=== PATIENT | female | born 1965 | race Caucasian/White ===

== ENCOUNTER 2017-03-06 14:18 | Emergency (ER) | payer OTHER ==
[2017-03-06 14:30] VITALS: TEMP 98.1
[2017-03-06] MEDS ORDERED: HYDROmorphone 1 MG/ML 1 ML SYRINGE IVP STA (15:26)
[2017-03-06 15:36] VITALS: RESP 18
[2017-03-06 15:59] LABS: Basophils % (A) 1 %; CH 32.7; Eosinophils % (A) 2 %; HCT 38.7 % (34.0-46.0); HDW 2.59; Luc # (Auto) 0.05; Luc % (Auto) 3; Lymphocytes # (A) 1.2 k/uL (1.0-4.8); Lymphocytes % (A) 68 %; MCH 32.6 pg (25.0-35.0); MCHC 33.7 g/dL (31.0-37.0); MCV 96.8 fL (80.0-100.0); Mean Platelet Volume 6.9; Monocytes # (A) 0.1 k/uL (0-1.0); Monocytes % (A) 4 %; Neutrophils # (A) 0.4 k/uL (1.3-7.7); Neutrophils % (A) 23 %; RDW 15.8 % (11.5-15.5); WBC (Perox) 1.78
[2017-03-06 16:05] LABS: ALT 25 U/L (9-52); AST 17 U/L (14-36); Alkaline Phosphatase 43 U/L (38-126); Amylase 38 U/L (30-110); Anion Gap 6 mmol/L; Blood Urea Nitrogen 16 mg/dL (7-17); Calcium 8.9 mg/dL (8.4-10.2); Carbon Dioxide 25 mmol/L (22-30); Chloride 110 mmol/L (98-107); Glucose 89 mg/dL (74-99); Non-African American GFR(MDRD) >60 (>60 ml/min/1.73 sqM); Sodium 141 mmol/L (137-145); Total Bilirubin 0.3 mg/dL (0.2-1.3); WBC 1.7 k/uL (3.8-10.6)
--- NOTE | 2017-03-06 16:15 | ED ---
Female Urogenital HPI <Todd Coates - Last Filed: 03/06/17 17:54> - General Source: patient Mode of arrival: wheelchair Limitations: no limitations <Shaniqua Evans - Last Filed: 03/06/17 23:33> - General Chief complaint: Vaginal Bleeding Stated complaint: vaginal bleeding Time Seen by Provider: 03/06/17 15:03 - History of Present Illness Initial comments: 51-year-old female patient presents to the emergency department today for evaluation of malaise, general body aches, and vaginal bleeding. Patient states that she has a history of myelodysplasia and leukemia. She states that she generally gets Neulasta injections every 2 weeks however recently moved to the area from [facility] and has been unable to get her shot for the last 6 weeks. She states that 2 days ago she began having lower abdominal cramping and pain and developed vaginal bleeding. The patient states that the vaginal bleeding has increased and seems to be very heavy. States she is soaking a pad every couple of hours. She denies any passage of clots with this. She is also having left lower pelvic pain that radiates to her back. She states that her last period was over a year ago. She states that she has had a ultrasound within the last couple of months that was ordered by a physician at the [facility]. She states that she had not heard back regarding the results of this so she assumed everything was fine. Patient states that she is also having general body pain. She states that her skin is tender to touch. She states that she generally starts to feel like this when her "counts" get low. Patient states that she also takes [place] chronically and has been out of this for the last 3 weeks. Patient states she was also have an appointment with Dr. Katz to get her Neulasta shots resumed however she missed that appointment. Patient denies any recent fever, chills, shortness breath, chest pain, nausea, vomiting , diarrhea, constipation, numbness, tingling, headache, visual changes, hematuria, dysuria, urinary frequency, urinary urgency, or any other complaints. (Shaniqua Evans) - Related Data Home Medications Medication Instructions Recorded Confirmed Ferrous Sulfate [Feosol] 325 mg PO DAILY 03/06/17 03/06/17 Hydrocodone/Acetaminophen [[place] 1 tab PO BID 03/06/17 03/06/17 7.5-325] Levothyroxine Sodium [Synthroid] 100 mcg PO DAILY 03/06/17 03/06/17 Pegfilgrastim [Neulasta] 6 mg SQ Q14D 03/06/17 03/06/17 Previous Rx's Medication Instructions Recorded Ferrous Sulfate [Feosol] 325 mg PO DAILY #15 tab 03/06/17 Hydrocodone/Acetaminophen [[place] 1 tab PO Q6HR PRN #12 tab 03/06/17 5-325] Allergies Allergy/AdvReac Type Severity Reaction Status Date / Time Penicillins Allergy Unknown Verified 03/06/17 14:43 Review of Systems ROS Other: All systems not noted in ROS Statement are negative. <Todd Coates - Last Filed: 03/06/17 17:54> ROS Other: All systems not noted in ROS Statement are negative. <Shaniqua Evans - Last Filed: 03/06/17 23:33> ROS Statement: Those systems with pertinent positive or pertinent negative responses have been documented in the HPI. Past Medical History Past Medical History: Cancer History of Any Multi-Drug Resistant Organisms: None Reported Additional Past Surgical History / Comment(s): ectopic , neck surgery Past Psychological History: No Psychological Hx Reported Smoking Status: Current every day smoker Past Alcohol Use History: Occasional Past Drug Use History: Marijuana <Shaniqua Evans - Last Filed: 03/06/17 23:33> General Exam Limitations: no limitations General appearance: alert, in no apparent distress, other (This is a well- developed, well-nourished adult female patient no acute distress. Vital signs upon presentation her temperature 98.1F, pulse 85, respirations 20, blood pressure 127/86, pulse ox 100% on room air.) Eye exam: Present: normal appearance, PERRL, EOMI. Absent: scleral icterus, conjunctival injection, periorbital swelling Respiratory exam: Present: normal lung sounds bilaterally. Absent: respiratory distress, wheezes, rales, rhonchi, stridor Cardiovascular Exam: Present: regular rate, normal rhythm, normal heart sounds. Absent: systolic murmur, diastolic murmur, rubs, gallop, clicks GI/Abdominal exam: Present: soft, tenderness (Left lower pelvic tenderness), normal bowel sounds. Absent: distended, guarding, rebound, rigid External exam: Present: normal external exam. Absent: erythema, swelling, lacerations Speculum exam: Present: vaginal bleeding (Moderate amount of dark red vaginal bleeding). Absent: normal speculum exam, erythema, laceration By manual exam: Present: adnexal tenderness (Left adnexal tenderness), uterine enlargement. Absent: normal by manual exam, cervical motion tenderness Neurological exam: Present: alert, oriented X3, CN II-XII intact Psychiatric exam: Present: normal affect, normal mood Skin exam: Present: warm, dry, intact, normal color. Absent: rash <Shaniqua Evans - Last Filed: 03/06/17 23:33> Course <Todd Coates - Last Filed: 03/06/17 17:54> <Shaniqua Evans - Last Filed: 03/06/17 23:33> Vital Signs 03/06/17 03/06/17 03/06/17 14:26 15:30 17:00 Temperature 98.1 F Pulse Rate 85 68 63 Respiratory 20 18 18 Rate Blood Pressure 127/86 131/68 145/90 O2 Sat by Pulse 100 100 99 Oximetry - Reevaluation(s) Reevaluation #1: 03/06/17 17:54 patient reevaluated by myself, Dr. Coates. Patient is resting comfortably in bed. Abdomen is soft with minimal suprapubic tenderness. Patient states she has not had her injection for 6 weeks and would like an injection of Neupogen or Neulasta. Patient states she has been bleeding almost one pad per hour. Since last menses was approximately a year ago. Vital signs are stable. Hemoglobin is stable. Case was discussed in detail with Dr. Escobedo who does recommend 300 mg of Neupogen. He states he can follow-up with the patient and also recommends [facility] follow-up. (Todd Coates) Medical Decision Making - Lab Data Result diagrams: 03/06/17 15:30 03/06/17 15:30 <Todd Coates - Last Filed: 03/06/17 17:54> - Lab Data Result diagrams: 03/06/17 15:30 03/06/17 15:30 - Radiology Data Radiology results: report reviewed, image reviewed <Shaniqua Evans - Last Filed: 03/06/17 23:33> - Medical Decision Making 51-year-old female patient presented for evaluation today for vaginal bleeding, general malaise, general body aches. Physical exam did reveal moderate amount of dark red vaginal bleeding however was otherwise unremarkable. Vital signs were within normal limits. Labs were reviewed initially and did show a white blood cell count of 1.7. Ultrasound did show a large uterine fibroid in the fundus and a thickened endometrium. Patient has not had her Neulasta injection for the last [address] Coates did speak to who suggested ordering a an injection of Neupogen 300 g, and to have her follow-up in the office. Patient will be discharged home at this time to follow up with [facility] as soon as possible. She is instructed to return here immediately if she develops any new, worsening, or concerning symptoms. She verbalized understanding and agreed with this plan. Note: 2300 03/06/2017 just prior to discharge patient did request having her thyroid levels checked. Did add on a TSH with reflex to T4. When reviewing the chart I did find the patient had an elevated TSH at 91.300 and a decreased free T4 at 0.37. Did call patient and inform her of these results. She is instructed to call tomorrow to get an appointment with her primary care physician. If she is unable to do so she is instructed to return here. She is instructed to return here immediately for any new, worsening, or concerning symptoms. She verbalizes understanding and agrees with this plan. (Shaniqua Evans) - Lab Data Lab Results 03/06/17 03/06/17 03/06/17 Range/Units 15:30 15:30 15:30 WBC 1.7 L* (3.8-10.6) k/uL RBC 4.00 (3.80-5.40) m/uL Hgb 13.0 (11.4-16.0) gm/dL Hct 38.7 (34.0-46.0) % MCV 96.8 (80.0-100.0) fL MCH 32.6 (25.0-35.0) pg MCHC 33.7 (31.0-37.0) g/dL RDW 15.8 H (11.5-15.5) % Plt Count 217 (150-450) k/uL Neutrophils % 23 % Lymphocytes % 68 % Monocytes % 4 % Eosinophils % 2 % Basophils % 1 % Neutrophils # 0.4 L (1.3-7.7) k/uL Lymphocytes # 1.2 (1.0-4.8) k/uL Monocytes # 0.1 (0-1.0) k/uL Eosinophils # 0.0 (0-0.7) k/uL Basophils # 0.0 (0-0.2) k/uL Sodium 141 (137-145) mmol/L Potassium 4.0 (3.5-5.1) mmol/L Chloride 110 H (98-107) mmol/L Carbon Dioxide 25 (22-30) mmol/L Anion Gap 6 mmol/L BUN 16 (7-17) mg/dL Creatinine 0.89 (0.52-1.04) mg/dL Est GFR (MDRD) Af Amer >60 (>60 ml/min/1.73 sqM) Est GFR (MDRD) Non-Af >60 (>60 ml/min/1.73 sqM) Glucose 89 (74-99) mg/dL Calcium 8.9 (8.4-10.2) mg/dL Total Bilirubin 0.3 (0.2-1.3) mg/dL AST 17 (14-36) U/L ALT 25 (9-52) U/L Alkaline Phosphatase 43 (38-126) U/L Total Protein 7.0 (6.3-8.2) g/dL Albumin 3.9 (3.5-5.0) g/dL Amylase 38 (30-110) U/L Lipase 76 (23-300) U/L TSH (0.465-4.680) mIU/L Free T4 (0.78-2.19) ng/dL Blood Type A Negative Blood Type Recheck CABO Indicated Antibody Screen NEGATIVE Spec Expiration Date 03/06/2017 03/06/17 Range/Units 15:30 WBC (3.8-10.6) k/uL RBC (3.80-5.40) m/uL Hgb (11.4-16.0) gm/dL Hct (34.0-46.0) % MCV (80.0-100.0) fL MCH (25.0-35.0) pg MCHC (31.0-37.0) g/dL RDW (11.5-15.5) % Plt Count (150-450) k/uL Neutrophils % % Lymphocytes % % Monocytes % % Eosinophils % % Basophils % % Neutrophils # (1.3-7.7) k/uL Lymphocytes # (1.0-4.8) k/uL Monocytes # (0-1.0) k/uL Eosinophils # (0-0.7) k/uL Basophils # (0-0.2) k/uL Sodium (137-145) mmol/L Potassium (3.5-5.1) mmol/L Chloride (98-107) mmol/L Carbon Dioxide (22-30) mmol/L Anion Gap mmol/L BUN (7-17) mg/dL Creatinine (0.52-1.04) mg/dL Est GFR (MDRD) Af Amer (>60 ml/min/1.73 sqM) Est GFR (MDRD) Non-Af (>60 ml/min/1.73 sqM) Glucose (74-99) mg/dL Calcium (8.4-10.2) mg/dL Total Bilirubin (0.2-1.3) mg/dL AST (14-36) U/L ALT (9-52) U/L Alkaline Phosphatase (38-126) U/L Total Protein (6.3-8.2) g/dL Albumin (3.5-5.0) g/dL Amylase (30-110) U/L Lipase (23-300) U/L TSH 91.300 H (0.465-4.680) mIU/L Free T4 0.37 L (0.78-2.19) ng/dL Blood Type Blood Type Recheck Antibody Screen Spec Expiration Date - Radiology Data Transvaginal ultrasound was obtained, the report was reviewed in its entirety, impression by Dr. Amador shows large posterior uterine fundal fibroid. Prominent endometrium without evidence of endometrial mass. No free fluid. No evidence of ovarian torsion. (Shaniqua Evans) Disposition <Todd Coates - Last Filed: 03/06/17 17:54> Time of Disposition: 18:25 <Shaniqua Evans - Last Filed: 03/06/17 23:33> Clinical Impression: Dysfunctional uterine bleeding, Uterine fibroid, Leukopenia Disposition: HOME SELF-CARE Condition: Good Instructions: Dysfunctional Uterine Bleeding (ED), Uterine Fibroids (ED), Neutropenia (ED) Additional Instructions: Making appointment with Dr. Katz. Follow up with [facility] as soon as possible. Follow up with your primary care physician for any further prescription refills. Return here immediately for any new, worsening, or concerning symptoms. Prescriptions: Ferrous Sulfate [Feosol] 325 mg PO DAILY #15 tab Hydrocodone/Acetaminophen [[place] 5-325] 1 tab PO Q6HR PRN #12 tab PRN Reason: Pain Referrals: None,Stated [Primary Care Provider] - 1-2 days
--- NOTE | 2017-03-06 16:57 | US ---
EXAMINATION TYPE: US transvaginal DATE OF EXAM: 03/06/2017 COMPARISON: NONE CLINICAL HISTORY: Pain. Pt states heavy vaginal bleeding that started today/ pt states LMP: 1 year ag o TECHNIQUE: Transvaginal (TV) EXAM MEASUREMENTS: Uterus: 12.7 x 7.8 x 6.3 cm Endometrial Stripe: 1.5 cm Right Ovary: 2.1 x 2.1 x 1.7 cm Left Ovary: 4.3 x 2.4 x 2.5 cm 1. Uterus: Anteverted Nabothian cysts in cervix, Large, probable fibroid posterior uterine fundus= 5.6 x 4.7 x 5.1 cm 2. Endometrium: Thickened for pt's symptoms and history 3. Right Ovary: wnl 4. Left Ovary: Cyst= 2.4 x 2.1 x 2.1 cm Spectral, color and waveform doppler imaging shows good arterial and venous flow within the ovaries ; there is no evidence for ovarian torsion. 5. Bilateral Adnexa: wnl 6. Posterior cul-de-sac: wnl IMPRESSION: Large posterior uterine fundal fibroid. Prominent endometrium without evidence of endomet rial mass. No free fluid. No evidence of ovarian torsion.
[2017-03-06 17:44] VITALS: BP 145/90; PULSE 63
[2017-03-06] MEDS ORDERED: FILGRASTIM-SNDZ 300 MCG/0.5 ML SYRINGE SQ STA (18:02)
== END 2017-03-06 18:38 | disposition home or self-care (01) ==
LOC: EC 14:18
DX: N93.8 Other specified abnormal uterine and vaginal bleeding (principal); D25.9 Leiomyoma of uterus, unspecified; D72.819 Decreased white blood cell count, unspecified; R53.81 Other malaise; M79.1 Myalgia; F17.200 Nicotine dependence, unspecified, uncomplicated; Z85.89 Personal history of malignant neoplasm of other organs and systems; Z85.6 Personal history of leukemia; Z79.899 Other long term (current) drug therapy; Z88.0 Allergy status to penicillin
CPT/HCPCS: 36415; 86900; 86901; 84439; 80053; 84443; 82150; 83690; 85025; 86850; 93975; 76830; 99284; 96374; 96372; J1170; Q5101

== ENCOUNTER 2017-06-01 14:02 | Observation (INO) | payer OTHER ==
[2017-06-01] MEDS ORDERED: ACETAMINOPHEN TAB 500 MG TAB PO STA (14:26)
[2017-06-01] MEDS ORDERED: SODIUM CHLORIDE 0.9% 1,000 ML IV STA (14:26)
--- NOTE | 2017-06-01 14:33 | ED ---
General Adult HPI - General Chief complaint: Recheck/Abnormal Lab/Rx Stated complaint: Weakness Time Seen by Provider: 06/01/17 14:17 Source: patient, RN notes reviewed Mode of arrival: wheelchair Limitations: no limitations - History of Present Illness Initial comments: 51-year-old female presents for evaluation of chills. Patient has history of neutropenia. She is currently on the last. She is not currently on chemotherapy, she does have history of uterine mass which has not been specified at this point. She is complaining of some dark smelly urine. She also complains of some mild lower abdominal pain. No vomiting. No cough. No URI symptoms. Patient feels feverish although she has not measured temperature at home. She also complains of bilateral lower extremity soreness and fatigue. - Related Data Home Medications Medication Instructions Recorded Confirmed Ferrous Sulfate [Feosol] 325 mg PO DAILY 03/06/17 06/01/17 Levothyroxine Sodium [Synthroid] 100 mcg PO DAILY 03/06/17 06/01/17 Fluconazole [Diflucan] 100 mg PO DAILY 06/01/17 06/01/17 Hydrocodone/Acetaminophen [[place] 1 tab PO BID PRN 06/01/17 06/01/17 5-325] Levofloxacin [Levaquin] 500 mg PO DAILY 06/01/17 06/01/17 Magnesium Oxide [Mag-Ox] 400 mg PO DAILY 06/01/17 06/01/17 Multivitamins, Thera [Multivitamin 1 tab PO DAILY 06/01/17 06/01/17 (formulary)] Allergies Allergy/AdvReac Type Severity Reaction Status Date / Time Penicillins Allergy Unknown Verified 06/01/17 14:32 Review of Systems ROS Statement: Those systems with pertinent positive or pertinent negative responses have been documented in the HPI. ROS Other: All systems not noted in ROS Statement are negative. Past Medical History Past Medical History: Cancer, Thyroid Disorder Additional Past Medical History / Comment(s): neutropenia History of Any Multi-Drug Resistant Organisms: None Reported Additional Past Surgical History / Comment(s): ectopic , neck surgery Past Psychological History: No Psychological Hx Reported Smoking Status: Current every day smoker Past Alcohol Use History: Occasional Past Drug Use History: None Reported General Exam Limitations: no limitations General appearance: alert, in no apparent distress Head exam: Present: atraumatic, normocephalic Eye exam: Present: normal appearance, PERRL ENT exam: Present: mucous membranes moist Neck exam: Present: normal inspection. Absent: tenderness, meningismus Respiratory exam: Present: normal lung sounds bilaterally, respiratory distress Cardiovascular Exam: Present: regular rate, normal rhythm GI/Abdominal exam: Present: soft, tenderness (Mild lower abdominal tenderness to palpation). Absent: distended Extremities exam: Present: normal inspection, normal capillary refill. Absent: pedal edema Neurological exam: Present: alert, oriented X3, CN II-XII intact Psychiatric exam: Present: normal affect, normal mood Skin exam: Present: warm, dry, intact. Absent: cyanosis, diaphoretic Course Vital Signs 06/01/17 14:04 Temperature 97.2 F L Pulse Rate 86 Respiratory 18 Rate Blood Pressure 146/81 O2 Sat by Pulse 100 Oximetry EKG Findings - EKG Comments: EKG Findings:: EKG shows normal sinus rhythm, ventricular rate 81, NC interval 156, castration 82, QTC 460, no signs of ischemia Medical Decision Making - Medical Decision Making 51-year-old female with history of neutropenia. Patient has subjective fever and chills as well as Jeffry's. Blood pressure and heart rate are stable. She is afebrile here. Chest x-ray negative for focal pneumonia. CBC reveals profound leukopenia, no differential available to assess for neutropenia. Rectal at the normal limits. Lactic acid is normal at 1.8. Influenza negative. Urinalysis is pending. Patient states she had an episode of this in the past. She was admitted for IV antibiotics. 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 She will be admitted for IV antibiotics including Levaquin and vancomycin. Blood cultures and urine cultures are pending. - Lab Data Result diagrams: 06/01/17 14:50 06/01/17 14:50 Lab Results 06/01/17 06/01/17 06/01/17 Range/Units 14:50 14:50 14:50 WBC 0.9 L* (3.8-10.6) k/uL RBC 3.99 (3.80-5.40) m/uL Hgb 13.6 (11.4-16.0) gm/dL Hct 37.9 (34.0-46.0) % MCV 94.9 (80.0-100.0) fL MCH 34.1 (25.0-35.0) pg MCHC 35.9 (31.0-37.0) g/dL RDW 14.4 (11.5-15.5) % Plt Count 252 (150-450) k/uL Differential Comment Sodium 141 (137-145) mmol/L Potassium 4.0 (3.5-5.1) mmol/L Chloride 102 (98-107) mmol/L Carbon Dioxide 23 (22-30) mmol/L Anion Gap 16 mmol/L BUN 11 (7-17) mg/dL Creatinine 0.80 (0.52-1.04) mg/dL Est GFR (MDRD) Af Amer >60 (>60 ml/min/1.73 sqM) Est GFR (MDRD) Non-Af >60 (>60 ml/min/1.73 sqM) Glucose 68 L (74-99) mg/dL Plasma Lactic Acid Denis 1.8 (0.7-2.0) mmol/L Calcium 9.9 (8.4-10.2) mg/dL Total Bilirubin 0.6 (0.2-1.3) mg/dL AST 20 (14-36) U/L ALT 27 (9-52) U/L Alkaline Phosphatase 120 (38-126) U/L Total Protein 8.4 H (6.3-8.2) g/dL Albumin 4.9 (3.5-5.0) g/dL Influenza Type A RNA (Not Detectd) Influenza Type B (PCR) (Not Detectd) 06/01/17 Range/Units 14:58 WBC (3.8-10.6) k/uL RBC (3.80-5.40) m/uL Hgb (11.4-16.0) gm/dL Hct (34.0-46.0) % MCV (80.0-100.0) fL MCH (25.0-35.0) pg MCHC (31.0-37.0) g/dL RDW (11.5-15.5) % Plt Count (150-450) k/uL Differential Comment Sodium (137-145) mmol/L Potassium (3.5-5.1) mmol/L Chloride (98-107) mmol/L Carbon Dioxide (22-30) mmol/L Anion Gap mmol/L BUN (7-17) mg/dL Creatinine (0.52-1.04) mg/dL Est GFR (MDRD) Af Amer (>60 ml/min/1.73 sqM) Est GFR (MDRD) Non-Af (>60 ml/min/1.73 sqM) Glucose (74-99) mg/dL Plasma Lactic Acid Denis (0.7-2.0) mmol/L Calcium (8.4-10.2) mg/dL Total Bilirubin (0.2-1.3) mg/dL AST (14-36) U/L ALT (9-52) U/L Alkaline Phosphatase (38-126) U/L Total Protein (6.3-8.2) g/dL Albumin (3.5-5.0) g/dL Influenza Type A RNA Not Detected (Not Detectd) Influenza Type B (PCR) Not Detected (Not Detectd) Disposition Clinical Impression: Febrile neutropenia Disposition: ADMITTED IP TO [facility] Condition: Stable Referrals: Hayley Harden MD [Primary Care Provider] - 1-2 days Decision to Admit Reason: Admit from EC Decision Date: 06/01/17 Decision Time: 16:23
[2017-06-01 15:11] LABS: ALT 27 U/L (9-52); AST 20 U/L (14-36); Albumin 4.9 g/dL (3.5-5.0); Alkaline Phosphatase 120 U/L (38-126); Anion Gap 16 mmol/L; Blood Urea Nitrogen 11 mg/dL (7-17); Calcium 9.9 mg/dL (8.4-10.2); Carbon Dioxide 23 mmol/L (22-30); Chloride 102 mmol/L (98-107); Glucose 68 mg/dL (74-99); HCT 37.9 % (34.0-46.0); HGB 13.6 gm/dL (11.4-16.0); MCH 34.1 pg (25.0-35.0); MCHC 35.9 g/dL (31.0-37.0); MCV 94.9 fL (80.0-100.0); Mean Platelet Volume 6.8; Platelet Count 252 k/uL (150-450); RBC 3.99 m/uL (3.80-5.40); RDW 14.4 % (11.5-15.5); Sodium 141 mmol/L (137-145); Total Bilirubin 0.6 mg/dL (0.2-1.3); Total Protein 8.4 g/dL (6.3-8.2)
[2017-06-01 15:17] LABS: WBC 0.9 k/uL (3.8-10.6)
--- NOTE | 2017-06-01 15:44 | XR ---
EXAMINATION TYPE: XR chest 2V DATE OF EXAM: 06/01/2017 COMPARISON: None INDICATION: Fever weakness neutropenia smoker TECHNIQUE: Frontal and lateral views of the chest are obtained. FINDINGS: The heart size is normal. The pulmonary vasculature is normal. The lungs are clear. Nipple shadows are evident. IMPRESSION: 1. No acute pulmonary process.
[2017-06-01] MEDS ORDERED: LEVOFLOXACIN 750MG-D5W PMX 750 MG in DEXTROSE/WATER 1 150ML.BAG IVPB STA (15:49)
[2017-06-01] MEDS ORDERED: VANCOMYCIN IV PER PHARMACY 1 EACH MISC MISCELLANE PRN (15:49)
[2017-06-01] MEDS ORDERED: VANCOMYCIN 1,250 MG in SODIUM CHLORIDE 0.9% 250 ML IVPB STA (15:56)
[2017-06-01] MEDS ORDERED: ACETAMINOPHEN TAB 325 MG TAB PO PRN (16:23)
[2017-06-01] MEDS ORDERED: NALOXONE 0.4 MG/ML 1 ML VIAL IV PRN (16:23)
[2017-06-01 17:11] LABS: Glucose,Whole Blood 92 mg/dL (75-99)
[2017-06-01 17:23] VITALS: BMI 20.6
--- NOTE | 2017-06-01 18:54 | P.HPIM ---
History of Present Illness 51-year-old pleasant female with known history of neutropenia possible myelodysplastic syndrome supposed to receive Neulasta last did not receive it because of insurance issues came in with complaints of diarrhea has been going on for sometime much worse since yesterday patient took levofloxacin yesterday because of her mucositis patient was on flucanazole for some time for the mucositis. Patient does have source on the tongue. Although patient was having diarrhea. Diarrhea has gotten much worse since levofloxacin and there was change in smell and consistently and see in color of her diarrhea. Patient this is highly suspicious for C. diff because of which levofloxacin will be held patient was given levofloxacin any are as well patient denied any cough runny nose patient denied any dysuria urease essentially within normal limits chest x-ray did not show any pneumonic process patient will be medically started on oral vancomycin patient is on IV vancomycin as empiric antibiotic for possibly of sepsis secondary to that fever chills patient also complaining of abdominal pain mostly in the epigastric area right upper quadrant area there is some right upper quadrant tenderness because of which I'm obtaining an ultrasound of the abdomen patient may end up needing a CAT scan of the abdomen if ultrasound is negative and if C. diff is negative Review of Systems REVIEW OF SYSTEMS: CONSTITUTIONAL: No fever, no malaise, no fatigue. HEENT: No recent visual problems or hearing problems. Denied any sore throat. CARDIOVASCULAR: No chest pain, orthopnea, PND, no palpitations, no syncope. PULMONARY: No shortness of breath, no cough, no hemoptysis. GASTROINTESTINAL: As mentioned in HPI NEUROLOGICAL: No headaches, no weakness, no numbness. HEMATOLOGICAL: Denies any bleeding or petechiae. GENITOURINARY: Denies any burning micturition, frequency, or urgency. MUSCULOSKELETAL/RHEUMATOLOGICAL: Denies any joint pain, swelling, or any muscle pain. ENDOCRINE: Denies any polyuria or polydipsia. The rest of the 14-point review of systems is negative. Past Medical History Past Medical History: Cancer, Thyroid Disorder Additional Past Medical History / Comment(s): neutropenia, hypothyroidism, myelodisplasia, anemia History of Any Multi-Drug Resistant Organisms: None Reported Additional Past Surgical History / Comment(s): ectopic , neck surgery Past Anesthesia/Blood Transfusion Reactions: No Reported Reaction Smoking Status: Current every day smoker - Past Family History Father Family Medical History: Cancer Medications and Allergies Home Medications Medication Instructions Recorded Confirmed Type Ferrous Sulfate [Feosol] 325 mg PO DAILY 03/06/17 06/01/17 History Levothyroxine Sodium [Synthroid] 100 mcg PO DAILY 03/06/17 06/01/17 History Fluconazole [Diflucan] 100 mg PO DAILY 06/01/17 06/01/17 History Hydrocodone/Acetaminophen [[place] 1 tab PO BID PRN 06/01/17 06/01/17 History 5-325] Levofloxacin [Levaquin] 500 mg PO DAILY 06/01/17 06/01/17 History Magnesium Oxide [Mag-Ox] 400 mg PO DAILY 06/01/17 06/01/17 History Multivitamins, Thera [Multivitamin 1 tab PO DAILY 06/01/17 06/01/17 History (formulary)] Allergies Allergy/AdvReac Type Severity Reaction Status Date / Time Penicillins Allergy Unknown Verified 06/01/17 14:32 Physical Exam Vitals: Vital Signs Temp Pulse Pulse Resp BP BP Pulse Ox 06/01/17 17:51 98.7 F 84 16 132/77 98 06/01/17 16:24 98.2 F 90 16 150/84 98 06/01/17 14:04 97.2 F L 86 18 146/81 100 Intake and Output 06/01/17 06/01/17 06/01/17 06:59 14:59 22:59 Other: Voiding Method Toilet Weight 65.317 kg 65.317 kg Patient Weight 06/02/17 06:59 Weight 65.317 kg PHYSICAL EXAMINATION: GENERAL: The patient is alert and oriented x3, not in any acute distress. Well developed, well nourished. HEENT: Pupils are round and equally reacting to light. EOMI. No scleral icterus. No conjunctival pallor. Normocephalic, atraumatic. No pharyngeal erythema. No thyromegaly. CARDIOVASCULAR: S1 and S2 present. No murmurs, rubs, or gallops. PULMONARY: Chest is clear to auscultation, no wheezing or crackles. ABDOMEN: Patient does have tenderness in the right upper quadrant some diffuse abdominal tenderness, I was unable to assess Way's sign. EXTREMITIES: No cyanosis, clubbing, or pedal edema. NEUROLOGICAL: Gross neurological examination did not reveal any focal deficits. SKIN: No rashes. Results CBC & Chem 7: 06/01/17 14:50 06/01/17 14:50 Labs: Abnormal Lab Results - Last 24 Hours (Table) 06/01/17 06/01/17 Range/Units 14:50 14:50 WBC 0.9 L* (3.8-10.6) k/uL Glucose 68 L (74-99) mg/dL Total Protein 8.4 H (6.3-8.2) g/dL Assessment and Plan Plan: -Diarrhea: There is a high possibility of clostridium distal colitis because of which other antibiotics will be discontinued except for oral vancomycin C. diff testing will be obtained and patient is on IV fluids at 100 mL/h which will be continued. -Right upper quadrant abdominal pain and diffuse abdominal tenderness: Probably secondary to either cholelithiasis, cholecystitis are mostly due to C. diff colitis. If C. diff is negative and if her ultrasound of the right upper quadrant is negative we have to obtain a CAT scan of the abdomen. -Neutropenia: Chronic and patient did not receive her Neulasta as does may require Neulasta and oncology was consulted from ER. -Hypothyroidism continue with levothyroxine -Elevated MCV probably due to myelodysplastic syndrome will obtain a B12 level patient may need B vitamin supplementation for her aphthous ulcerations of the tongue she does have mucositis
[2017-06-01] MEDS: HYDROcodone/APAP 5-325MG 1 EACH TAB PO PRN (19:49)
[2017-06-01] MEDS: FAMOTIDINE 20 MG TAB PO SCH (20:52)
[2017-06-01] MEDS: VANCOMYCIN ORAL SOLUTION 250 MG/5 ML BOTTLE PO SCH (20:53)
[2017-06-01 21:36] VITALS: RESP 18
[2017-06-02] MEDS: VANCOMYCIN ORAL SOLUTION 250 MG/5 ML BOTTLE PO SCH ×3 (00:33→11:16)
[2017-06-02 05:44] VITALS: BP 114/67; PULSE 69; TEMP 97.8
[2017-06-02] MEDS ORDERED: VANCOMYCIN 1,250 MG in SODIUM CHLORIDE 0.9% 250 ML IVPB SCH (06:00)
[2017-06-02] MEDS ORDERED: LEVOTHYROXINE 100 MCG TAB PO SCH (06:30)
--- NOTE | 2017-06-02 08:34 | US ---
EXAMINATION TYPE: US gallbladder DATE OF EXAM: 06/02/2017 COMPARISON: NONE CLINICAL HISTORY: possible cholelithiasis. Abdomen pain, diarrhea EXAM MEASUREMENTS: Liver Length: 17.4 cm Gallbladder Wall: 0.2 cm CBD: 0.4 cm Right Kidney: 10.2 x 4.7 x 4.4 cm Pancreas: visualized portions wnl, tail obscured by overlying midline bowel gas Liver: measures in upper limits of normal at 17.4cm, somewhat course echogenicity Gallbladder: wnl Evidence for sonographic Way's sign: yes CBD: visualized portions wnl, limited by overlying bowel gas Right Kidney: echogenic shadowing focus superior pole = 0.6cm Limited views of the pancreas are normal. Liver size is upper limits of normal. The gallbladder is unremarkable without evidence of cholelithiasis. Gallbladder wall measures 2 mm. T his common hepatic duct measures 4 mm. There is a sonographic Way's sign. There is a 6 mm, nonobstructing calculus in the upper pole of the right kidney. IMPRESSION: NONOBSTRUCTING RIGHT-SIDED NEPHROLITHIASIS.
[2017-06-02] MEDS: HYDROcodone/APAP 5-325MG 1 EACH TAB PO PRN (08:50)
[2017-06-02] MEDS ORDERED: MAGNESIUM OXIDE 400 MG TAB PO SCH (09:00)
[2017-06-02] MEDS ORDERED: FERROUS SULFATE 325 MG TAB PO SCH (09:00)
[2017-06-02] MEDS ORDERED: FLUCONAZOLE 100 MG TAB PO SCH (09:00)
[2017-06-02 09:48] LABS: HCT 33.3 % (34.0-46.0); HGB 11.3 gm/dL (11.4-16.0); MCHC 33.9 g/dL (31.0-37.0); MCV 94.4 fL (80.0-100.0); Mean Platelet Volume 6.7; Platelet Count 217 k/uL (150-450); RBC 3.53 m/uL (3.80-5.40); RDW 14.2 % (11.5-15.5)
[2017-06-02 09:53] LABS: WBC 1.1 k/uL (3.8-10.6)
[2017-06-02 10:07] LABS: Eosinophils # (M) 0.01 k/uL (0-0.7); Lymphocytes # (M) 0.92 k/uL (1.0-4.8); Monocytes # (M) 0.06 k/uL (0-1.0); Neutrophils # (M) 0.11 k/uL (1.3-7.7); Neutrophils % (M) 10 %; Nucleated Red Blood Cells 0 /100 WBC (0-0); Polychromasia Present; Total Cells Counted 100
[2017-06-02] MEDS ORDERED: RX INFO: IV CONTRAST WAS GIVEN 1 EACH MISC MISCELLANE PRN (11:06)
[2017-06-02] MEDS ORDERED: IOHEXOL 350 MG/ML 25 ML BOTTLE (ORAL USE) PO PRN (11:06)
[2017-06-02] MEDS: FAMOTIDINE 20 MG TAB PO SCH (11:07)
[2017-06-02] MEDS ORDERED: THIAMINE 100 MG TAB PO SCH (12:00)
[2017-06-02] MEDS ORDERED: MULTIVITAMINS, THERA 1 EACH TAB PO SCH (12:00)
--- NOTE | 2017-06-02 12:41 | P.DS ---
Providers Date of admission: 06/01/17 16:24 Attending physician: Edgardo Perez Consults: 06/01/17 16:24 Consult Physician Urgent Consulting Provider: Milo Katz Consult Reason/Comments: neutropenia Do you want consulting provider notified?: Yes Primary care physician: Hayley Dereck [facility] Course: Patient with the long-term history of neutropenia was admitted for possibility of C. diff colitis. Patient's C. diff was negative patient diarrhea actually improved but still has some diarrhea because of which we'll use Questran on as- needed basis for diarrhea and patient will be discharged today if her CAT scan of the abdomen is negative. Ultrasound did show some nephrolithiasis nonobstructive. Patient the doesn't have much of abdominal pain abdomen is soft and exam. PHYSICAL EXAMINATION: GENERAL: The patient is alert and oriented x3, not in any acute distress. Well developed, well nourished. HEENT: Pupils are round and equally reacting to light. EOMI. No scleral icterus. No conjunctival pallor. Normocephalic, atraumatic. No pharyngeal erythema. No thyromegaly. CARDIOVASCULAR: S1 and S2 present. No murmurs, rubs, or gallops. PULMONARY: Chest is clear to auscultation, no wheezing or crackles. ABDOMEN: Soft, nontender, nondistended, normoactive bowel sounds. No palpable organomegaly. MUSCULOSKELETAL: No joint swelling or deformity. EXTREMITIES: No cyanosis, clubbing, or pedal edema. NEUROLOGICAL: Gross neurological examination did not reveal any focal deficits. SKIN: No rashes. Assessment and Plan Plan: -Diarrhea: C. diff was ruled out and patient was started on Questran patient may have mucositis -Right upper quadrant abdominal pain and diffuse abdominal tenderness: Rule out cholelithiasis will obtain a CAT scan of the abdomen to rule out any intra- abdominal pathology if that is negative patient will be discharged today -Neutropenia: Chronic and patient did not receive her Neulasta as does may require Neulasta and oncology evaluated the patient -Hypothyroidism continue with levothyroxine -Elevated MCV probably due to myelodysplastic syndrome , B12 levels are essentially within normal limits. diagnosis of myelodysplastic syndrome is questionable Patient Condition at Discharge: Stable Plan - Discharge Summary Discharge Rx Participant: Yes New Discharge Prescriptions: New Cholestyramine (with Sugar) [Questran] 4 gm PO TID PRN #20 packet PRN Reason: Diarrhea Discontinued Levofloxacin [Levaquin] 500 mg PO DAILY No Action Levothyroxine Sodium [Synthroid] 100 mcg PO DAILY Ferrous Sulfate [Feosol] 325 mg PO DAILY Multivitamins, Thera [Multivitamin (formulary)] 1 tab PO DAILY Magnesium Oxide [Mag-Ox] 400 mg PO DAILY Fluconazole [Diflucan] 100 mg PO DAILY Hydrocodone/Acetaminophen [[place] 5-325] 1 tab PO BID PRN PRN Reason: Pain Discharge Medication List Ferrous Sulfate [Feosol] 325 mg PO DAILY 03/06/17 [History] Levothyroxine Sodium [Synthroid] 100 mcg PO DAILY 03/06/17 [History] Fluconazole [Diflucan] 100 mg PO DAILY 06/01/17 [History] Hydrocodone/Acetaminophen [[place] 5-325] 1 tab PO BID PRN 06/01/17 [History] Magnesium Oxide [Mag-Ox] 400 mg PO DAILY 06/01/17 [History] Multivitamins, Thera [Multivitamin (formulary)] 1 tab PO DAILY 06/01/17 [History ] Cholestyramine (with Sugar) [Questran] 4 gm PO TID PRN #20 packet 06/02/17 [Rx] Follow up Appointment(s)/Referral(s): Hayley Harden MD [Primary Care Provider] - 3 Days Discharge Disposition: HOME SELF-CARE
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
[2017-06-02] MEDS ORDERED: FILGRASTIM-SNDZ 480 MCG/0.8 ML SYRINGE SQ SCH (13:00)
--- NOTE | 2017-06-02 14:43 | CT ---
EXAMINATION TYPE: CT abdomen w con DATE OF EXAM: 06/02/2017 REFERENCE: NONE HISTORY: abdominal pain HISTORY: Stomach pain, neutropenia REFERENCE: NONE CT DLP: 337.8 mGy Automated exposure control for dose reduction was used. TECHNIQUE: Helical acquisition through the abdomen and pelvis was obtained following the oral ingesti on of with Oral Contrast and following intravenous administration of 100 mL of Omnipaque 300. The alecia a was reformatted in axial, coronal and sagittal projections. FINDINGS: There is minimal dependent atelectasis in the dependent portions of both lungs. There is n o pleural or pericardial fluid. The heart is not enlarged. Within the abdomen, the liver is prominent measuring 18.3 cm. This is largely due to a Kaela's lobe. The gallbladder is unremarkable. The spleen is normal. Both adrenal glands are normal. There is a 1 cm cyst in the mid polar region of the left kidney. This appears simply cystic. The righ t kidney is normal. The pancreas is unremarkable. There is no significant retroperitoneal or iliac adenopathy. Soft tissue mass within the pelvis likely represents the top of the uterus. There is a moderate stool burden. Visualized portions of the large and small bowel are otherwise norm al. There is degenerative disc disease and hypertrophic spondylosis at L5-S1. IMPRESSION: 1. MILD PROMINENCE OF THE LIVER, LIKELY DUE TO A KAELA'S LOBE. 2 SIMPLE APPEARING CYST IN THE MID POLAR REGION OF THE LEFT KIDNEY. 3. MODERATE STOOL LOBE. 4. DEGENERATIVE CHANGES WITHIN THE SPINE.
[2017-06-03] MEDS ORDERED: VANCOMYCIN TROUGH DUE 1 EACH MISC MISCELLANE ONE (05:00)
== END 2017-06-02 15:54 | disposition home or self-care (01) ==
LOC: EC 14:02 → 5ONC 16:24 → INTOOBSV 16:24 → UNDODISIN 06-02 15:54
PROVIDERS: ADMIT Internal Medicine; ATTEND Internal Medicine
DX: R19.7 Diarrhea, unspecified (principal); D70.9 Neutropenia, unspecified; E03.9 Hypothyroidism, unspecified; K12.30 Oral mucositis (ulcerative), unspecified; K12.0 Recurrent oral aphthae; F17.200 Nicotine dependence, unspecified, uncomplicated; N20.0 Calculus of kidney; D64.9 Anemia, unspecified; R10.11 Right upper quadrant pain; Z79.899 Other long term (current) drug therapy; Z88.0 Allergy status to penicillin; Z79.890 Hormone replacement therapy; Z86.19 Personal history of other infectious and parasitic diseases; Z98.890 Other specified postprocedural states
CPT/HCPCS: 96366 ×2; 96372; 96368; 96361; 96365; 99285; 36415; 93005; 80053; 82607; 83605; 84484; 85025 ×2; 87040; 87324; 87502; 71046; 76705; 74160; G0378 ×2; J3370 ×2; J1956; Q9967; Q5101

== ENCOUNTER → 2017-08-29 | Outpatient (CLI) | payer OTHER ==
[~2017-08-29] MED LIST: ONDANSETRON 16 MG in SODIUM CHLORIDE 0.9% 50 ML IVPB ONE; SODIUM CHLORIDE 0.9% 1,000 ML IV ONE; SODIUM CHLORIDE 0.9% 500 ML in EMPTY BAG 1 BAG IV PRN
[2017-08-29 16:01] VITALS: BP 105/59; PULSE 66; RESP 16; TEMP 97.7
[2017-08-29 17:53] LABS: ALT 15 U/L (9-52); AST 12 U/L (14-36); Albumin 3.1 g/dL (3.5-5.0); Alkaline Phosphatase 82 U/L (38-126); Anion Gap 12 mmol/L; Blood Urea Nitrogen 14 mg/dL (7-17); Calcium 8.6 mg/dL (8.4-10.2); Carbon Dioxide 24 mmol/L (22-30); Chloride 107 mmol/L (98-107); Glucose 111 mg/dL (74-99); Magnesium 1.6 mg/dL (1.6-2.3); Potassium 3.4 mmol/L (3.5-5.1); Sodium 143 mmol/L (137-145); Total Bilirubin 0.3 mg/dL (0.2-1.3); Total Protein 5.7 g/dL (6.3-8.2)
[2017-08-30 02:32] LABS: Iron Saturation 26.81 (12.00-45.00)
[2017-08-30 02:41] LABS: Folate, Serum 6.8 ng/mL
[2017-08-30 11:30] LABS: Immunoglobulin M 90.5 mg/dL (40.0-280.0)
== END | disposition home or self-care (01) ==
LOC: PROCWHC3 15:43
PROVIDERS: ATTEND Internal Medicine Hematology & Oncology
DX: D46.9 Myelodysplastic syndrome, unspecified (principal)
CPT/HCPCS: 80053; 82607; 82728; 82746; 83540; 83550; 83735; 82784 ×3; 96360; 96365; 36415; J2405 ×2

== ENCOUNTER → 2017-09-02 | Outpatient (CLI) | payer OTHER ==
--- NOTE | 2017-09-02 11:14 | XR ---
EXAMINATION TYPE: XR KUB DATE OF EXAM: 09/02/2017 COMPARISON: NONE HISTORY: Pain TECHNIQUE: One view abdominal series FINDINGS: The osseous structures are intact. The bowel gas pattern is nonspecific. Lung bases are clear. Hype rtrophic change of the spine noted. IMPRESSION: 1. Nonspecific abdomen.
--- NOTE | 2017-09-02 11:15 | XR ---
EXAMINATION TYPE: XR chest 2V DATE OF EXAM: 09/02/2017 COMPARISON: 06/01/2017 TECHNIQUE: PA and lateral views submitted. HISTORY: Neutropenia FINDINGS: The lungs are clear and there is no pneumothorax, pleural effusion, or focal pneumonia. Postsurgica l change overlying the cervical spine. Hypertrophic change of the spine. Hyperinflation suggests COPD . No overt failure. Arthropathy of the shoulders. IMPRESSION: 1. No acute process.
== END | disposition home or self-care (01) ==
LOC: RADXRMAIN 10:48
PROVIDERS: ATTEND Nurse Practitioner Adult Health
DX: D70.9 Neutropenia, unspecified (principal); D46.9 Myelodysplastic syndrome, unspecified; E06.9 Thyroiditis, unspecified; D25.9 Leiomyoma of uterus, unspecified
CPT/HCPCS: 71046; 74018

== ENCOUNTER 2018-04-23 09:58 | Inpatient (IN) | payer OTHER ==
[2018-04-23] MEDS ORDERED: SODIUM CHLORIDE 0.9% 500 ML 500 ML IV STA (10:26)
[2018-04-23] MEDS ORDERED: MORPHINE SULFATE 4 MG/ML SYRINGE IV STA (10:26)
[2018-04-23] MEDS ORDERED: ONDANSETRON 4 MG/2 ML VIAL IVP PRN ×2 (10:26→13:17)
[2018-04-23] MEDS ORDERED: SODIUM CHLORIDE 0.9% 1,000 ML IV STA ×2 (10:26)
[2018-04-23] MEDS ORDERED: ONDANSETRON 4 MG/2 ML VIAL IVP STA (10:26)
[2018-04-23] MEDS ORDERED: PANTOPRAZOLE 40 MG/10 ML VIAL IVP STA (10:26)
[2018-04-23] MEDS ORDERED: FIDAXOMICIN 200 MG TABLET PO ONE (10:26)
--- NOTE | 2018-04-23 10:34 | ED ---
Nausea/Vomiting/Diarrhea HPI - General Chief complaint: Nausea/Vomiting/Diarrhea Stated complaint: CDIFF Time Seen by Provider: 04/23/18 10:25 Source: patient, RN notes reviewed, old records reviewed Mode of arrival: ambulatory Limitations: no limitations - History of Present Illness Initial comments: This is a 52-year-old female the ER for evaluation she presents today for evaluation of known C. diff, patient treatment, persistent diarrhea weakness nausea vomiting. She also suffers from myelodysplastic syndrome. No current therapy. MD complaint: nausea, vomiting, diarrhea -: week(s) Description of Diarrhea: water Associated Abdominal Pain: Yes Location: diffuse Radiation: none Severity: mild Severity scale (1-10): 3 Quality: cramping, aching Consistency: constant Improves with: none Worsens with: none Context: recent antibiotic use, other (recent history of C Diff) Associated Symptoms: denies other symptoms - Related Data Home Medications Medication Instructions Recorded Confirmed Ferrous Sulfate [Feosol] 325 mg PO DAILY 03/06/17 04/23/18 Hydrocodone/Acetaminophen [[place] 1 tab PO TID 06/01/17 04/23/18 5-325] Magnesium Oxide [Mag-Ox] 400 mg PO DAILY 06/01/17 04/23/18 Multivitamins, Thera [Multivitamin 1 tab PO DAILY 06/01/17 04/23/18 (formulary)] Cholecalciferol [Vitamin D3] 5,000 unit PO DAILY 04/23/18 04/23/18 Ibuprofen [Motrin] 600 mg PO BID 04/23/18 04/23/18 L.acidoph,Paracasei, B.lactis 1 cap PO DAILY 04/23/18 04/23/18 [Probiotic] Levothyroxine Sodium [Synthroid] 150 mcg PO DAILY 04/23/18 04/23/18 Nystatin 100,000Unit/gm Cream 1 applic TOPICAL DAILY PRN 04/23/18 04/23/18 [Mycostatin Cream] Vancomycin HCl See Taper PO DIRECTED 04/23/18 04/23/18 Allergies Allergy/AdvReac Type Severity Reaction Status Date / Time amoxicillin Allergy Unknown Verified 04/23/18 10:50 banana Allergy Rash/Hives Verified 04/23/18 10:50 bee venom protein (honey bee) Allergy Anaphylaxis Verified 04/23/18 10:50 cephalexin [From Keflex] Allergy Unknown Verified 04/23/18 10:50 Penicillins Allergy Unknown Verified 04/23/18 10:50 Tetracyclines Allergy Unknown Verified 04/23/18 10:50 Review of Systems ROS Statement: Those systems with pertinent positive or pertinent negative responses have been documented in the HPI. ROS Other: All systems not noted in ROS Statement are negative. Past Medical History Past Medical History: Cancer, Thyroid Disorder Additional Past Medical History / Comment(s): neutropenia, hypothyroidism, myelodisplasia, anemia History of Any Multi-Drug Resistant Organisms: C-DIFF Additional Past Surgical History / Comment(s): ectopic , neck surgery, bone biopsy Past Anesthesia/Blood Transfusion Reactions: No Reported Reaction Past Psychological History: Anxiety, Depression Smoking Status: Current every day smoker Past Alcohol Use History: None Reported Past Drug Use History: None Reported - Past Family History Father Family Medical History: Cancer General Exam Limitations: no limitations General appearance: alert, in no apparent distress Head exam: Present: atraumatic, normocephalic, normal inspection Eye exam: Present: normal appearance, PERRL, EOMI. Absent: scleral icterus, conjunctival injection, periorbital swelling ENT exam: Present: normal exam, mucous membranes moist Neck exam: Present: normal inspection. Absent: tenderness, meningismus, lymphadenopathy Respiratory exam: Present: normal lung sounds bilaterally. Absent: respiratory distress, wheezes, rales, rhonchi, stridor Cardiovascular Exam: Present: regular rate, normal rhythm, normal heart sounds. Absent: systolic murmur, diastolic murmur, rubs, gallop, clicks GI/Abdominal exam: Present: soft, normal bowel sounds. Absent: distended, tenderness, guarding, rebound, rigid Extremities exam: Present: normal inspection, full ROM, normal capillary refill. Absent: tenderness, pedal edema, joint swelling, calf tenderness Back exam: Present: normal inspection Neurological exam: Present: alert, oriented X3, CN II-XII intact Psychiatric exam: Present: normal affect, normal mood Skin exam: Present: warm, dry, intact, normal color. Absent: rash Course Vital Signs 04/23/18 10:00 Temperature 97.6 F Pulse Rate 90 Respiratory 16 Rate Blood Pressure 114/68 O2 Sat by Pulse 100 Oximetry - Reevaluation(s) Reevaluation #1: 04/23/18 13:23 Medical records reviewed Reevaluation #2: 12/26/18 13:23 Patient states she currently does feel improved. Pain is controlled Medical Decision Making - Medical Decision Making 52-year-old female the ER with recurrent C. difficile infection, mild dysplastic syndrome. Patient be admitted for antibiotic treatment, monitoring of hydration status. - Lab Data Result diagrams: 04/23/18 11:25 04/23/18 11:25 Lab Results 04/23/18 04/23/18 04/23/18 Range/Units 11:25 11:25 11:25 WBC 1.5 L (3.8-10.6) k/uL RBC 4.13 (3.80-5.40) m/uL Hgb 12.4 (11.4-16.0) gm/dL Hct 36.4 (34.0-46.0) % MCV 88.1 (80.0-100.0) fL MCH 30.0 (25.0-35.0) pg MCHC 34.0 (31.0-37.0) g/dL RDW 14.7 (11.5-15.5) % Plt Count 291 (150-450) k/uL Neutrophils % (Manual) 32 % Lymphocytes % (Manual) 56 % Monocytes % (Manual) 3 % Eosinophils % (Manual) 6 % Basophils % (Manual) 3 % Neutrophils # (Manual) 0.48 L* (1.3-7.7) k/uL Lymphocytes # (Manual) 0.84 L (1.0-4.8) k/uL Monocytes # (Manual) 0.05 (0-1.0) k/uL Eosinophils # (Manual) 0.09 (0-0.7) k/uL Basophils # (Manual) 0.05 (0-0.2) k/uL Nucleated RBCs 0 (0-0) /100 WBC Sodium 141 (137-145) mmol/L Potassium 4.5 (3.5-5.1) mmol/L Chloride 109 H (98-107) mmol/L Carbon Dioxide 24 (22-30) mmol/L Anion Gap 8 mmol/L BUN 21 H (7-17) mg/dL Creatinine 0.76 (0.52-1.04) mg/dL Est GFR (CKD-EPI)AfAm >90 (>60 ml/min/1.73 sqM) Est GFR (CKD-EPI)NonAf >90 (>60 ml/min/1.73 sqM) Glucose 87 (74-99) mg/dL Plasma Lactic Acid Denis 1.0 (0.7-2.0) mmol/L Calcium 9.6 (8.4-10.2) mg/dL Phosphorus 4.2 (2.5-4.5) mg/dL Magnesium 1.8 (1.6-2.3) mg/dL Total Bilirubin 0.4 (0.2-1.3) mg/dL AST 104 H (14-36) U/L ALT 83 H (9-52) U/L Alkaline Phosphatase 129 H (38-126) U/L Total Protein 7.1 (6.3-8.2) g/dL Albumin 3.9 (3.5-5.0) g/dL Disposition Clinical Impression: Dehydration, Clostridium difficile infection, Gastroenteritis Disposition: ADMITTED IP TO THIS [facility] Condition: Good Is patient prescribed a controlled substance at d/c from ED?: No Referrals: [facility] [Primary Care Provider] - 1-2 days
[2018-04-23 11:54] LABS: HCT 36.4 % (34.0-46.0); HGB 12.4 gm/dL (11.4-16.0); MCV 88.1 fL (80.0-100.0); Mean Platelet Volume 6.4; Platelet Count 291 k/uL (150-450); RBC 4.13 m/uL (3.80-5.40); RDW 14.7 % (11.5-15.5); WBC 1.5 k/uL (3.8-10.6)
[2018-04-23 11:59] LABS: ALT 83 U/L (9-52); AST 104 U/L (14-36); Albumin 3.9 g/dL (3.5-5.0); Alkaline Phosphatase 129 U/L (38-126); Anion Gap 8 mmol/L; Blood Urea Nitrogen 21 mg/dL (7-17); Calcium 9.6 mg/dL (8.4-10.2); Carbon Dioxide 24 mmol/L (22-30); Chloride 109 mmol/L (98-107); Glucose 87 mg/dL (74-99); Magnesium 1.8 mg/dL (1.6-2.3); Phosphorus 4.2 mg/dL (2.5-4.5); Potassium 4.5 mmol/L (3.5-5.1); Sodium 141 mmol/L (137-145); Total Bilirubin 0.4 mg/dL (0.2-1.3); Total Protein 7.1 g/dL (6.3-8.2)
[2018-04-23 12:47] LABS: Basophils # (M) 0.05 k/uL (0-0.2); Eosinophils # (M) 0.09 k/uL (0-0.7); Lymphocytes # (M) 0.84 k/uL (1.0-4.8); Monocytes # (M) 0.05 k/uL (0-1.0); Neutrophils # (M) 0.48 k/uL (1.3-7.7); Neutrophils % (M) 32 %; Nucleated Red Blood Cells 0 /100 WBC (0-0); Total Cells Counted 100
[2018-04-23] MEDS ORDERED: DEXTROSE 5%-0.45% NACL 1,000 ML IV ONE (13:17)
[2018-04-23] MEDS ORDERED: NYSTATIN 100,000UNIT/GM CREAM 30 GM TUBE TOPICAL PRN (14:57)
[2018-04-23] MEDS: MORPHINE SULFATE 4 MG/ML SYRINGE IVP PRN ×2 (15:23→21:13)
[2018-04-23] MEDS ORDERED: SODIUM CHLORIDE 0.9% 1,000 ML IV ONE (17:07)
[2018-04-23] MEDS: FIDAXOMICIN 200 MG TABLET PO SCH (21:13)
[2018-04-23] MEDS: HYDROcodone/APAP 5-325MG 1 EACH TAB PO PRN (21:32)
--- NOTE | 2018-04-23 23:55 | P.HPIM ---
History of Present Illness H&P Date: 04/23/18 Chief Complaint: Chronic diarrhea and C. diff infection Patient is a 52-year-old female with a known history of hypothyroidism and myelodysplastic syndrome with history of bone marrow biopsy and C. diff infection since December 2017 came to ER with a diarrhea weakness and nausea vomiting. Patient was being treated with tapering dose of vancomycin by her primary care physician but patient is still having frequent diarrhea. Patient is also complaining of abdominal pain mainly in the upper abdomen. Associated is with nausea and vomiting. Patient is being treated with Neulasta and methotrexate. Currently oncologist is planning for chemotherapy as per patient. Patient also having history of anxiety and depression and also currently everyday smoker. Review of Systems Constitutional: Patient denies any fever or chills . No generalized weakness or weight loss. Abdomen: Patient does have nausea vomiting diarrhea and abdominal pain. Cardiovascular: Patient denies any chest pain or short of breath no palpitations. Respiratory: patient denied any cough is from production. No shortness of breath Neurologic: Patient denied any numbness or tingling headache. Musculoskeletal: Patient denies any complaints of joint swelling or deformity. Skin: Negative Psychiatric: Negative Endocrine: No heat or cold intolerance. No recent weight gain. Genitourinary: No dysuria or hematuria. All other 14 point ROS negative except the above Past Medical History Past Medical History: Cancer, Thyroid Disorder Additional Past Medical History / Comment(s): neutropenia, hypothyroidism, myelodisplasia, anemia History of Any Multi-Drug Resistant Organisms: C-DIFF Additional Past Surgical History / Comment(s): ectopic , neck surgery, bone biopsy Past Anesthesia/Blood Transfusion Reactions: No Reported Reaction Past Psychological History: Anxiety, Depression Smoking Status: Current every day smoker Past Alcohol Use History: None Reported Past Drug Use History: None Reported - Past Family History Father Family Medical History: Cancer Mother History Unknown: Yes Medications and Allergies Home Medications Medication Instructions Recorded Confirmed Type Ferrous Sulfate [Feosol] 325 mg PO DAILY 03/06/17 04/23/18 History Hydrocodone/Acetaminophen [[place] 1 tab PO TID 06/01/17 04/23/18 History 5-325] Magnesium Oxide [Mag-Ox] 400 mg PO DAILY 06/01/17 04/23/18 History Multivitamins, Thera [Multivitamin 1 tab PO DAILY 06/01/17 04/23/18 History (formulary)] Cholecalciferol [Vitamin D3] 5,000 unit PO DAILY 04/23/18 04/23/18 History Ibuprofen [Motrin] 600 mg PO BID 04/23/18 04/23/18 History L.acidoph,Paracasei, B.lactis 1 cap PO DAILY 04/23/18 04/23/18 History [Probiotic] Levothyroxine Sodium [Synthroid] 150 mcg PO DAILY 04/23/18 04/23/18 History Nystatin 100,000Unit/gm Cream 1 applic TOPICAL DAILY PRN 04/23/18 04/23/18 History [Mycostatin Cream] Vancomycin HCl See Taper PO DIRECTED 04/23/18 04/23/18 History Allergies Allergy/AdvReac Type Severity Reaction Status Date / Time amoxicillin Allergy Unknown Verified 04/23/18 10:50 banana Allergy Rash/Hives Verified 04/23/18 10:50 bee venom protein (honey bee) Allergy Anaphylaxis Verified 04/23/18 10:50 cephalexin [From Keflex] Allergy Unknown Verified 04/23/18 10:50 Penicillins Allergy Unknown Verified 04/23/18 10:50 Tetracyclines Allergy Unknown Verified 04/23/18 10:50 Physical Exam Vitals: Vital Signs Temp Pulse Resp BP Pulse Ox 04/23/18 13:30 98.0 F 77 18 92/58 100 04/23/18 10:00 97.6 F 90 16 114/68 100 Intake and Output 04/22/18 04/23/18 04/23/18 22:59 06:59 14:59 Other: Weight 61.235 kg PHYSICAL EXAMINATION: Patient is lying in the bed comfortably, no acute distress, awake alert and oriented.. HEENT: Normocephalic. Neck is supple. Pupils reactive. Nostrils clear. Oral cavity is moist. Ears reveal no drainage. Neck reveals no JVD, carotid bruits, or thyromegaly. CHEST EXAMINATION: Trachea is central. Symmetrical expansion. Lung conti clear to auscultation and percussion. CARDIAC: Normal S1, S2 with no gallops. No murmurs ABDOMEN: Soft. Mild to moderate abdominal tenderness. No guarding no rigidity. Bowel sounds normal. No organomegaly. No abdominal bruits. Extremities: reveal no edema. No clubbing or cyanosis Neurologically awake, alert, oriented x3 with well-coordinated movements. No focal deficits noted Skin: No rash or skin lesions. Psychiatric: Coperative. Nonsuicidal, anxious and emotional. Musculoskeletal: No joint swelling or deformity. Normal range of motion. Results CBC & Chem 7: 04/23/18 11:25 04/23/18 11:25 Labs: Abnormal Lab Results - Last 24 Hours (Table) 04/23/18 04/23/18 Range/Units 11:25 11:25 WBC 1.5 L (3.8-10.6) k/uL Neutrophils # (Manual) 0.48 L* (1.3-7.7) k/uL Lymphocytes # (Manual) 0.84 L (1.0-4.8) k/uL Chloride 109 H (98-107) mmol/L BUN 21 H (7-17) mg/dL AST 104 H (14-36) U/L ALT 83 H (9-52) U/L Alkaline Phosphatase 129 H (38-126) U/L Thrombosis Risk Factor Assmnt - DVT/VTE Prophylaxis DVT/VTE Prophylaxis: Pharmacologic Prophylaxis ordered Assessment and Plan Assessment: Recurrent C. diff infection and chronic diarrhea Myelodysplastic syndrome Neutropenia DVT prophylaxis Anxiety/depression Current every day smoker Plan: Patient will be continued on IV hydration and was started on deficit. Oncology and ID will be consulted. Symptomatic management for nausea and vomiting. Continue the pain management with IV Dilaudid. Will follow closely and further recommendations based on the clinical course. Prognosis is guarded. Time with Patient: Greater than 30
[2018-04-24] MEDS: LEVOTHYROXINE 75 MCG TAB PO SCH (05:50)
[2018-04-24] MEDS: HYDROcodone/APAP 5-325MG 1 EACH TAB PO PRN ×3 (05:51→22:37)
[2018-04-24] MEDS ORDERED: SODIUM CHLORIDE 0.9% 500 ML 500 ML IV ONE (06:46)
[2018-04-24 07:14] LABS: Basophils % (A) 1 %; Eosinophils # (A) 0.1 k/uL (0-0.7); Eosinophils % (A) 6 %; HCT 32.8 % (34.0-46.0); HGB 10.9 gm/dL (11.4-16.0); Lymphocytes # (A) 0.9 k/uL (1.0-4.8); Lymphocytes % (A) 59 %; MCH 30.1 pg (25.0-35.0); MCHC 33.3 g/dL (31.0-37.0); MCV 90.3 fL (80.0-100.0); Mean Platelet Volume 6.8; Monocytes % (A) 3 %; Neutrophils % (A) 27 %; Platelet Count 287 k/uL (150-450); RBC 3.63 m/uL (3.80-5.40); RDW 14.6 % (11.5-15.5)
[2018-04-24 07:16] LABS: Anion Gap 5 mmol/L; Blood Urea Nitrogen 11 mg/dL (7-17); Calcium 9.1 mg/dL (8.4-10.2); Carbon Dioxide 26 mmol/L (22-30); Chloride 108 mmol/L (98-107); Glucose 90 mg/dL (74-99); Potassium 4.4 mmol/L (3.5-5.1); Sodium 139 mmol/L (137-145)
[2018-04-24 07:24] LABS: WBC 1.4 k/uL (3.8-10.6)
[2018-04-24 07:25] LABS: Neutrophils # (A) 0.4 k/uL (1.3-7.7)
[2018-04-24] MEDS: MAGNESIUM OXIDE 400 MG TAB PO SCH (08:15)
[2018-04-24] MEDS: traMADol 50 MG TAB PO STA ×2 (08:15→08:19)
[2018-04-24] MEDS: CHOLECALCIFEROL 1,000 UNIT TAB PO SCH (08:15)
[2018-04-24] MEDS: FIDAXOMICIN 200 MG TABLET PO SCH ×2 (08:16→22:34)
[2018-04-24] MEDS: MORPHINE SULFATE 4 MG/ML SYRINGE IVP PRN ×3 (08:29→12:09)
[2018-04-24] MEDS ORDERED: PANTOPRAZOLE 40 MG/10 ML VIAL IVP SCH (09:00)
[2018-04-24] MEDS ORDERED: ENOXAPARIN 40 MG/0.4 ML SYRINGE SQ SCH (09:00)
[2018-04-24] MEDS: CHLORHEXIDINE GLUCONATE 15 ML CUP MUCOUS MEM SCH ×2 (12:04→22:35)
[2018-04-24] MEDS: MULTIVITAMINS, THERA 1 EACH TAB PO SCH (12:04)
[2018-04-24] MEDS: FILGRASTIM-SNDZ 480 MCG/0.8 ML SYRINGE SQ SCH (14:57)
--- NOTE | 2018-04-24 17:02 | XR ---
EXAMINATION TYPE: XR mandible complete DATE OF EXAM: 04/24/2018 COMPARISON: NONE HISTORY: Tooth pain TECHNIQUE: 5 views FINDINGS: Mandibular ring is intact. I see no fracture. Temporomandibular joints are intact. There is lucency around the lower molar on the right side consistent with significant periodontal disease. IMPRESSION: Significant periodontal disease on the right side no fracture.
[2018-04-24] MEDS: KETOROLAC 30 MG/ML 1 ML VIAL IVP PRN (20:29)
--- NOTE | 2018-04-24 23:20 | CONS ---
CONSULTATION DATE OF SERVICE: 04/24/2018. REASON FOR CONSULT: Recurrent C difficile colitis. HISTORY OF PRESENT ILLNESS: The patient is a 52-year-old female presenting to the ER with chief complaints of nausea, vomiting and diarrhea. The patient has a history of recurrent C difficile colitis and she has been suffering since December of 2017. She said she has been on multiple courses of vancomycin and other antibiotics to treat her diarrhea, however, she was not very clear about what the antibiotics were. The patient recently finished her last course of oral vancomycin about 6 days ago with recurrence of diarrhea over the last day or 2. The patient did have multiple loose stools. No blood or mucus in it. The patient states it stinks significantly. She has felt nauseated and vomiting. She is also complaining of crampy lower abdominal pain, mostly on the left side. The intensity is about 6 to 7 out of 10. No radiation. With these symptoms, the patient has been evaluated by the ER physician. On arrival to the ER the patient has been afebrile. She was noticed to have leukopenia with a white count of 1.5. Liver enzymes were mildly elevated. Stool for C diff colitis, the patient did not have any bowel movement since she presented to hospital. The patient has been admitted. Infectious Disease was consulted for further recommendations regarding antibiotic therapy. REVIEW OF SYSTEMS: Positive points have been mentioned in HPI. The rest of the systems have been negative. PAST MEDICAL HISTORY: Myelodysplasia, neutropenia, hypothyroidism, anemia, and had recurrent C difficile colitis, hypothyroidism, anxiety, depression. PAST SURGICAL HISTORY: Back surgery, bone biopsy, surgery for ectopic . SOCIAL HISTORY: Patient is a current everyday smoker. Denies any drinking or drug use. FAMILY HISTORY: Father history of cancer. ALLERGIES: AMOXICILLIN, CEPHALEXIN, TETRACYCLINE. MEDICATIONS: The patient is currently on: 1. [place]. 2. Peridex. 3. Vitamin D3. 4. Lovenox. 5. . 6. Synthroid. 7. Mag oxide. 8. Mycostatin cream. 9. Zofran. 10.Protonix. EXAMINATION: Blood pressure is 93/66, pulse 81, temperature 98.2, he is 97% on room air. GENERAL DESCRIPTION: A middle-aged female lying in bed in no distress. No tachypnea or accessory muscle of respiration use. HEENT: Pallor. No scleral icterus. Oral mucosa is moist with poor dentition. NECK: Trachea central. No thyromegaly. LUNGS: Unlabored breathing. Clear to auscultation anteriorly with crackles. HEART: S1, S2. Regular rate and rhythm. ABDOMEN: Soft, no tenderness. No guarding. No rigidity. No organomegaly. EXTREMITIES: No edema of the feet. SKIN: No rashes, no masses palpable. NEUROLOGIC: The patient is awake, alert, oriented x3. Mood and affect normal. LABS: Hemoglobin is 10.9, white count 1.4, BUN of 11, creatinine 0.71. Liver enzymes mildly elevated. DIAGNOSTIC IMPRESSION AND PLAN: 1. Patient admitted to the hospital with acute nausea, vomiting, diarrhea and abdominal pain. This patient did have a history of recurrent Clostridium difficile colitis. He just finished last course of oral vancomycin about 5 days ago for the recurrence of the C diff. More likely related to origination of . The patient has no antibiotic exposures in the recent past. 2. The patient with elevated liver enzymes. Will need to rule out chronic hepatitis C. PLAN: 1. We will obtain stool for Clostridium difficile to confirm the diagnosis. 2. Dificid 12 mg p.o. twice a day. 3. We will obtain hepatitis A, B and C serologies on the blood that has already been collected. 4. In view of the patient's recurrent C difficile colitis, she may be a candidate for a stool transplant, to which the patient would on discharge. Thank you for this consultation. Will follow this patient along with you. MMODL / IJN: [id number] /
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
--- NOTE | 2018-04-25 00:12 | P.PN ---
Subjective Progress Note Date: 04/24/18 Principal diagnosis: Diarrhea and C. diff infection Molar tooth pain Chronic neutropenia/myelodysplastic syndrome Patient is a 52-year-old female with a known history of hypothyroidism and myelodysplastic syndrome with history of bone marrow biopsy and C. diff infection since December 2017 came to ER with a diarrhea weakness and nausea vomiting. Patient was being treated with tapering dose of vancomycin by her primary care physician but patient is still having frequent diarrhea. Patient is also complaining of abdominal pain mainly in the upper abdomen. Associated is with nausea and vomiting. Patient is being treated with Neulasta and methotrexate. Currently oncologist is planning for chemotherapy as per patient. Patient also having history of anxiety and depression and also currently everyday smoker. 04/24/2018 Patient denied any diarrhea today. No bowel movement today. Otherwise patient is still complaining of right lower molar tooth pain and is requesting IV pain medications. No fever no chills. Oncology is following. WBC count is 1.3 today. No nausea vomiting. No headache or dizziness or lightheadedness. Current medications reviewed Objective - Vital Signs Vital signs: Vital Signs Temp 98.3 F 04/24/18 15:43 Pulse 83 04/24/18 15:43 Resp 20 04/24/18 15:43 BP 90/49 04/24/18 15:43 Pulse Ox 97 04/24/18 15:43 Intake & Output 04/24/18 04/24/18 04/25/18 06:59 18:59 06:59 Intake Total 462 Output Total 400 Balance 62 Weight 62.3 kg Intake: Oral 462 Output: Urine 400 Other: Voiding Method Toilet # Voids 4 1 - Exam PHYSICAL EXAMINATION: Patient is lying in the bed comfortably, no acute distress, awake alert and oriented.. HEENT: Normocephalic. Neck is supple. Pupils reactive. Nostrils clear. Oral cavity is moist. Right lower molar tooth this wiggling with minimal gum swelling. Ears reveal no drainage. Neck reveals no JVD, carotid bruits, or thyromegaly. CHEST EXAMINATION: Trachea is central. Symmetrical expansion. Lung conti clear to auscultation and percussion. CARDIAC: Normal S1, S2 with no gallops. No murmurs ABDOMEN: Soft. Epigastric tenderness. Bowel sounds normal. No organomegaly. No abdominal bruits. Extremities: reveal no edema. No clubbing or cyanosis Neurologically awake, alert, oriented x3 with well-coordinated movements. No focal deficits noted Skin: No rash or skin lesions. Psychiatric: Coperative. Anxious. Musculoskeletal: No joint swelling or deformity. Normal range of motion. - Labs CBC & Chem 7: 04/24/18 06:00 04/24/18 06:00 Labs: Abnormal Lab Results - Last 24 Hours (Table) 04/24/18 04/24/18 Range/Units 06:00 06:00 WBC 1.4 L* (3.8-10.6) k/uL RBC 3.63 L (3.80-5.40) m/uL Hgb 10.9 L (11.4-16.0) gm/dL Hct 32.8 L (34.0-46.0) % Neutrophils # 0.4 L* (1.3-7.7) k/uL Lymphocytes # 0.9 L (1.0-4.8) k/uL Chloride 108 H (98-107) mmol/L Assessment and Plan Assessment: Recurrent C. diff infection and chronic diarrhea Right lower molar tooth pain Myelodysplastic syndrome Chronic Neutropenia DVT prophylaxis Anxiety/depression Current every day smoker Plan: Patient will be continued on IV hydration and was started on deficit. Oncology and ID will be consulted. Symptomatic management for nausea and vomiting. Continue the pain management with IV Dilaudid. Will follow closely and further recommendations based on the clinical course. Prognosis is guarded. Time with Patient: Greater than 30
[2018-04-25 04:09] LABS: Hepatitis A Ab, Total Non-Reactive (Non-Reactive); Hepatitis C IgG Antibody Non-Reactive (Non-Reactive)
[2018-04-25] MEDS: LEVOTHYROXINE 75 MCG TAB PO SCH (06:13)
[2018-04-25] MEDS: PANTOPRAZOLE 40 MG TABLET PO SCH (06:13)
[2018-04-25] MEDS: KETOROLAC 30 MG/ML 1 ML VIAL IVP PRN ×3 (06:14→23:14)
[2018-04-25] MEDS: FIDAXOMICIN 200 MG TABLET PO SCH ×2 (08:19→20:15)
[2018-04-25] MEDS: FILGRASTIM-SNDZ 480 MCG/0.8 ML SYRINGE SQ SCH (08:19)
[2018-04-25] MEDS: CHLORHEXIDINE GLUCONATE 15 ML CUP MUCOUS MEM SCH ×2 (08:19→20:15)
[2018-04-25] MEDS: MAGNESIUM OXIDE 400 MG TAB PO SCH (08:20)
[2018-04-25] MEDS: CHOLECALCIFEROL 1,000 UNIT TAB PO SCH (08:20)
[2018-04-25] MEDS: MULTIVITAMINS, THERA 1 EACH TAB PO SCH (08:20)
--- NOTE | 2018-04-25 08:21 | CONS ---
CONSULTATION DATE OF CONSULTATION: 04/24/2018 CHIEF COMPLAINT: My tooth hurts. HISTORY OF PRESENT ILLNESS: The patient is a 52-year-old who is admitted for chronic diarrhea and C difficile infection. She states that the tooth has been loose and has become extremely tender. The patient has been admitted for treatment of her chronic diarrhea and C difficile infection. PAST MEDICAL HISTORY: Her past medical history is significant for hypothyroidism and myelodysplasia. She is currently undergoing treatment for C difficile which has been resistant to multiple drugs. PAST SURGICAL HISTORY: Her past surgical history is significant for a bone biopsy, ectopic , and neck surgery. SOCIAL HISTORY: Significant for smoking. She denies any alcohol use or drug abuse. FAMILY HISTORY: Significant for the father having cancer and unknown for the mom. MEDICATIONS: Her medications include [place] p.r.n., iron, magnesium oxide, vitamin D, Motrin, probiotics, levothyroxine, nystatin, and vancomycin. ALLERGIES: Her allergies include AMOXICILLIN. PHYSICAL EXAMINATION: The physical history exhibits the patient to be alert and oriented x3. Her vitals are stable. She is complaining of pain to the lower right jaw secondary to the loose tooth. Head and neck examination reveals no soft tissue swelling. No trauma. There is no swelling of the neck. There is no thyromegaly. Intraoral examination reveals tooth #32 to be very loose with associated erythema with minimal swelling. Her labs exhibit platelets to be within 291 and her white count to be 1.5. ASSESSMENT: 1. Severe periodontitis of tooth #32 with associated chronic infection. 2. Clostridium difficile infection with chronic diarrhea. 3. Myelodysplastic syndrome. PLAN: The patient will have tooth #32 extracted in the OR setting with local and IV sedation. MMODL / IJN: [id number] /
[2018-04-25 11:09] LABS: Basophils % (A) 1 %; Eosinophils # (A) 0.1 k/uL (0-0.7); Eosinophils % (A) 4 %; HCT 34.1 % (34.0-46.0); HGB 11.4 gm/dL (11.4-16.0); Lymphocytes # (A) 0.6 k/uL (1.0-4.8); Lymphocytes % (A) 29 %; MCH 29.6 pg (25.0-35.0); MCHC 33.4 g/dL (31.0-37.0); MCV 88.8 fL (80.0-100.0); Mean Platelet Volume 6.3; Monocytes % (A) 2 %; Neutrophils # (A) 1.4 k/uL (1.3-7.7); Neutrophils % (A) 63 %; Platelet Count 259 k/uL (150-450); RBC 3.84 m/uL (3.80-5.40); RDW 14.4 % (11.5-15.5); WBC 2.2 k/uL (3.8-10.6)
--- NOTE | 2018-04-25 13:46 | P.PN ---
Subjective Progress Note Date: 04/25/18 Principal diagnosis: T-cell lymphoma, chronic neutropenia Pt seen in f/u. She is happy to ba having her tooth pulled. She passed gas. Denies fever or pain. Objective - Vital Signs Vital signs: Vital Signs Temp 98.1 F 04/25/18 11:18 Pulse 83 04/25/18 11:18 Resp 18 04/25/18 11:18 BP 105/69 04/25/18 11:18 Pulse Ox 98 04/25/18 11:18 Intake & Output 04/24/18 04/25/18 04/25/18 18:59 06:59 18:59 Intake Total 462 800 Output Total 400 Balance 62 800 Weight 63 kg Intake: Oral 462 800 Output: Urine 400 Other: Voiding Method Toilet Toilet # Voids 1 3 1 - Constitutional General appearance: Present: cooperative, no acute distress, thin - EENT Eyes: Present: anicteric sclerae, EOMI, poor dentition ENT: Present: hearing grossly normal - Respiratory Respiratory: bilateral: CTA - Cardiovascular Rhythm: regular Heart sounds: normal: S1, S2 Abnormal Heart Sounds: Absent: systolic murmur, diastolic murmur, rub, S3 Gallop , S4 Gallop, click, other - Peripheral edema leg Peripheral Edema: bilateral: None - Gastrointestinal General gastrointestinal: Present: normal bowel sounds, soft. Absent: absent bowel sounds, decreased bowel sounds, distended, hepatomegaly, hyperactive bowel sounds, organomegaly, rigid, scaphoid, splenomegaly, tenderness, umbilical hernia, ventral hernia - Integumentary Integumentary: Present: normal - Neurologic Neurologic: Present: CNII-XII intact - Musculoskeletal Musculoskeletal: Present: strength equal bilaterally - Psychiatric Psychiatric: Present: A&O x's 3, appropriate affect, intact judgment & insight - Labs CBC & Chem 7: 04/25/18 10:39 04/24/18 06:00 Labs: Abnormal Lab Results - Last 24 Hours (Table) 04/25/18 Range/Units 10:39 WBC 2.2 L (3.8-10.6) k/uL Lymphocytes # 0.6 L (1.0-4.8) k/uL Assessment and Plan (1) Neutropenia Narrative/Plan: Pt is on scheduled GCSF injections in the office. She was due so, she is being supplemented while inpatient. WBC/ANC reviewed today. Cont GCSF daily while inpatient. CBC with diff daily Current Visit: Yes Status: Chronic Priority: Medium Code(s): D70.9 - NEUTROPENIA, UNSPECIFIED SNOMED Code(s): 148868050 (2) T-cell lymphoma Narrative/Plan: Pt is due to start an oral cytoxan regimen. She will follow up on this in the outpatient setting. Current Visit: Yes Status: Chronic Priority: Medium Code(s): C85.90 - NON- HODGKIN LYMPHOMA, UNSPECIFIED, UNSPECIFIED SITE SNOMED Code(s): 323228278
[2018-04-25] MEDS ORDERED: IV FLUID CONTINUATION 1,000 ML IV ONE ×2 (14:40→15:46)
[2018-04-25] MEDS ORDERED: PROPOFOL 10 MG/ML 20 ML VIAL IV ONE (15:30)
[2018-04-25] MEDS ORDERED: HYDROmorphone 1 MG/ML 1 ML SYRINGE IVP ONE (15:52)
[2018-04-25] MEDS: HYDROcodone/APAP 5-325MG 1 EACH TAB PO PRN (16:28)
--- NOTE | 2018-04-25 22:48 | PN ---
PROGRESS NOTE DATE OF SERVICE: 04/25/2018. REASON FOR FOLLOWUP: Recurrent C difficile colitis. INTERVAL HISTORY: The patient is currently afebrile. She is feeling better. Breathing comfortably. No further nausea or vomiting. Abdominal pain has improved. Did not have any bowel movement. PHYSICAL EXAMINATION: Blood pressure 131/85 with a pulse of 63, temperature 97.3, 100% on room air. GENERAL DESCRIPTION: A middle-aged female lying in bed in no distress. RESPIRATORY SYSTEM: Unlabored breathing. Clear to auscultation anteriorly. HEART: S1, S2. Regular rate and rhythm. ABDOMEN: Soft, no tenderness. LABS: Hemoglobin 11.4, white count 2.2. DIAGNOSTIC IMPRESSION AND PLAN: Patient with a history of recurrent C difficile colitis, recently finished course of oral vanco. The patient seemed to be doing well on oral. Finish 10-day course of therapy. Continue supportive care. MMODL / IJN: [id number] /
[2018-04-26] MEDS: HYDROcodone/APAP 5-325MG 1 EACH TAB PO PRN ×3 (02:10→23:08)
[2018-04-26] MEDS: PANTOPRAZOLE 40 MG TABLET PO SCH (05:55)
[2018-04-26] MEDS: LEVOTHYROXINE 75 MCG TAB PO SCH (05:56)
[2018-04-26 06:50] LABS: Basophils % (A) 1 %; Eosinophils # (A) 0.1 k/uL (0-0.7); Eosinophils % (A) 4 %; HCT 34.5 % (34.0-46.0); HGB 11.9 gm/dL (11.4-16.0); Lymphocytes # (A) 0.7 k/uL (1.0-4.8); Lymphocytes % (A) 28 %; MCH 30.2 pg (25.0-35.0); MCHC 34.4 g/dL (31.0-37.0); Mean Platelet Volume 6.6; Monocytes # (A) 0.1 k/uL (0-1.0); Monocytes % (A) 2 %; Neutrophils # (A) 1.6 k/uL (1.3-7.7); Neutrophils % (A) 63 %; Platelet Count 244 k/uL (150-450); RBC 3.92 m/uL (3.80-5.40); RDW 14.3 % (11.5-15.5); WBC 2.5 k/uL (3.8-10.6)
[2018-04-26] MEDS: CHLORHEXIDINE GLUCONATE 15 ML CUP MUCOUS MEM SCH ×2 (08:43→20:25)
[2018-04-26] MEDS: CHOLECALCIFEROL 1,000 UNIT TAB PO SCH (08:44)
[2018-04-26] MEDS: MULTIVITAMINS, THERA 1 EACH TAB PO SCH (08:45)
[2018-04-26] MEDS: ENOXAPARIN 40 MG/0.4 ML SYRINGE SQ SCH (08:45)
[2018-04-26] MEDS: MAGNESIUM OXIDE 400 MG TAB PO SCH (08:46)
[2018-04-26] MEDS: FIDAXOMICIN 200 MG TABLET PO SCH ×2 (08:46→20:25)
[2018-04-26] MEDS: FILGRASTIM-SNDZ 480 MCG/0.8 ML SYRINGE SQ SCH (09:01)
[2018-04-26 16:35] LABS: ALT 97 U/L (9-52); AST 95 U/L (14-36); Albumin 3.4 g/dL (3.5-5.0); Alkaline Phosphatase 209 U/L (38-126); Anion Gap 7 mmol/L; Blood Urea Nitrogen 19 mg/dL (7-17); Calcium 9.1 mg/dL (8.4-10.2); Carbon Dioxide 24 mmol/L (22-30); Chloride 109 mmol/L (98-107); Glucose 120 mg/dL (74-99); Potassium 3.9 mmol/L (3.5-5.1); Sodium 140 mmol/L (137-145); Total Bilirubin 0.4 mg/dL (0.2-1.3); Total Protein 6.2 g/dL (6.3-8.2)
[2018-04-27] MEDS: LEVOTHYROXINE 75 MCG TAB PO SCH (06:01)
[2018-04-27] MEDS: PANTOPRAZOLE 40 MG TABLET PO SCH (06:01)
[2018-04-27 06:39] LABS: Basophils % (A) 1 %; Eosinophils # (A) 0.1 k/uL (0-0.7); Eosinophils % (A) 2 %; HCT 34.5 % (34.0-46.0); HGB 11.6 gm/dL (11.4-16.0); Lymphocytes # (A) 0.7 k/uL (1.0-4.8); Lymphocytes % (A) 25 %; MCHC 33.7 g/dL (31.0-37.0); MCV 88.8 fL (80.0-100.0); Mean Platelet Volume 6.6; Monocytes # (A) 0.1 k/uL (0-1.0); Monocytes % (A) 3 %; Neutrophils # (A) 1.8 k/uL (1.3-7.7); Neutrophils % (A) 68 %; Platelet Count 251 k/uL (150-450); RBC 3.88 m/uL (3.80-5.40); RDW 14.6 % (11.5-15.5); WBC 2.6 k/uL (3.8-10.6)
[2018-04-27] MEDS: HYDROcodone/APAP 5-325MG 1 EACH TAB PO PRN ×3 (08:55→23:25)
[2018-04-27] MEDS: MULTIVITAMINS, THERA 1 EACH TAB PO SCH (08:55)
[2018-04-27] MEDS: MAGNESIUM OXIDE 400 MG TAB PO SCH (08:55)
[2018-04-27] MEDS: ENOXAPARIN 40 MG/0.4 ML SYRINGE SQ SCH (08:56)
[2018-04-27] MEDS: FILGRASTIM-SNDZ 480 MCG/0.8 ML SYRINGE SQ SCH (08:56)
[2018-04-27] MEDS: CHOLECALCIFEROL 1,000 UNIT TAB PO SCH (08:56)
[2018-04-27] MEDS: FIDAXOMICIN 200 MG TABLET PO SCH ×2 (09:50→20:59)
[2018-04-27] MEDS: CHLORHEXIDINE GLUCONATE 15 ML CUP MUCOUS MEM SCH ×2 (09:50→20:59)
--- NOTE | 2018-04-27 13:55 | P.PN ---
Subjective Progress Note Date: 04/25/18 Principal diagnosis: Diarrhea and C. diff infection Molar tooth pain Chronic neutropenia/myelodysplastic syndrome Patient is a 52-year-old female with a known history of hypothyroidism and myelodysplastic syndrome with history of bone marrow biopsy and C. diff infection since December 2017 came to ER with a diarrhea weakness and nausea vomiting. Patient was being treated with tapering dose of vancomycin by her primary care physician but patient is still having frequent diarrhea. Patient is also complaining of abdominal pain mainly in the upper abdomen. Associated is with nausea and vomiting. Patient is being treated with Neulasta and methotrexate. Currently oncologist is planning for chemotherapy as per patient. Patient also having history of anxiety and depression and also currently everyday smoker. 04/24/2018 Patient denied any diarrhea today. No bowel movement today. Otherwise patient is still complaining of right lower molar tooth pain and is requesting IV pain medications. No fever no chills. Oncology is following. WBC count is 1.3 today. No nausea vomiting. No headache or dizziness or lightheadedness. 04/25/2018 Patient denied any diarrhea. Patient went for tooth extraction after which patient states that she feels much better. No chest pain or shortness of breath. WBC count is improving. Patient is being continued on deficit for recurrent C. diff infection. ID and oncology is following. Current medications reviewed Objective - Vital Signs Vital signs: Vital Signs Temp 97.3 F L 04/25/18 16:00 Pulse 71 04/25/18 16:05 Resp 16 04/25/18 16:05 BP 127/69 04/25/18 16:05 Pulse Ox 100 04/25/18 16:05 Intake & Output 04/25/18 04/25/18 04/26/18 06:59 18:59 06:59 Intake Total 800 50 Output Total 375 Balance 800 -325 Weight 63 kg Intake: IV 50 Oral 800 Output: Urine 375 Other: Voiding Method Toilet Toilet # Voids 3 1 - Exam PHYSICAL EXAMINATION: Patient is lying in the bed comfortably, no acute distress, awake alert and oriented.. HEENT: Normocephalic. Neck is supple. Pupils reactive. Nostrils clear. Oral cavity is moist. Ears reveal no drainage. Neck reveals no JVD, carotid bruits, or thyromegaly. CHEST EXAMINATION: Trachea is central. Symmetrical expansion. Lung conti clear to auscultation and percussion. CARDIAC: Normal S1, S2 with no gallops. No murmurs ABDOMEN: Soft. Epigastric tenderness. Bowel sounds normal. No organomegaly. No abdominal bruits. Extremities: reveal no edema. No clubbing or cyanosis Neurologically awake, alert, oriented x3 with well-coordinated movements. No focal deficits noted Skin: No rash or skin lesions. Psychiatric: Coperative. Anxious. Musculoskeletal: No joint swelling or deformity. Normal range of motion. - Labs CBC & Chem 7: 04/27/18 05:53 04/26/18 15:43 Labs: Abnormal Lab Results - Last 24 Hours (Table) 04/25/18 Range/Units 10:39 WBC 2.2 L (3.8-10.6) k/uL Lymphocytes # 0.6 L (1.0-4.8) k/uL Assessment and Plan Assessment: Recurrent C. diff infection and chronic diarrhea Right lower molar tooth pain. Status post extraction. Myelodysplastic syndrome Chronic Neutropenia DVT prophylaxis Anxiety/depression Current every day smoker Plan: Patient will be continued on IV hydration and was started on deficit. Oncology and ID will be consulted. Symptomatic management for nausea and vomiting. Continue the pain management with IV Dilaudid. Will follow closely and further recommendations based on the clinical course. Prognosis is guarded. Time with Patient: Greater than 30
--- NOTE | 2018-04-27 13:57 | P.PN ---
Subjective Progress Note Date: 04/26/18 Principal diagnosis: Diarrhea and C. diff infection Molar tooth pain Chronic neutropenia/myelodysplastic syndrome Patient is a 52-year-old female with a known history of hypothyroidism and myelodysplastic syndrome with history of bone marrow biopsy and C. diff infection since December 2017 came to ER with a diarrhea weakness and nausea vomiting. Patient was being treated with tapering dose of vancomycin by her primary care physician but patient is still having frequent diarrhea. Patient is also complaining of abdominal pain mainly in the upper abdomen. Associated is with nausea and vomiting. Patient is being treated with Neulasta and methotrexate. Currently oncologist is planning for chemotherapy as per patient. Patient also having history of anxiety and depression and also currently everyday smoker. 04/24/2018 Patient denied any diarrhea today. No bowel movement today. Otherwise patient is still complaining of right lower molar tooth pain and is requesting IV pain medications. No fever no chills. Oncology is following. WBC count is 1.3 today. No nausea vomiting. No headache or dizziness or lightheadedness. 04/25/2018 Patient denied any diarrhea. Patient went for tooth extraction after which patient states that she feels much better. No chest pain or shortness of breath. WBC count is improving. Patient is being continued on deficit for recurrent C. diff infection. ID and oncology is following. 04/26/2018 No diarrhea today. No fever no chills. No chest pain or shortness of breath. Neutropenia is much improved with WBC count 2.5 today. Awaiting deficit to be approved by insurance company. Otherwise and anticipate discharge in next 24- 48 hours. Current medications reviewed Objective - Vital Signs Vital signs: Vital Signs Temp 97.9 F 04/26/18 20:00 Pulse 71 04/26/18 20:00 Resp 18 04/26/18 20:00 BP 101/68 04/26/18 20:00 Pulse Ox 99 04/26/18 20:00 Intake & Output 04/26/18 04/26/18 04/27/18 06:59 18:59 06:59 Intake Total 480 920 Output Total 400 Balance 480 520 Weight 63 kg Intake: Oral 480 920 Output: Urine 400 Other: Voiding Method Toilet Toilet Toilet # Voids 1 1 - Exam PHYSICAL EXAMINATION: Patient is lying in the bed comfortably, no acute distress, awake alert and oriented.. HEENT: Normocephalic. Neck is supple. Pupils reactive. Nostrils clear. Oral cavity is moist. Ears reveal no drainage. Neck reveals no JVD, carotid bruits, or thyromegaly. CHEST EXAMINATION: Trachea is central. Symmetrical expansion. Lung conti clear to auscultation and percussion. CARDIAC: Normal S1, S2 with no gallops. No murmurs ABDOMEN: Soft. Epigastric tenderness. Bowel sounds normal. No organomegaly. No abdominal bruits. Extremities: reveal no edema. No clubbing or cyanosis Neurologically awake, alert, oriented x3 with well-coordinated movements. No focal deficits noted Skin: No rash or skin lesions. Psychiatric: Coperative. Anxious. Musculoskeletal: No joint swelling or deformity. Normal range of motion. - Labs CBC & Chem 7: 04/27/18 05:53 04/26/18 15:43 Labs: Abnormal Lab Results - Last 24 Hours (Table) 04/26/18 04/26/18 Range/Units 05:55 15:43 WBC 2.5 L (3.8-10.6) k/uL Lymphocytes # 0.7 L (1.0-4.8) k/uL Chloride 109 H (98-107) mmol/L BUN 19 H (7-17) mg/dL Glucose 120 H (74-99) mg/dL AST 95 H (14-36) U/L ALT 97 H (9-52) U/L Alkaline Phosphatase 209 H (38-126) U/L Total Protein 6.2 L (6.3-8.2) g/dL Albumin 3.4 L (3.5-5.0) g/dL Assessment and Plan Assessment: Recurrent C. diff infection and chronic diarrhea. No diarrhea today. Right lower molar tooth pain. Status post extraction. Resolving now. Myelodysplastic syndrome on oncology follow-up. Chronic Neutropenia DVT prophylaxis Anxiety/depression Current every day smoker Plan: Patient will be continued on deficit. diarrhea has resolved. Oncology a is following. d. Symptomatic management for nausea and vomiting. Continue the pain management with oral [place].. Will follow closely and further recommendations based on the clinical course. Prognosis is guarded.
--- NOTE | 2018-04-27 14:43 | P.PN ---
Subjective Progress Note Date: 04/27/18 Principal diagnosis: C-Diff, Neutropenia Neutrophils and CBC is stable, afebrile, no diarrhea and tooth feels better She is feeling great. Objective - Vital Signs Vital signs: Vital Signs Temp 98.0 F 04/27/18 09:29 Pulse 90 04/27/18 12:00 Resp 16 04/27/18 12:00 BP 96/71 04/27/18 12:00 Pulse Ox 98 04/27/18 12:00 Intake & Output 04/26/18 04/27/18 04/27/18 18:59 06:59 18:59 Intake Total 920 960 Output Total 400 300 Balance 520 660 Weight 62.2 kg Intake: Oral 920 960 Output: Urine 400 300 Other: Voiding Method Toilet Toilet Toilet # Voids 1 2 1 # Bowel Movements 1 - Exam Constitutional General appearance: cooperative, no acute distress - EENT Eyes: EOMI, poor dentition ENT: NA/AT, pharyngeal erythema, thrush - Neck Neck: normal ROM - Respiratory Respiratory: bilateral: CTA (no increased effort) - Cardiovascular Rhythm: regular Heart sounds: normal: S1, S2 - Gastrointestinal General gastrointestinal: normal bowel sounds, soft, tenderness - Integumentary Integumentary: pale - Neurologic Neurologic: CNII-XII intact - Musculoskeletal Musculoskeletal: gait normal, strength equal bilaterally - Psychiatric Psychiatric: A&O x's 3, appropriate affect, intact judgment & insight - Labs CBC & Chem 7: 04/27/18 05:53 04/26/18 15:43 Labs: Abnormal Lab Results - Last 24 Hours (Table) 04/26/18 04/27/18 Range/Units 15:43 05:53 WBC 2.6 L (3.8-10.6) k/uL Lymphocytes # 0.7 L (1.0-4.8) k/uL Chloride 109 H (98-107) mmol/L BUN 19 H (7-17) mg/dL Glucose 120 H (74-99) mg/dL AST 95 H (14-36) U/L ALT 97 H (9-52) U/L Alkaline Phosphatase 209 H (38-126) U/L Total Protein 6.2 L (6.3-8.2) g/dL Albumin 3.4 L (3.5-5.0) g/dL Assessment and Plan Plan: Assessment and Recommendations: 1. Chronic Neutropenia - - Multiple Bone Marrow biopsies with review at 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 Recent C-DIff infection - Treated outpatient with PO Vanco - Infectious disease following - Appears to have resolved 3. Right lower Back Molar Loose and pain: - Oral Surgery following, patient aware of risks of intervention, will likely require additional prophylaxic antibiotics, advised to discuss with ID prior - [place] count stable - Ok for intervention with prophylaxitic antibiotics 4. Chronic Pain with known narcotic use - Pain in bones per patient, likely from overstimulated bone marrow with GCSF - Monitor pain medication closely - Advised to follow with pain service for outpatient management All acute issues per medicine, as far as hematology she is ok for discharge from our standpoint. Would recommend Antibiotic coverage at discharge (defer to ID) with recent tooth extraction. She will need follow-up as she did not show for last to begin oral cancer therapy regimen with cytoxan Will follow with you
--- NOTE | 2018-04-27 23:58 | P.PN ---
Subjective Progress Note Date: 04/27/18 Principal diagnosis: Diarrhea and C. diff infection Molar tooth pain Chronic neutropenia/myelodysplastic syndrome Patient is a 52-year-old female with a known history of hypothyroidism and myelodysplastic syndrome with history of bone marrow biopsy and C. diff infection since December 2017 came to ER with a diarrhea weakness and nausea vomiting. Patient was being treated with tapering dose of vancomycin by her primary care physician but patient is still having frequent diarrhea. Patient is also complaining of abdominal pain mainly in the upper abdomen. Associated is with nausea and vomiting. Patient is being treated with Neulasta and methotrexate. Currently oncologist is planning for chemotherapy as per patient. Patient also having history of anxiety and depression and also currently everyday smoker. 04/24/2018 Patient denied any diarrhea today. No bowel movement today. Otherwise patient is still complaining of right lower molar tooth pain and is requesting IV pain medications. No fever no chills. Oncology is following. WBC count is 1.3 today. No nausea vomiting. No headache or dizziness or lightheadedness. 04/25/2018 Patient denied any diarrhea. Patient went for tooth extraction after which patient states that she feels much better. No chest pain or shortness of breath. WBC count is improving. Patient is being continued on deficit for recurrent C. diff infection. ID and oncology is following. 04/26/2018 No diarrhea today. No fever no chills. No chest pain or shortness of breath. Neutropenia is much improved with WBC count 2.5 today. Awaiting deficit to be approved by insurance company. Otherwise and anticipate discharge in next 24- 48 hours. 04/27/2018 Patient is currently symptomatic. Awaiting antibiotics approval. Case management is following. Current medications reviewed Objective - Vital Signs Vital signs: Vital Signs Temp 98.1 F 04/27/18 20:00 Pulse 64 04/27/18 20:00 Resp 20 04/27/18 20:00 BP 104/51 04/27/18 20:00 Pulse Ox 96 04/27/18 20:00 Intake & Output 04/27/18 04/27/18 04/28/18 06:59 18:59 06:59 Intake Total 1440 Output Total 550 250 Balance 890 -250 Weight 62.2 kg 62.2 kg Intake: Oral 1440 Output: Urine 550 250 Other: Voiding Method Toilet Toilet Toilet # Voids 2 1 1 # Bowel Movements 1 - Exam PHYSICAL EXAMINATION: Patient is lying in the bed comfortably, no acute distress, awake alert and oriented.. HEENT: Normocephalic. Neck is supple. Pupils reactive. Nostrils clear. Oral cavity is moist. Ears reveal no drainage. Neck reveals no JVD, carotid bruits, or thyromegaly. CHEST EXAMINATION: Trachea is central. Symmetrical expansion. Lung conti clear to auscultation and percussion. CARDIAC: Normal S1, S2 with no gallops. No murmurs ABDOMEN: Soft. Epigastric tenderness. Bowel sounds normal. No organomegaly. No abdominal bruits. Extremities: reveal no edema. No clubbing or cyanosis Neurologically awake, alert, oriented x3 with well-coordinated movements. No focal deficits noted Skin: No rash or skin lesions. Psychiatric: Coperative. Anxious. Musculoskeletal: No joint swelling or deformity. Normal range of motion. - Labs CBC & Chem 7: 04/27/18 05:53 04/26/18 15:43 Labs: Abnormal Lab Results - Last 24 Hours (Table) 04/27/18 Range/Units 05:53 WBC 2.6 L (3.8-10.6) k/uL Lymphocytes # 0.7 L (1.0-4.8) k/uL Assessment and Plan Assessment: Recurrent C. diff infection and chronic diarrhea. Failed outpatient vancomycin therapy. Started on deficit. No diarrhea today. Right lower molar tooth pain. Status post extraction. Resolving now. Myelodysplastic syndrome on oncology follow-up. Chronic Neutropenia DVT prophylaxis Anxiety/depression Current every day smoker Plan: Patient will be continued on deficit. diarrhea has resolved. Oncology a is following. d. Symptomatic management for nausea and vomiting. Continue the pain management with oral [place].. Will follow closely and further recommendations based on the clinical course. Prognosis is guarded.
[2018-04-28 06:24] LABS: Basophils % (A) 1 %; Eosinophils # (A) 0.1 k/uL (0-0.7); Eosinophils % (A) 4 %; HCT 36.3 % (34.0-46.0); Lymphocytes # (A) 0.9 k/uL (1.0-4.8); Lymphocytes % (A) 32 %; MCH 29.6 pg (25.0-35.0); MCHC 33.2 g/dL (31.0-37.0); MCV 89.3 fL (80.0-100.0); Mean Platelet Volume 6.7; Monocytes # (A) 0.1 k/uL (0-1.0); Monocytes % (A) 4 %; Neutrophils # (A) 1.6 k/uL (1.3-7.7); Neutrophils % (A) 57 %; Platelet Count 253 k/uL (150-450); RBC 4.07 m/uL (3.80-5.40); RDW 14.5 % (11.5-15.5); WBC 2.8 k/uL (3.8-10.6)
[2018-04-28] MEDS: PANTOPRAZOLE 40 MG TABLET PO SCH (06:50)
[2018-04-28] MEDS: LEVOTHYROXINE 75 MCG TAB PO SCH (06:50)
[2018-04-28] MEDS: ENOXAPARIN 40 MG/0.4 ML SYRINGE SQ SCH (09:39)
[2018-04-28] MEDS: CHOLECALCIFEROL 1,000 UNIT TAB PO SCH (09:40)
[2018-04-28] MEDS: FIDAXOMICIN 200 MG TABLET PO SCH (09:40)
[2018-04-28] MEDS: MULTIVITAMINS, THERA 1 EACH TAB PO SCH (09:41)
[2018-04-28] MEDS: CHLORHEXIDINE GLUCONATE 15 ML CUP MUCOUS MEM SCH (09:41)
[2018-04-28] MEDS: MAGNESIUM OXIDE 400 MG TAB PO SCH (09:42)
[2018-04-28] MEDS: HYDROcodone/APAP 5-325MG 1 EACH TAB PO PRN (09:46)
[2018-04-28 10:12] VITALS: BP 110/77; PULSE 81; RESP 18; TEMP 98.6
[2018-04-28] MEDS: FILGRASTIM-SNDZ 480 MCG/0.8 ML SYRINGE SQ SCH (10:44)
== END 2018-04-28 11:17 | disposition home or self-care (01) | DRG 373 ==
LOC: EC 09:58 → 4MS4W 13:19 → 3SCARD 17:03
PROVIDERS: ADMIT Internal Medicine; ATTEND Internal Medicine
PROC: 0CDXXZ0 Extraction of Lower Tooth, Single, External Approach (ICD-10-PCS; principal; 2018-04-25 09:25)
DX: A04.71 Enterocolitis due to Clostridium difficile, recurrent (principal); D46.9 Myelodysplastic syndrome, unspecified; D70.9 Neutropenia, unspecified; E03.9 Hypothyroidism, unspecified; E86.0 Dehydration; F17.210 Nicotine dependence, cigarettes, uncomplicated; F32.9 Major depressive disorder, single episode, unspecified; F41.9 Anxiety disorder, unspecified; K05.30 Chronic periodontitis, unspecified; R74.8 Abnormal levels of other serum enzymes; B37.9 Candidiasis, unspecified; G89.29 Other chronic pain; K04.7 Periapical abscess without sinus; Z79.890 Hormone replacement therapy; Z79.891 Long term (current) use of opiate analgesic; Z79.899 Other long term (current) drug therapy; Z88.0 Allergy status to penicillin; Z88.8 Allergy status to other drugs, medicaments and biological substances; Z88.1 Allergy status to other antibiotic agents; Z91.030 Bee allergy status; Z80.9 Family history of malignant neoplasm, unspecified
CPT/HCPCS: 36415; 70110; 80048; 80053; 83605; 83735; 84100; 85025; 86708; 86803; 87340; 96361; 96374; 96375; 96376; 99285

== ENCOUNTER → 2018-05-29 | Outpatient (CLI) | payer OTHER ==
--- NOTE | 2018-05-29 13:59 | XR ---
EXAMINATION TYPE: XR chest 2V DATE OF EXAM: 05/29/2018 COMPARISON: NONE TECHNIQUE: PA and lateral views submitted. HISTORY: Weakness and congestion FINDINGS: The lungs are clear and there is no pneumothorax, pleural effusion, or focal pneumonia. Chronic rib deformity on the left noted. Hyperinflation suggests COPD. Hypertrophic change of the spine. IMPRESSION: 1. No acute process.
== END ==
LOC: RADXRMAIN 13:43
PROVIDERS: ATTEND Nurse Practitioner Adult Health
DX: D70.9 Neutropenia, unspecified (principal); D46.9 Myelodysplastic syndrome, unspecified; D25.9 Leiomyoma of uterus, unspecified; E06.9 Thyroiditis, unspecified
CPT/HCPCS: 71046

== ENCOUNTER 2018-06-23 15:59 | Inpatient (IN) | payer OTHER ==
[2018-06-23] MEDS ORDERED: SODIUM CHLORIDE 0.9% 1,000 ML IV STA ×3 (17:29→19:59)
[2018-06-23] MEDS ORDERED: ONDANSETRON 4 MG/2 ML VIAL IVP STA ×2 (17:29→19:59)
[2018-06-23] MEDS ORDERED: SODIUM CHLORIDE 0.9% 500 ML 500 ML IV STA (17:29)
--- NOTE | 2018-06-23 17:29 | ED ---
Nausea/Vomiting/Diarrhea HPI - General Chief complaint: Nausea/Vomiting/Diarrhea Stated complaint: possible Cdiff Time Seen by Provider: 06/23/18 17:27 Source: patient, RN notes reviewed, old records reviewed Mode of arrival: ambulatory Limitations: no limitations - History of Present Illness Initial comments: This is a 52-year-old female the ER for evaluation patient resents today for evaluation persistent nausea vomiting. Nausea vomiting and diarrhea. Significant diarrhea. Patient was on recent antibiotics concern for C. diff. Has multiple underlying CVA. Hospital admission about 2 months ago for similar episode. Patient unable to tolerate oral intake. Significant weak and denies fevers no travel history. No recent change in medications denies drugs or alcohol. MD complaint: nausea, vomiting, diarrhea, abdominal pain -: days(s) Description of Vomiting: food contents, watery, bilious Description of Diarrhea: water, mucous Associated Abdominal Pain: Yes Location: diffuse Severity: moderate Severity scale (1-10): 7 Consistency: constant Improves with: none Worsens with: eating, bowel movement, vomiting Context: recent antibiotic use Associated Symptoms: denies other symptoms - Related Data Home Medications Medication Instructions Recorded Confirmed Ferrous Sulfate [Iron (65 MG 325 mg PO DAILY 03/06/17 06/23/18 Elemental)] Hydrocodone/Acetaminophen [[place] 1 tab PO TID 06/01/17 06/23/18 5-325] Magnesium Oxide [Mag-Ox] 400 mg PO DAILY 06/01/17 06/23/18 Multivitamins, Thera [Multivitamin 1 tab PO DAILY 06/01/17 06/23/18 (formulary)] Cholecalciferol [Vitamin D3] 5,000 unit PO DAILY 04/23/18 06/23/18 Levothyroxine Sodium [Synthroid] 150 mcg PO DAILY 04/23/18 06/23/18 Cyclophosphamide 100 mg PO DAILY 06/23/18 06/23/18 Pegfilgrastim [Neulasta] 6 mg IV DIRECTED 06/23/18 06/23/18 Allergies Allergy/AdvReac Type Severity Reaction Status Date / Time amoxicillin Allergy Unknown Verified 06/23/18 16:19 banana Allergy Rash/Hives Verified 06/23/18 16:19 bee venom protein (honey bee) Allergy Anaphylaxis Verified 06/23/18 16:19 cephalexin [From Keflex] Allergy Unknown Verified 06/23/18 16:19 Penicillins Allergy Unknown Verified 06/23/18 16:19 Tetracyclines Allergy Unknown Verified 06/23/18 16:19 Review of Systems ROS Statement: Those systems with pertinent positive or pertinent negative responses have been documented in the HPI. ROS Other: All systems not noted in ROS Statement are negative. Past Medical History Past Medical History: Cancer, Thyroid Disorder Additional Past Medical History / Comment(s): neutropenia, hypothyroidism, myelodisplasia, anemia History of Any Multi-Drug Resistant Organisms: C-DIFF Date of last positivie culture/infection: / [facility] this has been ongoing since dec MDRO Source:: wound rt hip / stool Additional Past Surgical History / Comment(s): ectopic , neck surgery, bone biopsy Past Anesthesia/Blood Transfusion Reactions: No Reported Reaction Additional Past Anesthesia/Blood Transfusion Reaction / Comment(s): pt stated has received blood in past no known reaction Past Psychological History: Anxiety, Depression Smoking Status: Current every day smoker Past Alcohol Use History: None Reported Past Drug Use History: None Reported - Past Family History Father Family Medical History: Cancer Additional Family Medical History / Comment(s): mesothelioma Mother History Unknown: Yes General Exam Limitations: no limitations General appearance: alert, in no apparent distress Head exam: Present: atraumatic, normocephalic, normal inspection Eye exam: Present: normal appearance, PERRL, EOMI. Absent: scleral icterus, conjunctival injection, periorbital swelling ENT exam: Present: mucous membranes dry Neck exam: Present: normal inspection. Absent: tenderness, meningismus, lymphadenopathy Respiratory exam: Present: normal lung sounds bilaterally. Absent: respiratory distress, wheezes, rales, rhonchi, stridor Cardiovascular Exam: Present: normal rhythm, tachycardia, normal heart sounds. Absent: systolic murmur, diastolic murmur, rubs, gallop, clicks GI/Abdominal exam: Present: soft, normal bowel sounds. Absent: distended, tenderness, guarding, rebound, rigid Extremities exam: Present: normal inspection, full ROM, normal capillary refill. Absent: tenderness, pedal edema, joint swelling, calf tenderness Back exam: Present: normal inspection Neurological exam: Present: alert, oriented X3, CN II-XII intact Psychiatric exam: Present: normal affect, normal mood Skin exam: Present: warm, dry, intact, normal color. Absent: rash Course Vital Signs 06/23/18 16:16 Temperature 97.6 F Pulse Rate 105 H Respiratory 18 Rate Blood Pressure 100/70 O2 Sat by Pulse 100 Oximetry - Reevaluation(s) Reevaluation #1: 06/23/18 20:01 Medical record and prior hospitalization or reviewed Reevaluation #2: 06/23/18 20:01 Patient not feeling any better and able to tolerate oral intake Medical Decision Making - Medical Decision Making 52 female the ER with persistent nausea vomiting diarrhea will be admitted for IV resuscitation and symptom management - Lab Data Result diagrams: 06/23/18 17:47 06/23/18 17:47 Lab Results 06/23/18 06/23/18 06/23/18 Range/Units 17:47 17:47 17:47 WBC 3.7 L (3.8-10.6) k/uL RBC 4.82 (3.80-5.40) m/uL Hgb 14.4 (11.4-16.0) gm/dL Hct 42.9 (34.0-46.0) % MCV 89.1 (80.0-100.0) fL MCH 29.9 (25.0-35.0) pg MCHC 33.5 (31.0-37.0) g/dL RDW 17.1 H (11.5-15.5) % Plt Count 209 (150-450) k/uL Neutrophils % 75 % Lymphocytes % 19 % Monocytes % 2 % Eosinophils % 1 % Basophils % 1 % Neutrophils # 2.8 (1.3-7.7) k/uL Lymphocytes # 0.7 L (1.0-4.8) k/uL Monocytes # 0.1 (0-1.0) k/uL Eosinophils # 0.0 (0-0.7) k/uL Basophils # 0.0 (0-0.2) k/uL Anisocytosis Slight Sodium 137 (137-145) mmol/L Potassium 3.7 (3.5-5.1) mmol/L Chloride 103 (98-107) mmol/L Carbon Dioxide 24 (22-30) mmol/L Anion Gap 10 mmol/L BUN 18 H (7-17) mg/dL Creatinine 0.82 (0.52-1.04) mg/dL Est GFR (CKD-EPI)AfAm >90 (>60 ml/min/1.73 sqM) Est GFR (CKD-EPI)NonAf 84 (>60 ml/min/1.73 sqM) Glucose 88 (74-99) mg/dL Plasma Lactic Acid [place] 1.6 (0.7-2.0) mmol/L Calcium 9.2 (8.4-10.2) mg/dL Phosphorus 3.5 (2.5-4.5) mg/dL Magnesium 1.8 (1.6-2.3) mg/dL Total Bilirubin 0.7 (0.2-1.3) mg/dL AST 25 (14-36) U/L ALT 32 (9-52) U/L Alkaline Phosphatase 90 (38-126) U/L Troponin I (0.000-0.034) ng/mL Total Protein 7.2 (6.3-8.2) g/dL Albumin 4.2 (3.5-5.0) g/dL C. difficile (EIA) Intrp (Negative) 06/23/18 06/23/18 Range/Units 17:47 18:32 WBC (3.8-10.6) k/uL RBC (3.80-5.40) m/uL Hgb (11.4-16.0) gm/dL Hct (34.0-46.0) % MCV (80.0-100.0) fL MCH (25.0-35.0) pg MCHC (31.0-37.0) g/dL RDW (11.5-15.5) % Plt Count (150-450) k/uL Neutrophils % % Lymphocytes % % Monocytes % % Eosinophils % % Basophils % % Neutrophils # (1.3-7.7) k/uL Lymphocytes # (1.0-4.8) k/uL Monocytes # (0-1.0) k/uL Eosinophils # (0-0.7) k/uL Basophils # (0-0.2) k/uL Anisocytosis Sodium (137-145) mmol/L Potassium (3.5-5.1) mmol/L Chloride (98-107) mmol/L Carbon Dioxide (22-30) mmol/L Anion Gap mmol/L BUN (7-17) mg/dL Creatinine (0.52-1.04) mg/dL Est GFR (CKD-EPI)AfAm (>60 ml/min/1.73 sqM) Est GFR (CKD-EPI)NonAf (>60 ml/min/1.73 sqM) Glucose (74-99) mg/dL Plasma Lactic Acid Denis (0.7-2.0) mmol/L Calcium (8.4-10.2) mg/dL Phosphorus (2.5-4.5) mg/dL Magnesium (1.6-2.3) mg/dL Total Bilirubin (0.2-1.3) mg/dL AST (14-36) U/L ALT (9-52) U/L Alkaline Phosphatase (38-126) U/L Troponin I <0.012 (0.000-0.034) ng/mL Total Protein (6.3-8.2) g/dL Albumin (3.5-5.0) g/dL C. difficile (EIA) Intrp Negative (Negative) - EKG Data -: EKG Interpreted by Me (EKG shows sinus rhythm rate of 90, ER 156, QRS 84, QTC 447 ) Interpretation: other (Patient does have ST depression inferolaterally C3 through V6 as well as 2 through aVF) Disposition Clinical Impression: Dehydration, Gastroenteritis Disposition: ADMITTED IP TO THIS HOSP Condition: Fair Is patient prescribed a controlled substance at d/c from ED?: No Referrals: [facility] [Primary Care Provider] - 1-2 days
[2018-06-23 18:08] LABS: Anisocytosis Slight; Basophils % (A) 1 %; Eosinophils % (A) 1 %; HCT 42.9 % (34.0-46.0); HGB 14.4 gm/dL (11.4-16.0); Lymphocytes # (A) 0.7 k/uL (1.0-4.8); Lymphocytes % (A) 19 %; MCH 29.9 pg (25.0-35.0); MCHC 33.5 g/dL (31.0-37.0); MCV 89.1 fL (80.0-100.0); Mean Platelet Volume 6.6; Monocytes # (A) 0.1 k/uL (0-1.0); Monocytes % (A) 2 %; Neutrophils # (A) 2.8 k/uL (1.3-7.7); Neutrophils % (A) 75 %; Platelet Count 209 k/uL (150-450); RBC 4.82 m/uL (3.80-5.40); RDW 17.1 % (11.5-15.5); WBC 3.7 k/uL (3.8-10.6)
[2018-06-23 18:24] LABS: ALT 32 U/L (9-52); AST 25 U/L (14-36); Albumin 4.2 g/dL (3.5-5.0); Alkaline Phosphatase 90 U/L (38-126); Anion Gap 10 mmol/L; Blood Urea Nitrogen 18 mg/dL (7-17); Calcium 9.2 mg/dL (8.4-10.2); Carbon Dioxide 24 mmol/L (22-30); Chloride 103 mmol/L (98-107); Glucose 88 mg/dL (74-99); Magnesium 1.8 mg/dL (1.6-2.3); Phosphorus 3.5 mg/dL (2.5-4.5); Potassium 3.7 mmol/L (3.5-5.1); Sodium 137 mmol/L (137-145); Total Bilirubin 0.7 mg/dL (0.2-1.3); Total Protein 7.2 g/dL (6.3-8.2)
[2018-06-23] MEDS ORDERED: DEXTROSE 5%-0.45% NACL 1,000 ML IV ONE (19:59)
[2018-06-23] MEDS ORDERED: PANTOPRAZOLE 40 MG/10 ML VIAL IVP STA (19:59)
[2018-06-23 21:17] VITALS: BMI 18.6
[2018-06-23] MEDS: HYDROmorphone 0.5 MG/0.5 ML SYRINGE IVP PRN (21:33)
[2018-06-23] MEDS: HYDROcodone/APAP 5-325MG 1 EACH TAB PO SCH (22:38)
[2018-06-24] MEDS: ONDANSETRON 4 MG/2 ML VIAL IVP PRN ×2 (00:44→09:12)
[2018-06-24] MEDS: HYDROmorphone 0.5 MG/0.5 ML SYRINGE IVP PRN ×4 (00:44→18:54)
[2018-06-24] MEDS: VANCOMYCIN ORAL SOLUTION 250 MG/5 ML BOTTLE PO SCH ×3 (00:45→11:51)
--- NOTE | 2018-06-24 05:31 | HP ---
HISTORY AND PHYSICAL DATE OF SERVICE: 06/23/2018 CHIEF COMPLAINTS: Nausea and diarrhea. HISTORY OF PRESENT ILLNESS: This 52-year-old woman with a past medical history of DVT, history of hypothyroidism, neutropenia, history of myelodysplasia, history of anemia, anxiety, depression, being followed by [facility] in the outpatient setting had also features of myelodysplastic syndrome with possible leukemia, possible potential T-cell lymphoma. The patient had episodes of C difficile colitis, recurrent in March and currently the patient is complaining of nausea and vomiting. The patient has gassy diarrhea and the patient came to [facility] and was admitted for further evaluation and treatment. There is no history of fever, rigors or chills. No history of headache, loss of consciousness, seizures. PAST MEDICAL HISTORY: History of DVT, history of hypothyroidism, history of neutropenia, history of myelodysplasia, history of C difficile colitis, anxiety, depression. MEDICATIONS: Prior to admission include: 1. Neulasta 6 mg p.r.n. 2. Multivitamins 1 p.o. daily. 3. Magnesium oxide 400 mg daily. 4. Synthroid 150 mcg. 5. [place] 5 mg t.i.d. 6. Iron sulfate 320 mg p.o. daily. 8. Vitamin D3 5000 daily. ALLERGIES: AMOXICILLIN, BANANA, PENICILLIN, TETRACYCLINE. FAMILY HISTORY: History of cancer, mesothelioma. SOCIAL HISTORY: History of alcohol, history of smoking. REVIEW OF SYSTEMS: ENT: No diminished hearing or vision. CARDIOVASCULAR: No angina. RESPIRATORY: As mentioned earlier. GI no nausea or vomiting. : No dysuria. NERVOUS SYSTEM: No numbness or weakness. ALLERGY/IMMUNOLOGY: No asthma or hayfever. MUSCULOSKELETAL: As mentioned earlier. HEMATOLOGY/ONCOLOGY: No history of anemia. ENDOCRINE: No history of diabetes. Hypothyroidism present. CONSTITUTIONAL: As mentioned earlier. Dermatology: Negative. Rheumatology: Negative. Psychiatry: As mentioned earlier. PHYSICAL EXAMINATION: Alert and oriented x3. Pulse 86, blood pressure 107/54, respiration 16, temperature 97.6, pulse ox 98% on room air. HEENT: Conjunctivae normal. Oral mucosa moist. NECK: Neck is no jugular venous distention. No carotid bruit. No lymph node enlargement. CARDIOVASCULAR SYSTEM: Breath sounds diminished in the bases. No rhonchi. No crackles. ABDOMEN: Soft. Mild diffuse discomfort. No guarding, rigidity, no mass palpable. No distention. No ascites. LEGS: No edema. No swelling. NERVOUS SYSTEM: Higher functions as mentioned earlier. Moves all four extremities. No focal motor or sensory deficits. LYMPHATICS: No lymph nodes palpable in the neck, axillae or groin. SKIN: No ulcer, no rash. No bleeding. JOINTS: No active deforming arthropathy. LABS: WBC 3.7, hemoglobin 14.4. Sodium 139, potassium 3.7. ASSESSMENT: 1. Nausea, vomiting, diarrhea, possibly C difficile colitis recurrence, history of previous recurrent C difficile colitis. 2. History of myelodysplastic syndrome with mixed leukemia or potential T-cell lymphoma. 3. Chronic neutropenia. 4. Anxiety, depression. 5. Hypothyroidism. 6. History of ectopic . 7. Anxiety, depression. 8. History of continued ongoing nicotine dependence. 9. Moderate to severe protein calorie malnutrition with BMI 18.6. RECOMMENDATIONS AND DISCUSSION: This 52-year-old woman who presented with multiple complex medical issues, we will monitor the patient closely. Continue the current medications, management and symptomatic treatment. Otherwise at this time, I recommend repeat C difficile testing. I would also recommend treating the patient empirically with vancomycin. Infectious disease evaluation. Otherwise, hematology/oncology evaluation. Resume the home medications. Guarded prognosis because of multiple complex medical issues. See orders for details. DVT prophylaxis. Clear liquids, advance as tolerated if tolerated. Prognosis guarded because of multiple complex medical issues. Further recommendations to follow. I would also recommend stool culture also. MMODL / IJN: [id number] / YADIRA
[2018-06-24] MEDS: LEVOTHYROXINE 75 MCG TAB PO SCH (06:07)
[2018-06-24] MEDS: IOPAMIDOL-300 CONTRAST 30 ML VIAL (ORAL USE) PO PRN ×2 (06:12→06:55)
[2018-06-24] MEDS: MULTIVITAMINS, THERA 1 EACH TAB PO SCH (08:02)
[2018-06-24] MEDS: HYDROcodone/APAP 5-325MG 1 EACH TAB PO SCH ×3 (08:03→21:56)
--- NOTE | 2018-06-24 08:43 | CT ---
EXAMINATION TYPE: CT abdomen pelvis wo con DATE OF EXAM: 06/24/2018 COMPARISON: 06/02/2017 HISTORY: 52-year-old female C. Difficile colitis, Diarrhea and stomach issues CT DLP: 357.5 mGycm. Automated exposure control for dose reduction was used. TECHNIQUE: Contiguous axial scanning of the abdomen and pelvis without IV contrast. Coronal and sagit robbin reconstructions performed. FINDINGS: Heart normal size without pericardial effusion. Lung bases clear without pleural effusion. 5 mm perip heral left basilar pulmonary nodule is unchanged. The liver is mildly enlarged 18.9 cm. Otherwise, noncontrast appearance of the liver, gallbladder, ad renal glands, spleen, and pancreas shows no gross abnormality. Punctate 2 mm nonobstructive right upper pole renal calculus and punctate 2 mm left lower pole renal calculus. There is a faint hyperdense blush measuring less than 1 cm in the right upper pole which se ems to have been present on the patient's prior exam. Possible tiny debris filled cyst. No dilated small bowel, free fluid, or free air. Numerous nonenlarged and enlarged mesenteric lymph nodes are present throughout measuring up to 7 mm. Normal appendix. Some liquid stool seen within the cecum. Segmental areas of wall thickening of the c olon suggests the sigmoid colon and distal half of the transverse colon, example, or overt coronal im age 21. Jejunal loops in the left side of the abdomen demonstrate some fold thickening as well. Oral contrast has reached the mid small bowel level. Bladder incompletely distended. Uterus and both ovaries are visualized. Trace cul-de-sac free fluid p robably physiologic. No pelvic lymphadenopathy seen. Bones: Moderate degenerative changes at the hips. Degenerative disc disease and facet arthropathy low er lumbar spine. IMPRESSION: 1. Jejunal fold thickening in the left side of the abdomen, segmental wall thickening of the colon, p articularly the distal half of the transverse colon, and liquid stool in the cecum. Correlate for ent erocolitis. 2. Numerous borderline and nonenlarged mesenteric lymph nodes throughout the abdomen. Nonspecific and likely reactive.
[2018-06-24 08:54] LABS: Anion Gap 6 mmol/L; Blood Urea Nitrogen 12 mg/dL (7-17); Calcium 8.2 mg/dL (8.4-10.2); Carbon Dioxide 21 mmol/L (22-30); Chloride 108 mmol/L (98-107); Glucose 77 mg/dL (74-99); Potassium 3.2 mmol/L (3.5-5.1); Sodium 135 mmol/L (137-145)
[2018-06-24] MEDS ORDERED: PANTOPRAZOLE 40 MG/10 ML VIAL IVP SCH (09:00)
[2018-06-24] MEDS ORDERED: CYCLOPHOSPHAMIDE 50MG PO SCH (09:00)
[2018-06-24 09:13] LABS: Anisocytosis Slight; Basophils % (A) 1 %; Eosinophils % (A) 1 %; HCT 34.1 % (34.0-46.0); HGB 11.8 gm/dL (11.4-16.0); Lymphocytes # (A) 0.6 k/uL (1.0-4.8); Lymphocytes % (A) 21 %; MCH 30.9 pg (25.0-35.0); MCHC 34.6 g/dL (31.0-37.0); MCV 89.2 fL (80.0-100.0); Mean Platelet Volume 7.9; Monocytes # (A) 0.1 k/uL (0-1.0); Monocytes % (A) 4 %; Neutrophils % (A) 71 %; Platelet Count 140 k/uL (150-450); RBC 3.82 m/uL (3.80-5.40); WBC 2.9 k/uL (3.8-10.6)
--- NOTE | 2018-06-24 10:10 | P.CONS ---
History of Present Illness - Reason for Consult Consult date: 06/24/18 hematological disorder, on treatment Requesting physician: Phillip Delcid - Chief Complaint N, V, D - History of Present Illness Ms. Chand is a pleasant female patient of Dr. Katz with a complicated medical history. Per pt she was diagnosed in 2010 with low WBC, especially decreased neutrophils. She followed with Dr. Ledbetter and Dr. De Paz ( now Angelo) at [facility]. Bone marrow in 2010 and 2014, states she was given a diagnosis of myelodysplasia, treated with Neupogen but did not respond so, she has been receiving Neulasta every 2 weeks. She moved to [place] and established care at the [facility] on 12/19/16, WBC 1.5 ANC 300, other labs were WNL. She was referred to Dr. Katz, and after prolonged wait for medical records, she was seen for her initial consult on 05/10/17. Her past medical Hx was reviewed. The bone marrow in 2014 showed no definite MDS, but a small B and T cell clonal population, which was apparently felt to be of questionable significance, as no specific recommendations were made. She was continued on neulasta. Bone marrow on 06/20/17, confirmed a clonal T cell population of about 15%. No B cell clone or evidence of MDS was found. She was referred back to the [facility], the T cell clone was not c/w LGL. The case was d/w Dr. Rosario at the [facility] and it was decided to treat the T cell clone. She was started on methotrexate 08/19/17. She had to hold due to side effects, she was supplemented on folic acid. The treatment did not manifest a response, with ANC remaining low and total WBC actually decreasing. [facility] stopped methotrexate. She had a bone marrow in 02/13, was sent to the [place]. She was confirmed to have a T cell lymphoproliferative disorder. Dr. Rosario recommended cytoxan 100 mg daily and continued Neulasta. She has done well on this regimen actually with a near normal absolute neutrophil count without significant changes to her other lab values. Starting Saturday patient lost her appetite, this was followed by nausea and vomiting and diarrhea. Patient's symptoms did not improve. She came to the hospital for evaluation. C. difficile is negative, influenza is negative, antidiarrheals have been initiated. Patient has had no fevers, her nausea is improved and she is stating she has an appetite, no shortness of breath or cough , she has loud bowel sounds but denies cramping or rectal pain, no mucus or bloody stool, dysuria, hematuria, bleeding or swelling. 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 she is to follow up with him for oral chemo History of Any Multi-Drug Resistant Organisms: C-DIFF Year Discovered:: 2015- / [facility] states this has been ongoing since dec MDRO Source:: wound rt hip / stool Additional Past Surgical History / Comment(s): ectopic , neck surgery, bone marrow biopsy x 4 Past Anesthesia/Blood Transfusion Reactions: No Reported Reaction Additional Past Anesthesia/Blood Transfusion Reaction / Comm: pt stated has received blood in past no known reaction Past Psychological History: Anxiety, Depression Additional Psychological History / Comment(s): pt moved here from [place] 1.5 years ago had own apt but after getting sick has been staying a friend Smoking Status: Current every day smoker Past Alcohol Use History: None Reported Additional Past Alcohol Use History / Comment(s): started smoking at age 23, smokes 3-5 cig per day Past Drug Use History: None Reported - Past Family History Father Family Medical History: Cancer Additional Family Medical History / Comment(s): mesothelioma Mother History Unknown: Yes Medications and Allergies Home Medications Medication Instructions Recorded Confirmed Type Ferrous Sulfate [Iron (65 MG 325 mg PO DAILY 03/06/17 06/23/18 History Elemental)] Hydrocodone/Acetaminophen [[place] 1 tab PO TID 06/01/17 06/23/18 History 5-325] Magnesium Oxide [Mag-Ox] 400 mg PO DAILY 06/01/17 06/23/18 History Multivitamins, Thera [Multivitamin 1 tab PO DAILY 06/01/17 06/23/18 History (formulary)] Cholecalciferol [Vitamin D3] 5,000 unit PO DAILY 04/23/18 06/23/18 History Levothyroxine Sodium [Synthroid] 150 mcg PO DAILY 04/23/18 06/23/18 History Cyclophosphamide 100 mg PO DAILY 06/23/18 06/23/18 History Pegfilgrastim [Neulasta] 6 mg IV DIRECTED 06/23/18 06/23/18 History Allergies Allergy/AdvReac Type Severity Reaction Status Date / Time amoxicillin Allergy Unknown Verified 06/23/18 16:19 banana Allergy Rash/Hives Verified 06/23/18 16:19 bee venom protein (honey bee) Allergy Anaphylaxis Verified 06/23/18 16:19 cephalexin [From Keflex] Allergy Unknown Verified 06/23/18 16:19 Penicillins Allergy Unknown Verified 06/23/18 16:19 Tetracyclines Allergy Unknown Verified 06/23/18 16:19 Physical Exam Vitals: Vital Signs Temp Pulse Pulse Resp BP BP Pulse Ox 06/24/18 08:00 68 16 06/24/18 07:10 97.6 F 68 16 78/50 100 06/24/18 03:52 98.3 F 86 16 84/47 98 06/24/18 03:41 16 06/23/18 23:53 16 06/23/18 21:40 16 06/23/18 21:02 97.6 F 86 16 107/54 98 06/23/18 20:38 84 16 95/63 98 06/23/18 16:16 97.6 F 105 H 18 100/70 100 Intake and Output 06/23/18 06/24/18 06/24/18 22:59 06:59 14:59 Intake Total 240 Balance 240 Intake: Oral 240 Other: Voiding Method Toilet Toilet Toilet # Voids 1 2 # Bowel Movements 1 2 Weight 58.786 kg - Constitutional General appearance: cooperative, no acute distress, thin - EENT Eyes: anicteric sclerae, EOMI ENT: hearing grossly normal, normal oropharynx - Neck Neck: no lymphadenopathy - Respiratory Respiratory: bilateral: CTA - Cardiovascular Rhythm: regular Heart sounds: normal: S1, S2 Abnormal Heart Sounds: no systolic murmur, no diastolic murmur, no rub, no S3 Gallop, no S4 Gallop, no click, no other leg Peripheral Edema: bilateral: None - Gastrointestinal General gastrointestinal: no absent bowel sounds, no decreased bowel sounds, no distended, no hepatomegaly, no hyperactive bowel sounds, normal bowel sounds, no organomegaly, no rigid, no scaphoid, soft, no splenomegaly, no tenderness, no umbilical hernia, no ventral hernia - Integumentary Integumentary: normal - Neurologic Neurologic: CNII-XII intact - Musculoskeletal Musculoskeletal: strength equal bilaterally - Psychiatric Psychiatric: A&O x's 3, appropriate affect, intact judgment & insight Results CBC & Chem 7: 06/24/18 07:48 06/24/18 07:48 Labs: Abnormal Lab Results - Last 24 Hours (Table) 06/23/18 06/23/18 06/24/18 Range/Units 17:47 17:47 07:48 WBC 3.7 L 2.9 L (3.8-10.6) k/uL RDW 17.1 H 17.0 H (11.5-15.5) % Plt Count 140 L (150-450) k/uL Lymphocytes # 0.7 L 0.6 L (1.0-4.8) k/uL Sodium (137-145) mmol/L Potassium (3.5-5.1) mmol/L Chloride (98-107) mmol/L Carbon Dioxide (22-30) mmol/L BUN 18 H (7-17) mg/dL Calcium (8.4-10.2) mg/dL 06/24/18 Range/Units 07:48 WBC (3.8-10.6) k/uL RDW (11.5-15.5) % Plt Count (150-450) k/uL Lymphocytes # (1.0-4.8) k/uL Sodium 135 L (137-145) mmol/L Potassium 3.2 L (3.5-5.1) mmol/L Chloride 108 H (98-107) mmol/L Carbon Dioxide 21 L (22-30) mmol/L BUN (7-17) mg/dL Calcium 8.2 L (8.4-10.2) mg/dL CT scan - abdomen: report reviewed CT scan - pelvis: report reviewed Assessment and Plan (1) T-cell lymphoma Narrative/Plan: Patient has been doing rather well on the combination of Cytoxan as well as Neulasta. Cytoxan will be held until patient's current condition is resolved adequately. Patient was due for Neulasta in the office today, we will reschedule this for later this week. Patient does not respond to the rapid acting granulocyte colony stimulating factors, do not administer zarxio. Current Visit: No Status: Chronic Priority: Medium Code(s): C85.90 - NON- HODGKIN LYMPHOMA, UNSPECIFIED, UNSPECIFIED SITE SNOMED Code(s): 336930563 (2) Dehydration Narrative/Plan: Secondary to nausea, vomiting, diarrhea. Patient receiving IV fluids, on a clear liquid diet. Current Visit: Yes Status: Acute Priority: High Code(s): E86.0 - DEHYDRATION SNOMED Code(s): 19398656 (3) Diarrhea Narrative/Plan: C. difficile was negative, infectious disease consulted. Imodium is ordered. Patient is denying any abdominal pain or cramping. She did state that she was "starting" did offer her ROXANN diet (rice, applesauce and toast are all she tolerates). She will try some applesauce and a piece of toast. Current Visit: Yes Status: Acute Priority: High Code(s): R19.7 - DIARRHEA , UNSPECIFIED SNOMED Code(s): 95266365 (4) Nausea and vomiting Narrative/Plan: Patient is denying any further nausea at this time, no vomiting since admit. Continue anti-emetics when necessary Current Visit: Yes Status: Acute Priority: High Code(s): R11.2 - NAUSEA WITH VOMITING, UNSPECIFIED SNOMED Code(s): 39245009
[2018-06-24] MEDS ORDERED: POTASSIUM CHLORIDE ER 20 MEQ TAB.ER PO STA (11:16)
[2018-06-24] MEDS ORDERED: LOPERAMIDE 2 MG CAP PO STA (14:03)
[2018-06-24] MEDS ORDERED: TRIMETHOBENZAMIDE 300 MG CAP PO PRN (15:52)
[2018-06-24] MEDS ORDERED: LEVOFLOXACIN 500MG-D5W PMX 500 MG in DEXTROSE/WATER 1 100ML.BAG IVPB SCH (16:00)
--- NOTE | 2018-06-24 16:04 | P.PN ---
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 diff. she's follow up with the [facility]'s clinic as an outpatient setting area. She admits is with nausea vomiting and diarrhea. Actually patient vomited only once and her main problem is the diarrhea which has about go she watery diarrhea about 10 times per day with no blood or the last 4-5 days. Associated with no abdominal pain but she has mild generalized abdominal tenderness. Patient she had abdominal CT: Jejunitis and colitis, with multiple reactive lymphadenopathy. pt has been treated with iv fluids, zofran , protonix and pain medicine, with imodium . We will stop the by mouth vancomycin and started the patient on Flagyl and Levaquin. Objective - Vital Signs Vital signs: Vital Signs Temp 97.6 F 06/24/18 07:10 Pulse 68 06/24/18 08:00 Resp 16 06/24/18 08:00 BP 78/50 06/24/18 07:10 Pulse Ox 100 06/24/18 07:10 Intake & Output 06/23/18 06/24/18 06/24/18 18:59 06:59 18:59 Intake Total 240 Balance 240 Weight 58.786 kg 58.786 kg Intake: Oral 240 Other: Voiding Method Toilet Toilet # Voids 2 # Bowel Movements 2 - Exam GENERAL: The patient is alert and oriented x3, not in any acute distress. Well developed, well nourished. HEENT: Pupils are round and equally reacting to light. EOMI. No scleral icterus. No conjunctival pallor. Normocephalic, atraumatic. No pharyngeal erythema. No thyromegaly. CARDIOVASCULAR: S1 and S2 present. No murmurs, rubs, or gallops. PULMONARY: Chest is clear to auscultation, no wheezing or crackles. -ABDOMEN: Soft, mild generalized abdominal tenderness with no rebound tenderness , more to the left of the umbilicus, nondistended, normoactive bowel sounds. No palpable organomegaly. MUSCULOSKELETAL: No joint swelling or deformity. EXTREMITIES: No cyanosis, clubbing, or pedal edema. NEUROLOGICAL: Gross neurological examination did not reveal any focal deficits. SKIN: No rashes. - Labs CBC & Chem 7: 06/24/18 07:48 06/24/18 07:48 Labs: Abnormal Lab Results - Last 24 Hours (Table) 06/23/18 06/23/18 06/24/18 Range/Units 17:47 17:47 07:48 WBC 3.7 L 2.9 L (3.8-10.6) k/uL RDW 17.1 H 17.0 H (11.5-15.5) % Plt Count 140 L (150-450) k/uL Lymphocytes # 0.7 L 0.6 L (1.0-4.8) k/uL Sodium (137-145) mmol/L Potassium (3.5-5.1) mmol/L Chloride (98-107) mmol/L Carbon Dioxide (22-30) mmol/L BUN 18 H (7-17) mg/dL Calcium (8.4-10.2) mg/dL 06/24/18 Range/Units 07:48 WBC (3.8-10.6) k/uL RDW (11.5-15.5) % Plt Count (150-450) k/uL Lymphocytes # (1.0-4.8) k/uL Sodium 135 L (137-145) mmol/L Potassium 3.2 L (3.5-5.1) mmol/L Chloride 108 H (98-107) mmol/L Carbon Dioxide 21 L (22-30) mmol/L BUN (7-17) mg/dL Calcium 8.2 L (8.4-10.2) mg/dL Assessment and Plan Assessment: diarrhea, possibly gastroenteritis. C. diff is negative T-cell lymphoproliferation disorder Chronic neutropenia Anxiety/depression History of hypothyroidism History of chronic ectopic Nicotine dependence Moderate to severe coronary protein malnutrition Plan: This is a pleasant 52 years old female who presents with gastroenteritis-like picture of the top of her chronic neutropenia, patient is been treated with IV fluid. Change antibiotics from by mouth vancomycin to Flagyl and Levaquin. Check stool studies for culture, ova and parasite and leukocytes. Keep monitor the patient's including vitals and lites. Resume home medication. Pain management.
[2018-06-24] MEDS: DEXTROSE 5%-0.9% NACL 1,000 ML IV SCH (16:21)
[2018-06-24] MEDS: metroNIDAZOLE-NS PMX 500 MG in SALINE 1 100ML.BAG IVPB SCH ×2 (17:38→22:15)
[2018-06-24] MEDS: LOPERAMIDE 2 MG CAP PO SCH ×2 (17:43→21:58)
[2018-06-25] MEDS: HYDROmorphone 0.5 MG/0.5 ML SYRINGE IVP PRN ×4 (01:51→20:24)
[2018-06-25] MEDS: DEXTROSE 5%-0.9% NACL 1,000 ML IV SCH ×3 (03:27→20:22)
[2018-06-25] MEDS: LEVOTHYROXINE 75 MCG TAB PO SCH (05:46)
--- NOTE | 2018-06-25 07:45 | CONS ---
CONSULTATION DATE OF SERVICE: 06/24/2018 REASON FOR CONSULTATION: Diarrhea - Enterocolitis. HISTORY OF PRESENT ILLNESS: The patient is a 52-year-old female with a past medical history significant for recurrent C. diff colitis, last appearance was treated back in April 24 or 2017 where the patient was treated with a planned course of oral Dificid. Patient did have overall improvement and subsequent resolution of her symptoms. The patient said she was doing well. Maybe about 2 weeks ago, the patient did have some respiratory symptoms and the patient said she has received some decongestant and antibiotics from her oncologist for presumed pneumonia, which was worse pneumonia per patient and she did okay until Saturday when she started having explosive nausea, vomiting and diarrhea with multiple loose stools. Patient said the loose stool did with associated nausea, vomiting, diarrhea, frequency was early on and off with no blood or mucus in the stool and currently with abdominal pain 4-5/10 and no radiation. With these symptoms, the patient presented back to the [facility] ER last night where the patient has been examined by the ER physician on arrival to the ER. Patient has been afebrile. Patient slightly leukopenic and she did have a stool for C diff and both the and PCR were negative. Stool cultures ordered which is currently pending. The patient also had a CT of abdomen and pelvis that showed evidence of enterocolitis mostly involving the jejunum and transverse colon. Infectious Disease consulted for further recommendation regarding antibiotic therapy. REVIEW OF SYSTEMS: Positive points have been mentioned in HPI. Rest of the 14 systems has been negative. PAST MEDICAL HISTORY: Recurrent C. diff colitis, myelodysplasia, neutropenia, hypothyroidism, anxiety, depression. PAST SURGICAL HISTORY: Surgery for ectopic , bone marrow biopsy and back surgery. SOCIAL HISTORY: Patient current everyday smoker. Denies drug use. FAMILY HISTORY: Father history of cancer. ALLERGIES: Allergies to AMOXICILLIN, PENICILLIN, TETRACYCLINE. Medications include the patient is currently on Levaquin - the patient is on Flagyl 500 every 8 hours, Imodium, Synthroid, Dilaudid, Dextrose, Protonix, Tygon. PHYSICAL EXAMINATION: Her blood pressure is 88/50 with a pulse of 57, temperature 98, she is 98% on room air. General description is a middle-aged female, lying in bed, in no distress, no tachypnea or accessory for respiration use. HEENT: Shows slight pallor. No scleral icterus. Oral mucosa is dry. No further edema or thrush. NECK: Trachea central, no thyromegaly. LUNGS: Unlabored breathing, clear to auscultation anteriorly. No wheeze or crackle. HEART: S1, S2. Regular rate and rhythm. ABDOMEN: Soft, no tenderness, no guarding or rigidity. No organomegaly. EXTREMITIES: No edema of the feet. SKIN EXAMINATION: No rash or mass palpable. NEUROLOGICAL: Patient is awake, alert, oriented x3. Mood and affect normal. LABS: Hemoglobin is 11.1, white count of 4.9, electrolyte has been normal. BUN of 12, creatinine 0.76. Stool for C. diff both the [QAMARKER] and PCR are negative. The serology was negative. The stool cultures are currently pending. CT report as mentioned above. DIAGNOSTIC IMPRESSION AND PLAN: Patient admitted to the hospital with intractable nausea, vomiting and diarrhea and this patient did have a history of Clostridium difficile colitis with recent exposure to antibiotic considering high for Clostridium difficile colitis. However, both the and PCR negative making it appear less likely Clostridium difficile colitis. The patient did have his evidence of enterocolitis on the pelvic CT with question of possible viral or bacterial etiology other than Clostridium difficile. PLAN: 1. Await stool culture to be finalized. 2. Discontinue Imodium as infectious etiology has not been completely ruled out. 3. Will add Questran for symptomatic relief and toxin binding. 4. Continue the patient on Levaquin and Flagyl at this point. 5. Will follow up on clinical condition and culture to further adjust medication if needed. Thank you for this consultation. Will follow this patient along with you. MMODL / IJN: [id number] /
[2018-06-25 07:46] LABS: Anisocytosis Slight; Basophils % (A) 0 %; Eosinophils % (A) 2 %; HCT 30.5 % (34.0-46.0); HGB 10.2 gm/dL (11.4-16.0); Lymphocytes # (A) 0.7 k/uL (1.0-4.8); Lymphocytes % (A) 36 %; MCH 30.2 pg (25.0-35.0); MCHC 33.4 g/dL (31.0-37.0); MCV 90.5 fL (80.0-100.0); Mean Platelet Volume 6.6; Monocytes % (A) 2 %; Neutrophils # (A) 1.2 k/uL (1.3-7.7); Neutrophils % (A) 56 %; Platelet Count 153 k/uL (150-450); RBC 3.37 m/uL (3.80-5.40); RDW 17.3 % (11.5-15.5)
[2018-06-25 08:07] LABS: Anion Gap 2 mmol/L; Blood Urea Nitrogen 5 mg/dL (7-17); Calcium 8.3 mg/dL (8.4-10.2); Carbon Dioxide 26 mmol/L (22-30); Chloride 112 mmol/L (98-107); Glucose 88 mg/dL (74-99); Magnesium 1.7 mg/dL (1.6-2.3); Sodium 140 mmol/L (137-145)
[2018-06-25] MEDS: PANTOPRAZOLE 40 MG TABLET PO SCH (09:06)
[2018-06-25] MEDS: ENOXAPARIN 40 MG/0.4 ML SYRINGE SQ SCH (09:06)
[2018-06-25] MEDS: HYDROcodone/APAP 5-325MG 1 EACH TAB PO SCH ×3 (09:11→22:44)
[2018-06-25] MEDS: CHOLESTYRAMINE (WITH SUGAR) 4 GM PACKET PO SCH ×2 (09:12→17:15)
[2018-06-25] MEDS: metroNIDAZOLE-NS PMX 500 MG in SALINE 1 100ML.BAG IVPB SCH ×3 (09:44→23:46)
--- NOTE | 2018-06-25 11:57 | P.PN ---
Subjective Progress Note Date: 06/25/18 Principal diagnosis: N,V,D In f/u pt denies any N or V, she is hungry and wanting more food, she had 1 episode of diarrhea with solid "sediment" in it, no blood, mucus or cramping, BS are very loud. Objective - Vital Signs Vital signs: Vital Signs Temp 97.9 F 06/25/18 07:10 Pulse 63 06/25/18 07:10 Resp 18 06/25/18 07:10 BP 86/50 06/25/18 07:10 Pulse Ox 99 06/25/18 07:10 Intake & Output 06/24/18 06/25/18 06/25/18 18:59 06:59 18:59 Intake Total 780 300 Output Total 5 Balance 780 -5 300 Weight 58.786 kg Intake: Oral 680 200 Other 100 100 Output: Stool 5 Other: Voiding Method Toilet Toilet # Voids 1 - Constitutional General appearance: Present: cooperative, no acute distress, thin - EENT Eyes: Present: anicteric sclerae, EOMI ENT: Present: hearing grossly normal - Respiratory Details: respirations are even and unlabored - Peripheral edema leg Peripheral Edema: bilateral: None - Gastrointestinal Gastrointestinal Comment(s): no tenderness, rebound, audible BS General gastrointestinal: Present: soft - Neurologic Neurologic: Present: CNII-XII intact - Musculoskeletal Musculoskeletal: Present: strength equal bilaterally - Psychiatric Psychiatric: Present: A&O x's 3, appropriate affect, intact judgment & insight - Labs CBC & Chem 7: 06/25/18 07:27 06/25/18 07:27 Labs: Abnormal Lab Results - Last 24 Hours (Table) 06/25/18 06/25/18 Range/Units 07:27 07:27 WBC 2.0 L (3.8-10.6) k/uL RBC 3.37 L (3.80-5.40) m/uL Hgb 10.2 L (11.4-16.0) gm/dL Hct 30.5 L (34.0-46.0) % RDW 17.3 H (11.5-15.5) % Neutrophils # 1.2 L (1.3-7.7) k/uL Lymphocytes # 0.7 L (1.0-4.8) k/uL Chloride 112 H (98-107) mmol/L BUN 5 L (7-17) mg/dL Calcium 8.3 L (8.4-10.2) mg/dL Microbiology - Last 24 Hours (Table) 06/24/18 17:32 Stool Culture - Preliminary Stool 06/23/18 17:47 Blood Culture - Preliminary Blood No Growth after 24 hours Assessment and Plan (1) T-cell lymphoma Narrative/Plan: Patient has on the combination of Cytoxan and Neulasta. She has intermittently held her Cytoxan due to a variety of complaints over the last 2 months, including, fatigue, lack of appetite, intermittent diarrhea. She does not follow a regimen to try and control symptoms, which is difficult. She will cont to hold cytoxan until she follows up next week. She needs to understand that she can treat some side effects. Neulasta injection has been rescheduled for tomorrow, appt time is in DC summary. Pt is aware Current Visit: No Status: Chronic Priority: Medium Code(s): C85.90 - NON- HODGKIN LYMPHOMA, UNSPECIFIED, UNSPECIFIED SITE SNOMED Code(s): 871973743 (2) Dehydration Current Visit: Yes Status: Resolved Priority: High Code(s): E86.0 - DEHYDRATION SNOMED Code(s): 68119886 (3) Diarrhea Narrative/Plan: Improved, she is on questran twice a day. Unclear exact cause of diarrhea. Pt wondered if r/t cytoxan but, she has been on it without diarrhea as well. She will hold cytoxan and cont treatments for diarrhea, plan to be decided in outpatient setting. As of note, pt has not had colonoscopy, she is 52 years old. This is an age related cancer screen and was mentioned to her. She can be set up for that outpatient. She is asking for more food today. Have asked nursing to contact Attending for diet change. Did order anusol for perirectal discomfort from diarrhea Current Visit: Yes Status: Acute Priority: High Code(s): R19.7 - DIARRHEA , UNSPECIFIED SNOMED Code(s): 27661881 (4) Nausea and vomiting Current Visit: Yes Status: Resolved Priority: High Code(s): R11.2 - NAUSEA WITH VOMITING, UNSPECIFIED SNOMED Code(s): 77621464 Plan: Pt is ok from Hem/Onc standpoint or discharge once cleared by Attending and Consulting Physicians
[2018-06-25] MEDS: MULTIVITAMINS, THERA 1 EACH TAB PO SCH (13:01)
[2018-06-25] MEDS: HYDROCORTISONE 2.5% RECTAL CREAM 30 GM TUBE RECTAL SCH ×2 (14:22→22:43)
[2018-06-25] MEDS ORDERED: ALPRAZolam 0.5 MG TAB PO PRN (15:26)
--- NOTE | 2018-06-25 15:39 | P.PN ---
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 diff. she's follow up with the [facility]'s clinic as an outpatient setting area. She admits is with nausea vomiting and diarrhea. Actually patient vomited only once and her main problem is the diarrhea which has about go she watery diarrhea about 10 times per day with no blood or the last 4-5 days. Associated with no abdominal pain but she has mild generalized abdominal tenderness. Patient she had abdominal CT: Jejunitis and colitis, with multiple reactive lymphadenopathy. pt has been treated with iv fluids, zofran , protonix and pain medicine, with imodium . We will stop the by mouth vancomycin and started the patient on Flagyl and Levaquin. 06/25/2018 Patient today feels better with less diarrhea Vitas looks stable. Her leukocyte went down to 2.0, however as per patient does her baseline. Patient is been evaluated by oncology hematology team and they cleared her for discharge and appointment with her oncologist Dr. Katz was been made for her tomorrow at 1:00 PM. Patient felt a little bit upset by the family as she was telling me, Xanax was added for relaxation. Patient agrees to stay in the hospital for now Discharge planning in 24-48 hours Objective - Vital Signs Vital signs: Vital Signs Temp 98.1 F 06/25/18 15:17 Pulse 66 06/25/18 15:17 Resp 18 06/25/18 15:17 BP 107/63 06/25/18 15:17 Pulse Ox 100 06/25/18 15:17 Intake & Output 06/24/18 06/25/18 06/25/18 18:59 06:59 18:59 Intake Total 780 522 Output Total 5 Balance 780 -5 522 Weight 58.786 kg Intake: Oral 680 422 Other 100 100 Output: Stool 5 Other: Voiding Method Toilet Toilet # Voids 1 - Exam GENERAL: The patient is alert and oriented x3, not in any acute distress. Well developed, well nourished. HEENT: Pupils are round and equally reacting to light. EOMI. No scleral icterus. No conjunctival pallor. Normocephalic, atraumatic. No pharyngeal erythema. No thyromegaly. CARDIOVASCULAR: S1 and S2 present. No murmurs, rubs, or gallops. PULMONARY: Chest is clear to auscultation, no wheezing or crackles. -ABDOMEN: Soft, mild generalized abdominal tenderness with no rebound tenderness , more to the left of the umbilicus, nondistended, normoactive bowel sounds. No palpable organomegaly. MUSCULOSKELETAL: No joint swelling or deformity. EXTREMITIES: No cyanosis, clubbing, or pedal edema. NEUROLOGICAL: Gross neurological examination did not reveal any focal deficits. SKIN: No rashes. - Labs CBC & Chem 7: 06/25/18 07:27 06/25/18 07:27 Labs: Abnormal Lab Results - Last 24 Hours (Table) 06/24/18 06/25/18 06/25/18 Range/Units 17:32 07: 07:27 WBC 2.0 L (3.8-10.6) k/uL RBC 3.37 L (3.80-5.40) m/uL Hgb 10.2 L (11.4-16.0) gm/dL Hct 30.5 L (34.0-46.0) % RDW 17.3 H (11.5-15.5) % Neutrophils # 1.2 L (1.3-7.7) k/uL Lymphocytes # 0.7 L (1.0-4.8) k/uL Chloride 112 H (98-107) mmol/L BUN 5 L (7-17) mg/dL Calcium 8.3 L (8.4-10.2) mg/dL Stool Lactoferrin POSITIVE H (NEGATIVE) Microbiology - Last 24 Hours (Table) 06/24/18 17:32 Stool Culture - Preliminary Stool 06/23/18 17:47 Blood Culture - Preliminary Blood No Growth after 24 hours Assessment and Plan Assessment: diarrhea, possibly gastroenteritis. C. diff is negative T-cell lymphoproliferation disorder Chronic neutropenia Anxiety/depression History of hypothyroidism History of chronic ectopic Nicotine dependence Moderate to severe coronary protein malnutrition Plan: This is a pleasant 52 years old female who presents with gastroenteritis-like picture of the top of her chronic neutropenia, patient is been treated with IV fluid. Change antibiotics from by mouth vancomycin to Flagyl and Levaquin. Check stool studies for culture, ova and parasite and leukocytes. Keep monitor the patient's including vitals and lites. Resume home medication. Pain management.
[2018-06-25] MEDS ORDERED: LEVOFLOXACIN 500 MG TAB PO SCH (16:00)
--- NOTE | 2018-06-25 22:51 | PN ---
PROGRESS NOTE DATE OF SERVICE: 06/25/2018 REASON FOR FOLLOWUP: Colitis. HISTORY OF PRESENTING ILLNESS: The patient is a 52-year-old female admitted to hospital with intractable nausea, vomiting, diarrhea with evidence of colitis on recent CT. The patient is currently afebrile. Patient's diarrhea has resolved. She has been tolerating regular food with no nausea, no vomiting and no loose stools. PHYSICAL EXAMINATION: Blood pressure 95/53 with a pulse of 72, temperature 98.1. She is 98% on room air. General description is a middle-aged female lying in bed in no distress. RESPIRATORY SYSTEM: Unlabored breathing. Clear to auscultation anteriorly. HEART: S1, S2. Regular rate and rhythm. ABDOMEN: Soft. No tenderness. LABS: Hemoglobin 10.2, white count 2.0, BUN of 6, creatinine 0.65. Stool cultures are pending. Stool for C difficile was negative. DIAGNOSTIC IMPRESSION AND PLAN: Patient admitted to hospital, did have component of colitis. There is concern about possible infectious or ischemic in this patient who has responded to Levaquin and Flagyl; to continue for about a week with close outpatient followup. Plan of care was discussed with the admitting physician. MMODL / IJN: [id number] /
[2018-06-26] MEDS: HYDROmorphone 0.5 MG/0.5 ML SYRINGE IVP PRN ×3 (00:29→10:26)
[2018-06-26 04:40] VITALS: BP 97/63; PULSE 69; TEMP 97.6
[2018-06-26] MEDS: LEVOTHYROXINE 75 MCG TAB PO SCH (06:07)
--- NOTE | 2018-06-26 08:55 | PN ---
PROGRESS NOTE DATE OF SERVICE: 06/25/2018 REASON FOR FOLLOWUP: Colitis, possible bacterial versus viral. INTERVAL HISTORY: The patient is currently afebrile. The patient is breathing comfortably. The patient denies having any chest pain or shortness of breath or cough. The patient's diarrhea has resolved. She did not have any bowel movement; however, she has been passing gas. No nausea or vomiting. She tolerated a regular diet. PHYSICAL EXAMINATION: Blood pressure 92/51 with a pulse of 63, temperature 97.89. She is 99% on room air. General description is a middle-aged female lying in bed in no distress. RESPIRATORY SYSTEM: Unlabored breathing. Clear to auscultation anteriorly. HEART: S1, S2. Regular rate and rhythm. ABDOMEN: Soft. No tenderness. LABS: Hemoglobin 10.8, white count 2.0, BUN of 5, creatinine 0.65. Stool for C difficile has been negative. Stool culture currently pending. DIAGNOSTIC IMPRESSION AND PLAN: Patient admitted to hospital with acute nausea, vomiting, diarrhea in this patient with evidence of bacterial colitis on the CT. Stool for C difficile, both DINORA and PCR, has been negative. The patient has overall improvement on Flagyl and Levaquin, pointing toward possible bacterial etiology. She will continue with these 2 antibiotics for a week to finish her course of therapy with close outpatient followup. Questions and concerns were answered. MMODL / IJN: [id number] /
[2018-06-26] MEDS: DEXTROSE 5%-0.9% NACL 1,000 ML IV SCH (09:04)
[2018-06-26] MEDS: HYDROcodone/APAP 5-325MG 1 EACH TAB PO SCH (09:05)
[2018-06-26] MEDS: ENOXAPARIN 40 MG/0.4 ML SYRINGE SQ SCH (09:05)
[2018-06-26] MEDS: PANTOPRAZOLE 40 MG TABLET PO SCH (09:06)
[2018-06-26] MEDS: HYDROCORTISONE 2.5% RECTAL CREAM 30 GM TUBE RECTAL SCH (09:06)
[2018-06-26] MEDS: MULTIVITAMINS, THERA 1 EACH TAB PO SCH (09:07)
[2018-06-26] MEDS: CHOLESTYRAMINE (WITH SUGAR) 4 GM PACKET PO SCH (09:11)
[2018-06-26] MEDS: metroNIDAZOLE-NS PMX 500 MG in SALINE 1 100ML.BAG IVPB SCH (10:18)
[2018-06-26 13:14] VITALS: RESP 16
--- NOTE | 2018-06-26 20:14 | P.PN ---
Subjective Progress Note Date: 06/26/18 Principal diagnosis: N,V,D Patient presenting symptoms of nausea vomiting and diarrhea have resolved, no fevers, no sequela from hospitalization. Patient is tolerating oral intake, no pain, she is ready for discharge. Objective - Vital Signs Vital signs: Vital Signs Temp 97.6 F 06/26/18 04:40 Pulse 69 06/26/18 08:00 Resp 16 06/26/18 08:00 BP 97/63 06/26/18 04:40 Pulse Ox 99 06/26/18 04:40 Intake & Output 06/26/18 06/26/18 06/27/18 06:59 18:59 06:59 Intake Total 1022 1540 Output Total 2 Balance 1022 1538 Weight 58.786 kg Intake: Intake, IV Titration 800 100 Amount Dextrose 5%-0.9% NaCl 1, 700 000 ml @ 100 mls/hr IV . Q10H OSMANI Rx#:[id number] metroNIDAZOLE-NS PMX 500 100 100 mg In Saline 1 100ml.bag @ 100 mls/hr IVPB Q8HR OSMANI Rx#:[id number] Oral 222 1440 Output: Stool 2 Other: Voiding Method Toilet Toilet # Voids 1 3 - Exam Well-developed, thin built, no acute distress, normocephalic, atraumatic, anicteric sclera, respirations even and unlabored, no abdominal distention, lower extremity swelling, patient is independently ambulatory - Labs CBC & Chem 7: 06/25/18 07:27 06/25/18 07:27 Labs: Microbiology - Last 24 Hours (Table) 06/23/18 17:47 Blood Culture - Preliminary Blood No Growth after 72 hours Assessment and Plan (1) T-cell lymphoma Narrative/Plan: Plan is for patient to hold oral Cytoxan until she sees Dr. Katz next week. Patient has appointment for her Neulasta injection in the office today after discharge, patient is aware of appointment. Status: Chronic Priority: Medium Code(s): C85.90 - NON-HODGKIN LYMPHOMA, UNSPECIFIED, UNSPECIFIED SITE SNOMED Code(s): 090375386 (2) Diarrhea Status: Resolved Priority: High Code(s): R19.7 - DIARRHEA, UNSPECIFIED SNOMED Code(s): 30104605
== END 2018-06-26 13:05 | disposition home or self-care (01) | DRG 840 ==
LOC: EC 15:59 → 1SOBS 20:02 → OBSVTOIN 06-25 13:07 → 3NMEDONC 06-25 23:09
PROVIDERS: ADMIT Hospitalist; ATTEND Hospitalist
DX: C91.50 Adult T-cell lymphoma/leukemia (HTLV-1-associated) not having achieved remission (principal); E43 Unspecified severe protein-calorie malnutrition; Z68.1 Body mass index [BMI] 19.9 or less, adult; D70.9 Neutropenia, unspecified; E03.9 Hypothyroidism, unspecified; E86.0 Dehydration; F17.210 Nicotine dependence, cigarettes, uncomplicated; F32.9 Major depressive disorder, single episode, unspecified; F41.9 Anxiety disorder, unspecified; Z79.890 Hormone replacement therapy; Z86.19 Personal history of other infectious and parasitic diseases; Z86.718 Personal history of other venous thrombosis and embolism; Z86.14 Personal history of Methicillin resistant Staphylococcus aureus infection; Z80.8 Family history of malignant neoplasm of other organs or systems; K52.9 Noninfective gastroenteritis and colitis, unspecified; Z88.0 Allergy status to penicillin; Z88.1 Allergy status to other antibiotic agents; Z91.030 Bee allergy status; Z79.899 Other long term (current) drug therapy
CPT/HCPCS: 36415; 74176; 80048; 80053; 83605; 83630; 83735; 84100; 84484; 85025; 87040; 87045; 87046; 87324; 87328; 87329; 87493; 87502; 93005; 96361; 96374; 96375; 96376; 99285

== ENCOUNTER → 2018-08-01 | Outpatient (CLI) | payer OTHER ==
[2018-08-04 08:51] VITALS: BMI 18.5
== END ==
LOC: LABWHC1 09:14
PROVIDERS: ATTEND Internal Medicine
DX: C94.80 Other specified leukemias not having achieved remission (principal)
CPT/HCPCS: 97802

== ENCOUNTER → 2018-10-14 | Outpatient (CLI) | payer OTHER ==
--- NOTE | 2018-10-14 14:08 | US ---
EXAMINATION TYPE: US transvaginal DATE OF EXAM: 10/14/2018 COMPARISON: CT 2018, US 2017 CLINICAL HISTORY: D25.9 UTERINE LEIOMYOMA. Intermittent pelvic pain, history of uterine fibroid, pain during intercourse, 7, para 3: set of twins, miscarriage 1, 1, ectopic 1, left fall opian tube removed. TECHNIQUE: Transvaginal exam only per ordering physician. Date of LMP: 1 1/2 years ago EXAM MEASUREMENTS: Uterus: 7.5 x 4.8 x 5.1 cm Endometrial Stripe: 0.2 cm Right Ovary: not seen Left Ovary: not seen 1. Uterus: anteverted, multiple nabothian cysts, 3.9 x 2.9 x 3.6cm hypoechoic area posterior fundus, probable fibroid 2. Endometrium: wnl 3. Right Ovary: not seen 4. Left Ovary: not seen 5. Bilateral Adnexa: wnl 6. Posterior cul-de-sac: wnl Some nabothian cysts are seen in the cervix on initial images. Heterogeneous uterus is present. There is a 3.9 cm posterior intramural fibroid causing slight bulging in the fundus image 18. No free flui d in pelvic cul-de-sac. IMPRESSION: A 3.9 cm posterior fundal fibroid.
== END | disposition home or self-care (01) ==
LOC: RADUSWWP 12:56
PROVIDERS: ATTEND Obstetrics & Gynecology
DX: D25.9 Leiomyoma of uterus, unspecified (principal)
CPT/HCPCS: 76830

== ENCOUNTER 2019-01-22 14:45 | Emergency (ER) | payer OTHER ==
[2019-01-22 14:49] VITALS: BP 105/68; PULSE 93; RESP 20; TEMP 98
[2019-01-22] MEDS ORDERED: ONDANSETRON 4 MG/2 ML VIAL IVP STA (15:00)
[2019-01-22] MEDS ORDERED: SODIUM CHLORIDE 0.9% 1,000 ML IV STA (15:00)
--- NOTE | 2019-01-22 15:32 | ED ---
Nausea/Vomiting/Diarrhea HPI - General Source: patient Mode of arrival: ambulatory Limitations: no limitations <Laurie Young - Last Filed: 01/22/19 19:04> <Christie Chris - Last Filed: 01/24/19 14:51> - General Chief complaint: Nausea/Vomiting/Diarrhea Stated complaint: thrush, poss C-diff Time Seen by Provider: 01/22/19 15:00 - History of Present Illness Initial comments: 53-year-old female presenting for all over body pain-including headache, soft stools, possible dehydration. Patient states that she has history of MDS and leukemia presents emergency department for evaluation of possible dehydration. Patient states she has had a slight headache, vomiting she states this is chronic however with the chemotherapy medications as well as softer than normal stools. Patient denies any water stools she states that the stools at times are foul smelling. Patient denies chest pain, shortness of breath, states she has had congetsion and a slight cough. Denies sputum production or fevers. Patient denies neck stiffness, photophobia, sudden on set of headache, or this being the wort headache of her life. Patient was sent in for dehydration by her PCP. Remaining ROS (-). Patient is currently being treated for thrush. (Laurie Young) - Related Data Home Medications Medication Instructions Recorded Confirmed Ferrous Sulfate [Iron (65 MG 325 mg PO DAILY 03/06/17 01/22/19 Elemental)] Multivitamins, Thera [Multivitamin 1 tab PO DAILY 06/01/17 01/22/19 (formulary)] Cholecalciferol [Vitamin D3 (25 5,000 unit PO DAILY 04/23/18 01/22/19 Mcg = 1000 Iu)] Cyclophosphamide 100 mg PO HS 06/23/18 01/22/19 Pegfilgrastim [Neulasta] 6 mg IV Q14D 06/23/18 01/22/19 Docusate [Colace] 100 mg PO DAILY 01/22/19 01/22/19 Ensure 1 can PO DAILY 01/22/19 01/22/19 Fluconazole [Diflucan] 100 mg PO DAILY 01/22/19 01/22/19 Folic Acid 1 mg PO DAILY 01/22/19 01/22/19 Hydrocodone/Acetaminophen [[place] 1 tab PO TID PRN 01/22/19 01/22/19 7.5-325] L.acidoph,Paracasei, B.lactis 1 cap PO DAILY 01/22/19 01/22/19 [Probiotic] Levothyroxine Sodium [Synthroid] 300 mcg PO DAILY 01/22/19 01/22/19 Methotrexate Sodium [Methotrexate] 15 mg PO Q7D 01/22/19 01/22/19 Nystatin 100,000 Unit/ml Susp 5 ml PO QID 01/22/19 01/22/19 [Mycostatin Oral Susp] Ondansetron [Zofran] 4 mg PO Q6HR PRN 01/22/19 01/22/19 Previous Rx's Medication Instructions Recorded Pantoprazole [Protonix] 40 mg PO DAILY #15 tablet. 06/26/18 Ondansetron Odt [Zofran Odt] 4 mg PO Q12HR PRN 5 Days #10 tab 01/22/19 Allergies Allergy/AdvReac Type Severity Reaction Status Date / Time amoxicillin Allergy Unknown Verified 01/22/19 14:49 banana Allergy Rash/Hives Verified 01/22/19 14:49 bee venom protein (honey bee) Allergy Anaphylaxis Verified 01/22/19 14:49 cephalexin [From Keflex] Allergy Unknown Verified 01/22/19 14:49 Penicillins Allergy Unknown Verified 01/22/19 14:49 Tetracyclines Allergy Unknown Verified 01/22/19 14:49 Review of Systems ROS Other: All systems not noted in ROS Statement are negative. <Laurie Young - Last Filed: 01/22/19 19:04> ROS Other: All systems not noted in ROS Statement are negative. <Christie Chris - Last Filed: 01/24/19 14:51> ROS Statement: Those systems with pertinent positive or pertinent negative responses have been documented in the HPI. 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 she is to follow up with him for oral chemo History of Any Multi-Drug Resistant Organisms: C-DIFF Date of last positivie culture/infection: 2016-m[facility]a [facility] states this has been ongoing since dec MDRO Source:: wound rt hip / stool Additional Past Surgical History / Comment(s): ectopic , neck surgery, bone marrow biopsy x 4 Past Anesthesia/Blood Transfusion Reactions: No Reported Reaction Additional Past Anesthesia/Blood Transfusion Reaction / Comment(s): pt stated has received blood in past no known reaction Past Psychological History: Anxiety, Depression Smoking Status: Current every day smoker Past Alcohol Use History: None Reported Past Drug Use History: None Reported - Past Family History Father Family Medical History: Cancer Additional Family Medical History / Comment(s): mesothelioma Mother History Unknown: Yes <Laurie Young - Last Filed: 01/22/19 19:04> General Exam Limitations: no limitations <Laurie Young - Last Filed: 01/22/19 19:04> - General Exam Comments Initial Comments: General: The patient is awake and alert, in no distress, and does not appear acutely ill. Eye: +3 mm pupils are equal, round and reactive to light, extra-ocular movements are intact. No nystagmus. There is normal conjunctiva bilaterally. No signs of icterus. Ears, nose, mouth and throat: There are moist mucous membranes and no oral lesions. Neck: The neck is supple, there is no tenderness or JVD. No nuchal rigidity noted. Cardiovascular: There is a regular rate and rhythm. No murmur, rub or gallop is appreciated. Respiratory: Lungs are clear to auscultation, respirations are non-labored, breath sounds are equal. No wheezes, stridor, rales, or rhonchi. Gastrointestinal: Soft, non-distended, non-tender abdomen without masses or organomegaly noted. There is no rebound or guarding present. Musculoskeletal: Normal ROM, no tenderness. Strength 5/5. Sensation intact. Radial pulses equal bilaterally 2+. Neurological: A&O x 3. CN II-XII intact grossly, There are no obvious motor or sensory deficits. Coordination appears grossly intact. Speech is normal. Nose within coordinated. Gait without ataxia. No pronator drift. Skin: Skin is warm and dry and no rashes or lesions are noted. White/yellow discoloration of tongue. Psychiatric: Cooperative, appropriate mood & affect, normal judgment. (Laurie Young) Course Vital Signs 01/22/19 14:47 Temperature 98.0 F Pulse Rate 93 Respiratory 20 Rate Blood Pressure 105/68 O2 Sat by Pulse 99 Oximetry Medical Decision Making - Lab Data Result diagrams: 01/22/19 16:00 01/22/19 16:00 <Laurie Young - Last Filed: 01/22/19 19:04> - Lab Data Result diagrams: 01/22/19 16:00 01/22/19 16:00 <Christie Chris - Last Filed: 01/24/19 14:51> - Medical Decision Making 53-year-old female presents emergency department for pain all over, headache possible dehydration. Patient was given Toradol after neurological examination patient denies sudden onset headache or denies this being the worst headache of her life. Patient laboratory studies are unremarkable. Chest x-ray clear of acute processes. Patient is afebrile. Patient does not appear toxic. Patient states medication she feels 100% better. She begins to get dressed and she wants to go home. Patient was given IV hydration the emergency department urinalysis unremarkable. No ketones. I discussed the case by attending from Dr. Chris and at this time she is agreeable care plan discharge. Return parameters were discussed the patient was discharged appearing well. (Laurie Young) I was available for consultation in the emergency department. The history and physical exam were done by the midlevel provider. I was consulted for this patients care. I reviewed the case with the midlevel provider and based on their presentation of the patient, I agree with the assessment, medical decision making and plan of care as documented. After treatment, patient felt markedly better and wanted to go home. (Christie Chris) - Lab Data Lab Results 01/22/19 01/22/19 01/22/19 Range/Units 16:00 16:00 16:00 WBC 4.1 (3.8-10.6) k/uL RBC 3.52 L (3.80-5.40) m/uL Hgb 12.1 (11.4-16.0) gm/dL Hct 34.3 (34.0-46.0) % MCV 97.4 (80.0-100.0) fL MCH 34.4 (25.0-35.0) pg MCHC 35.3 (31.0-37.0) g/dL RDW 13.5 (11.5-15.5) % Plt Count 255 (150-450) k/uL Neutrophils % 72 % Lymphocytes % 18 % Monocytes % 6 % Eosinophils % 2 % Basophils % 1 % Neutrophils # 3.0 (1.3-7.7) k/uL Lymphocytes # 0.7 L (1.0-4.8) k/uL Monocytes # 0.2 (0-1.0) k/uL Eosinophils # 0.1 (0-0.7) k/uL Basophils # 0.0 (0-0.2) k/uL Sodium 140 (137-145) mmol/L Potassium 3.6 (3.5-5.1) mmol/L Chloride 107 (98-107) mmol/L Carbon Dioxide 25 (22-30) mmol/L Anion Gap 8 mmol/L BUN 17 (7-17) mg/dL Creatinine 0.70 (0.52-1.04) mg/dL Est GFR (CKD-EPI)AfAm >90 (>60 ml/min/1.73 sqM) Est GFR (CKD-EPI)NonAf >90 (>60 ml/min/1.73 sqM) Glucose 100 H (74-99) mg/dL Plasma Lactic Acid Denis 0.8 (0.7-2.0) mmol/L Calcium 9.4 (8.4-10.2) mg/dL Total Bilirubin 0.2 (0.2-1.3) mg/dL AST 21 (14-36) U/L ALT 25 (9-52) U/L Alkaline Phosphatase 99 (38-126) U/L Total Protein 6.6 (6.3-8.2) g/dL Albumin 3.9 (3.5-5.0) g/dL Lipase 86 (23-300) U/L Urine Color Urine Appearance (Clear) Urine pH (5.0-8.0) Ur Specific [place] (1.001-1.035) Urine Protein (Negative) Urine Glucose (UA) (Negative) Urine Ketones (Negative) Urine Blood (Negative) Urine Nitrite (Negative) Urine Bilirubin (Negative) Urine Urobilinogen (<2.0) mg/dL Ur Leukocyte Esterase (Negative) Influenza Type A RNA (Not Detectd) Influenza Type B (PCR) (Not Detectd) 01/22/19 01/22/19 Range/Units 16:05 18:20 WBC (3.8-10.6) k/uL RBC (3.80-5.40) m/uL Hgb (11.4-16.0) gm/dL Hct (34.0-46.0) % MCV (80.0-100.0) fL MCH (25.0-35.0) pg MCHC (31.0-37.0) g/dL RDW (11.5-15.5) % Plt Count (150-450) k/uL Neutrophils % % Lymphocytes % % Monocytes % % Eosinophils % % Basophils % % Neutrophils # (1.3-7.7) k/uL Lymphocytes # (1.0-4.8) k/uL Monocytes # (0-1.0) k/uL Eosinophils # (0-0.7) k/uL Basophils # (0-0.2) k/uL Sodium (137-145) mmol/L Potassium (3.5-5.1) mmol/L Chloride (98-107) mmol/L Carbon Dioxide (22-30) mmol/L Anion Gap mmol/L BUN (7-17) mg/dL Creatinine (0.52-1.04) mg/dL Est GFR (CKD-EPI)AfAm (>60 ml/min/1.73 sqM) Est GFR (CKD-EPI)NonAf (>60 ml/min/1.73 sqM) Glucose (74-99) mg/dL Plasma Lactic Acid Denis (0.7-2.0) mmol/L Calcium (8.4-10.2) mg/dL Total Bilirubin (0.2-1.3) mg/dL AST (14-36) U/L ALT (9-52) U/L Alkaline Phosphatase (38-126) U/L Total Protein (6.3-8.2) g/dL Albumin (3.5-5.0) g/dL Lipase (23-300) U/L Urine Color Yellow Urine Appearance Clear (Clear) Urine pH 6.0 (5.0-8.0) Ur Specific [place] 1.020 (1.001-1.035) Urine Protein Negative (Negative) Urine Glucose (UA) Negative (Negative) Urine Ketones Negative (Negative) Urine Blood Negative (Negative) Urine Nitrite Negative (Negative) Urine Bilirubin Negative (Negative) Urine Urobilinogen <2.0 (<2.0) mg/dL Ur Leukocyte Esterase Negative (Negative) Influenza Type A RNA Not Detected (Not Detectd) Influenza Type B (PCR) Not Detected (Not Detectd) Disposition Is patient prescribed a controlled substance at d/c from ED?: No Time of Disposition: 18:20 <Laurie Young - Last Filed: 01/22/19 19:04> <Christie Chris - Last Filed: 01/24/19 14:51> Clinical Impression: Headache, Dehydration, Chronic vomiting, Diarrhea, History of thrush Disposition: HOME SELF-CARE Condition: Good Instructions (If sedation given, give patient instructions): Acute Diarrhea (ED) Additional Instructions: Please use medication as discussed. Please follow-up with family doctor in the next 2 days. Please return to emergency room if the symptoms increase or worsen or for any other concerns. Prescriptions: Ondansetron Odt [Zofran Odt] 4 mg PO Q12HR PRN 5 Days #10 tab PRN Reason: Nausea Referrals: [facility] [Primary Care Provider] - 1-2 days
[2019-01-22] MEDS ORDERED: KETOROLAC 30 MG/ML 1 ML VIAL IVP STA (15:40)
[2019-01-22 16:22] LABS: Basophils % (A) 1 %; Eosinophils # (A) 0.1 k/uL (0-0.7); Eosinophils % (A) 2 %; HCT 34.3 % (34.0-46.0); HGB 12.1 gm/dL (11.4-16.0); Lymphocytes # (A) 0.7 k/uL (1.0-4.8); Lymphocytes % (A) 18 %; MCH 34.4 pg (25.0-35.0); MCHC 35.3 g/dL (31.0-37.0); MCV 97.4 fL (80.0-100.0); Mean Platelet Volume 5.5; Monocytes # (A) 0.2 k/uL (0-1.0); Monocytes % (A) 6 %; Neutrophils % (A) 72 %; Platelet Count 255 k/uL (150-450); RBC 3.52 m/uL (3.80-5.40); RDW 13.5 % (11.5-15.5); WBC 4.1 k/uL (3.8-10.6)
[2019-01-22] MEDS ORDERED: SODIUM CHLORIDE 0.9% 1,000 ML IV SCH (16:30)
[2019-01-22 16:31] LABS: ALT 25 U/L (9-52); AST 21 U/L (14-36); African American GFR (CKD) >90 (>60 ml/min/1.73 sqM); Albumin 3.9 g/dL (3.5-5.0); Alkaline Phosphatase 99 U/L (38-126); Anion Gap 8 mmol/L; Blood Urea Nitrogen 17 mg/dL (7-17); Calcium 9.4 mg/dL (8.4-10.2); Carbon Dioxide 25 mmol/L (22-30); Chloride 107 mmol/L (98-107); Glucose 100 mg/dL (74-99); Potassium 3.6 mmol/L (3.5-5.1); Sodium 140 mmol/L (137-145); Total Bilirubin 0.2 mg/dL (0.2-1.3); Total Protein 6.6 g/dL (6.3-8.2)
--- NOTE | 2019-01-22 16:40 | XR ---
EXAMINATION TYPE: XR chest 2V DATE OF EXAM: 01/22/2019 COMPARISON: 05/29/2018 HISTORY: Cough TECHNIQUE: Frontal and lateral views of the chest are obtained. FINDINGS: Heart and mediastinum are normal. Lungs are clear. Diaphragm is normal. Bony thorax appear s normal. IMPRESSION: Normal chest. No change.
[2019-01-22 18:24] LABS: Appearance,Urine Clear (Clear); Bilirubin,Urine Negative (Negative); Blood,Urine Negative (Negative); Color,Urine Yellow; Glucose,Urine (UA) Negative (Negative); Ketones,Urine Negative (Negative); Leukocyte Esterase,Urine Negative (Negative); Nitrite,Urine Negative (Negative); Protein,Urine Negative (Negative); Urobilinogen,Urine <2.0 mg/dL (<2.0)
== END 2019-01-22 18:47 | disposition home or self-care (01) ==
LOC: EC 14:45
DX: E86.0 Dehydration (principal); B37.0 Candidal stomatitis; R11.10 Vomiting, unspecified; R19.7 Diarrhea, unspecified; F41.9 Anxiety disorder, unspecified; F32.9 Major depressive disorder, single episode, unspecified; E03.9 Hypothyroidism, unspecified; D46.9 Myelodysplastic syndrome, unspecified; F17.200 Nicotine dependence, unspecified, uncomplicated; Z79.890 Hormone replacement therapy; Z79.899 Other long term (current) drug therapy; Z88.0 Allergy status to penicillin; Z88.1 Allergy status to other antibiotic agents; Z91.030 Bee allergy status; Z91.018 Allergy to other foods; Z86.718 Personal history of other venous thrombosis and embolism; Z85.6 Personal history of leukemia; Z92.21 Personal history of antineoplastic chemotherapy
CPT/HCPCS: 36415; 80053; 83605; 83690; 85025; 81003; 87040; 87502; 71046; 99284; 96374; 96375; 96361 ×2; J2405; J1885

== ENCOUNTER 2019-02-11 15:12 | Emergency (ER) | payer OTHER ==
[2019-02-11 15:35] VITALS: RESP 18; TEMP 98
--- NOTE | 2019-02-11 15:43 | ED ---
Headache HPI - General Chief Complaint: Headache Stated Complaint: Head Pain, Cough-ca pt Time Seen by Provider: 02/11/19 15:40 Mode of arrival: ambulatory Limitations: no limitations - History of Present Illness Initial Comments: There are 53-year-old female with history of myelodysplasia, leukemia currently taking neuplastin last injeciton 2 days ago for leukopenia presenting for pain from head to toe bone pain. Patient states that she's had pain in her head all the way to her toes for the past month. She states that she feels like soreness breaking her bones. Patient states she can no longer take the pain. She states her milk was not helping. Patient denies a chest pain or shortness of breath she does a leg or calf swelling. Patient is a nausea vomiting fever or neck stiffness. Patient states the headache has been persistent she stated that was alleviated during her previous visit. She states it seems to come and go. Patient that she does have a headache today. Patient states she has had on-and-off cough denies hemoptysis or shortness of breath. Patient states she called the brake assembler at Dr. Harris office who recommend the patient come to emergency department if she felt it was necessary today. Patient is no other complaints denies any weakness of unilateral upper extremities or lower extremities denies speech changes visual changes gait changes difficulty or taking speech. - Related Data Home Medications Medication Instructions Recorded Confirmed Ferrous Sulfate [Iron (65 MG 325 mg PO DAILY 03/06/17 02/11/19 Elemental)] Multivitamins, Thera [Multivitamin 1 tab PO DAILY 06/01/17 02/11/19 (formulary)] Cholecalciferol [Vitamin D3 (25 5,000 unit PO DAILY 04/23/18 02/11/19 Mcg = 1000 Iu)] Cyclophosphamide 100 mg PO HS 06/23/18 02/11/19 Pegfilgrastim [Neulasta] 6 mg IV Q14D 06/23/18 02/11/19 Docusate [Colace] 100 mg PO DAILY 01/22/19 02/11/19 Ensure 1 can PO DAILY 01/22/19 02/11/19 Folic Acid 1 mg PO DAILY 01/22/19 02/11/19 Hydrocodone/Acetaminophen [[place] 1 tab PO TID PRN 01/22/19 02/11/19 7.5-325] L.acidoph,Paracasei, B.lactis 1 cap PO DAILY 01/22/19 02/11/19 [Probiotic] Levothyroxine Sodium [Synthroid] 300 mcg PO DAILY 01/22/19 02/11/19 Methotrexate Sodium [Methotrexate] 15 mg PO Q7D 01/22/19 02/11/19 Ondansetron [Zofran] 4 mg PO Q6HR PRN 01/22/19 02/11/19 Previous Rx's Medication Instructions Recorded Pantoprazole [Protonix] 40 mg PO DAILY #15 tablet. 06/26/18 Allergies Allergy/AdvReac Type Severity Reaction Status Date / Time amoxicillin Allergy Unknown Verified 02/11/19 16:19 banana Allergy Rash/Hives Verified 02/11/19 16:19 bee venom protein (honey bee) Allergy Anaphylaxis Verified 02/11/19 16:19 cephalexin [From Keflex] Allergy Unknown Verified 02/11/19 16:19 Penicillins Allergy Unknown Verified 02/11/19 16:19 Tetracyclines Allergy Unknown Verified 02/11/19 16:19 Review of Systems ROS Statement: Those systems with pertinent positive or pertinent negative responses have been documented in the HPI. ROS Other: All systems not noted in ROS Statement are negative. 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 she is to follow up with him for oral chemo History of Any Multi-Drug Resistant Organisms: C-DIFF Date of last positivie culture/infection: 2015-[facility] this has been ongoing since dec MDRO Source:: wound rt hip / stool Additional Past Surgical History / Comment(s): ectopic , neck surgery, bone marrow biopsy x 4 Past Anesthesia/Blood Transfusion Reactions: No Reported Reaction Additional Past Anesthesia/Blood Transfusion Reaction / Comment(s): pt stated has received blood in past no known reaction Past Psychological History: Anxiety, Depression Smoking Status: Current every day smoker Past Alcohol Use History: None Reported Past Drug Use History: None Reported - Past Family History Father Family Medical History: Cancer Additional Family Medical History / Comment(s): mesothelioma Mother History Unknown: Yes General Exam - General Exam Comments Initial Comments: General: The patient is awake and alert, is nontoxic Eye: +3mm pupils are equal, round and reactive to light, extra-ocular movements are intact. No nystagmus. There is normal conjunctiva bilaterally. No signs of icterus. Ears, nose, mouth and throat: There are moist mucous membranes and no oral lesions. Neck: The neck is supple, there is no tenderness or JVD. No nuchal rigidity. Moves cervical spine freely without difficulty. Cardiovascular: There is a regular rate and rhythm. No murmur, rub or gallop is appreciated. Respiratory: Lungs are clear to auscultation, respirations are non-labored, breath sounds are equal. No wheezes, stridor, rales, or rhonchi. Gastrointestinal: Soft, non-distended, non-tender abdomen without masses or organomegaly noted. There is no rebound or guarding present. Musculoskeletal: Normal ROM, no tenderness. Strength 5/5 of the upper and lower extremities equal and comparison bilaterally. Sensation intact. Radial pulses equal bilaterally 2+. Neurological: A&O x 3. CN II-XII intact, There are no obvious motor or sensory deficits. Coordination appears grossly intact. Speech is normal. No drift of the upper or lower extremities. No gait ataxia. Skin: Skin is warm and dry and no rashes or lesions are noted. No lower extremity edema and negative Homans bilaterally. No calf swelling appreciated. Psychiatric: Cooperative Limitations: no limitations Course Vital Signs 02/11/19 02/11/19 15:33 17:17 Temperature 98 F Pulse Rate 98 87 Respiratory 18 18 Rate Blood Pressure 112/65 101/71 O2 Sat by Pulse 97 96 Oximetry Medical Decision Making - Medical Decision Making 53-year-old feel presenting for evaluation of pain all over. History of cancer. Patient on ejection for leukopenia. Patient is elevated white blood cell this is consistent with recent injection. Patient is afebrile nontoxic appearing no nuchal irritation signs. No focal neurological deficits. Patient has pain all over. Patient states this has been ongoing for the past 4 weeks. Including head pain. CT of the brain was obtained due to persistence of headache. No acute intracranial process. Chest x-ray negative as patient states she has had a cough. No acute process. Patient does not have out of proportion tachycardia. No swelling of the legs or lower extremities. Denies chest pain. Patient is given Dilaudid and Ativan. Resting comfortably. I discussed the case with the tape provider including admission for pain control. He spoke with patient's oncologist who recommended discharge of patient. Given both attending inpatient oncology recommendations patient was discharged home. Return parameters were discussed. Patient was requesting Dilaudid to be sent home with her. I discussed she needs to receive pain management from her primary opioid provider. Patient was discharged in nontoxic appearance with vital signs sta ble. - Lab Data Result diagrams: 02/11/19 16:24 02/11/19 16:24 Lab Results 02/11/19 02/11/19 02/11/19 Range/Units 16:24 16:24 16:24 WBC 31.7 H (3.8-10.6) k/uL RBC 3.55 L (3.80-5.40) m/uL Hgb 12.2 (11.4-16.0) gm/dL Hct 36.4 (34.0-46.0) % MCV 102.5 H D (80.0-100.0) fL MCH 34.5 (25.0-35.0) pg MCHC 33.6 (31.0-37.0) g/dL RDW 12.8 (11.5-15.5) % Plt Count 269 (150-450) k/uL Neutrophils % 88 % Lymphocytes % 6 % Monocytes % 4 % Eosinophils % 1 % Basophils % 1 % Neutrophils # 27.8 H (1.3-7.7) k/uL Lymphocytes # 1.8 (1.0-4.8) k/uL Monocytes # 1.1 H (0-1.0) k/uL Eosinophils # 0.3 (0-0.7) k/uL Basophils # 0.2 (0-0.2) k/uL Macrocytosis Slight PT (9.0-12.0) sec INR (<1.2) APTT (22.0-30.0) sec Sodium 141 (137-145) mmol/L Potassium 4.1 (3.5-5.1) mmol/L Chloride 105 (98-107) mmol/L Carbon Dioxide 28 (22-30) mmol/L Anion Gap 8 mmol/L BUN 16 (7-17) mg/dL Creatinine 0.94 (0.52-1.04) mg/dL Est GFR (CKD-EPI)AfAm 81 (>60 ml/min/1.73 sqM) Est GFR (CKD-EPI)NonAf 71 (>60 ml/min/1.73 sqM) Glucose 81 (74-99) mg/dL Plasma Lactic Acid Denis 1.1 (0.7-2.0) mmol/L Calcium 9.7 (8.4-10.2) mg/dL Magnesium 1.7 (1.6-2.3) mg/dL Total Bilirubin 0.4 (0.2-1.3) mg/dL AST 80 H (14-36) U/L ALT 91 H (9-52) U/L Alkaline Phosphatase 181 H (38-126) U/L Troponin I (0.000-0.034) ng/mL Total Protein 7.3 (6.3-8.2) g/dL Albumin 4.2 (3.5-5.0) g/dL 02/11/19 02/11/19 Range/Units 16:24 16:24 WBC (3.8-10.6) k/uL RBC (3.80-5.40) m/uL Hgb (11.4-16.0) gm/dL Hct (34.0-46.0) % MCV (80.0-100.0) fL MCH (25.0-35.0) pg MCHC (31.0-37.0) g/dL RDW (11.5-15.5) % Plt Count (150-450) k/uL Neutrophils % % Lymphocytes % % Monocytes % % Eosinophils % % Basophils % % Neutrophils # (1.3-7.7) k/uL Lymphocytes # (1.0-4.8) k/uL Monocytes # (0-1.0) k/uL Eosinophils # (0-0.7) k/uL Basophils # (0-0.2) k/uL Macrocytosis PT 10.1 (9.0-12.0) sec INR 0.9 (<1.2) APTT 22.0 (22.0-30.0) sec Sodium (137-145) mmol/L Potassium (3.5-5.1) mmol/L Chloride (98-107) mmol/L Carbon Dioxide (22-30) mmol/L Anion Gap mmol/L BUN (7-17) mg/dL Creatinine (0.52-1.04) mg/dL Est GFR (CKD-EPI)AfAm (>60 ml/min/1.73 sqM) Est GFR (CKD-EPI)NonAf (>60 ml/min/1.73 sqM) Glucose (74-99) mg/dL Plasma Lactic Acid Denis (0.7-2.0) mmol/L Calcium (8.4-10.2) mg/dL Magnesium (1.6-2.3) mg/dL Total Bilirubin (0.2-1.3) mg/dL AST (14-36) U/L ALT (9-52) U/L Alkaline Phosphatase (38-126) U/L Troponin I <0.012 (0.000-0.034) ng/mL Total Protein (6.3-8.2) g/dL Albumin (3.5-5.0) g/dL - EKG Data EKG Comments: Ventricular rate 81 bpm, NM interval 164 ms, QRS ration 88 ms, QT/QTC 388/450 ms. This is normal sinus rhythm. No ST elevation or depression noted. EKG personally interpreted. Disposition Clinical Impression: Pain, Bone pain, Head pain Disposition: HOME SELF-CARE Condition: Good Instructions (If sedation given, give patient instructions): Chronic Pain (ED) Additional Instructions: Please use medication as discussed. Please follow-up with family doctor in the next 2 days, and Dr. Katz in office. Please return to emergency room if the symptoms increase or worsen or for any other concerns. Is patient prescribed a controlled substance at d/c from ED?: No Referrals: [facility] [Primary Care Provider] - 1-2 days Time of Disposition: 18:51
[2019-02-11] MEDS ORDERED: SODIUM CHLORIDE 0.9% 1,000 ML IV STA (15:51)
[2019-02-11] MEDS ORDERED: MORPHINE SULFATE 4 MG/ML SYRINGE IV STA (15:51)
--- NOTE | 2019-02-11 16:39 | CT ---
EXAMINATION TYPE: CT brain wo con DATE OF EXAM: 02/11/2019 COMPARISON: None HISTORY: Headache CT DLP: 1041.4 mGycm Automated exposure control for dose reduction was used. FINDINGS: Ventricles have normal size. There is no mass effect nor midline shift. There is no sign of intracran ial hemorrhage. Calvarium is intact. IMPRESSION: NORMAL HEAD CT SCAN.
--- NOTE | 2019-02-11 16:41 | XR ---
EXAMINATION TYPE: XR chest 2V DATE OF EXAM: 02/11/2019 COMPARISON: 01/22/2019 HISTORY: Weakness TECHNIQUE: Frontal and lateral views of the chest are obtained. FINDINGS: Heart and mediastinum are normal. Lungs are clear. Diaphragm is normal. Bony thorax appear s intact. There is slight anterior wedging of several mid thoracic vertebra consistent with osteoporo sis. Unchanged. There is cervical spine surgery noted. IMPRESSION: No cardiopulmonary disease. No change.
[2019-02-11] MEDS ORDERED: KETOROLAC 30 MG/ML 1 ML VIAL IVP STA (16:43)
[2019-02-11 16:48] LABS: Basophils # (A) 0.2 k/uL (0-0.2); Basophils % (A) 1 %; Eosinophils # (A) 0.3 k/uL (0-0.7); Eosinophils % (A) 1 %; HCT 36.4 % (34.0-46.0); HGB 12.2 gm/dL (11.4-16.0); Lymphocytes # (A) 1.8 k/uL (1.0-4.8); Lymphocytes % (A) 6 %; MCH 34.5 pg (25.0-35.0); MCHC 33.6 g/dL (31.0-37.0); Macrocytosis Slight; Mean Platelet Volume 5.6; Monocytes # (A) 1.1 k/uL (0-1.0); Monocytes % (A) 4 %; Neutrophils # (A) 27.8 k/uL (1.3-7.7); Neutrophils % (A) 88 %; Platelet Count 269 k/uL (150-450); RBC 3.55 m/uL (3.80-5.40); RDW 12.8 % (11.5-15.5); WBC 31.7 k/uL (3.8-10.6)
[2019-02-11 16:54] LABS: Albumin 4.2 g/dL (3.5-5.0); Calcium 9.7 mg/dL (8.4-10.2); Magnesium 1.7 mg/dL (1.6-2.3); Total Bilirubin 0.4 mg/dL (0.2-1.3); Total Protein 7.3 g/dL (6.3-8.2)
[2019-02-11 16:55] LABS: Potassium 4.1 mmol/L (3.5-5.1)
[2019-02-11 17:01] LABS: INR 0.9 (<1.2); Prothrombin Time 10.1 sec (9.0-12.0)
[2019-02-11 17:14] LABS: MCV 102.5 fL (80.0-100.0)
[2019-02-11 17:17] VITALS: BP 101/71; PULSE 87
[2019-02-11] MEDS ORDERED: HYDROmorphone 0.5 MG/0.5 ML SYRINGE IVP STA (18:14)
[2019-02-11] MEDS ORDERED: LORazepam 2 MG/ML INJ IV STA (18:15)
== END 2019-02-11 19:10 | disposition home or self-care (01) ==
LOC: EC 15:12
DX: M89.8X0 Other specified disorders of bone, multiple sites (principal); R51 Headache; R05 Cough; D46.9 Myelodysplastic syndrome, unspecified; E03.9 Hypothyroidism, unspecified; F17.200 Nicotine dependence, unspecified, uncomplicated; Z88.0 Allergy status to penicillin; Z88.1 Allergy status to other antibiotic agents; Z91.018 Allergy to other foods; Z91.030 Bee allergy status; Z79.890 Hormone replacement therapy; Z92.21 Personal history of antineoplastic chemotherapy; Z79.899 Other long term (current) drug therapy
CPT/HCPCS: 36415; 93005; 80053; 83605; 83735; 84484; 85025; 85610; 85730; 71046; 70450; 99285; 96374; 96375 ×3; 96361 ×2; J2060; J2270; J1885; J1170

== ENCOUNTER 2019-05-18 15:34 | Inpatient (IN) | payer OTHER ==
[2019-05-18] MEDS ORDERED: KETOROLAC 30 MG/ML 1 ML VIAL IVP STA (17:11)
[2019-05-18] MEDS ORDERED: METOCLOPRAMIDE 5 MG/ML 2 ML VIAL IVP STA (17:11)
[2019-05-18] MEDS ORDERED: SODIUM CHLORIDE 0.9% 1,000 ML IV STA ×2 (17:11)
[2019-05-18] MEDS ORDERED: diphenhydrAMINE 50 MG/ML 1 ML VIAL IVP STA (17:11)
[2019-05-18] MEDS ORDERED: ORPHENADRINE 30 MG/ML 2 ML VIAL IVP STA (17:12)
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
[2019-05-18 17:41] LABS: Partial Thromboplastin Time 24.2 sec (22.0-30.0); Prothrombin Time 10.6 sec (9.0-12.0)
[2019-05-18 17:44] LABS: ALT 32 U/L (4-34); AST 40 U/L (14-36); African American GFR (CKD) 58 (>60 ml/min/1.73 sqM); Albumin 3.9 g/dL (3.5-5.0); Alkaline Phosphatase 188 U/L (38-126); Anion Gap 6 mmol/L; Blood Urea Nitrogen 14 mg/dL (7-17); Carbon Dioxide 27 mmol/L (22-30); Chloride 107 mmol/L (98-107); Glucose 92 mg/dL (74-99); Non-African American GFR(CKD) 50 (>60 ml/min/1.73 sqM); Potassium 3.6 mmol/L (3.5-5.1); Sodium 140 mmol/L (137-145); Total Bilirubin 0.3 mg/dL (0.2-1.3); Total Protein 6.5 g/dL (6.3-8.2)
[2019-05-18 17:47] LABS: HCT 38.4 % (34.0-46.0); HGB 13.2 gm/dL (11.4-16.0); MCH 35.2 pg (25.0-35.0); MCHC 34.4 g/dL (31.0-37.0); MCV 102.5 fL (80.0-100.0); Macrocytosis Slight; Mean Platelet Volume 6.9; Platelet Count 230 k/uL (150-450); RBC 3.75 m/uL (3.80-5.40); RDW 15.2 % (11.5-15.5); WBC 34.2 k/uL (3.8-10.6)
[2019-05-18 18:11] LABS: Band Neutrophils % 5 %; Lymphocytes # (M) 2.74 k/uL (1.0-4.8); Monocytes # (M) 1.37 k/uL (0-1.0); Neutrophils % (M) 83 %; Nucleated Red Blood Cells 0 /100 WBC (0-0); Total Cells Counted 100
[2019-05-18 18:40] LABS: T4, Free (Free Thyroxine) 0.53 ng/dL (0.78-2.19)
--- NOTE | 2019-05-18 19:03 | CT ---
EXAMINATION TYPE: CT brain wo con DATE OF EXAM: 05/18/2019 COMPARISON: 02/11/2019 HISTORY: headache CT DLP: 1099.4 mGycm Automated exposure control for dose reduction was used. Ventricles and sulci appear normal. There is no mass effect nor midline shift. There is no sign of in tracranial hemorrhage. Skull base appears normal. Calvarium is intact. There is no evidence of cerebr al edema. IMPRESSION: Normal head CT scan. No change.
--- NOTE | 2019-05-18 19:13 | XR ---
EXAMINATION TYPE: XR chest 2V DATE OF EXAM: 05/18/2019 COMPARISON: 02/11/2019 HISTORY: Weakness TECHNIQUE: 2 views FINDINGS: Heart and mediastinum are normal. Lungs are clear. Diaphragm is normal. Bony thorax is inta ct. IMPRESSION: Normal chest. No change.
--- NOTE | 2019-05-18 19:15 | XR ---
EXAMINATION TYPE: XR lumbar spine 2 or 3V DATE OF EXAM: 05/18/2019 COMPARISON: NONE HISTORY: Back spasm TECHNIQUE: 3 views FINDINGS: Lumbar vertebra have normal alignment. There is narrowing of L5-S1 disc space. Posterior el ements are intact. There is no compression fracture. Sacroiliac joints are intact. IMPRESSION: Mild spondylosis at L5-S1. No fracture seen.
--- NOTE | 2019-05-18 19:17 | XR ---
EXAMINATION TYPE: XR thoracic spine 2V DATE OF EXAM: 05/18/2019 COMPARISON: This x-ray is 02/11/2019 HISTORY: Dizziness back pain TECHNIQUE: 2 views FINDINGS: Thoracic vertebra have fairly normal alignment. There is slight anterior wedging of T8 and T6 and T5 vertebra. There is osteopenia. There is no evidence of thoracic paraspinal mass. IMPRESSION: Multiple mild osteoporotic type compression fractures unchanged compared to old exam.
[2019-05-18] MEDS ORDERED: ACETAMINOPHEN TAB 325 MG TAB PO PRN (20:07)
[2019-05-18] MEDS ORDERED: NALOXONE 0.4 MG/ML 1 ML VIAL IV PRN (20:07)
[2019-05-18] MEDS ORDERED: MORPHINE SULFATE 4 MG/ML SYRINGE IV PRN (20:07)
--- NOTE | 2019-05-18 21:31 | P.HPIM ---
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 Today in particular the patient compared of severe left frontal temporal headache with some associated blurry vision and paresthesias in her face progressing to a bandlike distribution around her head, the patient reports sensitivity to sound and light and denies any specific triggers, she denied any subjective fevers chills or night sweats, denied nausea or vomiting, does complain of lower back and thoracic spasms. She reports to be on chronic opiate therapy secondary to bone pain. The patient reported taking her last Neulasta dose a few days ago and reports taking them twice monthly, she is scheduled to have an appointment with Dr. Katz tomorrow. In the ER the patient had a comprehensive workup white count was 34.2 hemoglobin 13.2 platelets 2:30 MCV 102.5. Sodium 140 potassium 3.6 bicarb 27 BUN 14 creatinine 1.24 lactic acid 1.6, AST ALT 40/32, alkaline phosphatase 188, TSH > [address] of the head showing no acute intracranial pathology, chest x-ray showing a normal chest, x-rays of the thoracic and lumbar spine showing multiple mild osteoporotic type compression fractures unchanged from prior. The patient was given Norflex Reglan and Toradol and a liter of IV fluids and recommended for admission. 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 she is to follow up with him for oral chemo History of Any Multi-Drug Resistant Organisms: C-DIFF Date of last positivie culture/infection: 2015-[facility] this has been ongoing since dec MDRO Source:: wound rt hip / stool Additional Past Surgical History / Comment(s): ectopic , neck surgery, bone marrow biopsy x 4 Past Anesthesia/Blood Transfusion Reactions: No Reported Reaction Additional Past Anesthesia/Blood Transfusion Reaction / Comment(s): pt stated has received blood in past no known reaction Past Psychological History: Anxiety, Depression Smoking Status: Current every day smoker Past Alcohol Use History: None Reported Past Drug Use History: None Reported - Past Family History Father Family Medical History: Cancer Additional Family Medical History / Comment(s): mesothelioma Mother History Unknown: Yes Medications and Allergies Home Medications Medication Instructions Recorded Confirmed Type Ferrous Sulfate [Iron (65 MG 325 mg PO DAILY 03/06/17 05/18/19 History Elemental)] Multivitamins, Thera [Multivitamin 1 tab PO DAILY 06/01/17 05/18/19 History (formulary)] Cholecalciferol [Vitamin D3 (25 5,000 unit PO DAILY 04/23/18 05/18/19 History Mcg = 1000 Iu)] Cyclophosphamide 100 mg PO HS 06/23/18 05/18/19 History Pegfilgrastim [Neulasta] 6 mg IV Q14D 06/23/18 05/18/19 History Pantoprazole [Protonix] 40 mg PO DAILY #15 tablet. 06/26/18 05/18/19 Rx Docusate [Colace] 100 mg PO DAILY PRN 01/22/19 05/18/19 History Folic Acid 1 mg PO DAILY 01/22/19 05/18/19 History Hydrocodone/Acetaminophen [[place] 1 tab PO TID PRN 01/22/19 05/18/19 History 7.5-325] L.acidoph,Paracasei, B.lactis 1 cap PO DAILY 01/22/19 05/18/19 History [Probiotic] Levothyroxine Sodium [Synthroid] 300 mcg PO DAILY 01/22/19 05/18/19 History Ondansetron [Zofran] 4 mg PO Q6HR PRN 01/22/19 05/18/19 History Lactose-Reduced Food [Boost] 237 ml PO DAILY 05/18/19 05/18/19 History Loperamide HCl [Imodium A-D] 2 - 4 mg PO QID PRN 05/18/19 05/18/19 History Mag-Ox(Unknown Dose) 1 tab PO DAILY 05/18/19 05/18/19 History Allergies Allergy/AdvReac Type Severity Reaction Status Date / Time amoxicillin Allergy Unknown Verified 05/18/19 19:12 banana Allergy Rash/Hives Verified 05/18/19 19:12 bee venom protein (honey bee) Allergy Anaphylaxis Verified 05/18/19 19:12 cephalexin [From Keflex] Allergy Unknown Verified 05/18/19 19:12 Penicillins Allergy Unknown Verified 05/18/19 19:12 Tetracyclines Allergy Unknown Verified 05/18/19 19:12 Physical Exam Vitals: Vital Signs Temp Pulse Resp BP Pulse Ox 05/18/19 16:14 98.3 F 92 20 119/77 99 Intake and Output 05/18/19 05/18/19 05/18/19 06:59 14:59 22:59 Other: Weight 65.771 kg Constitutional: No acute distress, conversant, pleasant Eyes: Anicteric sclerae, moist conjunctiva, no lid-lag, PERRLA ENMT: NC/AT,Oropharynx clear, no erythema, exudates Neck:Supple, FROM, no masses, or JVD, No carotid bruits; No thyromegaly Lungs: Clear to auscultation, Clear to percussion, Normal respiratory effort, no accessory muscle use Cardiovascular: Heart regular in rate and rhythm, No murmurs, gallops, or rubs no peripheral edema Abdominal: Soft Nontender, nom distended, no guarding, no rebound or rigidity, Normoactive bowel sounds No hepatomegaly, No splenomegaly, No palpable mass No abdominal wall hernia noted Skin: Normal temperature, tone, texture, turgor, No induration No subcutaneous nodules, No rash, lesions, No ulcers Extremities:No digital cyanosis No clubbing, Pedal pulses intact and symmetrical Radial pulses intact and symmetrical Normal gait and station, No calf tenderness Psychiatric: Alert and oriented to person, place and time, Appropriate affect Intact judgement Neuro: Muscles Strength 5/5 in all 4 extremities, Sensation to light touch grossly present throughout, Cranial nerves II-XII grossly intact. No focal sensory deficits Results CBC & Chem 7: 05/18/19 17:18 05/18/19 17:18 Labs: Abnormal Lab Results - Last 24 Hours (Table) 05/18/19 05/18/19 Range/Units 17:18 17:18 WBC 34.2 H (3.8-10.6) k/uL RBC 3.75 L (3.80-5.40) m/uL MCV 102.5 H (80.0-100.0) fL MCH 35.2 H (25.0-35.0) pg Neutrophils # (Manual) 30.00 H (1.3-7.7) k/uL Monocytes # (Manual) 1.37 H (0-1.0) k/uL Creatinine 1.24 H (0.52-1.04) mg/dL AST 40 H (14-36) U/L Alkaline Phosphatase 188 H (38-126) U/L TSH >100.000 H (0.465-4.680) mIU/L Free T4 0.53 L (0.78-2.19) ng/dL Assessment and Plan Assessment: Atypical migraine Severe headache Leukocytosis hypothyroidism History of T-cell lymphoma currently on cytotoxin History of neutropenia on Neulasta Chronic bone pain Plan: The patient is placed in observation the medical floor anticipated less than 2 midnight stay with atypical migraine after presenting with severe headache and vision changes in a patient with T-cell lymphoma on Cytoxan and Neulasta and noted leukocytosis on CBC. Low suspicion for hyperviscosity syndrome at this time as a patient denies any complaints of bleeding at this time. I will plan to consult neurology and in the meantime treat her headaches with Elavil Fioricet and ibuprofen while resuming her chronic opioid therapy with [place]. We'll also plan to consult hematology oncology for further recommendations. The patient's TSH is elevated at greater than 100 but free T4 was marginally low at 0.53, I will continue IV fluids to treat her mild acute kidney injury recheck her labs in the morning. I will continue to follow the patient's clinical course. The patient is placed on heparin and SCDs for DVT prophylaxis CODE STATUS: Full code Anticipated discharge: 1-2 days Anticipated discharge plans: Home Discussed plan of care with: Patient
[2019-05-18] MEDS ORDERED: ONDANSETRON 4 MG TAB PO PRN (21:36)
[2019-05-18] MEDS: AMITRIPTYLINE HCL 25 MG TAB PO SCH (22:52)
[2019-05-18] MEDS: CYCLOPHOSPHAMIDE 50 MG PO SCH (23:22)
[2019-05-19 04:59] LABS: Appearance,Urine Clear (Clear); Bilirubin,Urine Negative (Negative); Blood,Urine Negative (Negative); Color,Urine Yellow; Glucose,Urine (UA) Negative (Negative); Ketones,Urine Negative (Negative); Leukocyte Esterase,Urine Negative (Negative); Nitrite,Urine Negative (Negative); PH, Urine 5.5 (5.0-8.0); Protein,Urine Negative (Negative); Specific Gravity,Urine 1.018 (1.001-1.035); Urobilinogen,Urine <2.0 mg/dL (<2.0)
[2019-05-19] MEDS: LEVOTHYROXINE 100 MCG TAB PO SCH (06:10)
[2019-05-19] MEDS: MULTIVITAMINS, THERA 1 EACH TAB PO SCH (08:21)
[2019-05-19] MEDS: HEPARIN SODIUM,PORCINE 5,000 UNIT/ML 1 ML VIAL SQ SCH ×2 (08:21→21:37)
[2019-05-19] MEDS: PANTOPRAZOLE 40 MG TABLET PO SCH (08:21)
[2019-05-19] MEDS: CHOLECALCIFEROL 1,000 UNIT TAB PO SCH (08:21)
[2019-05-19] MEDS: FERROUS SULFATE 325 MG TAB PO SCH (08:21)
[2019-05-19] MEDS: FOLIC ACID 1 MG TAB PO SCH (08:21)
[2019-05-19] MEDS: LACTOBACILLUS ACIDOPH & BULGAR 1 EACH PACKET PO SCH (08:22)
[2019-05-19 09:18] LABS: Basophils # (A) 0.4 k/uL (0-0.2); Basophils % (A) 2 %; Eosinophils # (A) 0.2 k/uL (0-0.7); Eosinophils % (A) 1 %; HCT 37.2 % (34.0-46.0); HGB 11.7 gm/dL (11.4-16.0); Lymphocytes # (A) 1.3 k/uL (1.0-4.8); Lymphocytes % (A) 5 %; MCH 33.6 pg (25.0-35.0); MCHC 31.3 g/dL (31.0-37.0); MCV 107.4 fL (80.0-100.0); Macrocytosis Marked; Mean Platelet Volume 7.2; Monocytes # (A) 1.3 k/uL (0-1.0); Monocytes % (A) 5 %; Neutrophils % (A) 86 %; Platelet Count 182 k/uL (150-450); RBC 3.47 m/uL (3.80-5.40); RDW 15.3 % (11.5-15.5); WBC 24.5 k/uL (3.8-10.6)
[2019-05-19 09:19] LABS: Calcium 7.9 mg/dL (8.4-10.2); Potassium 3.2 mmol/L (3.5-5.1)
[2019-05-19] MEDS: POTASSIUM CHLORIDE ER 20 MEQ TAB.ER PO SCH ×2 (13:51→15:50)
--- NOTE | 2019-05-19 14:30 | P.PN ---
Subjective Progress Note Date: 05/19/19 the patient is a 52-year-old female with a PMH of T-cell lymphoproliferative disease (currently on Neulesta and Cytoxan), hx of DVT, and hypothyroidism who presented to the ED with complaints of headaches. The patient had reported frontal and temporal throbbing-like headaches, severe nature with associated visual disturbances, photophobia, and phonophobia. The patient had undergone an extensive evaluation in the emergency room with a WBC count of 34.2, hemoglobin of 13.2, sodium of 142, potassium 3.2, BUN of 12, creatinine 1.03, TSH > 100, Free T4 0.53, brain CT unremarkable, and CXR also unremarkable. The patient was admitted for further [place]man of intractable headache along with leukocytosis. The patient was seen and evaluated at the bedside on 05/19. She reported that her headache had improved significantly since admission though she continues to still have photophobia and phonophobia. She denied fever, chills, chest pain, shortness of breath, nausea, or vomiting. Objective - Vital Signs Vital signs: Vital Signs Temp 98 F 05/19/19 11:44 Pulse 67 05/19/19 11:44 Resp 16 05/19/19 11:44 BP 116/70 05/19/19 11:44 Pulse Ox 96 05/19/19 11:44 Intake & Output 05/18/19 05/19/19 05/19/19 18:59 06:59 18:59 Weight 65.771 kg 65.771 kg Other: Voiding Method Toilet Toilet # Voids 1,200 - Exam General: Non-toxic, in no acute distress, appears older than stated age, normal weight HEENT: NC/AT, anicteric sclerae, moist conjunctiva, no lid-lag, PERRLA Cardiovascular: S1/S2 wnl, no murmurs, rubs, or gallops Lungs: Clear to auscultation, normal respiratory effort, no accessory muscle use Abdominal: Soft, non-tender, non-distended, no guarding, rebound, or rigidity Skin: Warm, dry Extremities: No edema or contractures Psychiatric: Alert and oriented to person, place and time, appropriate affect Neuro: CN II-XII grossly intact, Strength 5/5 in all 4 extremities, Speech intact, Sensation to light touch grossly intact throughout - Labs CBC & Chem 7: 05/19/19 07:42 05/19/19 07:42 Labs: Abnormal Lab Results - Last 24 Hours (Table) 05/18/19 05/18/19 05/19/19 Range/Units 17:18 17:18 07:42 WBC 34.2 H 24.5 H (3.8-10.6) k/uL RBC 3.75 L 3.47 L (3.80-5.40) m/uL MCV 102.5 H 107.4 H (80.0-100.0) fL MCH 35.2 H (25.0-35.0) pg Neutrophils # 21.0 H (1.3-7.7) k/uL Neutrophils # (Manual) 30.00 H (1.3-7.7) k/uL Monocytes # 1.3 H (0-1.0) k/uL Monocytes # (Manual) 1.37 H (0-1.0) k/uL Basophils # 0.4 H (0-0.2) k/uL Macrocytosis Marked A Potassium (3.5-5.1) mmol/L Chloride (98-107) mmol/L Carbon Dioxide (22-30) mmol/L Creatinine 1.24 H (0.52-1.04) mg/dL Glucose (74-99) mg/dL Calcium (8.4-10.2) mg/dL AST 40 H (14-36) U/L Alkaline Phosphatase 188 H (38-126) U/L TSH >100.000 H (0.465-4.680) mIU/L Free T4 0.53 L (0.78-2.19) ng/dL 05/19/19 Range/Units 07:42 WBC (3.8-10.6) k/uL RBC (3.80-5.40) m/uL MCV (80.0-100.0) fL MCH (25.0-35.0) pg Neutrophils # (1.3-7.7) k/uL Neutrophils # (Manual) (1.3-7.7) k/uL Monocytes # (0-1.0) k/uL Monocytes # (Manual) (0-1.0) k/uL Basophils # (0-0.2) k/uL Macrocytosis Potassium 3.2 L (3.5-5.1) mmol/L Chloride 113 H (98-107) mmol/L Carbon Dioxide 21 L (22-30) mmol/L Creatinine (0.52-1.04) mg/dL Glucose 53 L (74-99) mg/dL Calcium 7.9 L (8.4-10.2) mg/dL AST (14-36) U/L Alkaline Phosphatase (38-126) U/L TSH (0.465-4.680) mIU/L Free T4 (0.78-2.19) ng/dL Assessment and Plan Plan: Intractable headache, improved -Neurology consulted, recs pending -C/w Elavil, Fioricet and Motrin -C/w home meds: [place] Leukocytosis in setting of T-cell lymphoproliferative disease -Hematology/oncology consulted, recommendations pending -Continue to monitor CBC Hypothyroidism -Continue with home dose of levothyroxine 300 mg daily for now Hypokalemia -Replace and monitor
[2019-05-19] MEDS: HYDROcodone/APAP 7.5-325MG 1 EACH TAB PO PRN (15:50)
--- NOTE | 2019-05-19 16:13 | P.CNNES ---
History of Present Illness Consult date: 05/19/19 Requesting physician: Uche Villavicencio Reason for Consult: Migraines History of Present Illness: Patient is a 53-year-old female who has no history of migraines or regular headaches, states "hardly ever get headache" started having headache about a week ago on 05/12/2019. She does not remember how it started and when it started but it was there. As the headache persisted, she saw her primary physician on , 05/14/2019, who gave her Toradol, which in fact made her headache worse. Subsequently she started having muscle spasms in her back, cramping in the legs and felt her face was swollen, with intense pressure in her head. It started affecting her vision, couldn't focus with blurred vision. The headaches involve the frontal and left temporal region. Just today she has been feeling congested. Prior to arrival, she did blue up thick mucus couple times but not consistently. Denies any feeling of cold or fever or chills. As the headache persisted, therefore she decided to come to the ER, and arrived here yesterday at 3:30 PM. Due to headache, she has been feeling very irritable, angry, couldn't sleep. When she is up and moves around, gets worse, but it does not go away when she lays down in the bed. Patient underwent computed tomography scan of the head which was normal. Visualized paranasal sinuses appears clear. Chest x-ray is normal. Patient's blood test shows WBC 34.2, hemoglobin 13.2 and platelets are 230. MCV elevated 102.5. Neutrophils 30%, lymphocytes 2.74 and monocytes 1.37. Chem-7 is normal. Patient's TSH is very highly elevated > 100, with low free T4 of 0.53. UA negative, influenza screen negative. AST is mildly elevated 40, ALT 32. Patient has history of T cell lymphoproliferative disease currently on Neulasta and Cytoxan. She also has history of DVT and hypothyroidism. Patient denies any family history of aneurysms. Patient has smoked 1 pack per day for 10-15 years, cutback to half pack per day 2 years ago, and then a quarter pack per day for the last 1 year. Denies any regular alcohol. Patient has been started on Elavil, Fioricet and Motrin. She feels her headaches have much improved, and today rates 3/10. Review of Systems Denies any diplopia, loss of vision, focal numbness tingling or weakness. Denies any fever or chills. Denies mental confusion. No seizures. Denies chest pain shortness of breath wheezing or cough. She does feel congested nasally. 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 she is to follow up with him for oral chemo History of Any Multi-Drug Resistant Organisms: C-DIFF Date of last positivie culture[facility]: [facility] this has been ongoing since dec MDRO Source:: wound rt hip / stool Past Surgical History: Hysterectomy Additional Past Surgical History / Comment(s): ectopic , neck surgery, bone marrow biopsy x 4 Past Anesthesia/Blood Transfusion Reactions: No Reported Reaction Additional Past Anesthesia/Blood Transfusion Reaction / Comment(s): pt stated has received blood in past no known reaction Past Psychological History: Anxiety, Depression Additional Psychological History / Comment(s): pt moved here from [place] 1.5 years ago had own apt but after getting sick has been staying a friend Smoking Status: Current every day smoker Past Alcohol Use History: None Reported Additional Past Alcohol Use History / Comment(s): started smoking at age 23, smokes 3-5 cig per day Past Drug Use History: None Reported - Past Family History Father Family Medical History: Cancer Additional Family Medical History / Comment(s): mesothelioma Mother History Unknown: Yes Medications and Allergies Home Medications Medication Instructions Recorded Confirmed Type Ferrous Sulfate [Iron (65 MG 325 mg PO DAILY 03/06/17 05/18/19 History Elemental)] Multivitamins, Thera [Multivitamin 1 tab PO DAILY 06/01/17 05/18/19 History (formulary)] Cholecalciferol [Vitamin D3 (25 5,000 unit PO DAILY 04/23/18 05/18/19 History Mcg = 1000 Iu)] Cyclophosphamide 100 mg PO HS 06/23/18 05/18/19 History Pegfilgrastim [Neulasta] 6 mg IV Q14D 06/23/18 05/18/19 History Pantoprazole [Protonix] 40 mg PO DAILY #15 tablet. 06/26/18 05/18/19 Rx Docusate [Colace] 100 mg PO DAILY PRN 01/22/19 05/18/19 History Folic Acid 1 mg PO DAILY 01/22/19 05/18/19 History Hydrocodone/Acetaminophen [[place] 1 tab PO TID PRN 01/22/19 05/18/19 History 7.5-325] L.acidoph,Paracasei, B.lactis 1 cap PO DAILY 01/22/19 05/18/19 History [Probiotic] Levothyroxine Sodium [Synthroid] 300 mcg PO DAILY 01/22/19 05/18/19 History Ondansetron [Zofran] 4 mg PO Q6HR PRN 01/22/19 05/18/19 History Lactose-Reduced Food [Boost] 237 ml PO DAILY 05/18/19 05/18/19 History Loperamide HCl [Imodium A-D] 2 - 4 mg PO QID PRN 05/18/19 05/18/19 History Loratadine [Claritin] 10 mg PO DAILY 05/19/19 05/19/19 History Magnesium Oxide [Mag-Ox] 400 mg PO DAILY 05/19/19 05/19/19 History Montelukast Sodium [Singulair] 10 mg PO HS 05/19/19 05/19/19 History methylPREDNISolone [Medrol Dose See Taper PO DIRECTED 05/19/19 05/19/19 History Pack] Allergies Allergy/AdvReac Type Severity Reaction Status Date / Time amoxicillin Allergy Unknown Verified 05/18/19 19:12 banana Allergy Rash/Hives Verified 05/18/19 19:12 bee venom protein (honey bee) Allergy Anaphylaxis Verified 05/18/19 19:12 cephalexin [From Keflex] Allergy Unknown Verified 05/18/19 19:12 Penicillins Allergy Unknown Verified 05/18/19 19:12 Tetracyclines Allergy Unknown Verified 05/18/19 19:12 Physical Examination - Vital Signs Vital Signs: Vital Signs Temp Pulse Pulse Resp BP BP Pulse Ox 05/19/19 11:44 98 F 67 16 116/70 96 05/19/19 05:10 97.8 F 68 16 103/60 96 05/18/19 21:06 98.1 F 79 18 115/68 99 05/18/19 16:14 98.3 F 92 20 119/77 99 Intake and Output 05/19/19 05/19/19 05/19/19 06:59 14:59 22:59 Intake Total 800 Balance 800 Intake: Intake, IV Titration 800 Amount Sodium Chloride 0.9% 1, 800 000 ml @ 100 mls/hr IV . Q10H STA Rx#:[id number] Other: Voiding Method Toilet Toilet # Voids 1,200 On examination patient is a middle aged female, in no obvious distress. She is alert and awake fully oriented. She does appear to have nasal voice, slightly congested, however computed tomography scan of the head was clear with no signs of sinus disease. On cranial examination pupils are round and reactive to light, visual conti are full on confrontation, extra muscles are intact with no nystagmus. Face is symmetric and tongue protrudes to the midline. Palatal elevation sensation normal. On muscle strength testing there is no pronator drift and the strength is normal in arms and legs. Reflexes are 1+ and plantars downgoing. Sensory touch is equal. No ataxia for [id number] testing. Tone and bulk of muscles normal. No carotid bruit or m urmur. Peripheral pulses present. Results - Laboratory Findings CBC and BMP: 05/19/19 07:42 05/19/19 07:42 Abnormal Lab Findings: Abnormal Labs 05/18/19 05/18/19 05/19/19 17:18 17:18 07:42 WBC 34.2 H 24.5 H RBC 3.75 L 3.47 L MCV 102.5 H 107.4 H MCH 35.2 H Neutrophils # 21.0 H Neutrophils # (Manual) 30.00 H Monocytes # 1.3 H Monocytes # (Manual) 1.37 H Basophils # 0.4 H Macrocytosis Marked A Potassium Chloride Carbon Dioxide Creatinine 1.24 H Glucose Calcium AST 40 H Alkaline Phosphatase 188 H TSH >100.000 H Free T4 0.53 L 05/19/19 07:42 WBC RBC MCV MCH Neutrophils # Neutrophils # (Manual) Monocytes # Monocytes # (Manual) Basophils # Macrocytosis Potassium 3.2 L Chloride 113 H Carbon Dioxide 21 L Creatinine Glucose 53 L Calcium 7.9 L AST Alkaline Phosphatase TSH Free T4 Assessment and Plan Assessment: * 53-year-old female with history of lymphoproliferative disorder, came with 1 week history of cephalgia of unclear etiology. No previous history of migraines or headaches. She does not overdo caffeine intake. Exact cause of cephalgia uncertain. Patient's uncontrolled hypothyroidism, with TSH of > 100 may be contributing. Patient is also immunosuppressed, therefore at risk for meningitic infection. * Leukocytosis, probably related to use of Neulasta. * Tobacco user Plan: * Patient's headaches have much improved. She states that her headaches were "50" on a scale of 1-10 on arrival, but now is down to 3/10. * We discussed about lumbar puncture, but patient wants to hold off on lumbar puncture for one day and observe for now. We will reassess patient in the morning. In the meantime, patient will be continued on Elavil and Fioricet as needed. * Patient states she has been compliant with her levothyroxine and her TSH is very highly elevated > 100, which could be contributing to the headache. Suggest adjusting dose of levothyroxine or endocrinology consultation. * Await hematology consultation.
--- NOTE | 2019-05-19 17:13 | P.CONS ---
History of Present Illness - Reason for Consult Consult date: 05/19/19 leukocytosis, bone pain Requesting physician: Juliana Isaac - Chief Complaint facial swelling, MS aches - History of Present Illness Ms Chand is a very pleasant caucsian female pt of Dr. Katz diagnosed with low WBC/myelodysplasia in [place] in 2010. She was also seen at the [facility]. Had bone marrow biopsies in 2010 as well as 2014. She moved to a [facility] in [place] and established care at the [facility] on 12/19/16. Labs from that date showed a hemoglobin of 13.1, white count 1.5, platelets 209 with normal RBC indices, ANC 300, Chem panel WNL. She was seen for initial consult on 05/10/17. Prior records were obtained, bone marrow in 2014 showing no definite MDS, but a small B and T cell clonal population, which was apparently felt to be of questionable significance, no specific recommendations were made. 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 She was referred back to the [facility]. The T cell clone was not c/w LGL. The case was d/w Dr. Rosario at the [facility], and it was decided to treat the T cell clone. She was thus started on methotrexate 15 mg q wk on 08/19/17. She did not respond. [facility] saw her and her MTX was stopped. She had a bone marrow in 02/13. This was sent to the [facility]. She was confirmed to have a T cell lymphoproliferative disorder, CD profile was not characteristic of a LGL, or for a specific type. She was started on Cytoxan 100 mg PO/d on 05/11/18. She has continued Neulasta with recent frequency adjustment as she was not needing it so frequently. 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 she is to follow up with him for oral chemo History of Any Multi-Drug Resistant Organisms: C-DIFF Year Discovered:: 2015- [facility] states this has been ongoing since dec MDRO Source:: wound rt hip / stool Past Surgical History: Hysterectomy Additional Past Surgical History / Comment(s): ectopic , neck surgery, bone marrow biopsy x 4 Past Anesthesia/Blood Transfusion Reactions: No Reported Reaction Additional Past Anesthesia/Blood Transfusion Reaction / Comm: pt stated has received blood in past no known reaction Past Psychological History: Anxiety, Depression Additional Psychological History / Comment(s): [place] moved here [place] 1[place]5 years ago had own apt but after getting sick has been staying a friend Smoking Status: Current every day smoker Past Alcohol Use History: None Reported Additional Past Alcohol Use History / Comment(s): started smoking at age 23, smokes 3-5 cig per day Past Drug Use History: None Reported - Past Family History Father Family Medical History: Cancer Additional Family Medical History / Comment(s): mesothelioma Mother History Unknown: Yes Medications and Allergies Home Medications Medication Instructions Recorded Confirmed Type Ferrous Sulfate [Iron (65 MG 325 mg PO DAILY 03/06/17 05/18/19 History Elemental)] Multivitamins, Thera [Multivitamin 1 tab PO DAILY 06/01/17 05/18/19 History (formulary)] Cholecalciferol [Vitamin D3 (25 5,000 unit PO DAILY 04/23/18 05/18/19 History Mcg = 1000 Iu)] Cyclophosphamide 100 mg PO HS 06/23/18 05/18/19 History Pegfilgrastim [Neulasta] 6 mg IV Q14D 06/23/18 05/18/19 History Pantoprazole [Protonix] 40 mg PO DAILY #15 tablet. 06/26/18 05/18/19 Rx Docusate [Colace] 100 mg PO DAILY PRN 01/22/19 05/18/19 History Folic Acid 1 mg PO DAILY 01/22/19 05/18/19 History Hydrocodone/Acetaminophen [[place] 1 tab PO TID PRN 01/22/19 05/18/19 History 7.5-325] L.acidoph,Paracasei, B.lactis 1 cap PO DAILY 01/22/19 05/18/19 History [Probiotic] Levothyroxine Sodium [Synthroid] 300 mcg PO DAILY 01/22/19 05/18/19 History Ondansetron [Zofran] 4 mg PO Q6HR PRN 01/22/19 05/18/19 History Lactose-Reduced Food [Boost] 237 ml PO DAILY 05/18/19 05/18/19 History Loperamide HCl [Imodium A-D] 2 - 4 mg PO QID PRN 05/18/19 05/18/19 History Loratadine [Claritin] 10 mg PO DAILY 05/19/19 05/19/19 History Magnesium Oxide [Mag-Ox] 400 mg PO DAILY 05/19/19 05/19/19 History Montelukast Sodium [Singulair] 10 mg PO HS 05/19/19 05/19/19 History methylPREDNISolone [Medrol Dose See Taper PO DIRECTED 05/19/19 05/19/19 History Pack] Allergies Allergy/AdvReac Type Severity Reaction Status Date / Time amoxicillin Allergy Unknown Verified 05/18/19 19:12 banana Allergy Rash/Hives Verified 05/18/19 19:12 bee venom protein (honey bee) Allergy Anaphylaxis Verified 05/18/19 19:12 cephalexin [From Keflex] Allergy Unknown Verified 05/18/19 19:12 Penicillins Allergy Unknown Verified 05/18/19 19:12 Tetracyclines Allergy Unknown Verified 05/18/19 19:12 Physical Exam Vitals: Vital Signs Temp Pulse Pulse Resp BP BP Pulse Ox 05/19/19 11:44 98 F 67 16 116/70 96 05/19/19 05:10 97.8 F 68 16 103/60 96 05/18/19 21:06 98.1 F 79 18 115/68 99 05/18/19 16:14 98.3 F 92 20 119/77 99 Intake and Output 05/19/19 05/19/19 05/19/19 06:59 14:59 22:59 Intake Total 800 Balance 800 Intake: Intake, IV Titration 800 Amount Sodium Chloride 0.9% 1, 800 000 ml @ 100 mls/hr IV . Q10H STA Rx#:[id number] Other: Voiding Method Toilet Toilet # Voids 1,200 - Constitutional General appearance: cooperative, no acute distress, thin - EENT Eyes: anicteric sclerae, EOMI ENT: hearing grossly normal, normal oropharynx - Neck Neck: no lymphadenopathy - Respiratory Respiratory: bilateral: CTA - Cardiovascular Rhythm: regular Heart sounds: normal: S1, S2 Abnormal Heart Sounds: no systolic murmur, no diastolic murmur, no rub, no S3 Gallop, no S4 Gallop, no click, no other - Gastrointestinal General gastrointestinal: no absent bowel sounds, no decreased bowel sounds, no distended, no hepatomegaly, no hyperactive bowel sounds, normal bowel sounds, no organomegaly, no rigid, no scaphoid, soft, no splenomegaly, no tenderness, no umbilical hernia, no ventral hernia - Integumentary Integumentary: normal - Neurologic Neurologic: CNII-XII intact - Musculoskeletal Musculoskeletal: strength equal bilaterally - Psychiatric Psychiatric: A&O x's 3, appropriate affect, intact judgment & insight Results CBC & Chem 7: 05/19/19 07:42 05/19/19 07:42 Labs: Abnormal Lab Results - Last 24 Hours (Table) 05/18/19 05/18/19 05/19/19 Range/Units 17:18 17:18 07:42 WBC 34.2 H 24.5 H (3.8-10.6) k/uL RBC 3.75 L 3.47 L (3.80-5.40) m/uL MCV 102.5 H 107.4 H (80.0-100.0) fL MCH 35.2 H (25.0-35.0) pg Neutrophils # 21.0 H (1.3-7.7) k/uL Neutrophils # (Manual) 30.00 H (1.3-7.7) k/uL Monocytes # 1.3 H (0-1.0) k/uL Monocytes # (Manual) 1.37 H (0-1.0) k/uL Basophils # 0.4 H (0-0.2) k/uL Macrocytosis Marked A Potassium (3.5-5.1) mmol/L Chloride (98-107) mmol/L Carbon Dioxide (22-30) mmol/L Creatinine 1.24 H (0.52-1.04) mg/dL Glucose (74-99) mg/dL Calcium (8.4-10.2) mg/dL AST 40 H (14-36) U/L Alkaline Phosphatase 188 H (38-126) U/L TSH >100.000 H (0.465-4.680) mIU/L Free T4 0.53 L (0.78-2.19) ng/dL 05/19/19 Range/Units 07:42 WBC (3.8-10.6) k/uL RBC (3.80-5.40) m/uL MCV (80.0-100.0) fL MCH (25.0-35.0) pg Neutrophils # (1.3-7.7) k/uL Neutrophils # (Manual) (1.3-7.7) k/uL Monocytes # (0-1.0) k/uL Monocytes # (Manual) (0-1.0) k/uL Basophils # (0-0.2) k/uL Macrocytosis Potassium 3.2 L (3.5-5.1) mmol/L Chloride 113 H (98-107) mmol/L Carbon Dioxide 21 L (22-30) mmol/L Creatinine (0.52-1.04) mg/dL Glucose 53 L (74-99) mg/dL Calcium 7.9 L (8.4-10.2) mg/dL AST (14-36) U/L Alkaline Phosphatase (38-126) U/L TSH (0.465-4.680) mIU/L Free T4 (0.78-2.19) ng/dL Comments: Lumbar spine xray-report reviewed thoracic spine xray-report reviewed Chest x-ray: report reviewed CT Scan - head: report reviewed Assessment and Plan (1) Headache Current Visit: Yes Status: Acute Code(s): R51 - HEADACHE SNOMED Code(s): 71259355 (2) Muscle ache Current Visit: Yes Status: Acute Code(s): M79.10 - MYALGIA, UNSPECIFIED SITE SNOMED Code(s): 86307356 (3) T-cell lymphoma Current Visit: No Status: Chronic Priority: Medium Code(s): C85.90 - NON- HODGKIN LYMPHOMA, UNSPECIFIED, UNSPECIFIED SITE SNOMED Code(s): 258703811 Plan: Leukocytosis, neutrophils-due to recent administration of GCSF, WBC decreasing as anticipated. GCSF frequency was recently increased due to increased WBC response. Will make further frequency adjustment. No acute intervention MS pain-could be r/t GCSF, typically that type of pain is relieved with claritin, orders for the same. Should be short lived, usually lasting 3-4 days T cell lymphoma: Well controlled on oral cytoxan and GCSF. Cont oral cytoxan as prescribed. Doctor attests: I performed a history and physical examination of this patient, developed impression and plan of care, discussed with dictator. I agree with dictators note, documented as a scribe.
[2019-05-19 17:45] LABS: Glucose,Whole Blood 117 mg/dL (75-99)
[2019-05-19] MEDS: LORATADINE 10 MG TAB PO SCH (18:00)
[2019-05-19 19:55] LABS: Glucose,Whole Blood 102 mg/dL (75-99)
[2019-05-19] MEDS: CYCLOPHOSPHAMIDE 50 MG PO SCH (21:37)
[2019-05-19] MEDS: AMITRIPTYLINE HCL 25 MG TAB PO SCH (21:37)
[2019-05-20 03:41] LABS: Glucose,Whole Blood 90 mg/dL (75-99)
[2019-05-20] MEDS: LEVOTHYROXINE 100 MCG TAB PO SCH (05:49)
[2019-05-20] MEDS: BUTALB/APAP/CAFF 50-325-40MG TAB PO PRN ×3 (05:52→19:32)
[2019-05-20 06:55] LABS: Glucose,Whole Blood 85 mg/dL (75-99)
[2019-05-20] MEDS: HEPARIN SODIUM,PORCINE 5,000 UNIT/ML 1 ML VIAL SQ SCH ×2 (09:27→20:40)
[2019-05-20] MEDS: CHOLECALCIFEROL 1,000 UNIT TAB PO SCH (09:27)
[2019-05-20] MEDS: FOLIC ACID 1 MG TAB PO SCH (09:28)
[2019-05-20] MEDS: LORATADINE 10 MG TAB PO SCH (09:28)
[2019-05-20] MEDS: MULTIVITAMINS, THERA 1 EACH TAB PO SCH (09:28)
[2019-05-20] MEDS: LACTOBACILLUS ACIDOPH & BULGAR 1 EACH PACKET PO SCH (09:28)
[2019-05-20] MEDS: PANTOPRAZOLE 40 MG TABLET PO SCH (09:28)
[2019-05-20] MEDS: FERROUS SULFATE 325 MG TAB PO SCH (09:28)
[2019-05-20] MEDS: HYDROcodone/APAP 7.5-325MG 1 EACH TAB PO PRN ×2 (09:32→20:43)
[2019-05-20] MEDS: KETOROLAC 30 MG/ML 1 ML VIAL IVP PRN (09:33)
[2019-05-20] MEDS ORDERED: DRY MOUTH SPRAY 44.3 SPRAY/44.3 ML SPRAY MUCOUS MEM PRN (10:17)
[2019-05-20] MEDS ORDERED: SALINE NASAL GEL 14.1 GM TUBE TOPICAL PRN (10:17)
--- NOTE | 2019-05-20 10:25 | P.PN ---
Subjective Progress Note Date: 05/20/19 Principal diagnosis: MS aches, intractable PRITCHETT In f/u today pt sttill c/o PRITCHETT, one sided, fullness to the head, sore/dry throat, no ear pain, nausea, diarrhea, MS aches stable. Objective - Vital Signs Vital signs: Vital Signs Temp 97.8 F 05/20/19 04:51 Pulse 92 05/20/19 04:51 Resp 16 05/20/19 04:51 BP 112/75 05/20/19 04:51 Pulse Ox 98 05/20/19 04:51 Intake & Output 05/19/19 05/20/19 05/20/19 18:59 06:59 18:59 Intake Total 800 590 Balance 800 590 Intake: Intake, IV Titration 800 Amount Sodium Chloride 0.9% 1, 800 000 ml @ 100 mls/hr IV . Q10H STA Rx#:[id number] Oral 590 Other: Voiding Method Toilet Toilet # Voids 2 - Constitutional General appearance: Present: cooperative, no acute distress, thin - EENT Eyes: Present: anicteric sclerae, EOMI, PERRLA ENT: Present: hearing grossly normal, normal oropharynx - Neck Neck: Absent: lymphadenopathy, other, rigidity, stridor - Respiratory Respiratory: bilateral: CTA - Cardiovascular Rhythm: regular Heart sounds: normal: S1, S2 Abnormal Heart Sounds: Absent: systolic murmur, diastolic murmur, rub, S3 Gallop, S4 Gallop, click, other - Peripheral edema leg Peripheral Edema: bilateral: None - Gastrointestinal General gastrointestinal: Present: normal bowel sounds, soft - Neurologic Neurologic: Present: CNII-XII intact - Psychiatric Psychiatric: Present: A&O x's 3, appropriate affect, intact judgment & insight - Labs CBC & Chem 7: 05/19/19 07:42 05/19/19 07:42 Labs: Abnormal Lab Results - Last 24 Hours (Table) 05/19/19 05/19/19 Range/Units 17:44 19:54 POC Glucose (mg/dL) 117 H 102 H (75-99) mg/dL Microbiology - Last 24 Hours (Table) 05/18/19 17:18 Blood Culture - Preliminary Blood No Growth after 24 hours Assessment and Plan (1) Headache Narrative/Plan: Pt states Neurology has suggested a LP with CSF evaluation. Told pt to consider their recommendations considering the PRITCHETT is not improving. Current Visit: Yes Status: Acute Priority: High Code(s): R51 - HEADACHE SNOMED Code(s): 72294692 (2) Muscle ache Narrative/Plan: Stable, little better controlled today. Could be r/t the GCSF, claritin was stared as case studies and patients report some relief of MS c/o with claritin. Cont for now Claritin is likely contributing to her dry mucus membranes, NS nasal spray and dry mouth gel ordered Current Visit: Yes Status: Acute Priority: Medium Code(s): M79.10 - MYALGIA, UNSPECIFIED SITE SNOMED Code(s): 05617847 (3) T-cell lymphoma Narrative/Plan: Cont cytoxan as prescribed. Current Visit: No Status: Chronic Priority: Medium Code(s): C85.90 - NON-HODGKIN LYMPHOMA, UNSPECIFIED, UNSPECIFIED SITE SNOMED Code(s): 243643977
[2019-05-20 11:18] LABS: Glucose,Whole Blood 77 mg/dL (75-99)
--- NOTE | 2019-05-20 13:10 | P.PN ---
Subjective Progress Note Date: 05/20/19 the patient is a 52-year-old female with a PMH of T-cell lymphoproliferative disease (currently on Neulesta and Cytoxan), hx of DVT, and hypothyroidism who presented to the ED with complaints of headaches. The patient had reported frontal and temporal throbbing-like headaches, severe in nature with associated visual disturbances, photophobia, and phonophobia. The patient had reported that the headaches were so severe that she had been unable to perform her daily tasks. The patient had undergone an extensive evaluation in the emergency room with a WBC count of 34.2, hemoglobin of 13.2, sodium of 142, potassium 3.2, BUN of 12, creatinine 1.03, TSH > 100, Free T4 0.53, brain CT unremarkable, and CXR also unremarkable. The patient was admitted for further management of intractable headache along with leukocytosis. Oncology was consulted and noted that the patient's leukocytosis was likely due to recent administration of GCSF, with white count decreasing as anticipated. Neurology evaluated the patient and recommended an LP to further evaluate the headache. The patient however refused the LP noted that since her headache is improving significantly, she would like to continue to wait and watch. Discussed the case with Dr Ron Sutton (Sign Language Instructor) who noted that in light of the patient's significantly elevated TSH, the patient should receive IV levothyroxine. She further recommended Gel-form quick absorbing Tirosint on discharge. The patient was seen and evaluated at the bedside on 05/20. She reported that her headache continues to improve and has almost resolved. She denied fever, chills, nausea, vomiting, chest pain, or shortness of breath. Objective - Vital Signs Vital signs: Vital Signs Temp 98.1 F 05/20/19 11:39 Pulse 67 05/20/19 11:39 Resp 17 05/20/19 11:39 BP 103/55 05/20/19 11:39 Pulse Ox 97 05/20/19 11:39 Intake & Output 05/19/19 05/20/19 05/20/19 18:59 06:59 18:59 Intake Total 800 590 Balance 800 590 Intake: Intake, IV Titration 800 Amount Sodium Chloride 0.9% 1, 800 000 ml @ 100 mls/hr IV . Q10H STA Rx#:[id number] Oral 590 Other: Voiding Method Toilet Toilet Toilet # Voids 2 - Exam General: Non-toxic, in no acute distress, appears older than stated age, normal weight HEENT: NC/AT, anicteric sclerae, moist conjunctiva, no lid-lag, PERRLA, no facial tenderness Cardiovascular: S1/S2 wnl, no murmurs, rubs, or gallops Lungs: Clear to auscultation, normal respiratory effort, no accessory muscle use Abdominal: Soft, non-tender, non-distended, no guarding, rebound, or rigidity Skin: Warm, dry Extremities: No edema or contractures Psychiatric: Alert and oriented to person, place and time, appropriate affect Neuro: CN II-XII grossly intact, Strength 5/5 in all 4 extremities, Speech intact, Sensation to light touch grossly intact throughout - Labs CBC & Chem 7: 05/19/19 07:42 05/19/19 07:42 Labs: Abnormal Lab Results - Last 24 Hours (Table) 05/19/19 05/19/19 Range/Units 17:44 19:54 POC Glucose (mg/dL) 117 H 102 H (75-99) mg/dL Microbiology - Last 24 Hours (Table) 05/18/19 17:18 Blood Culture - Preliminary Blood No Growth after 24 hours Assessment and Plan Plan: Intractable headache, improved -Neurology recs appreciated -C/w Elavil, Fioricet and Motrin -C/w home meds: [place] -Possible LP Leukocytosis in setting of T-cell lymphoproliferative disease -Hematology/oncology recs appreciated -Continue to monitor CBC Hypothyroidism -Discussed case with Endocrine -Start patient on Levothyroxine IV for now -Will discharge her on Tirosint -Continue with home dose of levothyroxine 300 mg daily for now Hypokalemia -Replace and monitor
[2019-05-20 13:34] LABS: HCT 37.5 % (34.0-46.0); HGB 12.7 gm/dL (11.4-16.0); MCH 35.7 pg (25.0-35.0); MCV 105.1 fL (80.0-100.0); Macrocytosis Moderate; Mean Platelet Volume 6.9; Platelet Count 196 k/uL (150-450); RBC 3.57 m/uL (3.80-5.40); RDW 15.5 % (11.5-15.5); WBC 23.3 k/uL (3.8-10.6)
[2019-05-20 13:41] LABS: Calcium 8.9 mg/dL (8.4-10.2)
[2019-05-20] MEDS: DOCUSATE 100 MG CAP PO PRN (14:27)
--- NOTE | 2019-05-20 15:27 | P.PN ---
Subjective Progress Note Date: 05/20/19 Patient states she continues to have headache which she rates 4/10. Patient feels very photophobic, phonophobic. Denies vomiting. Patient states when she talks to someone, or walks around, gets more intense headache pointing to the bilateral frontal and the left temporal region. Patient's thyroid functions are severely deranged, with TSH > 100. I had spoken to patient yesterday, and she was stating that she is taking levothyroxine 300 g daily. Today I spoke to her, she states she is taking levothyroxine 150 g daily. Her significant hypothyroidism may be contributing. Patient's free T3 and free T4 both are low. Objective - Vital Signs Vital signs: Vital Signs Temp 98.1 F 05/20/19 11:39 Pulse 67 05/20/19 11:39 Resp 17 05/20/19 11:39 BP 103/55 05/20/19 11:39 Pulse Ox 97 05/20/19 11:39 Intake & Output 05/19/19 05/20/19 05/20/19 18:59 06:59 18:59 Intake Total 800 590 Balance 800 590 Intake: Intake, IV Titration 800 Amount Sodium Chloride 0.9% 1, 800 000 ml @ 100 mls/hr IV . Q10H STA Rx#:[id number] Oral 590 Other: Voiding Method Toilet Toilet Toilet # Voids 2 4 - Exam Patient's mental status, speech and language functions are normal. Patient has no meningeal signs. Neck is supple. Kernig sign negative. Pupils are round and reacting to light. Visual conti are full face is symmetric in strength is normal. - Labs CBC & Chem 7: 05/20/19 13:10 05/20/19 13:10 Labs: Abnormal Lab Results - Last 24 Hours (Table) 05/19/19 05/19/19 05/20/19 Range/Units 17:44 19:54 13:10 WBC 23.3 H (3.8-10.6) k/uL RBC 3.57 L (3.80-5.40) m/uL MCV 105.1 H (80.0-100.0) fL MCH 35.7 H (25.0-35.0) pg Glucose (74-99) mg/dL POC Glucose (mg/dL) 117 H 102 H (75-99) mg/dL 05/20/19 Range/Units 13:10 WBC (3.8-10.6) k/uL RBC (3.80-5.40) m/uL MCV (80.0-100.0) fL MCH (25.0-35.0) pg Glucose 121 H (74-99) mg/dL POC Glucose (mg/dL) (75-99) mg/dL Microbiology - Last 24 Hours (Table) 05/18/19 17:18 Blood Culture - Preliminary Blood No Growth after 24 hours Assessment and Plan Assessment: * 53-year-old female with history of lymphoproliferative disorder, came with 1 week history of cephalgia of unclear etiology. No previous history of migraines or headaches. She does not overdo caffeine intake. Exact cause of cephalgia uncertain. Patient's uncontrolled hypothyroidism, with TSH of > 100 may be contributing. Patient is also immunosuppressed, therefore at risk for meningitic infection. * Leukocytosis, probably related to use of Neulasta. * Tobacco user Plan: * Patient's headaches have not resolved yet. She still has headache 5/10, that gets worse with talking, walking or any activity. * Patient states that she has been on Neulasta 2011, use to take it every 2 weeks, but now she is taking Neulasta every 3 weeks. She never got a headache after the injection. Therefore I would doubt headache resulting from Neulasta. * We will check MRI of the brain with and without contrast and MRV of the head. If negative, then we will consider lumbar puncture in the morning. In the meantime, patient will be continued on Elavil and Fioricet as needed. * Patient has significant hypothyroidism. Need to adjust dose of levothyroxine. Patient states that she was taking levothyroxine 150 g, but now the dose has been increased to 300 g..
[2019-05-20 16:54] LABS: Glucose,Whole Blood 96 mg/dL (75-99)
[2019-05-20 20:03] LABS: Glucose,Whole Blood 125 mg/dL (75-99)
[2019-05-20] MEDS: CYCLOPHOSPHAMIDE 50 MG PO SCH (20:40)
[2019-05-20] MEDS: AMITRIPTYLINE HCL 25 MG TAB PO SCH (20:40)
[2019-05-21 04:09] LABS: Glucose,Whole Blood 78 mg/dL (75-99)
[2019-05-21] MEDS: HYDROcodone/APAP 7.5-325MG 1 EACH TAB PO PRN ×2 (05:09→13:11)
[2019-05-21 07:24] LABS: Glucose,Whole Blood 74 mg/dL (75-99)
[2019-05-21] MEDS: MULTIVITAMINS, THERA 1 EACH TAB PO SCH (08:18)
[2019-05-21] MEDS: LACTOBACILLUS ACIDOPH & BULGAR 1 EACH PACKET PO SCH (08:18)
[2019-05-21] MEDS: HEPARIN SODIUM,PORCINE 5,000 UNIT/ML 1 ML VIAL SQ SCH ×2 (08:18→20:20)
[2019-05-21] MEDS: BUTALB/APAP/CAFF 50-325-40MG TAB PO PRN (08:18)
[2019-05-21] MEDS: FOLIC ACID 1 MG TAB PO SCH (08:18)
[2019-05-21] MEDS: CHOLECALCIFEROL 1,000 UNIT TAB PO SCH (08:18)
[2019-05-21] MEDS: LORATADINE 10 MG TAB PO SCH (08:19)
[2019-05-21] MEDS: PANTOPRAZOLE 40 MG TABLET PO SCH (08:19)
[2019-05-21] MEDS: FERROUS SULFATE 325 MG TAB PO SCH (08:19)
[2019-05-21] MEDS: LEVOTHYROXINE IVP 100 MCG/5 ML VIAL IV SCH (08:20)
[2019-05-21] MEDS: DOCUSATE 100 MG CAP PO PRN (08:34)
[2019-05-21] MEDS: KETOROLAC 30 MG/ML 1 ML VIAL IVP PRN (10:56)
[2019-05-21 11:01] LABS: Glucose,Whole Blood 83 mg/dL (75-99)
--- NOTE | 2019-05-21 12:11 | P.PN ---
Subjective Progress Note Date: 05/21/19 Principal diagnosis: Headache Patient was seen and examined. No acute events overnight. Patient reports severe headache that is not improved since admission. Headache is described as left sided, stabbing in nature. Patient states that she feels as if something is stabbing her from behind her left eye. Pain is 10 out of 10 in severity. Patient also reports blurred vision but states that her vision is poor at baseline. She denies any nausea or vomiting, fever or stiff neck. No chest pain, shortness of breath or palpitations. No numbness/weakness/tingling of the extremities. Objective - Vital Signs Vital signs: Vital Signs Temp 98.0 F 05/21/19 11:26 Pulse 73 05/21/19 11:26 Resp 18 05/21/19 11:26 BP 119/77 05/21/19 11:26 Pulse Ox 97 05/21/19 11:26 Intake & Output 05/20/19 05/21/19 05/21/19 18:59 06:59 18:59 Intake Total 840 Balance 840 Intake: Oral 840 Other: Voiding Method Toilet Toilet Toilet # Voids 4 2 2 - Exam General: [non toxic], [no distress], [appears at stated age] Derm: [warm], [dry] Head: [atraumatic], [normocephalic], [symmetric], [maxillary and frontal sinuses nontender to palpation] Eyes: [EOMI], [no lid lag], [anicteric sclera] Mouth: [no lip lesion], [mucus membranes moist] Cardiovascular: [S1S2 reg], [no murmur], [positive DP pulse bilateral], Lungs: [CTA bilateral], [no rhonchi, no rales] , [no accessory muscle use] Abdominal: [soft], [ nontender to palpation], [no guarding], [no appreciable organomegaly] Ext: [no gross muscle atrophy], [no edema], [no contractures] Neuro: [ CN II-XI grossly intact], [no focal neuro deficits] Psych: [Alert], [oriented], [appropriate affect] - Labs CBC & Chem 7: 05/20/19 13:10 05/20/19 13:10 Labs: Abnormal Lab Results - Last 24 Hours (Table) 05/20/19 05/20/19 05/20/19 Range/Units 13:10 13:10 20:02 WBC 23.3 H (3.8-10.6) k/uL RBC 3.57 L (3.80-5.40) m/uL MCV 105.1 H (80.0-100.0) fL MCH 35.7 H (25.0-35.0) pg Glucose 121 H (74-99) mg/dL POC Glucose (mg/dL) 125 H (75-99) mg/dL 05/21/19 Range/Units 06:58 WBC (3.8-10.6) k/uL RBC (3.80-5.40) m/uL MCV (80.0-100.0) fL MCH (25.0-35.0) pg Glucose (74-99) mg/dL POC Glucose (mg/dL) 74 L (75-99) mg/dL Microbiology - Last 24 Hours (Table) 05/18/19 17:18 Blood Culture - Preliminary Blood No Growth after 48 hours Assessment and Plan Assessment: Intractable headache Leukocytosis and macrocytosis with diagnosis of T-cell lymphoproliferative disease Uncontrolled hypothyroidism CT brain negative. Headache unrelieved with Tylenol, Fioricet, Toradol and morphine. Plans: Follow neurology consultation. Follow MRI brain with and without contrast. Following MRV head and neck. Plans for possible LP if MRI/MR V unrevealing given immunocompromised state. Leukocytosis of 23.3. Patient afebrile. No signs of infection. Plans: Continue to monitor. Follow hematology consultation. TSH greater than 100, free T4 0.53. Plans: Continue Synthroid 100 g IV daily. Currently on Synthroid 300 g daily. [Headache not improving. Plans for MRI brain and MRV to rule out CVA, intracranial mass and also given prothrombotic state. Consider LP given immunocompromised state if MRI/MRV unrevealing. She is pending clinical improvement. Likely DC in 1-2 days.]
[2019-05-21] MEDS ORDERED: MINERAL OIL-WHITE PETROLATUM 120 GM JAR TOPICAL PRN (12:14)
--- NOTE | 2019-05-21 13:08 | P.PN ---
Subjective Progress Note Date: 05/21/19 Patient states she continues to have headache which she rates 6/10. Patient feels very photophobic, phonophobic. Denies vomiting. Patient states when she talks to someone, or walks around, gets more intense headache pointing to the left frontal temporal region, but some degree of headache is global. The worst part is around the left orbital region. Patient's blood test from yesterday showed WBC count 23.3, hemoglobin 12.7 and platelets 196. Chem-7 is normal. Blood pressure is 106/66 and she is afebrile. Patient's thyroid functions are severely deranged, with TSH > 100. I had spoken to patient yesterday, and she was stating that she is taking levothyroxine 300 g daily. Today I spoke to her, she states she is taking levothyroxine 150 g daily. Her significant hypothyroidism may be contributing. Patient's free T3 and free T4 both are low. Objective - Vital Signs Vital signs: Vital Signs Temp 98.0 F 05/21/19 11:26 Pulse 73 05/21/19 11:26 Resp 18 05/21/19 11:26 BP 119/77 05/21/19 11:26 Pulse Ox 97 05/21/19 11:26 Intake & Output 05/20/19 05/21/19 05/21/19 18:59 06:59 18:59 Intake Total 840 Balance 840 Intake: Oral 840 Other: Voiding Method Toilet Toilet Toilet # Voids 4 2 2 - Exam Patient's mental status, speech and language functions are normal. Patient has no meningeal signs. Neck is supple. Kernig sign negative. Pupils are round and reacting to light. Visual conti are full face is symmetric in strength is normal. - Labs CBC & Chem 7: 05/20/19 13:10 05/20/19 13:10 Labs: Abnormal Lab Results - Last 24 Hours (Table) 05/20/19 05/20/19 05/20/19 Range/Units 13:10 13:10 20:02 WBC 23.3 H (3.8-10.6) k/uL RBC 3.57 L (3.80-5.40) m/uL MCV 105.1 H (80.0-100.0) fL MCH 35.7 H (25.0-35.0) pg Glucose 121 H (74-99) mg/dL POC Glucose (mg/dL) 125 H (75-99) mg/dL 05/21/19 Range/Units 06:58 WBC (3.8-10.6) k/uL RBC (3.80-5.40) m/uL MCV (80.0-100.0) fL MCH (25.0-35.0) pg Glucose (74-99) mg/dL POC Glucose (mg/dL) 74 L (75-99) mg/dL Microbiology - Last 24 Hours (Table) 05/18/19 17:18 Blood Culture - Preliminary Blood No Growth after 48 hours Assessment and Plan Assessment: * 53-year-old female with history of lymphoproliferative disorder, came with 1 week history of cephalgia of unclear etiology. No previous history of migraines or headaches. She does not overdo caffeine intake. Exact cause of cephalgia uncertain. Patient's uncontrolled hypothyroidism, with TSH of > 100 may be contributing. Patient is also immunosuppressed, therefore at risk for meningitic infection. * Leukocytosis, probably related to use of Neulasta. * Tobacco user Plan: * Patient's headaches have not resolved yet. She still has headache 6/10, that gets worse with talking, walking or any activity. The headache probably not related to Neulasta. * Await MRI of the brain with and without contrast and MRV of the head. If no obvious answers for the headache identified with MRI, MRV, then we will proceed with bedside lumbar puncture. * Patient has significant hypothyroidism. Need to adjust dose of levothyroxine. Patient states that she was taking levothyroxine 150 g, but now the dose has been increased to 300 g..
[2019-05-21] MEDS ORDERED: LORazepam 2 MG/ML INJ ONE (13:09)
[2019-05-21] MEDS ORDERED: LORazepam 2 MG/ML INJ IV STA (13:10)
--- NOTE | 2019-05-21 14:42 | MR ---
PRE AND POSTCONTRAST ENHANCED MRI OF THE BRAIN: CLINICAL HISTORY: new-onset cephalalgia,rule out mass, meningitis CONTRAST: 7 ML Multihance Multiplanar and multispin-echo imaging of the brain was performed both before and after the administr ation of contrast. The ventricles, basal cisterns and sulci overlying the cerebral convexities are within normal limits. There is no evidence for midline shift or mass effect. Acute intracranial hemorrhage or extra-axial collection is not evident. There are no abnormal areas of increased or decreased signal intensity within the brain parenchyma. Following contrast administration, there is no evidence for pathologic enhancement or enhancing mass. The mastoid air cells are well-aerated. There is chronic paranasal sinusitis. IMPRESSION: Unremarkable pre and postcontrast enhanced MRI of the brain.
--- NOTE | 2019-05-21 14:54 | MR ---
EXAMINATION TYPE: MR venography head wo con DATE OF EXAM: 05/21/2019 2:48 PM COMPARISON: NONE HISTORY: new-onset cephalalgia,rule out mass, meningitis Three-dimensional [id number] intracranial MRV was performed with multiple intensity projection im ages submitted and source data reviewed at the workstation. Visualized dural venous sinuses are patent throughout without evidence of filling defect to suggest v enous sinus thrombosis. Arachnoid granulation noted within the right transverse sinus. IMPRESSION: No evidence of filling defect to suggest venous sinus thrombosis.
[2019-05-21] MEDS ORDERED: LIDOCAINE 1% INJ 10MG/ML (20 ML MDV) SQ ONE (15:44)
[2019-05-21 17:17] LABS: Glucose,Whole Blood 139 mg/dL (75-99)
[2019-05-21] MEDS ORDERED: AZITHROMYCIN 500 MG TAB PO SCH (19:00)
[2019-05-21] MEDS: guaiFENesin 600 MG TABLET.ER PO SCH (20:19)
[2019-05-21] MEDS: AMITRIPTYLINE HCL 25 MG TAB PO SCH (20:19)
[2019-05-21] MEDS: CYCLOPHOSPHAMIDE 50 MG PO SCH (20:20)
[2019-05-21 21:23] LABS: Glucose,Whole Blood 102 mg/dL (75-99)
[2019-05-22] MEDS: HYDROcodone/APAP 7.5-325MG 1 EACH TAB PO PRN ×2 (04:03→15:35)
[2019-05-22] MEDS: BUTALB/APAP/CAFF 50-325-40MG TAB PO PRN (04:55)
[2019-05-22 07:05] LABS: Glucose,Whole Blood 77 mg/dL (75-99)
[2019-05-22] MEDS: guaiFENesin 600 MG TABLET.ER PO SCH (09:42)
[2019-05-22] MEDS: CHOLECALCIFEROL 1,000 UNIT TAB PO SCH (09:42)
[2019-05-22] MEDS: FOLIC ACID 1 MG TAB PO SCH (09:43)
[2019-05-22] MEDS: MULTIVITAMINS, THERA 1 EACH TAB PO SCH (09:43)
[2019-05-22] MEDS: LACTOBACILLUS ACIDOPH & BULGAR 1 EACH PACKET PO SCH (09:43)
[2019-05-22] MEDS: PANTOPRAZOLE 40 MG TABLET PO SCH (09:43)
[2019-05-22] MEDS: LEVOTHYROXINE IVP 100 MCG/5 ML VIAL IV SCH (09:43)
[2019-05-22] MEDS: LORATADINE 10 MG TAB PO SCH (09:43)
[2019-05-22] MEDS: FERROUS SULFATE 325 MG TAB PO SCH (09:43)
[2019-05-22] MEDS: HEPARIN SODIUM,PORCINE 5,000 UNIT/ML 1 ML VIAL SQ SCH (09:44)
--- NOTE | 2019-05-22 11:07 | P.DS ---
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 The patient had reported frontal and temporal thr obbing-like headaches, severe nature with associated visual disturbances, photophobia, and phonophobia. The patient had undergone an extensive evaluation in the emergency room with a WBC count of 34.2, hemoglobin of 13.2, sodium of 142, potassium 3.2, BUN of 12, creatinine 1.03, TSH > 100, Free T4 0.53, brain CT unremarkable, and CXR also unremarkable. The patient was admitted for further workup of intractable headache along with leukocytosis. Neurology was consulted for her headache and her etiology was uncertain. There was some concerns for meningitis given her immunocompromise state. Initially, she was tried on a trial of Elavil and Fioricet as needed. She was also given Toradol for pain control. Her symptoms did not improve with the above treatment. Neurology recommended MRI with and without contrast along with MRV of the brain. MRI along with MRV was unremarkable. There is significant sinusitis that was noted on imaging. Decision was made to give the patient a trial of Mucinex along with 3 days of azithromycin. Patient refused lumbar puncture during her hospitalization. Patient was noted to have a leukocytosis of 23.3 during her hospitalization. She was afebrile. She showed no signs of meningitis on physical exam. Her leukocytosis was thought to be secondary to Neulasta injection that she received prior to admission. Patient was noted to have uncontrolled hypothyroidism. Her TSH was noted to be greater than 100 with free T4 decreased at 0.53. The case was discussed with endocrinology who recommended IV Synthroid during her hospitalization. She was transitioned to Synthroid 300 g home dose at the time of discharge and advised to follow-up with endocrinology. Patient was seen and examined. No acute events overnight. Patient reports continued headache in the left orbital region. She denies any chest pain, shortness of breath or palpitations. She denies any fever or chills. She denies any stiff neck. No numbness/weakness/tingling of the extremities. General: [non toxic], [no distress], [appears at stated age] Derm: [warm], [dry] Head: [atraumatic], [normocephalic], [symmetric], [maxillary and frontal sinuses nontender to palpation] Eyes: [EOMI], [no lid lag], [anicteric sclera] Mouth: [no lip lesion], [mucus membranes moist] Cardiovascular: [S1S2 reg], [no murmur], [positive DP pulse bilateral], Lungs: [CTA bilateral], [no rhonchi, no rales] , [no accessory muscle use] Abdominal: [soft], [ nontender to palpation], [no guarding], [no appreciable organomegaly] Ext: [no gross muscle atrophy], [no edema], [no contractures] Neuro: [no focal neuro deficits] Psych: [Alert], [oriented], [appropriate affect] Intractable headache Leukocytosis and macrocytosis with diagnosis of T-cell lymphoproliferative disease Uncontrolled hypothyroidism CT brain negative. Headache unrelieved with Tylenol, Fioricet, Toradol and morphine. MRI with and without contrast of the brain along with MRV was unremarkable. Plans: Follow neurology consultation. Treatment for sinusitis with azithromycin and Mucinex. Patient now agreeable for lumbar puncture. Check ESR and CRP. Leukocytosis of 23.3. Patient afebrile. No signs of infection. Likely Neulasta injection. Plans: Continue to monitor. Follow hematology consultation. TSH greater than 100, free T4 0.53. Plans: Continue Synthroid 100 g IV daily. Plans to DC on Synthroid 300 g daily. [Headache sustained. Undergoing treatment for sinusitis. Discussed with social work and case management, possible secondary gain given her recent eviction. Will discuss with neurology for lumbar puncture today. Patient is pending clinical improvement.] Pertinent Studies: CT brain, chest x-ray, lumbar spine x-ray, thoracic spine x-ray, MRI brain, MRV brain Procedures: Possible lumbar puncture Patient Condition at Discharge: Good Plan - Discharge Summary Discharge Rx Participant: No New Discharge Prescriptions: No Action Ferrous Sulfate [Iron (65 MG Elemental)] 325 mg PO DAILY Multivitamins, Thera [Multivitamin (formulary)] 1 tab PO DAILY Cholecalciferol [Vitamin D3 (25 Mcg = 1000 Iu)] 5,000 unit PO DAILY Cyclophosphamide 100 mg PO HS Pegfilgrastim [Neulasta] 6 mg IV Q14D Pantoprazole [Protonix] 40 mg PO DAILY #15 tablet. Ondansetron [Zofran] 4 mg PO Q6HR PRN PRN Reason: Nausea Folic Acid 1 mg PO DAILY Docusate [Colace] 100 mg PO DAILY PRN PRN Reason: Constipation L.acidoph,Paracasei, B.lactis [Probiotic] 1 cap PO DAILY Levothyroxine Sodium [Synthroid] 300 mcg PO DAILY Hydrocodone/Acetaminophen [Kenefic 7.5-325] 1 tab PO TID PRN PRN Reason: Pain Lactose-Reduced Food [Boost] 237 ml PO DAILY Loperamide HCl [Imodium A-D] 2 - 4 mg PO QID PRN PRN Reason: Diarrhea Magnesium Oxide [Mag-Ox] 400 mg PO DAILY methylPREDNISolone [Medrol Dose Pack] See Taper PO DIRECTED Montelukast Sodium [Singulair] 10 mg PO HS Loratadine [Claritin] 10 mg PO DAILY Discharge Medication List Ferrous Sulfate [Iron (65 MG Elemental)] 325 mg PO DAILY 03/06/17 [History] Multivitamins, Thera [Multivitamin (formulary)] 1 tab PO DAILY 06/01/17 [History] Cholecalciferol [Vitamin D3 (25 Mcg = 1000 Iu)] 5,000 unit PO DAILY 04/23/18 [History] Cyclophosphamide 100 mg PO HS 06/23/18 [History] Pegfilgrastim [Neulasta] 6 mg IV Q14D 06/23/18 [History] Pantoprazole [Protonix] 40 mg PO DAILY #15 tablet. 06/26/18 [Rx] Docusate [Colace] 100 mg PO DAILY PRN 01/22/19 [History] Folic Acid 1 mg PO DAILY 01/22/19 [History] Hydrocodone/Acetaminophen [Kenefic 7.5-325] 1 tab PO TID PRN 01/22/19 [History] L.acidoph,Paracasei, B.lactis [Probiotic] 1 cap PO DAILY 01/22/19 [History] Levothyroxine Sodium [Synthroid] 300 mcg PO DAILY 01/22/19 [History] Ondansetron [Zofran] 4 mg PO Q6HR PRN 01/22/19 [History] Lactose-Reduced Food [Boost] 237 ml PO DAILY 05/18/19 [History] Loperamide HCl [Imodium A-D] 2 - 4 mg PO QID PRN 05/18/19 [History] Loratadine [Claritin] 10 mg PO DAILY 05/19/19 [History] Magnesium Oxide [Mag-Ox] 400 mg PO DAILY 05/19/19 [History] Montelukast Sodium [Singulair] 10 mg PO HS 05/19/19 [History] methylPREDNISolone [Medrol Dose Pack] See Taper PO DIRECTED 05/19/19 [History] Follow up Appointment(s)/Referral(s): [facility] Dariel parrish [Primary Care Provider] - 1-2 days
[2019-05-22] MEDS: KETOROLAC 30 MG/ML 1 ML VIAL IVP PRN (11:08)
[2019-05-22 11:09] LABS: Glucose,Whole Blood 94 mg/dL (75-99)
[2019-05-22 11:51] VITALS: BP 113/74; PULSE 79; RESP 18; TEMP 98
[2019-05-22 12:22] LABS: Basophils # (A) 0.1 k/uL (0-0.2); Basophils % (A) 1 %; Eosinophils # (A) 0.2 k/uL (0-0.7); Eosinophils % (A) 1 %; HCT 39.7 % (34.0-46.0); HGB 12.7 gm/dL (11.4-16.0); Lymphocytes # (A) 1.2 k/uL (1.0-4.8); Lymphocytes % (A) 8 %; MCV 106.2 fL (80.0-100.0); Macrocytosis Moderate; Mean Platelet Volume 6.8; Monocytes # (A) 0.6 k/uL (0-1.0); Monocytes % (A) 4 %; Neutrophils # (A) 13.4 k/uL (1.3-7.7); Neutrophils % (A) 86 %; Platelet Count 184 k/uL (150-450); RBC 3.74 m/uL (3.80-5.40); RDW 15.5 % (11.5-15.5); WBC 15.6 k/uL (3.8-10.6)
[2019-05-22 13:29] LABS: Erythrocyte Sedimentation Rate 8 mm/hr (0-20)
--- NOTE | 2019-05-22 15:52 | P.PN ---
Subjective Progress Note Date: 05/22/19 Patient apparently underwent MRI of the brain with and without contrast and MRV of the head yesterday. MRI of the brain reported as normal with chronic sinusitis. On my review, there is evidence of significant left frontal, right maxillary and ethmoid sinus disease with mucosal thickening. Her headache is also on the left frontal region and the left frontal sinus appears to be the worse. I suspect patient has acute sinusitis. Patient was started on Zithromax 500 mg daily (as she is ALLERGIC to penicillin), and patient feels her headaches have remarkably improved. She rates it 4/10 at this time. She is no more photophobic, phonophobic, nausea vomiting. She wants to go home. Patient states her nasal passage is much more clear and she is draining a lot of yellow phlegm. Patient's blood test from yesterday showed WBC count 23.3, hemoglobin 12.7 and platelets 196. Chem-7 is normal. Blood pressure is 106/66 and she is afebrile. Patient's thyroid functions are severely deranged, with TSH > 100. I had spoken to patient yesterday, and she was stating that she is taking levothyroxine 300 g daily. Today I spoke to her, she states she is taking levothyroxine 150 g daily. Her significant hypothyroidism may be contributing. Patient's free T3 and free T4 both are low. Objective - Vital Signs Vital signs: Vital Signs Temp 98.0 F 05/22/19 11:36 Pulse 79 05/22/19 11:36 Resp 18 05/22/19 11:36 BP 113/74 05/22/19 11:36 Pulse Ox 97 05/22/19 11:36 Intake & Output 05/21/19 05/22/19 05/22/19 18:59 06:59 18:59 Intake Total 950 950 Balance 950 950 Intake: Oral 950 950 Other: Voiding Method Toilet Toilet Toilet # Voids 2 1 3 - Exam Patient's mental status, speech and language functions are normal. Pupils are round and reacting to light. Visual conti are full face is symmetric in strength is normal. - Labs CBC & Chem 7: 05/22/19 11:46 05/20/19 13:10 Labs: Abnormal Lab Results - Last 24 Hours (Table) 05/21/19 05/21/19 05/22/19 Range/Units 16:56 21:21 11:46 WBC 15.6 H (3.8-10.6) k/uL RBC 3.74 L (3.80-5.40) m/uL MCV 106.2 H (80.0-100.0) fL Neutrophils # 13.4 H (1.3-7.7) k/uL POC Glucose (mg/dL) 139 H 102 H (75-99) mg/dL Microbiology - Last 24 Hours (Table) 05/18/19 17:18 Blood Culture - Preliminary Blood No Growth after 72 hours Assessment and Plan Assessment: * Acute frontal, maxillary and ethmoid sinusitis with severe sinus headaches, with secondary migraine. * Leukocytosis, probably related to use of Neulasta. * Hypothyroidism * Tobacco user Plan: * Patient's headaches have significantly improved. She is no more photophobic, phonophobic. Lumbar puncture was canceled. Patient is cleared to be discharged with recommendation to complete the course of antibiotics for chronic sinusitis. * Patient has significant hypothyroidism. Need to adjust dose of levothyroxine. Patient states that she was taking levothyroxine 150 g, but now the dose has been increased to 300 g. * Tobacco cessation.
--- NOTE | 2019-05-22 16:08 | P.PN ---
Subjective Progress Note Date: 05/22/19 Principal diagnosis: MS aches, intractable PRITCHETT In follow-up today patient states improvement in the swelling of her face, she still has a slight headache above her left eye, she feels that her sinus passages are significantly clearer, she denies sore throat, ear pain, fevers, or musculoskeletal aches are improved, she is tolerating oral intake, no diarrhea or constipation, abdominal pain or swelling. Objective - Vital Signs Vital signs: Vital Signs Temp 98.0 F 05/22/19 11:36 Pulse 79 05/22/19 11:36 Resp 18 05/22/19 11:36 BP 113/74 05/22/19 11:36 Pulse Ox 97 05/22/19 11:36 Intake & Output 05/21/19 05/22/19 05/22/19 18:59 06:59 18:59 Intake Total 950 950 Balance 950 950 Intake: Oral 950 950 Other: Voiding Method Toilet Toilet Toilet # Voids 2 1 3 - Constitutional General appearance: Present: cooperative, no acute distress, thin - EENT Eyes: Present: anicteric sclerae, EOMI ENT: Present: hearing grossly normal, normal oropharynx - Neck Neck: Present: normal ROM. Absent: lymphadenopathy, other, rigidity, stridor - Respiratory Respiratory: bilateral: CTA - Cardiovascular Heart sounds: normal: S1, S2 Abnormal Heart Sounds: Absent: systolic murmur, diastolic murmur, rub, S3 Gallop, S4 Gallop, click, other - Peripheral edema leg Peripheral Edema: bilateral: None - Gastrointestinal General gastrointestinal: Present: normal bowel sounds, soft - Neurologic Neurologic: Present: CNII-XII intact - Musculoskeletal Musculoskeletal: Present: strength equal bilaterally - Psychiatric Psychiatric: Absent: A&O x's 3, appropriate affect, intact judgment & insight - Labs CBC & Chem 7: 05/22/19 11:46 05/20/19 13:10 Labs: Abnormal Lab Results - Last 24 Hours (Table) 05/21/19 05/21/19 05/22/19 Range/Units 16:56 21:21 11:46 WBC 15.6 H (3.8-10.6) k/uL RBC 3.74 L (3.80-5.40) m/uL MCV 106.2 H (80.0-100.0) fL Neutrophils # 13.4 H (1.3-7.7) k/uL POC Glucose (mg/dL) 139 H 102 H (75-99) mg/dL Microbiology - Last 24 Hours (Table) 05/18/19 17:18 Blood Culture - Preliminary Blood No Growth after 72 hours - Imaging and Cardiology MRI - head: report reviewed Assessment and Plan (1) Headache Current Visit: Yes Status: Resolved Priority: High Code(s): R51 - HEADACHE SNOMED Code(s): 47838670 (2) Muscle ache Current Visit: Yes Status: Resolved Priority: Medium Code(s): M79.10 - MYALGIA, UNSPECIFIED SITE SNOMED Code(s): 96220331 (3) T-cell lymphoma Narrative/Plan: Cont cytoxan as prescribed. GCSF schedule changed, pt aware, new appt mad Current Visit: No Status: Chronic Priority: Medium Code(s): C85.90 - NON- HODGKIN LYMPHOMA, UNSPECIFIED, UNSPECIFIED SITE SNOMED Code(s): 703616788 Plan: Leukocytosis, neutrophils-due to recent administration of GCSF, WBC decreasing as anticipated. GCSF frequency was recently increased due to increased WBC response. Will make further frequency adjustment. No acute intervention MS pain-could be r/t GCSF, typically that type of pain is relieved with claritin, orders for the same. Should be short lived, usually lasting 3-4 days T cell lymphoma: Well controlled on oral cytoxan and GCSF. Cont oral cytoxan as prescribed.
[2019-05-23] MEDS ORDERED: LEVOTHYROXINE 100 MCG TAB PO SCH (06:30)
== END 2019-05-22 16:36 | disposition home or self-care (01) | DRG 103 ==
LOC: EC 15:34 → 5NMEDONC 20:01 → OBSVTOIN 05-21 07:48
PROVIDERS: ADMIT Family Medicine; ATTEND Family Medicine
DX: G43.009 Migraine without aura, not intractable, without status migrainosus (principal); N17.9 Acute kidney failure, unspecified; C81.90 Hodgkin lymphoma, unspecified, unspecified site; F41.9 Anxiety disorder, unspecified; F32.9 Major depressive disorder, single episode, unspecified; F17.200 Nicotine dependence, unspecified, uncomplicated; E03.9 Hypothyroidism, unspecified; D75.89 Other specified diseases of blood and blood-forming organs; J01.90 Acute sinusitis, unspecified; Z79.890 Hormone replacement therapy; Z79.891 Long term (current) use of opiate analgesic; Z79.899 Other long term (current) drug therapy; Z85.6 Personal history of leukemia; Z86.718 Personal history of other venous thrombosis and embolism; Z88.0 Allergy status to penicillin; Z90.710 Acquired absence of both cervix and uterus
CPT/HCPCS: 36415; 70450; 70544; 70553; 71046; 72070; 72100; 80048; 80053; 81003; 83605; 84439; 84443; 85025; 85027; 85610; 85652; 85730; 86140; 87040; 87502; 96361; 96374; 96375; 99285

== ENCOUNTER → 2019-06-11 | Outpatient (CLI) | payer OTHER ==
[2019-06-11 17:31] LABS: HCT 39.9 % (34.0-46.0); HGB 13.7 gm/dL (11.4-16.0); MCH 35.9 pg (25.0-35.0); MCHC 34.3 g/dL (31.0-37.0); MCV 104.7 fL (80.0-100.0); Macrocytosis Slight; Mean Platelet Volume 7.2; Platelet Count 216 k/uL (150-450); RBC 3.81 m/uL (3.80-5.40); RDW 13.3 % (11.5-15.5); WBC 5.5 k/uL (3.8-10.6)
[2019-06-11 20:18] LABS: Eosinophils # (M) 0.11 k/uL (0-0.7); Lymphocytes # (M) 1.82 k/uL (1.0-4.8); Monocytes # (M) 0.39 k/uL (0-1.0); Neutrophils # (M) 3.19 k/uL (1.3-7.7); Neutrophils % (M) 58 %; Nucleated Red Blood Cells 0 /100 WBC (0-0); Total Cells Counted 100
[2019-06-12 02:20] LABS: African American GFR (CKD) 98.9 (60.0-200.0); Albumin 4.5 g/dL (3.80-4.90); Albumin/Globulin Ratio 2.25 (1.60-3.17); Anion Gap 10.8 mmol/L (4.00-12.00); BUN/Creat Ratio 23.75 Ratio (12.00-20.00); Calcium 9.3 mg/dL (8.7-10.3); Carbon Dioxide 24.2 mmol/L (21.6-31.8); Non-African American GFR(CKD) 85.4 (60.0-200.0); Potassium 3.6 mmol/L (3.5-5.5); Total Bilirubin 0.5 mg/dL (0.3-1.2); Total Protein 6.5 g/dL (6.2-8.2)
== END | disposition home or self-care (01) ==
LOC: LABWHC1 15:02
PROVIDERS: ATTEND Nurse Practitioner
DX: R19.7 Diarrhea, unspecified (principal); D70.9 Neutropenia, unspecified
CPT/HCPCS: 36415; 80053; 85025

== ENCOUNTER 2019-06-19 10:18 | Inpatient (IN) | payer OTHER ==
[2019-06-19] MEDS ORDERED: MORPHINE SULFATE 4 MG/ML SYRINGE IVP STA (10:38)
[2019-06-19] MEDS ORDERED: METOCLOPRAMIDE 5 MG/ML 2 ML VIAL IVP STA (10:38)
[2019-06-19] MEDS ORDERED: SODIUM CHLORIDE 0.9% 1,000 ML IV ONE (10:38)
[2019-06-19] MEDS ORDERED: diphenhydrAMINE 50 MG/ML 1 ML VIAL IVP STA (10:38)
[2019-06-19 11:11] LABS: HCT 35.4 % (34.0-46.0); HGB 12.2 gm/dL (11.4-16.0); MCH 35.4 pg (25.0-35.0); MCHC 34.5 g/dL (31.0-37.0); MCV 102.6 fL (80.0-100.0); Macrocytosis Slight; Mean Platelet Volume 6.9; Platelet Count 205 k/uL (150-450); RBC 3.45 m/uL (3.80-5.40); RDW 12.8 % (11.5-15.5); WBC 34.1 k/uL (3.8-10.6)
--- NOTE | 2019-06-19 11:15 | ED ---
General Adult HPI - General Chief complaint: Headache Stated complaint: recheck - muscle aches, headache Time Seen by Provider: 06/19/19 10:24 Source: patient, RN notes reviewed Mode of arrival: ambulatory Limitations: no limitations - History of Present Illness Initial comments: This is a 53-year-old female presents emergency Department chief complaint of severe headache, muscle, joint pain. Patient states that she had similar symptoms in April of this year. Patient that she has hospitalized for this and states that symptoms did improve after given some medications. Patient states that the headache started 3 days ago when she saw her oncologist Dr. Katz. Patient states that she did not think much of it but states his symptoms have greatly worse. Patient sent in for probable admission by PCP. Patient states that the pain of her joints is unbearable and states that this is a severe headache but does not feel different than her last headache. Patient had negative MRI and CT of her brain at that time of hospitalization. Patient state s that she has underlying T-cell lymphoma, myoplastic disease. Patient denies any known fever, chills, URI symptoms. Patient states that it's all of her joints that hurt she states that she's been taken fierce that as she was prescribed last time when she was hospitalized states it's not helping a neighbor symptoms. She denies any medication changes. - Related Data Home Medications Medication Instructions Recorded Confirmed Ferrous Sulfate [Iron (65 MG 325 mg PO DAILY 03/06/17 05/18/19 Elemental)] Multivitamins, Thera [Multivitamin 1 tab PO DAILY 06/01/17 05/18/19 (formulary)] Cholecalciferol [Vitamin D3 (25 5,000 unit PO DAILY 04/23/18 05/18/19 Mcg = 1000 Iu)] Cyclophosphamide 100 mg PO HS 06/23/18 05/18/19 Pegfilgrastim [Neulasta] 6 mg IV Q14D 06/23/18 05/18/19 Docusate [Colace] 100 mg PO DAILY PRN 01/22/19 05/18/19 Folic Acid 1 mg PO DAILY 01/22/19 05/18/19 Hydrocodone/Acetaminophen [Kirwin 1 tab PO TID PRN 01/22/19 05/18/19 7.5-325] L.acidoph,Paracasei, B.lactis 1 cap PO DAILY 01/22/19 05/18/19 [Probiotic] Levothyroxine Sodium [Synthroid] 300 mcg PO DAILY 01/22/19 05/18/19 Ondansetron [Zofran] 4 mg PO Q6HR PRN 01/22/19 05/18/19 Lactose-Reduced Food [Boost] 237 ml PO DAILY 05/18/19 05/18/19 Loperamide HCl [Imodium A-D] 2 - 4 mg PO QID PRN 05/18/19 05/18/19 Loratadine [Claritin] 10 mg PO DAILY 05/19/19 05/19/19 Magnesium Oxide [Mag-Ox] 400 mg PO DAILY 05/19/19 05/19/19 Montelukast Sodium [Singulair] 10 mg PO HS 05/19/19 05/19/19 methylPREDNISolone [Medrol Dose See Taper PO DIRECTED 05/19/19 05/19/19 Pack] Previous Rx's Medication Instructions Recorded Pantoprazole [Protonix] 40 mg PO DAILY #15 tablet. 06/26/18 Azithromycin [Zithromax] 500 mg PO Q24H #2 tab 05/22/19 Butalb/APAP/Caff 50-325-40Mg 2 each PO Q4HR PRN #30 tab 05/22/19 [Fioricet 50-325-40] guaiFENesin [Mucinex] 1,200 mg PO Q12HR #14 tablet.er 05/22/19 Allergies Allergy/AdvReac Type Severity Reaction Status Date / Time amoxicillin Allergy Unknown Verified 06/19/19 10:21 banana Allergy Rash/Hives Verified 06/19/19 10:21 bee venom protein (honey bee) Allergy Anaphylaxis Verified 06/19/19 10:21 cephalexin [From Keflex] Allergy Unknown Verified 06/19/19 10:21 Penicillins Allergy Unknown Verified 06/19/19 10:21 Tetracyclines Allergy Unknown Verified 06/19/19 10:21 Review of Systems ROS Statement: Those systems with pertinent positive or pertinent negative responses have been documented in the HPI. ROS Other: All systems not noted in ROS Statement are negative. 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 she is to follow up with him for oral chemo History of Any Multi-Drug Resistant Organisms: C-DIFF Date of last positivie culture/infection: 2015- [facility] this has been ongoing since dec MDRO Source:: wound rt hip / stool Past Surgical History: Hysterectomy Additional Past Surgical History / Comment(s): ectopic , neck surgery, bone marrow biopsy x 4 Past Anesthesia/Blood Transfusion Reactions: No Reported Reaction Additional Past Anesthesia/Blood Transfusion Reaction / Comment(s): pt stated has received blood in past no known reaction Past Psychological History: Anxiety, Depression Smoking Status: Current every day smoker Past Alcohol Use History: None Reported Past Drug Use History: None Reported - Past Family History Father Family Medical History: Cancer Additional Family Medical History / Comment(s): mesothelioma Mother History Unknown: Yes General Exam Limitations: no limitations General appearance: alert, in no apparent distress Head exam: Present: atraumatic, normocephalic, normal inspection Eye exam: Present: normal appearance, PERRL, EOMI. Absent: scleral icterus, conjunctival injection, periorbital swelling ENT exam: Present: normal exam, normal oropharynx, mucous membranes moist Neck exam: Present: normal inspection, full ROM. Absent: tenderness, meningismus, lymphadenopathy Respiratory exam: Present: normal lung sounds bilaterally. Absent: respiratory distress, wheezes, rales, rhonchi, stridor Cardiovascular Exam: Present: regular rate, normal rhythm, normal heart sounds. Absent: systolic murmur, diastolic murmur, rubs, gallop, clicks GI/Abdominal exam: Present: soft, normal bowel sounds. Absent: distended, tenderness, guarding, rebound, rigid Extremities exam: Present: other (Pain with palpation to extremities, pain with range of motion neurovascular intact) Neurological exam: Present: alert, oriented X3, CN II-XII intact, reflexes normal. Absent: motor sensory deficit Skin exam: Present: warm, dry, intact, normal color. Absent: rash Course Vital Signs 06/19/19 06/19/19 10:22 13:47 Temperature 97.9 F Pulse Rate 89 93 Respiratory 18 18 Rate Blood Pressure 110/70 109/61 O2 Sat by Pulse 98 99 Oximetry Medical Decision Making - Medical Decision Making Patient had persistent headache on alleviated with medications. Patient has diffuse body aches, leukocytosis related to her leukemia. Patient will be admitted for further evaluation. - Lab Data Result diagrams: 06/19/19 10:55 06/19/19 10:55 Lab Results 06/19/19 06/19/19 06/19/19 Range/Units 10:55 10:55 10:55 WBC 34.1 H (3.8-10.6) k/uL RBC 3.45 L (3.80-5.40) m/uL Hgb 12.2 (11.4-16.0) gm/dL Hct 35.4 (34.0-46.0) % MCV 102.6 H (80.0-100.0) fL MCH 35.4 H (25.0-35.0) pg MCHC 34.5 (31.0-37.0) g/dL RDW 12.8 (11.5-15.5) % Plt Count 205 (150-450) k/uL Neutrophils % (Manual) 85 % Band Neutrophils % 5 % Lymphocytes % (Manual) 8 % Monocytes % (Manual) 3 % Neutrophils # (Manual) 30.60 H (1.3-7.7) k/uL Lymphocytes # (Manual) 2.73 (1.0-4.8) k/uL Monocytes # (Manual) 1.02 H (0-1.0) k/uL Nucleated RBCs 0 (0-0) /100 WBC Manual Slide Review Performed Macrocytosis Slight Sodium 139 (137-145) mmol/L Potassium 4.2 (3.5-5.1) mmol/L Chloride 105 (98-107) mmol/L Carbon Dioxide 26 (22-30) mmol/L Anion Gap 8 mmol/L BUN 16 (7-17) mg/dL Creatinine 0.90 (0.52-1.04) mg/dL Est GFR (CKD-EPI)AfAm 86 (>60 ml/min/1.73 sqM) Est GFR (CKD-EPI)NonAf 75 (>60 ml/min/1.73 sqM) Glucose 88 (74-99) mg/dL Plasma Lactic Acid Denis 1.3 (0.7-2.0) mmol/L Calcium 9.7 (8.4-10.2) mg/dL Magnesium 1.8 (1.6-2.3) mg/dL Total Bilirubin 0.4 (0.2-1.3) mg/dL AST 59 H (14-36) U/L ALT 88 H (4-34) U/L Alkaline Phosphatase 171 H (38-126) U/L Creatine Kinase <20 L (30-135) U/L C-Reactive Protein <5.0 (<10.0) mg/L Total Protein 7.1 (6.3-8.2) g/dL Albumin 4.2 (3.5-5.0) g/dL TSH 0.326 L (0.465-4.680) mIU/L Free T4 1.96 (0.78-2.19) ng/dL Disposition Clinical Impression: Leukocytosis, T-cell lymphoma, Intractable headache, Arthralgia Disposition: ADMITTED IP TO THIS [facility] Condition: Fair Referrals: [facility] [Primary Care Provider] - 1-2 days
[2019-06-19 11:22] LABS: ALT 88 U/L (4-34); AST 59 U/L (14-36); African American GFR (CKD) 86 (>60 ml/min/1.73 sqM); Albumin 4.2 g/dL (3.5-5.0); Alkaline Phosphatase 171 U/L (38-126); Anion Gap 8 mmol/L; Blood Urea Nitrogen 16 mg/dL (7-17); Calcium 9.7 mg/dL (8.4-10.2); Carbon Dioxide 26 mmol/L (22-30); Chloride 105 mmol/L (98-107); Creatine Kinase <20 U/L (30-135); Glucose 88 mg/dL (74-99); Magnesium 1.8 mg/dL (1.6-2.3); Non-African American GFR(CKD) 75 (>60 ml/min/1.73 sqM); Potassium 4.2 mmol/L (3.5-5.1); Sodium 139 mmol/L (137-145); Total Bilirubin 0.4 mg/dL (0.2-1.3); Total Protein 7.1 g/dL (6.3-8.2)
[2019-06-19 11:33] LABS: Band Neutrophils % 5 %; Lymphocytes # (M) 2.73 k/uL (1.0-4.8); Monocytes # (M) 1.02 k/uL (0-1.0); Neutrophils % (M) 85 %; Nucleated Red Blood Cells 0 /100 WBC (0-0); Total Cells Counted 200
[2019-06-19 12:04] LABS: C Reactive Protein <5.0 mg/L (<10.0)
[2019-06-19 12:18] LABS: T4, Free (Free Thyroxine) 1.96 ng/dL (0.78-2.19)
[2019-06-19] MEDS ORDERED: ONDANSETRON 4 MG/2 ML VIAL IVP STA (13:13)
[2019-06-19] MEDS ORDERED: MORPHINE SULFATE 2 MG/ML SYRINGE IVP ONE (13:13)
[2019-06-19] MEDS ORDERED: NALOXONE 0.4 MG/ML 1 ML VIAL IV PRN (14:42)
--- NOTE | 2019-06-19 16:56 | P.HPIM ---
History of Present Illness H&P Date: 06/19/19 Chief Complaint: Headache 53-year-old female with PMH of T-cell lymphoproliferative disease (currently on Neulasta and Cytoxan) history DVT, hypothyroidism who presented to the ED complaining of headaches. Patient reports her headaches to be frontal and bilateral temporal, pressure-like, described as " fullness "and states that her head "wants to burst ". Patient associates her headaches with recent Neulasta injections. Patient is unable to remember when her last no last injection was. She denies any lower extremity edema, fever, cough, chest pain, shortness of marti ath, palpitations, changes in urination or bowel habits. No changes in appetite or weight. She denies any dizziness, numbness/weakness/tingling of the extremities. She does report some nausea but denies any vomiting. She attempted to take Fioricet without any relief. When symptoms did not improved, this prompted patient to come to the ED. In the ED, she was hemodynamically stable. CBC showed a leukocytosis of 34.1. MCV was 102.6. CMP showed AST 59, ALT 88, alkaline phosphatase 171. CPK was negative. CRP was negative. TSH was 0.306 with free T4 within normal limits. Patient is admitted for intractable headache with neurology and oncology consulted. Review of Systems Pertinent positives and negatives as discussed in HPI, a complete review of systems was performed and all other systems are negative. 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 she is to follow up with him for oral chemo History of Any Multi-Drug Resistant Organisms: C-DIFF Date of last positivie culture/infection: 2015-[facility] states this has been ongoing since dec MDRO Source:: wound rt hip / stool Past Surgical History: Hysterectomy Additional Past Surgical History / Comment(s): ectopic , neck surgery, bone marrow biopsy x 4 Past Anesthesia/Blood Transfusion Reactions: No Reported Reaction Additional Past Anesthesia/Blood Transfusion Reaction / Comment(s): pt stated has received blood in past no known reaction Past Psychological History: Anxiety, Depression Smoking Status: Current every day smoker Past Alcohol Use History: None Reported Past Drug Use History: None Reported - Past Family History Father Family Medical History: Cancer Additional Family Medical History / Comment(s): mesothelioma Mother History Unknown: Yes Medications and Allergies Home Medications Medication Instructions Recorded Confirmed Type Ferrous Sulfate [Iron (65 MG 325 mg PO DAILY 03/06/17 05/18/19 History Elemental)] Multivitamins, Thera [Multivitamin 1 tab PO DAILY 06/01/17 05/18/19 History (formulary)] Cholecalciferol [Vitamin D3 (25 5,000 unit PO DAILY 04/23/18 05/18/19 History Mcg = 1000 Iu)] Cyclophosphamide 100 mg PO HS 06/23/18 05/18/19 History Pegfilgrastim [Neulasta] 6 mg IV Q14D 06/23/18 05/18/19 History Pantoprazole [Protonix] 40 mg PO DAILY #15 tablet. 06/26/18 05/18/19 Rx Docusate [Colace] 100 mg PO DAILY PRN 01/22/19 05/18/19 History Folic Acid 1 mg PO DAILY 01/22/19 05/18/19 History Hydrocodone/Acetaminophen [Rumely 1 tab PO TID PRN 01/22/19 05/18/19 History 7.5-325] L.acidoph,Paracasei, B.lactis 1 cap PO DAILY 01/22/19 05/18/19 History [Probiotic] Levothyroxine Sodium [Synthroid] 300 mcg PO DAILY 01/22/19 05/18/19 History Ondansetron [Zofran] 4 mg PO Q6HR PRN 01/22/19 05/18/19 History Lactose-Reduced Food [Boost] 237 ml PO DAILY 05/18/19 05/18/19 History Loperamide HCl [Imodium A-D] 2 - 4 mg PO QID PRN 05/18/19 05/18/19 History Loratadine [Claritin] 10 mg PO DAILY 05/19/19 05/19/19 History Magnesium Oxide [Mag-Ox] 400 mg PO DAILY 05/19/19 05/19/19 History Montelukast Sodium [Singulair] 10 mg PO HS 05/19/19 05/19/19 History methylPREDNISolone [Medrol Dose See Taper PO DIRECTED 05/19/19 05/19/19 History Pack] Azithromycin [Zithromax] 500 mg PO Q24H #2 tab 05/22/19 Rx Butalb/APAP/Caff 50-325-40Mg 2 each PO Q4HR PRN #30 tab 05/22/19 Rx [Fioricet 50-325-40] guaiFENesin [Mucinex] 1,200 mg PO Q12HR #14 tablet.er 05/22/19 Rx Allergies Allergy/AdvReac Type Severity Reaction Status Date / Time amoxicillin Allergy Unknown Verified 06/19/19 10:21 banana Allergy Rash/Hives Verified 06/19/19 10:21 bee venom protein (honey bee) Allergy Anaphylaxis Verified 06/19/19 10:21 cephalexin [From Keflex] Allergy Unknown Verified 06/19/19 10:21 Penicillins Allergy Unknown Verified 06/19/19 10:21 Tetracyclines Allergy Unknown Verified 06/19/19 10:21 Physical Exam Vitals: Vital Signs Temp Pulse Pulse Resp BP BP Pulse Ox 06/19/19 15:52 98.3 F 96 16 106/57 98 06/19/19 15:44 98.3 F 90 16 95/56 98 06/19/19 15:11 90 18 95/56 95 06/19/19 14:01 92 20 100/57 94 L 06/19/19 13:47 93 18 109/61 99 06/19/19 10:22 97.9 F 89 18 110/70 98 Intake and Output 06/19/19 06/19/19 06/19/19 06:59 14:59 22:59 Other: Weight 63.503 kg General: [non toxic], [no distress], [appears at stated age] Derm: [warm], [dry] Head: [atraumatic], [normocephalic], [symmetric], [maxillary and frontal sinuses nontender to palpation] Eyes: [EOMI], [no lid lag], [anicteric sclera] Mouth: [no lip lesion], [mucus membranes moist] Cardiovascular: [S1S2 reg], [no murmur], [positive DP pulse bilateral], Lungs: [CTA bilateral], [no rhonchi, no rales] , [no accessory muscle use] Abdominal: [soft], [ nontender to palpation], [no guarding], [no appreciable organomegaly] Ext: [no gross muscle atrophy], [no edema], [no contractures] Neuro: [no focal neuro deficits] Psych: [Alert], [oriented], [appropriate affect] Results CBC & Chem 7: 06/19/19 10:55 06/19/19 10:55 Labs: Abnormal Lab Results - Last 24 Hours (Table) 06/19/19 06/19/19 Range/Units 10:55 10:55 WBC 34.1 H (3.8-10.6) k/uL RBC 3.45 L (3.80-5.40) m/uL MCV 102.6 H (80.0-100.0) fL MCH 35.4 H (25.0-35.0) pg Neutrophils # (Manual) 30.60 H (1.3-7.7) k/uL Monocytes # (Manual) 1.02 H (0-1.0) k/uL AST 59 H (14-36) U/L ALT 88 H (4-34) U/L Alkaline Phosphatase 171 H (38-126) U/L Creatine Kinase <20 L (30-135) U/L TSH 0.326 L (0.465-4.680) mIU/L Assessment and Plan Assessment: Intractable headache Leukocytosis and macrocytosis with diagnosis of T-cell lymphoproliferative disease Subclinical hyperthyroidism Macrocytosis Transaminitis CT brain, MRI brain, MRV head and neck negative during previous admission. CRP is within normal limits. We will start the patient on Tylenol, Fioricet, Toradol and morphine as needed. Neurology has been consulted. Plans for lumbar puncture if not improved by Saturday. Leukocytosis of 34.1. Patient afebrile. No signs of infection. Likely Neulasta injection. Will continue to monitor with daily CBCs. Follow hematology consultation. TSH greater than 100, free T4 0.53 on previous admission. TSH 0.326, free T4 within normal limits. Plans: Continue home dose of Synthroid. Her macrocytosis is likely related to her chemotherapy. Her hemoglobin is stable and there is nothing further to do. We will repeat CBC tomorrow morning. Patient has elevated liver enzymes with AST 59, ALT 88, alkaline phosphatase 171. The etiology is unknown. We will repeat CMP tomorrow morning. DVT prophylaxis: [Heparin] Discussed with: [Patient] Anticipated discharge: [1-2 days] Anticipated discharge place: [Home] A total of [45] minutes was spent on the care of this complex patient more than 50% of the time was spent in counseling and care coordination. Patient names [facility] decision maker if she can't make decisions for herself. She would like to be full code.
--- NOTE | 2019-06-19 17:12 | P.CNNES ---
History of Present Illness Consult date: 06/19/19 Requesting physician: Ankur Waite Reason for Consult: Intractable headache History of Present Illness: Patient is a 53-year-old female, with previous history of lymphoproliferative disorder, known to me from previous admission to the hospital from 05/18/2019, when she had presented with 3 week history of headaches, mainly left frontal region. Patient underwent MRI of the brain with and without contrast and was diagnosed with acute maxillary frontal and ethmoid sinusitis. Patient's MRV of the head was also normal with no evidence of dural venous sinus thrombosis. Patient was placed on course of antibiotics, sent home and the headache resolved. Patient's headache was in remission. On 06/16/2019, patient received Neulasta. On Saturday, she started having a left frontal headache, that was very mild in degree. Yesterday, on it went up to 8-9/10 with photophobia. This morning, on Saturday, the headache was so bad, that she was in tears, rating 15 on a scale of 1-10. Her whole head was hurting, with a lot of pressure, as it had is filling up, like it will explode. She has been feeling nauseous, photophobic phonophobic. Patient's blood test shows C-reactive protein is <5.0, TSH is decreased 0.3-6 but normal free T4 1 0.96. Liver panel with AST 59, ALT 88. Her WBC count is 34.1, hemoglobin 12.2 and platelets 205. Her last B12 level is 3096 on 08/29/2017. Patient states that prior to giving Neulasta, her white cells was 3000. Now it's up to 34,000. Patient has history of T cell lymphoproliferative disease, currently on Neulasta and Cytoxan. She also has history of DVT and hypothyroidism. Patient denies any family history of aneurysms. Patient has smoked 1 pack per day for 10-15 years, cutback to half pack per day for 2 years, and a quarter pack per day for the last 1 year. Denies any regular alcohol. Review of Systems Complains of fatigue, tiredness, headaches, visual disturbance because of headache. Photophobia or phonophobia. Nausea. Denies any abdominal pain area. Denies diplopia. Denies any focal numbness tingling or weakness. Denies chest pain shortness of breath wheezing or cough. Denies sinus congestion. 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 she is to follow up with him for oral chemo History of Any Multi-Drug Resistant Organisms: C-DIFF Date [facility] this has been ongoing since dec MDRO Source:: wound rt hip / stool Past Surgical History: Hysterectomy Additional Past Surgical History / Comment(s): ectopic , neck surgery, bone marrow biopsy x 4 Past Anesthesia/Blood Transfusion Reactions: No Reported Reaction Additional Past Anesthesia/Blood Transfusion Reaction / Comment(s): pt stated has received blood in past no known reaction Past Psychological History: Anxiety, Depression Smoking Status: Current every day smoker Past Alcohol Use History: None Reported Past Drug Use History: None Reported - Past Family History Father Family Medical History: Cancer Additional Family Medical History / Comment(s): mesothelioma Mother History Unknown: Yes Medications and Allergies Home Medications Medication Instructions Recorded Confirmed Type Ferrous Sulfate [Iron (65 MG 325 mg PO DAILY 03/06/17 05/18/19 History Elemental)] Multivitamins, Thera [Multivitamin 1 tab PO DAILY 06/01/17 05/18/19 History (formulary)] Cholecalciferol [Vitamin D3 (25 5,000 unit PO DAILY 04/23/18 05/18/19 History Mcg = 1000 Iu)] Cyclophosphamide 100 mg PO HS 06/23/18 05/18/19 History Pegfilgrastim [Neulasta] 6 mg IV Q14D 06/23/18 05/18/19 History Pantoprazole [Protonix] 40 mg PO DAILY #15 tablet. 06/26/18 05/18/19 Rx Docusate [Colace] 100 mg PO DAILY PRN 01/22/19 05/18/19 History Folic Acid 1 mg PO DAILY 01/22/19 05/18/19 History Hydrocodone/Acetaminophen [[place] 1 tab PO TID PRN 01/22/19 05/18/19 History 7.5-325] L.acidoph,Paracasei, B.lactis 1 cap PO DAILY 01/22/19 05/18/19 History [Probiotic] Levothyroxine Sodium [Synthroid] 300 mcg PO DAILY 01/22/19 05/18/19 History Ondansetron [Zofran] 4 mg PO Q6HR PRN 01/22/19 05/18/19 History Lactose-Reduced Food [Boost] 237 ml PO DAILY 05/18/19 05/18/19 History Loperamide HCl [Imodium A-D] 2 - 4 mg PO QID PRN 05/18/19 05/18/19 History Loratadine [Claritin] 10 mg PO DAILY 05/19/19 05/19/19 History Magnesium Oxide [Mag-Ox] 400 mg PO DAILY 05/19/19 05/19/19 History Montelukast Sodium [Singulair] 10 mg PO HS 05/19/19 05/19/19 History methylPREDNISolone [Medrol Dose See Taper PO DIRECTED 05/19/19 05/19/19 History Pack] Azithromycin [Zithromax] 500 mg PO Q24H #2 tab 05/22/19 Rx Butalb/APAP/Caff 50-325-40Mg 2 each PO Q4HR PRN #30 tab 05/22/19 Rx [Fioricet 50-325-40] guaiFENesin [Mucinex] 1,200 mg PO Q12HR #14 tablet.er 05/22/19 Rx Allergies Allergy/AdvReac Type Severity Reaction Status Date / Time amoxicillin Allergy Unknown Verified 06/19/19 10:21 banana Allergy Rash/Hives Verified 06/19/19 10:21 bee venom protein (honey bee) Allergy Anaphylaxis Verified 06/19/19 10:21 cephalexin [From Keflex] Allergy Unknown Verified 06/19/19 10:21 Penicillins Allergy Unknown Verified 06/19/19 10:21 Tetracyclines Allergy Unknown Verified 06/19/19 10:21 Physical Examination - Vital Signs Vital Signs: Vital Signs Temp Pulse Pulse Resp BP BP Pulse Ox 06/19/19 15:52 98.3 F 96 16 106/57 98 06/19/19 15:11 90 18 95/56 95 06/19/19 14:01 92 20 100/57 94 L 06/19/19 13:47 93 18 109/61 99 06/19/19 10:22 97.9 F 89 18 110/70 98 Intake and Output 06/19/19 06/19/19 06/19/19 06:59 14:59 22:59 Other: Weight 63.503 kg On examination patient is a middle aged female, who appears in [id number] distress because of the headache. She is keeping ambient light low because of the headache. Her mental status is completely normal. Speech and language functions are normal. On cranial nerve examination, pupils are round and reacting to light, visual conti are full on confrontation, extraocular muscles intact with no nystagmus. Face is symmetric, tongue protrudes the midline. Palatal elevation and sensation normal. Muscle strength is no drift and the strength is normal in arms and legs are flexor 1+ to 2+ and plantars downgoing. Sensory touch is equal. No ataxia for [id number] testing. Tone and bulk of muscles normal. No carotid bruit or murmur, peripheral pulses present. Results - Laboratory Findings CBC and BMP: 06/19/19 10:55 06/19/19 10:55 Abnormal Lab Findings: Abnormal Labs 06/19/19 06/19/19 10:55 10:55 WBC 34.1 H RBC 3.45 L MCV 102.6 H MCH 35.4 H Neutrophils # (Manual) 30.60 H Monocytes # (Manual) 1.02 H AST 59 H ALT 88 H Alkaline Phosphatase 171 H Creatine Kinase <20 L TSH 0.326 L Assessment and Plan Assessment: * Recurrent periodic headaches. The headache seems to have relation to Neulasta, as the headache started the day after she received Neulasta, and has been progressively getting worse. The same cycle occurred in April as well, with headache occurring shortly after injection of Neulasta. Patient has been receiving Neulasta for the last 7 years, uncertain why she is developing headaches after Neulasta at this point in time. Uncertain if there is change in the brand of the medication, to which she may be somewhat ALLERGIC to. I suspect significant leukocytosis related to the use of Neulasta perhaps triggers a migraine type headache, or related to acute leukocytotic reaction. Plan: * Treatment of headache with Toradol, tramadol, [place], Fioricet as needed. She may need opiates to control the headache. * If the headache persists by morning, would suggest lumbar puncture to check for opening pressure. Also to send CSF for glucose, proteins, cell count with differential and also meningitis-encephalitis panel. * Dr. Whitman will be covering neurology service over the weekend.
[2019-06-19] MEDS: KETOROLAC 30 MG/ML 1 ML VIAL IVP PRN (18:02)
[2019-06-19] MEDS: HYDROcodone/APAP 7.5-325MG 1 EACH TAB PO PRN (20:19)
[2019-06-19] MEDS: MONTELUKAST 10 MG TAB PO SCH (21:41)
[2019-06-19] MEDS: HEPARIN SODIUM,PORCINE 5,000 UNIT/ML 1 ML VIAL SQ SCH ×2 (21:41→21:44)
[2019-06-19] MEDS: BUTALB/APAP/CAFF 50-325-40MG TAB PO PRN (23:02)
--- NOTE | 2019-06-20 00:48 | P.CONS ---
History of Present Illness - Reason for Consult Consult date: 06/19/19 intractable PRITCHETT, myalgias, Leukocytosis - History of Present Illness Ms Chand is a 53 yr old WF pt well known to myself. She was diagnosed with low WBC/myelodysplasia in [place] in 2010. She was also seen at the [facility]. Had bone marrow biopsies in 2010 as well as 2014. She moved to a snf in [place] and established care at the [facility] on 12/19/16. Labs from that date showed a hemoglobin of 13.1, white count 1.5, platelets 209 with normal RBC indices, ANC 300, Chem panel WNL. She was seen for initial consult on 05/10/17. Prior records were obtained, bone marrow in 2014 showing no definite MDS, but a small B and T cell clonal population, which was apparently felt to be of questionable significance, no specific recommendations were made. 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 She was referred back to the [facility]. The T cell clone was not c/w LGL. The case was d/w Dr. Rosario at the [facility], and it was decided to treat the T cell clone. She was thus started on methotrexate 15 mg q wk on 08/19/17. She did not respond. [facility] saw her and her MTX was stopped. She had a bone marrow in 02/13. This was sent to the [facility] ER. She was confirmed to have a T cell lymphoproliferative disorder, CD profile was not characteristic of a LGL, or for a specific type. She was started on Cytoxan 100 mg PO/d on 05/11/18. She has continued Neulasta with recent frequency adjustment as she was not needing it so frequently. Pt admitted in late 05/18, with c/o facial swelling and progressive PRITCHETT and MS aches x 2 days, so severe that was not able to perform ADLs, denied fever, oral irritation, N,V, chest pain, SOB, abd pain or distension, acute change in bowel or bladder habits. She improved gradually with conservative management. It was felt that she may have had side effects to her Neulasta injection. She was recommended to have an LP to rule out viral meningitis but refused the same. The patient was then discharged and seen in the office earlier this week. She was doing quite well at the time and reported complete resolution of her symptoms. Her WBC had declined into the 3000 range. She therefore had her scheduled Neulasta dose on 06/17/19. She states that she then developed similar symptoms of throbbing headache, as well as generalize muscle and joint pains as well as weakness. She denied any obvious fevers though she states that she felt "hot and cold". She therefore came into the emergency room. Labs revealed high-grade WBC in the 30,000 range. She was therefore admitted for further management. CBC is normal other than the high WBC, which is predominantly neutrophils. She denies any localizing signs/symptoms suggestive of infection. Review of Systems Constitutional: Reports weakness Eyes: denies blurred vision, denies pain Ears: deny: decreased hearing, ear discharge, earache, tinnitus Ears, nose, mouth and throat: Denies headache, Denies sore throat Cardiovascular: Denies chest pain, Denies shortness of breath Respiratory: Denies cough Gastrointestinal: Denies abdominal pain, Denies diarrhea, Denies nausea, Denies vomiting Genitourinary: Denies dysuria, Denies hematuria Musculoskeletal: Reports as per HPI Integumentary: Denies pruritus, Denies rash Neurological: Reports headaches Psychiatric: Reports anxiety, Reports depression, Reports mood swings Hematologic/Lymphatic: Reports as per HPI Allergic/Immunologic: Reports as per HPI, Reports seasonal allergies Past Medical History Past Medical History: Cancer, Deep Vein Thrombosis (DVT), Thyroid Disorder Additional Past Medical History / Comment(s): neutropenia, hypothyroidism, myelodisplasia, anemia - per 's note from 03/2018 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 / [facility] states this has been ongoing since dec MDRO Source:: wound rt hip / stool Past Surgical History: Hysterectomy Additional Past Surgical History / Comment(s): ectopic , neck surgery, bone marrow biopsy x 4 Past Anesthesia/Blood Transfusion Reactions: No Reported Reaction Additional Past Anesthesia/Blood Transfusion Reaction / Comm: pt stated has received blood in past no known reaction Past Psychological History: Anxiety, Depression Smoking Status: Current every day smoker Past Alcohol Use History: None Reported Past Drug Use History: None Reported - Past Family History Father Family Medical History: Cancer Additional Family Medical History / Comment(s): mesothelioma Mother History Unknown: Yes Medications and Allergies Home Medications Medication Instructions Recorded Confirmed Type Ferrous Sulfate [Iron (65 MG 325 mg PO DAILY 03/06/17 06/19/19 History Elemental)] Multivitamins, Thera [Multivitamin 1 tab PO DAILY 06/01/17 06/19/19 History (formulary)] Cholecalciferol [Vitamin D3 (25 5,000 unit PO DAILY 04/23/18 06/19/19 History Mcg = 1000 Iu)] Cyclophosphamide 100 mg PO HS 06/23/18 06/19/19 History Pegfilgrastim [Neulasta] 6 mg IV Q14D 06/23/18 06/19/19 History Pantoprazole [Protonix] 40 mg PO DAILY #15 tablet. 06/26/18 06/19/19 Rx Folic Acid 1 mg PO DAILY 01/22/19 06/19/19 History Hydrocodone/Acetaminophen [[place] 1 tab PO TID PRN 01/22/19 06/19/19 History 7.5-325] L.acidoph,Paracasei, B.lactis 1 cap PO DAILY 01/22/19 06/19/19 History [Probiotic] Levothyroxine Sodium [Synthroid] 300 mcg PO DAILY 01/22/19 06/19/19 History Ondansetron [Zofran] 4 mg PO Q6HR PRN 01/22/19 06/19/19 History Loratadine [Claritin] 10 mg PO DAILY 05/19/19 06/19/19 History Magnesium Oxide [Mag-Ox] 400 mg PO DAILY 05/19/19 06/19/19 History Montelukast Sodium [Singulair] 10 mg PO HS 05/19/19 06/19/19 History Butalb/Acetaminophen/Caffeine 1 tab PO TID PRN 06/19/19 06/19/19 History [Fioricet 50-325-40] Allergies Allergy/AdvReac Type Severity Reaction Status Date / Time amoxicillin Allergy Unknown Verified 06/19/19 18:14 banana Allergy Rash/Hives Verified 06/19/19 18:14 bee venom protein (honey bee) Allergy Anaphylaxis Verified 06/19/19 18:14 cephalexin [From Keflex] Allergy Unknown Verified 06/19/19 18:14 Penicillins Allergy Unknown Verified 06/19/19 18:14 Tetracyclines Allergy Unknown Verified 06/19/19 18:14 Physical Exam Vitals: Vital Signs Temp Pulse Pulse Resp BP BP Pulse Ox 06/19/19 15:52 98.3 F 96 16 106/57 98 06/19/19 15:11 90 18 95/56 95 06/19/19 14:01 92 20 100/57 94 L 06/19/19 13:47 93 18 109/61 99 06/19/19 10:22 97.9 F 89 18 110/70 98 Intake and Output 06/19/19 06/19/19 06/19/19 06:59 14:59 22:59 Other: Weight 63.503 kg - Constitutional General appearance: mild distress - EENT Eyes: EOMI, PERRLA, photophobia - Neck Neck: no lymphadenopathy Thyroid: bilateral: normal size - Respiratory Respiratory: bilateral: CTA - Cardiovascular Rhythm: regular Heart sounds: normal: S1, S2 - Gastrointestinal General gastrointestinal: normal bowel sounds, soft - Integumentary Integumentary: normal - Neurologic Neurologic: CNII-XII intact - Musculoskeletal Musculoskeletal: strength equal bilaterally - Psychiatric Psychiatric: A&O x's 3 Results CBC & Chem 7: 06/19/19 10:55 06/19/19 10:55 Labs: Abnormal Lab Results - Last 24 Hours (Table) 06/19/19 06/19/19 Range/Units 10:55 10:55 WBC 34.1 H (3.8-10.6) k/uL RBC 3.45 L (3.80-5.40) m/uL MCV 102.6 H (80.0-100.0) fL MCH 35.4 H (25.0-35.0) pg Neutrophils # (Manual) 30.60 H (1.3-7.7) k/uL Monocytes # (Manual) 1.02 H (0-1.0) k/uL AST 59 H (14-36) U/L ALT 88 H (4-34) U/L Alkaline Phosphatase 171 H (38-126) U/L Creatine Kinase <20 L (30-135) U/L TSH 0.326 L (0.465-4.680) mIU/L Assessment and Plan (1) Intractable headache Narrative/Plan: The patient had similar complain leading to her previous admission last month. Her symptoms occurred after receiving Neulasta, which is the same as what happened this time. Imaging at that time was negative and the patient refused LP. Symptoms improved with conservative management. Case discussed with the admitting service. The patient has no suspicious findings on physical exam. It was therefore recommended that management should be mostly symptomatic. If symptoms persist over the next couple days, then LP can be considered. Current Visit: Yes Status: Acute Code(s): R51 - HEADACHE SNOMED Code(s): 50708260 (2) Leukocytosis Narrative/Plan: due to recent Neulasta injection. Current Visit: Yes Status: Acute Code(s): D72.829 - ELEVATED WHITE BLOOD CELL COUNT, UNSPECIFIED SNOMED Code(s): 617969957 (3) Arthralgia Narrative/Plan: These are again similar symptoms toward the patient experienced during her last admission, occurring after Neulasta injection. These resolved spontaneously with symptomatic treatment. As noted, physical exam was unrevealing. A similar management was recommended. As a precaution influenza testing will be ordered. This was previously recommended but the patient had refused. She was urged to have that done, and was currently agreeable. The patient will also be started on Claritin which can reduce the cytokine effects of Neulasta and help with her symptoms Current Visit: Yes Status: Acute Code(s): M25.50 - PAIN IN UNSPECIFIED JOINT SNOMED Code(s): 84876488 (4) T-cell leukemia Narrative/Plan: The patient has a very low-grade T-cell leukemia, which has responded very well to low-dose oral Cytoxan. No evidence of any recurrence. Continue oral Cytoxan Current Visit: Yes Status: Acute Code(s): C91.Z0 - OTHER LYMPHOID LEUKEMIA NOT HAVING ACHIEVED REMISSION SNOMED Code(s): 690355557
[2019-06-20] MEDS: KETOROLAC 30 MG/ML 1 ML VIAL IVP PRN ×4 (02:51→21:27)
[2019-06-20] MEDS: BUTALB/APAP/CAFF 50-325-40MG TAB PO PRN ×5 (03:55→22:25)
[2019-06-20] MEDS: LEVOTHYROXINE 100 MCG TAB PO SCH (05:40)
[2019-06-20] MEDS: HYDROcodone/APAP 7.5-325MG 1 EACH TAB PO PRN ×2 (05:40→15:28)
[2019-06-20 07:47] LABS: WBC 27.1 k/uL (3.8-10.6)
[2019-06-20 07:48] LABS: Basophils # (A) 0.1 k/uL (0-0.2); Basophils % (A) 0 %; Eosinophils # (A) 0.4 k/uL (0-0.7); Eosinophils % (A) 1 %; HCT 33.4 % (34.0-46.0); HGB 11.3 gm/dL (11.4-16.0); Lymphocytes # (A) 1.5 k/uL (1.0-4.8); Lymphocytes % (A) 6 %; MCH 35.2 pg (25.0-35.0); MCHC 33.7 g/dL (31.0-37.0); MCV 104.3 fL (80.0-100.0); Macrocytosis Slight; Mean Platelet Volume 7.2; Monocytes # (A) 1.3 k/uL (0-1.0); Monocytes % (A) 5 %; Neutrophils # (A) 23.4 k/uL (1.3-7.7); Neutrophils % (A) 86 %; Platelet Count 175 k/uL (150-450)
[2019-06-20 07:53] LABS: ALT 66 U/L (4-34); AST 44 U/L (14-36); African American GFR (CKD) >90 (>60 ml/min/1.73 sqM); Albumin 3.6 g/dL (3.5-5.0); Alkaline Phosphatase 186 U/L (38-126); Anion Gap 8 mmol/L; Blood Urea Nitrogen 16 mg/dL (7-17); Calcium 9.3 mg/dL (8.4-10.2); Carbon Dioxide 25 mmol/L (22-30); Chloride 106 mmol/L (98-107); Glucose 78 mg/dL (74-99); Non-African American GFR(CKD) 90 (>60 ml/min/1.73 sqM); Sodium 139 mmol/L (137-145); Total Bilirubin 0.2 mg/dL (0.2-1.3); Total Protein 6.3 g/dL (6.3-8.2)
[2019-06-20] MEDS: PANTOPRAZOLE 40 MG TABLET PO SCH (08:26)
[2019-06-20] MEDS: LORATADINE 10 MG TAB PO SCH (08:26)
[2019-06-20] MEDS: HEPARIN SODIUM,PORCINE 5,000 UNIT/ML 1 ML VIAL SQ SCH ×2 (08:29→20:11)
[2019-06-20] MEDS ORDERED: HYDROmorphone 1 MG/ML 1 ML SYRINGE IVP STA (12:45)
--- NOTE | 2019-06-20 12:53 | P.PN ---
Subjective Progress Note Date: 06/20/19 Principal diagnosis: Headache Patient was seen and examined. No acute events overnight. Patient reports excruciating 10 out of 10 frontal headache that is not getting better with current medications. He denies any chest pain, shortness of breath or palpitations. No nausea or vomiting. No fever or chills. Objective - Vital Signs Vital signs: Vital Signs Temp 98.4 F 06/20/19 11:37 Pulse 80 06/20/19 11:37 Resp 18 06/20/19 11:37 BP 99/51 06/20/19 11:37 Pulse Ox 98 06/20/19 11:37 Intake & Output 06/19/19 06/20/19 06/20/19 18:59 06:59 18:59 Intake Total 110 Balance 110 Weight 63.503 kg Intake: Intake, IV Titration 10 Amount Sodium Chloride 0.9% 1, 10 000 ml @ 999 mls/hr IV . Q1H1M ONE Rx#:[id number] Oral 100 - Exam General: [non toxic], [no distress], [appears at stated age] Derm: [warm], [dry] Head: [atraumatic], [normocephalic], [symmetric], [maxillary and frontal sinuses nontender to palpation] Eyes: [EOMI], [no lid lag], [anicteric sclera] Mouth: [no lip lesion], [mucus membranes moist] Cardiovascular: [S1S2 reg], [no murmur], [positive DP pulse bilateral], Lungs: [CTA bilateral], [no rhonchi, no rales] , [no accessory muscle use] Abdominal: [soft], [ nontender to palpation], [no guarding], [no appreciable organomegaly] Ext: [no gross muscle atrophy], [no edema], [no contractures] Neuro: [no focal neuro deficits] Psych: [Alert], [oriented], [appropriate affect] - Labs CBC & Chem 7: 06/20/19 06:54 06/20/19 06:54 Labs: Abnormal Lab Results - Last 24 Hours (Table) 06/20/19 06/20/19 Range/Units 06:54 06:54 WBC 27.1 H (3.8-10.6) k/uL RBC 3.20 L (3.80-5.40) m/uL Hgb 11.3 L (11.4-16.0) gm/dL Hct 33.4 L (34.0-46.0) % MCV 104.3 H (80.0-100.0) fL MCH 35.2 H (25.0-35.0) pg Neutrophils # 23.4 H (1.3-7.7) k/uL Monocytes # 1.3 H (0-1.0) k/uL AST 44 H (14-36) U/L ALT 66 H (4-34) U/L Alkaline Phosphatase 186 H (38-126) U/L Assessment and Plan Assessment: Intractable headache Leukocytosis and macrocytosis with diagnosis of T-cell lymphoproliferative disease Subclinical hyperthyroidism Macrocytosis Transaminitis CT brain, MRI brain, MRV head and neck negative during previous admission. CRP is within normal limits. Apparently patient received Neulasta injection on . We will continue Tylenol, Fioricet, Toradol and morphine as needed. One dose of Dilaudid ordered today. Neurology has been consulted. Plans for lumbar puncture if not improved by Saturday. Leukocytosis of 34.1-27.1. Patient afebrile. No signs of infection. Likely Neulasta injection. Will continue to monitor with daily CBCs. Follow hematology consultation. TSH greater than 100, free T4 0.53 on previous admission. TSH 0.326, free T4 within normal limits. We will continue home dose of Synthroid. Her macrocytosis is likely related to her chemotherapy. Her hemoglobin is stable and there is nothing further to do. We will repeat CBC tomorrow morning. Patient has elevated liver enzymes with AST 59-44, ALT 88 66-, alkaline phosphatase 171-186. The etiology is unknown. We will repeat CMP tomorrow morning. [Patient continues to have excruciating headaches that are not improved with current medication. She is pending clinical improvement. Lumbar puncture on Saturday if headache not improved. Neurology is following.]
[2019-06-20] MEDS: MORPHINE SULFATE 2 MG/ML SYRINGE IV PRN (20:10)
[2019-06-20] MEDS: MONTELUKAST 10 MG TAB PO SCH (20:13)
[2019-06-21] MEDS: HYDROcodone/APAP 7.5-325MG 1 EACH TAB PO PRN ×3 (00:03→17:51)
[2019-06-21] MEDS: MORPHINE SULFATE 2 MG/ML SYRINGE IV PRN ×3 (01:56→10:00)
[2019-06-21] MEDS: BUTALB/APAP/CAFF 50-325-40MG TAB PO PRN ×3 (03:19→22:32)
[2019-06-21] MEDS: KETOROLAC 30 MG/ML 1 ML VIAL IVP PRN ×3 (04:23→17:50)
[2019-06-21] MEDS: LEVOTHYROXINE 100 MCG TAB PO SCH (05:48)
[2019-06-21] MEDS: HEPARIN SODIUM,PORCINE 5,000 UNIT/ML 1 ML VIAL SQ SCH ×2 (08:04→20:01)
[2019-06-21] MEDS: PANTOPRAZOLE 40 MG TABLET PO SCH (08:07)
[2019-06-21] MEDS: LORATADINE 10 MG TAB PO SCH (08:07)
[2019-06-21] MEDS: LORazepam 2 MG/ML INJ IV PRN ×2 (12:44→22:32)
--- NOTE | 2019-06-21 13:28 | P.PN ---
Subjective Progress Note Date: 06/21/19 Principal diagnosis: Headache Patient was seen and examined. No acute events overnight. Patient reports excruciating 10 out of 10 frontal headache that is not getting better with current medications. She also complains of photophobia. He denies any chest pain, shortness of breath or palpitations. Episode of vomiting with food. No fever or chills. Objective - Vital Signs Vital signs: Vital Signs Temp 98.3 F 06/21/19 11:25 Pulse 83 06/21/19 11:25 Resp 16 06/21/19 11:25 BP 111/62 06/21/19 11:25 Pulse Ox 98 06/21/19 11:25 Intake & Output 06/20/19 06/21/19 06/21/19 18:59 06:59 18:59 Other: # Voids 3 2 - Exam General: [non toxic], [no distress], [appears at stated age] Derm: [warm], [dry] Head: [atraumatic], [normocephalic], [symmetric], [maxillary and frontal sinuses nontender to palpation] Eyes: [EOMI], [no lid lag], [anicteric sclera] Mouth: [no lip lesion], [mucus membranes moist] Cardiovascular: [S1S2 reg], [no murmur], [positive DP pulse bilateral], Lungs: [CTA bilateral], [no rhonchi, no rales] , [no accessory muscle use] Abdominal: [soft], [ nontender to palpation], [no guarding], [no appreciable organomegaly] Ext: [no gross muscle atrophy], [no edema], [no contractures] Neuro: [no focal neuro deficits], [cranial nerves II-12 grossly intact] Psych: [Alert], [oriented], [appropriate affect] - Labs CBC & Chem 7: 06/20/19 06:54 06/20/19 06:54 Assessment and Plan Assessment: Intractable headache Leukocytosis and macrocytosis with diagnosis of T-cell lymphoproliferative disease Subclinical hyperthyroidism Macrocytosis Transaminitis CT brain, MRI brain, MRV head and neck negative during previous admission. CRP is within normal limits. Apparently patient received Neulasta injection on Saturday. We will continue Tylenol, Fioricet, Toradol and morphine as needed. Start Dilaudid 1 mg IV every 4 hours along with Ativan 1 mg IV every 4 hours. Neurology has been consulted. Plans for lumbar puncture if not improved by Saturday. Leukocytosis of 34.1-27.1. Patient afebrile. No signs of infection. Likely Neulasta injection. Will continue to monitor with daily CBCs. Follow hematology consultation. TSH greater than 100, free T4 0.53 on previous admission. TSH 0.326, free T4 within normal limits. We will continue home dose of Synthroid. Her macrocytosis is likely related to her chemotherapy. Her hemoglobin is stable and there is nothing further to do. Patient has elevated liver enzymes with AST 59-44, ALT 88-66, alkaline phosphatase 171-186. The etiology is unknown. We will repeat CMP tomorrow morning. [Patient continues to have excruciating headaches that are not improved with current medication. She is pending clinical improvement. Lumbar puncture on Saturday if headache not improved. Neurology is following.]
[2019-06-21] MEDS: MONTELUKAST 10 MG TAB PO SCH (20:00)
[2019-06-21] MEDS: HYDROmorphone 1 MG/ML 1 ML SYRINGE IVP PRN (20:06)
[2019-06-22] MEDS: KETOROLAC 30 MG/ML 1 ML VIAL IVP PRN (00:29)
[2019-06-22] MEDS: HYDROmorphone 1 MG/ML 1 ML SYRINGE IVP PRN ×6 (02:19→23:29)
[2019-06-22] MEDS: BUTALB/APAP/CAFF 50-325-40MG TAB PO PRN (04:56)
[2019-06-22] MEDS: LEVOTHYROXINE 100 MCG TAB PO SCH (06:03)
[2019-06-22] MEDS: PANTOPRAZOLE 40 MG TABLET PO SCH (07:51)
[2019-06-22] MEDS: LORATADINE 10 MG TAB PO SCH (07:52)
[2019-06-22] MEDS: ONDANSETRON 4 MG/2 ML VIAL IVP PRN ×2 (07:52→19:35)
[2019-06-22] MEDS: HEPARIN SODIUM,PORCINE 5,000 UNIT/ML 1 ML VIAL SQ SCH (07:52)
--- NOTE | 2019-06-22 10:00 | P.PN ---
Subjective Chart was reviewed patient was seen and examined. Patient continues with the same type and intensity of headache. No significant nausea. No photophobia or halos around objects. She reports long-standing vision problems for which she is to follow with music librarian notice follow-ups. She denies any history of glaucoma. Denies any history of aneurysms in her family or migraines. Objective - Vital Signs Vital signs: Vital Signs Temp 98.1 F 06/22/19 05:00 Pulse 64 06/22/19 05:00 Resp 19 06/21/19 21:00 BP 112/63 06/22/19 05:00 Pulse Ox 99 06/22/19 05:00 Intake & Output 06/21/19 06/22/19 06/22/19 18:59 06:59 18:59 Intake Total 240 Balance 240 Intake: Oral 240 Other: # Voids 3 1 - Exam Vital Signs: I have reviewed the vital signs. GENERAL: Well-nourished, Well-developed , no apparent distress, cooperative Eyes: PERRL, extraoculry movements intact, clear conjunctiva Head: : Atraumatic external nose and ears, oropharyngeal mucosa is moist without lesions or exudates Neck: Symmetric, trachea midline, No thyromegaly, no masses or neck vain pulsation, no neck rigidity CVS: +S1/S2, No murmurs or gallops. Peripheral pulses 2+ and equal in all extr emities. RESP: Unlabored respiratory effort. Clear to auscultation bilaterally. Abdomen: Bowel sounds present in all 4 quadrants, Soft to palpation, Nontender/Nondistended, No hepatosplenomegaly, no hernias or masses, no CVA tnderness Musculoskeletal: Extremities w/o deformity, No cyanosis or clubbing, no joint swelling Skin: Warm, Dry. No rashes or lesions Neuro: engine lathe set up operator II-XII grossly intact, motor strenght 5/5 i upper and lower extremities, no clonus, patellar DTRs 2+ and sympetrical Psych: Awake, Alert, & Oriented (AAO) x3 Appropriate mood and affect - Labs CBC & Chem 7: 06/20/19 06:54 06/20/19 06:54 Assessment and Plan Assessment: Intractable headache Patient does respond to pain control medications prescribed by neurology but it's short-lived. Respiratory conditions from neurology we will proceed with lumbar puncture with opening pressure measurements. At cytology and flow cytometry in view of history of lymphoproliferative disease and rising lymphocyte count. Also added xanthochromia and CT angiogram of head and neck. Given the limited neurology support this week patient might need to be transferred to a facility with neurologist based on the results of above-mentioned tests and his pulse of her pain to the treatment above.
--- NOTE | 2019-06-22 11:00 | P.PN ---
Subjective Progress Note Date: 06/22/19 Principal diagnosis: intractable PRITCHETT/MS/joint aches In f/u today pt is tearful, anxious, she is tired of feeling terrible all the time, no fevers, nausea, vomiting, JIGNA, acute changes in bowel or bladder Objective - Vital Signs Vital signs: Vital Signs Temp 98.1 F 06/22/19 05:00 Pulse 64 06/22/19 05:00 Resp 19 06/21/19 21:00 BP 112/63 06/22/19 05:00 Pulse Ox 99 06/22/19 05:00 Intake & Output 06/21/19 06/22/19 06/22/19 18:59 06:59 18:59 Intake Total 240 Balance 240 Intake: Oral 240 Other: # Voids 3 1 - Constitutional General appearance: Present: disheveled, mild distress, thin - EENT Eyes: Present: anicteric sclerae, EOMI ENT: Present: hearing grossly normal, normal oropharynx - Respiratory Details: resp even and unlabored - Cardiovascular Details: skin warm and dry - Neurologic Neurologic: Present: CNII-XII intact - Musculoskeletal Musculoskeletal: Present: strength equal bilaterally - Psychiatric Psychiatric Comment(s): tearful Psychiatric: Present: A&O x's 3 - Labs CBC & Chem 7: 06/20/19 06:54 06/20/19 06:54 Assessment and Plan (1) Arthralgia Current Visit: Yes Status: Acute Priority: High Code(s): M25.50 - PAIN IN UNSPECIFIED JOINT SNOMED Code(s): 81896970 (2) Intractable headache Current Visit: Yes Status: Acute Priority: High Code(s): R51 - HEADACHE SNOMED Code(s): 59102132 (3) Leukocytosis Current Visit: Yes Status: Acute Priority: High Code(s): D72.829 - ELEVATED WHITE BLOOD CELL COUNT, UNSPECIFIED SNOMED Code(s): 148581781 (4) T-cell leukemia Current Visit: Yes Status: Acute Priority: High Code(s): C91.Z0 - OTHER LYMPHOID LEUKEMIA NOT HAVING ACHIEVED REMISSION SNOMED Code(s): 327288360 (5) Muscle ache Current Visit: Yes Status: Acute Priority: High Code(s): M79.10 - MYALGIA, UNSPECIFIED SITE SNOMED Code(s): 06152894 Plan: Pt is having Neurological work up for intractable PRITCHETT MS/joint aches-suspicious r/t neulasta injections. Considering holding neulasta until neutrophiles fall below 1000. Analgesics as prescribed for MS aches arthralgias Leukocytosis secondary to GCSF-no acute intervention Cont cytoxan for leukemia
[2019-06-22] MEDS: LORazepam 2 MG/ML INJ IV PRN (12:38)
--- NOTE | 2019-06-22 14:19 | CT ---
EXAMINATION TYPE: CT angio head neck DATE OF EXAM: 06/22/2019 COMPARISON: None HISTORY: Headache, evaluate for aneurysm CT DLP: 287 mGycm CONTRAST: Performed with IV Contrast, patient injected with 65 mL of Isovue 370. Combination Contrast CTA cervical carotids and [place] CTA cervical carotids with 3-D recons truction Contrast CTA of the cervical carotids was performed 3-D reconstruction imaging obtained at a separate workstation. Right carotid system: Mild plaque is seen of the right common carotid artery. There is mild plaque a lso noted at the carotid bulb and proximal ICA. No significant diameter reduction. ECA is patent. Right vertebral artery appears unremarkable. Left carotid system: Mild plaque is seen of the left common carotid artery. There is mild plaque als o noted at the carotid bulb and proximal ICA. No significant diameter reduction. ECA is patent. Lef t vertebral artery appears unremarkable. IMPRESSION: 1. No significant diameter reduction to account for the patient's symptoms. CTA [place] with 3-D reconstruction Contrast CTA of the [place] was performed 3-D reconstruction imaging obtained at a separate workstation. Vertebrobasilar system as well as intracranial portions of the internal carotid arteries and their ma jenn tributaries are patent. I do not see evidence for sizable aneurysm or vascular malformation. Pl ease note MRI provides greater sensitivity and specificity. Visualized brain appears grossly unremar kable. IMPRESSION: 1. No significant abnormality.
--- NOTE | 2019-06-22 15:02 | FL ---
EXAMINATION TYPE: FL guided lumbar puncture LP DATE OF EXAM: 06/22/2019 COMPARISON: NONE HISTORY: Headache TECHNIQUE: Fluoroscopy. FINDINGS: Fluoroscopic guidance was provided during procedure performed by Dr. Dueñas. A total of 63 seconds of fluoroscopic time was utilized during the procedure and spot images was acquired. Informed consent was obtained and all the patient's questions were answered. The L2-3 level was local ized fluoroscopically. Local anesthesia was obtained with 1% lidocaine. The standard sterile techniqu e was utilized. Spinal needle was introduced into the thecal sac and opening pressure about 5 mmHg wa s noted. Approximately 13 mL's of CSF was drawn and submitted for further evaluation. The patient nikki erated the procedure well and left the department in stable condition. IMPRESSION: As Above.
[2019-06-22 15:45] LABS: Glucose,CSF 43 mg/dL (40-70); Total Protein,CSF 64 mg/dL (12-60)
[2019-06-22 15:51] LABS: Appearance,CSF Clear; CSF Tube Number 4
[2019-06-22 16:07] LABS: Nucleated Cells, CSF 0 u/L (0-5); Red Blood Cell,CSF 0 u/L (0-10)
[2019-06-22] MEDS: HYDROcodone/APAP 7.5-325MG 1 EACH TAB PO PRN (17:58)
[2019-06-22] MEDS: MONTELUKAST 10 MG TAB PO SCH (19:35)
[2019-06-23] MEDS: HYDROcodone/APAP 7.5-325MG 1 EACH TAB PO PRN ×3 (02:01→18:07)
[2019-06-23] MEDS: HYDROmorphone 1 MG/ML 1 ML SYRINGE IVP PRN ×2 (03:15→07:42)
[2019-06-23] MEDS: KETOROLAC 30 MG/ML 1 ML VIAL IVP PRN ×3 (05:35→21:17)
[2019-06-23] MEDS: LEVOTHYROXINE 100 MCG TAB PO SCH (05:38)
[2019-06-23] MEDS: LORATADINE 10 MG TAB PO SCH (07:42)
[2019-06-23] MEDS: PANTOPRAZOLE 40 MG TABLET PO SCH (07:42)
[2019-06-23 08:34] LABS: Appearance,Urine Clear (Clear); Bilirubin,Urine Negative (Negative); Blood,Urine Negative (Negative); Color,Urine Light Yellow; Glucose,Urine (UA) Negative (Negative); Ketones,Urine Negative (Negative); Leukocyte Esterase,Urine Negative (Negative); Nitrite,Urine Negative (Negative); PH, Urine 6.5 (5.0-8.0); Protein,Urine Negative (Negative); Specific Gravity,Urine 1.011 (1.001-1.035); Urobilinogen,Urine <2.0 mg/dL (<2.0)
[2019-06-23 08:36] LABS: Basophils % (A) 0 %; Eosinophils # (A) 0.2 k/uL (0-0.7); Eosinophils % (A) 2 %; HGB 11.4 gm/dL (11.4-16.0); Lymphocytes # (A) 1.1 k/uL (1.0-4.8); Lymphocytes % (A) 9 %; MCH 35.7 pg (25.0-35.0); MCHC 34.6 g/dL (31.0-37.0); Macrocytosis Slight; Mean Platelet Volume 6.7; Monocytes # (A) 0.6 k/uL (0-1.0); Monocytes % (A) 5 %; Neutrophils # (A) 9.6 k/uL (1.3-7.7); Neutrophils % (A) 82 %; Platelet Count 170 k/uL (150-450); RDW 12.8 % (11.5-15.5); WBC 11.8 k/uL (3.8-10.6)
--- NOTE | 2019-06-23 09:08 | P.PN ---
Subjective Chart was reviewed patient wasn't examined. Patient appeared comfortable and sleeping in the bed. Upon waking up stated that her headache is a bit better but still having significant headache even as with speaking. She stated this started in the frontal region and then the spread all over her head. She denies any neck pain. She states that she has had some vision problems in the past and supposed to be getting eyeglasses but she hasn't gone for her appointment yet. There is no nausea or vomiting or halos around objects. Objective - Vital Signs Vital signs: Vital Signs Temp 98.9 F 06/23/19 04:31 Pulse 65 06/23/19 04:31 Resp 18 06/23/19 04:31 BP 101/55 06/23/19 04:31 Pulse Ox 100 06/23/19 04:31 Intake & Output 06/22/19 06/23/19 06/23/19 18:59 06:59 18:59 Intake Total 400 600 Balance 400 600 Intake: Oral 400 600 Other: Voiding Method Toilet Toilet # Voids 2 - Exam Vital Signs: I have reviewed the vital signs. GENERAL: Well-nourished, Well-developed , no apparent distress, cooperative Eyes: PERRL, extraoculry movements intact, clear conjunctiva Head: : Atraumatic external nose and ears, oropharyngeal mucosa is moist wi thout lesions or exudates Neck: Symmetric, trachea midline, No thyromegaly, no masses or neck vain pulsation, no neck rigidity CVS: +S1/S2, No murmurs or gallops. Peripheral pulses 2+ and equal in all extremities. RESP: Unlabored respiratory effort. Clear to auscultation bilaterally. Abdomen: Bowel sounds present in all 4 quadrants, Soft to palpation, Nontender/Nondistended, No hepatosplenomegaly, no hernias or masses, no CVA tnderness Musculoskeletal: Extremities w/o deformity, No cyanosis or clubbing, no joint swelling Skin: Warm, Dry. No rashes or lesions Neuro: convolute tube winder II-XII grossly intact, motor strenght 5/5 i upper and lower extremities, no clonus, patellar DTRs 2+ and sympetrical Psych: Awake, Alert, & Oriented (AAO) x3 Appropriate mood and affect - Labs CBC & Chem 7: 06/23/19 07:53 06/20/19 06:54 Labs: Abnormal Lab Results - Last 24 Hours (Table) 06/22/19 06/23/19 Range/Units 13:40 07:53 WBC 11.8 H (3.8-10.6) k/uL RBC 3.20 L (3.80-5.40) m/uL Hct 33.0 L (34.0-46.0) % MCV 103.0 H (80.0-100.0) fL MCH 35.7 H (25.0-35.0) pg Neutrophils # 9.6 H (1.3-7.7) k/uL CSF Total Protein 64 H (12-60) mg/dL Microbiology - Last 24 Hours (Table) 06/22/19 13:40 CSF Gram Stain - Preliminary Cerebral Spinal Fluid Assessment and Plan Assessment: # Intractable headache Lumbar puncture showed normal opening pressure on the lower range. Initial CSF analysis is unremarkable Cytology, flow cytology and xanthochromia pending CTA of the head and neck did not reveal any aneurysms Continue present management. Discontinue Dilaudid and lorazepam. Increase activity as tolerated. Heating pad to her neck as on the exam her posterior neck muscles appear quite tense. Ophthalmology consultation to valid for possible glaucoma, although patient does not have any nausea or vomiting or significant vision changes this point this possibility should be valid Inflammatory markers ESR and CRP are normal If above studies are unrevealing we should consider reconsulting neurology. #Hypothyroidism Continue levothyroxine #Elevated liver enzymes This has been stable Patient had viral hepatitis checked last year was negative Ultrasound of the liver in the past showed some coarse features of the liver parenchyma Liver enzymes are now stable and trending down and I would recommend patient to follow-up with primary care physician in view of that #CLL Status post Neulasta Hematology following
[2019-06-23] MEDS ORDERED: IOPAMIDOL CONTRAST (ORAL USE) VIAL PO PRN (10:39)
[2019-06-23 10:43] LABS: VDRL, Qualitative CSF Nonreactive (Nonreactive)
[2019-06-23 11:19] LABS: African American GFR (CKD) >90 (>60 ml/min/1.73 sqM); Anion Gap 7 mmol/L; Blood Urea Nitrogen 14 mg/dL (7-17); Calcium 9.2 mg/dL (8.4-10.2); Carbon Dioxide 27 mmol/L (22-30); Chloride 103 mmol/L (98-107); Glucose 94 mg/dL (74-99); Non-African American GFR(CKD) 80 (>60 ml/min/1.73 sqM); Potassium 3.8 mmol/L (3.5-5.1); Sodium 137 mmol/L (137-145)
[2019-06-23] MEDS: BUTALB/APAP/CAFF 50-325-40MG TAB PO PRN (11:48)
--- NOTE | 2019-06-23 15:01 | P.PN ---
Subjective Progress Note Date: 06/23/19 Principal diagnosis: intractable PRITCHETT/MS/joint aches In f/u today pt is tearful, anxious, PRITCHETT persists, no fevers, nausea, vomiting but she has no appetite, denies JIGNA, acute changes in bowel or bladder Objective - Vital Signs Vital signs: Vital Signs Temp 98.1 F 06/23/19 11:51 Pulse 68 06/23/19 11:51 Resp 17 06/23/19 11:51 BP 115/55 06/23/19 11:51 Pulse Ox 96 06/23/19 11:51 Intake & Output 06/22/19 06/23/19 06/23/19 18:59 06:59 18:59 Intake Total 400 600 Balance 400 600 Intake: Oral 400 600 Other: Voiding Method Toilet Toilet # Voids 2 2 - Constitutional General appearance: Present: disheveled, severe distress, thin - EENT Eyes: Present: anicteric sclerae, EOMI ENT: Present: hearing grossly normal - Respiratory Details: respirations even and unlabored - Cardiovascular Details: radial pulse palpable 2+, skin is warm and dry Rhythm: regular - Integumentary Integumentary: Present: normal - Neurologic Neurologic: Present: CNII-XII intact - Musculoskeletal Musculoskeletal Comment(s): patient ambulates without difficulty Musculoskeletal: Present: strength equal bilaterally - Psychiatric Psychiatric: Present: A&O x's 3 - Labs CBC & Chem 7: 06/23/19 07:53 06/23/19 07:53 Labs: Abnormal Lab Results - Last 24 Hours (Table) 06/22/19 06/23/19 Range/Units 13:40 07:53 WBC 11.8 H (3.8-10.6) k/uL RBC 3.20 L (3.80-5.40) m/uL Hct 33.0 L (34.0-46.0) % MCV 103.0 H (80.0-100.0) fL MCH 35.7 H (25.0-35.0) pg Neutrophils # 9.6 H (1.3-7.7) k/uL CSF Total Protein 64 H (12-60) mg/dL Microbiology - Last 24 Hours (Table) 06/22/19 13:40 CSF Gram Stain - Preliminary Cerebral Spinal Fluid Assessment and Plan (1) Arthralgia Current Visit: Yes Status: Acute Priority: High Code(s): M25.50 - PAIN IN UNSPECIFIED JOINT SNOMED Code(s): 42031933 (2) Intractable headache Current Visit: Yes Status: Acute Priority: High Code(s): R51 - HEADACHE SNOMED Code(s): 59102939 (3) Leukocytosis Current Visit: Yes Status: Acute Priority: High Code(s): D72.829 - ELEVATED WHITE BLOOD CELL COUNT, UNSPECIFIED SNOMED Code(s): 048787592 (4) T-cell leukemia Current Visit: Yes Status: Acute Priority: High Code(s): C91.Z0 - OTHER L YMPHOID LEUKEMIA NOT HAVING ACHIEVED REMISSION SNOMED Code(s): 564905155 (5) Muscle ache Current Visit: Yes Status: Acute Priority: High Code(s): M79.10 - MYALGIA, UNSPECIFIED SITE SNOMED Code(s): 14906797 Plan: Pt is having Neurological work up for intractable PRITCHETT, thus far nothing suspicio us Re: CSF, pending final report MS/joint aches-suspicious r/t neulasta injections. Considering holding neulasta until neutrophiles fall below 1000 then, using neupogen PRN Analgesics as prescribed for MS aches arthralgias Leukocytosis secondary to GCSF-no acute intervention, this is improving today Cont cytoxan for leukemia CT abdomen liver ordered due to increased LFTs
--- NOTE | 2019-06-23 16:15 | CT ---
EXAMINATION TYPE: CT abdomen w con DATE OF EXAM: 06/23/2019 COMPARISON: 06/24/2018 HISTORY: 53-year-old female abnormal LFT, hx of leukemia. TECHNIQUE: Contiguous axial scanning of the abdomen following administration of 100 ml Isovue 300 IV contrast. Delayed images through the kidneys and coronal/sagittal reconstructions performed. CT DLP: 340.8 mGycm Automated exposure control for dose reduction was used. FINDINGS: LUNG BASES: Mild dependent atelectasis. LIVER/GB: Borderline to mildly enlarged 18.0 cm. No focal lesion seen. Portal venous system is patent . No biliary ductal dilatation. Some layering sludge in the gallbladder. No abnormal gallbladder dist ention. PANCREAS: No significant abnormality is seen. SPLEEN: No significant abnormality is seen. ADRENALS: No significant abnormality is seen. KIDNEYS: 9 mm cortical hypodensity posterior left kidney likely tiny cortical cyst. Otherwise, no paula ss abnormality. LYMPH NODES: No mesenteric or retroperitoneal lymphadenopathy. BOWEL: Moderate stool burden. No pericolonic inflammatory change. Dilated small bowel, free fluid, or free air. BONES: Degenerative disc disease L5-S1. Pelvis not imaged. IMPRESSION: 1. BORDERLINE TO MILD HEPATOMEGALY AT 18.0 CM. 2. NO BILIARY DUCTAL DILATATION.
--- NOTE | 2019-06-23 17:50 | CONS ---
CONSULTATION DATE OF SERVICE: 06/23/2019. TIME OF SERVICE: 3:30 p.m. HISTORY: This is a 53-year-old white female with a history of intractable headaches and medical history significant for leukocytosis. The patient states that over the last several days she has been having severe headaches, and I was asked to evaluate for any potential vision or ocular pathology. She denies any new decrease in vision or changes in her vision. Visual acuity without correction measured 20/50 bilaterally. Of note, the patient was not wearing glasses, as she did not bring them, and states that she has not had an eye exam and has not been able to see well for the last 2 years. The pupils were equal and reactive to light. There was no afferent defect. Extraocular movements were full in all gaze positions. Intraocular pressures were normal. On penlight exam, the lids were normal. The conjunctiva was quiet. Both corneas were clear. The anterior chambers were quiet. Lenses were clear. Fundus exam revealed normal-appearing maculae, vessels and discs. The cup-to-disk ratio was estimated at 0.3 OU. There was no evidence of optic nerve head swelling, blurred disc margins or papilledema in either side. ASSESSMENT: Headaches. I could find no evidence of ocular pathology in this patient at this time. I asked that she follow up in my office upon discharge and a more thorough exam with a refraction will likely be performed and glasses will likely be prescribed. Thank you very much for this consult. ZHOU / SANDRITA: [phone] /
[2019-06-23] MEDS: MONTELUKAST 10 MG TAB PO SCH (21:17)
[2019-06-24] MEDS: HYDROcodone/APAP 7.5-325MG 1 EACH TAB PO PRN (02:32)
[2019-06-24] MEDS: LEVOTHYROXINE 100 MCG TAB PO SCH (05:35)
[2019-06-24 05:39] VITALS: RESP 16
[2019-06-24] MEDS: KETOROLAC 30 MG/ML 1 ML VIAL IVP PRN (05:42)
[2019-06-24 08:13] VITALS: BP 89/49; PULSE 71; TEMP 98.4
[2019-06-24] MEDS: LORATADINE 10 MG TAB PO SCH (08:28)
[2019-06-24] MEDS: PANTOPRAZOLE 40 MG TABLET PO SCH (08:28)
[2019-06-24] MEDS: BUTALB/APAP/CAFF 50-325-40MG TAB PO PRN (08:31)
[2019-06-24 08:44] LABS: Basophils % (A) 0 %; Eosinophils # (A) 0.1 k/uL (0-0.7); Eosinophils % (A) 1 %; HCT 33.2 % (34.0-46.0); HGB 11.2 gm/dL (11.4-16.0); Lymphocytes # (A) 0.7 k/uL (1.0-4.8); Lymphocytes % (A) 8 %; MCH 34.4 pg (25.0-35.0); MCHC 33.7 g/dL (31.0-37.0); MCV 102.1 fL (80.0-100.0); Mean Platelet Volume 6.8; Monocytes # (A) 0.5 k/uL (0-1.0); Monocytes % (A) 5 %; Neutrophils # (A) 7.3 k/uL (1.3-7.7); Neutrophils % (A) 83 %; Platelet Count 173 k/uL (150-450); RBC 3.25 m/uL (3.80-5.40); RDW 12.6 % (11.5-15.5); WBC 8.8 k/uL (3.8-10.6)
[2019-06-24 10:54] LABS: Erythrocyte Sedimentation Rate 14 mm/hr (0-20)
--- NOTE | 2019-06-24 11:54 | P.PN ---
Subjective Progress Note Date: 06/24/19 Principal diagnosis: intractable PRITCHETT/MS/joint aches In follow-up today patient is doing much better. Overnight she had significant relief of her headache. It is still lingering but, she was able to watch a little bit of television and tolerate the lights. She is feeling well enough and is ready to go home. As of note her white count is normal at 8.8 today Objective - Vital Signs Vital signs: Vital Signs Temp 98.4 F 06/24/19 08:11 Pulse 71 06/24/19 08:11 Resp 16 06/24/19 08:11 BP 89/49 06/24/19 08:11 Pulse Ox 99 06/24/19 08:11 Intake & Output 06/23/19 06/24/19 06/24/19 18:59 06:59 18:59 Intake Total 1180 Balance 1180 Intake: Oral 1180 Other: Voiding Method Toilet Toilet # Voids 2 1 # Bowel Movements 1 - Constitutional General appearance: Present: cooperative, no acute distress, thin - EENT Eyes: Present: anicteric sclerae, EOMI ENT: Present: hearing grossly normal - Respiratory Details: respirations even and unlabored - Cardiovascular Details: skin warm and dry to touch - Neurologic Neurologic: Present: CNII-XII intact - Musculoskeletal Musculoskeletal: Present: strength equal bilaterally - Psychiatric Psychiatric: Present: A&O x's 3, appropriate affect, intact judgment & insight - Labs CBC & Chem 7: 06/24/19 08:31 06/23/19 07:53 Labs: Abnormal Lab Results - Last 24 Hours (Table) 06/24/19 Range/Units 08:31 RBC 3.25 L (3.80-5.40) m/uL Hgb 11.2 L (11.4-16.0) gm/dL Hct 33.2 L (34.0-46.0) % MCV 102.1 H (80.0-100.0) fL Lymphocytes # 0.7 L (1.0-4.8) k/uL Microbiology - Last 24 Hours (Table) 06/22/19 13:40 CSF Gram Stain - Preliminary Cerebral Spinal Fluid CSF Culture - Preliminary - Imaging and Cardiology CT scan - abdomen: report reviewed (enlarged liver) Assessment and Plan (1) Arthralgia Status: Resolved Priority: High Code(s): M25.50 - PAIN IN UNSPECIFIED JOINT SNOMED Code(s): 77392497 (2) Intractable headache Status: Resolved Priority: High Code(s): R51 - HEADACHE SNOMED Code(s): 46780144 (3) Leukocytosis Status: Resolved Priority: High Code(s): D72.829 - ELEVATED WHITE BLOOD CELL COUNT, UNSPECIFIED SNOMED Code(s): 875253394 (4) T-cell leukemia Status: Chronic Priority: Medium Code(s): C91.Z0 - OTHER LYMPHOID LEUKEMIA NOT HAVING ACHIEVED REMISSION SNOMED Code(s): 430790735 (5) Muscle ache Status: Resolved Priority: High Code(s): M79.10 - MYALGIA, UNSPECIFIED SITE SNOMED Code(s): 83068166 Plan: Pt is having Neurological work up for intractable PRITCHETT, thus far nothing suspicious MS/joint aches-suspicious r/t neulasta injections. Considering holding neulasta until neutrophiles fall below 1000 then, using neupogen PRN Analgesics as prescribed for MS aches arthralgias Leukocytosis secondary to GCSF, resolved. As of note, patient complaints have resolved as well Cont cytoxan for leukemia CT abdomen liver ordered due to increased LFTs, mildly enlarged liver, nothing acute. Continue to monitor
== END 2019-06-24 10:00 | disposition home or self-care (01) | DRG 103 ==
LOC: EC 10:18 → 5NMEDONC 14:42 → OBSVTOIN 06-21 13:05
PROVIDERS: ADMIT Internal Medicine; ATTEND Internal Medicine
PROC: 009U3ZX Drainage of Spinal Canal, Percutaneous Approach, Diagnostic (ICD-10-PCS; principal; 2019-06-22)
DX: G44.41 Drug-induced headache, not elsewhere classified, intractable (principal); C91.Z0 Other lymphoid leukemia not having achieved remission; T45.8X5A Adverse effect of other primarily systemic and hematological agents, initial encounter; D75.89 Other specified diseases of blood and blood-forming organs; E03.9 Hypothyroidism, unspecified; E05.90 Thyrotoxicosis, unspecified without thyrotoxic crisis or storm; F17.210 Nicotine dependence, cigarettes, uncomplicated; F32.9 Major depressive disorder, single episode, unspecified; F41.9 Anxiety disorder, unspecified; J01.00 Acute maxillary sinusitis, unspecified; J01.20 Acute ethmoidal sinusitis, unspecified; T45.1X5A Adverse effect of antineoplastic and immunosuppressive drugs, initial encounter; M25.50 Pain in unspecified joint; M79.10 Myalgia, unspecified site; R74.0 Nonspecific elevation of levels of transaminase and lactic acid dehydrogenase [LDH]; R74.8 Abnormal levels of other serum enzymes; Z79.890 Hormone replacement therapy; Z79.899 Other long term (current) drug therapy; Z86.718 Personal history of other venous thrombosis and embolism; Z90.710 Acquired absence of both cervix and uterus; Z88.1 Allergy status to other antibiotic agents; Z91.030 Bee allergy status; Z88.0 Allergy status to penicillin; Z91.018 Allergy to other foods; Z80.9 Family history of malignant neoplasm, unspecified
CPT/HCPCS: 36415; 62328; 70496; 70498; 74160; 80048; 80053; 81003; 82550; 82945; 83605; 83735; 84157; 84311; 84439; 84443; 85025; 85652; 86140; 86592; 87070; 87075; 87205; 87502; 89050; 96361; 96374; 96375; 96376; 99285

== ENCOUNTER → 2019-10-05 | Outpatient (CLI) | payer OTHER ==
--- NOTE | 2019-10-06 14:18 | XR ---
Right RIBS HISTORY: Intercostal pain, fall 3 weeks prior 4 views of the right ribs, correlation prior chest x-ray 05/18/2019 Shadow is suspected over the right chest to represent nipple. There is no evident displaced rib fract ure. No pneumothorax or pleural effusion. Some mild arthropathy noted in right shoulder, acromioclavi cular joint. IMPRESSION: No displaced rib fracture. Bone scan could be performed for increased sensitivity.
== END | disposition home or self-care (01) ==
LOC: RADXRMAIN 16:09
PROVIDERS: ATTEND Nurse Practitioner
DX: R07.82 Intercostal pain (principal)

== ENCOUNTER → 2019-11-06 | Outpatient (CLI) | payer OTHER ==
[2019-11-06 19:22] LABS: T4, Free (Free Thyroxine) 0.6 ng/dL (0.80-1.80)
== END | disposition home or self-care (01) ==
LOC: LABWHC1 13:54
PROVIDERS: ATTEND Nurse Practitioner
DX: E03.9 Hypothyroidism, unspecified (principal)
CPT/HCPCS: 36415; 84439; 84443

== ENCOUNTER → 2020-02-08 | Outpatient (CLI) | payer OTHER ==
[2020-02-08 09:06] LABS: Basophils % (A) 1 %; Eosinophils # (A) 0.1 k/uL (0-0.7); Eosinophils % (A) 2 %; HCT 43.9 % (34.0-46.0); HGB 14.7 gm/dL (11.4-16.0); Lymphocytes # (A) 1.6 k/uL (1.0-4.8); Lymphocytes % (A) 31 %; MCH 35.8 pg (25.0-35.0); MCHC 33.5 g/dL (31.0-37.0); MCV 106.7 fL (80.0-100.0); Macrocytosis Slight; Mean Platelet Volume 6.8; Monocytes # (A) 0.4 k/uL (0-1.0); Monocytes % (A) 7 %; Neutrophils # (A) 2.9 k/uL (1.3-7.7); Neutrophils % (A) 56 %; Platelet Count 217 k/uL (150-450); RBC 4.11 m/uL (3.80-5.40); RDW 11.5 % (11.5-15.5); WBC 5.2 k/uL (3.8-10.6)
[2020-02-08 15:19] LABS: African American GFR (CKD) 85.2 (60.0-200.0); Albumin 4.1 g/dL (3.80-4.90); Albumin/Globulin Ratio 2.05 (1.60-3.17); Anion Gap 7.3 mmol/L (4.00-12.00); BUN/Creat Ratio 25.56 Ratio (12.00-20.00); Carbon Dioxide 22.7 mmol/L (21.6-31.8); Chol/HDL Ratio 3.18; LDL Cholesterol,Calculated 109.8 mg/dL (0.0-131.0); Magnesium 1.9 mg/dL (1.5-2.4); Non-African American GFR(CKD) 73.5 (60.0-200.0); Potassium 4.5 mmol/L (3.5-5.5); Total Bilirubin 0.5 mg/dL (0.2-1.2); Total Protein 6.1 g/dL (6.2-8.2); VLDL Calculation 25.2 mg/dL (5.00-40.00)
[2020-02-08 15:27] LABS: T4, Free (Free Thyroxine) 1.3 ng/dL (0.80-1.80)
[2020-02-08 17:42] LABS: Hemoglobin A1C 4.9 % (4.0-6.0)
== END | disposition home or self-care (01) ==
LOC: LABWHC1 07:56
PROVIDERS: ATTEND Nurse Practitioner
DX: E03.9 Hypothyroidism, unspecified (principal); E55.9 Vitamin D deficiency, unspecified; Z79.899 Other long term (current) drug therapy
CPT/HCPCS: 36415; 80053; 80061; 82306; 82607; 83036; 83735; 84439; 84443; 85025

== ENCOUNTER 2020-03-06 14:15 | Emergency (ER) | payer OTHER ==
[2020-03-06 14:20] VITALS: RESP 18; TEMP 98.1
--- NOTE | 2020-03-06 15:03 | XR ---
EXAMINATION TYPE: XR chest 1V DATE OF EXAM: 03/06/2020 COMPARISON: 05/18/2019 HISTORY: Back pain TECHNIQUE: 2 views FINDINGS: Heart and mediastinum are normal. Lungs are clear. Diaphragm is normal. Bony thorax appears normal. IMPRESSION: Normal chest. No change.
[2020-03-06 15:57] LABS: Basophils # (A) 0.1 k/uL (0-0.2); Basophils % (A) 1 %; Eosinophils # (A) 0.1 k/uL (0-0.7); Eosinophils % (A) 2 %; HCT 35.2 % (34.0-46.0); HGB 12.2 gm/dL (11.4-16.0); Lymphocytes # (A) 1.2 k/uL (1.0-4.8); Lymphocytes % (A) 19 %; MCH 35.8 pg (25.0-35.0); MCHC 34.6 g/dL (31.0-37.0); MCV 103.6 fL (80.0-100.0); Macrocytosis Slight; Mean Platelet Volume 6.5; Monocytes # (A) 0.3 k/uL (0-1.0); Monocytes % (A) 4 %; Neutrophils # (A) 4.4 k/uL (1.3-7.7); Neutrophils % (A) 72 %; Platelet Count 248 k/uL (150-450); RBC 3.39 m/uL (3.80-5.40); WBC 6.2 k/uL (3.8-10.6)
[2020-03-06 16:09] LABS: ALT 19 U/L (4-34); AST 28 U/L (14-36); African American GFR (CKD) >90 (>60 ml/min/1.73 sqM); Albumin 3.7 g/dL (3.5-5.0); Alkaline Phosphatase 82 U/L (38-126); Anion Gap 5 mmol/L; Blood Urea Nitrogen 17 mg/dL (7-17); Carbon Dioxide 23 mmol/L (22-30); Chloride 109 mmol/L (98-107); Glucose 98 mg/dL (74-99); Non-African American GFR(CKD) 80 (>60 ml/min/1.73 sqM); Sodium 137 mmol/L (137-145); Total Bilirubin 0.4 mg/dL (0.2-1.3); Total Protein 6.3 g/dL (6.3-8.2)
--- NOTE | 2020-03-06 16:21 | ED ---
URI HPI - General Chief Complaint: Upper Respiratory Infection Stated Complaint: Cough,loss of taste Time Seen by Provider: 03/06/20 14:20 Source: patient Mode of arrival: ambulatory Limitations: no limitations - History of Present Illness Initial Comments: 54-year-old female with history of myelodysplasia, anemia presenting to emergency department today for chief complaint of cough congestion. Patient states she has had loss of taste cough some congestion she was concerned that she is comfortable. Patient states usually get sick around this time. Patient denies any chest pain or shortness of breath she denies leg swelling of bowel pain diarrhea or vomiting. Patient appears well and nontoxic on arrival she denies fevers she is afebrile - Related Data Home Medications Medication Instructions Recorded Confirmed Ferrous Sulfate [Iron (65 MG 325 mg PO DAILY 03/06/17 06/19/19 Elemental)] Multivitamins, Thera [Multivitamin 1 tab PO DAILY 06/01/17 06/19/19 (formulary)] Cholecalciferol [Vitamin D3 (25 5,000 unit PO DAILY 04/23/18 06/19/19 Mcg = 1000 Iu)] Cyclophosphamide 100 mg PO HS 06/23/18 06/19/19 Folic Acid 1 mg PO DAILY 01/22/19 06/19/19 Hydrocodone/Acetaminophen [[place] 1 tab PO TID PRN 01/22/19 06/19/19 7.5-325] L.acidoph,Paracasei, B.lactis 1 cap PO DAILY 01/22/19 06/19/19 [Probiotic] Levothyroxine Sodium [Synthroid] 300 mcg PO DAILY 01/22/19 06/19/19 Ondansetron [Zofran] 4 mg PO Q6HR PRN 01/22/19 06/19/19 Loratadine [Claritin] 10 mg PO DAILY 05/19/19 06/19/19 Magnesium Oxide [Mag-Ox] 400 mg PO DAILY 05/19/19 06/19/19 Montelukast Sodium [Singulair] 10 mg PO HS 05/19/19 06/19/19 Butalb/Acetaminophen/Caffeine 1 tab PO TID PRN 06/19/19 06/19/19 [Fioricet 50-325-40] Previous Rx's Medication Instructions Recorded Pantoprazole [Protonix] 40 mg PO DAILY #15 tablet. 06/26/18 predniSONE 50 mg PO DAILY 4 Days #4 tab 03/06/20 Allergies Allergy/AdvReac Type Severity Reaction Status Date / Time amoxicillin Allergy Unknown Verified 03/06/20 14:20 banana Allergy Rash/Hives Verified 03/06/20 14:20 bee venom protein (honey bee) Allergy Anaphylaxis Verified 03/06/20 14:20 cephalexin [From Keflex] Allergy Unknown Verified 03/06/20 14:20 Penicillins Allergy Unknown Verified 03/06/20 14:20 Tetracyclines Allergy Unknown Verified 03/06/20 14:20 Review of Systems ROS Statement: Those systems with pertinent positive or pertinent negative responses have been documented in the HPI. ROS Other: All systems not noted in ROS Statement are negative. 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 she is to follow up with him for oral chemo History of Any Multi-Drug Resistant Organisms: C-DIFF Date of last positivie culture/infection: mrsa / [facility] this has been ongoing since dec MDRO Source:: wound rt hip / stool Past Surgical History: Hysterectomy Additional Past Surgical History / Comment(s): ectopic , neck surgery, bone marrow biopsy x 4 Past Anesthesia/Blood Transfusion Reactions: No Reported Reaction Additional Past Anesthesia/Blood Transfusion Reaction / Comment(s): pt stated has received blood in past no known reaction Past Psychological History: Anxiety, Depression Smoking Status: Current every day smoker Past Alcohol Use History: None Reported Past Drug Use History: None Reported - Past Family History Father Family Medical History: Cancer Additional Family Medical History / Comment(s): mesothelioma Mother History Unknown: Yes General Exam - General Exam Comments Initial Comments: General: The patient is awake and alert, in no distress, and does not appear acutely ill. Eye: Pupils are equal, round and reactive to light, extra-ocular movements are intact. No nystagmus. There is normal conjunctiva bilaterally. No signs of icterus. Ears, nose, mouth and throat: There are moist mucous membranes and no oral lesions. Neck: The neck is supple, there is no tenderness or JVD. Cardiovascular: There is a regular rate and rhythm. No murmur, rub or gallop is appreciated. Respiratory: Lungs are clear to auscultation, respirations are non-labored, breath sounds are equal. No wheezes, stridor, rales, or rhonchi. Gastrointestinal: Soft, non-distended, non-tender abdomen without masses or organomegaly noted. There is no rebound or guarding present. Musculoskeletal: Normal ROM, no tenderness. Strength 5/5. Sensation intact. Pulses equal bilaterally 2+. Neurological: A&O x 3. CN II-XII intact grossly, There are no obvious motor or sensory deficits. Coordination appears grossly intact. Speech is normal. Skin: Skin is warm and dry and no rashes or lesions are noted. Psychiatric: Cooperative, appropriate mood & affect, normal judgment. Limitations: no limitations Course Vital Signs 03/06/20 03/06/20 03/06/20 14:17 14:42 15:23 Temperature 98.1 F 98.1 F Pulse Rate 85 74 Respiratory 18 18 18 Rate Blood Pressure 113/78 131/73 O2 Sat by Pulse 99 100 Oximetry 03/06/20 16:28 Temperature 98.1 F Pulse Rate 80 Respiratory 18 Rate Blood Pressure 114/71 O2 Sat by Pulse 100 Oximetry Medical Decision Making - Medical Decision Making 54yo female presenting today for cc of congestion, loss of taste coug. CXR clear. Lungs clear. Afebrile. Labs stable. Patient does not appear toxic. Patien t smokes daily. Will be discharged on oral steroids and is to f/u with pcp return for worsening symptoms. COvid (-) at this time. Attending agreeable to care plan. - Lab Data Result diagrams: 03/06/20 15:34 03/06/20 15:34 Lab Results 03/06/20 03/06/20 03/06/20 Range/Units 14:44 15:34 15:34 WBC 6.2 (3.8-10.6) k/uL RBC 3.39 L (3.80-5.40) m/uL Hgb 12.2 (11.4-16.0) gm/dL Hct 35.2 (34.0-46.0) % MCV 103.6 H (80.0-100.0) fL MCH 35.8 H (25.0-35.0) pg MCHC 34.6 (31.0-37.0) g/dL RDW 12.0 (11.5-15.5) % Plt Count 248 (150-450) k/uL Neutrophils % 72 % Lymphocytes % 19 % Monocytes % 4 % Eosinophils % 2 % Basophils % 1 % Neutrophils # 4.4 (1.3-7.7) k/uL Lymphocytes # 1.2 (1.0-4.8) k/uL Monocytes # 0.3 (0-1.0) k/uL Eosinophils # 0.1 (0-0.7) k/uL Basophils # 0.1 (0-0.2) k/uL Macrocytosis Slight Sodium 137 (137-145) mmol/L Potassium 4.0 (3.5-5.1) mmol/L Chloride 109 H (98-107) mmol/L Carbon Dioxide 23 (22-30) mmol/L Anion Gap 5 mmol/L BUN 17 (7-17) mg/dL Creatinine 0.84 (0.52-1.04) mg/dL Est GFR (CKD-EPI)AfAm >90 (>60 ml/min/1.73 sqM) Est GFR (CKD-EPI)NonAf 80 (>60 ml/min/1.73 sqM) Glucose 98 (74-99) mg/dL Calcium 9.0 (8.4-10.2) mg/dL Total Bilirubin 0.4 (0.2-1.3) mg/dL AST 28 (14-36) U/L ALT 19 (4-34) U/L Alkaline Phosphatase 82 (38-126) U/L Total Protein 6.3 (6.3-8.2) g/dL Albumin 3.7 (3.5-5.0) g/dL Coronavirus (PCR) Not Detected (Not Detectd) Disposition Clinical Impression: Cough Disposition: HOME SELF-CARE Condition: Good Instructions (If sedation given, give patient instructions): Upper Respiratory Infection (ED) Additional Instructions: Please use medication as discussed. Please follow-up with family doctor in the next 2 days.. Please return to emergency room if the symptoms increase or worsen or for any other concerns. Prescriptions: predniSONE 50 mg PO DAILY 4 Days #4 tab Is patient prescribed a controlled substance at d/c from ED?: No Referrals: [facility] [Primary Care Provider] - 1-2 days Time of Disposition: 15:27
[2020-03-06 16:37] VITALS: BP 114/71; PULSE 80
== END 2020-03-06 16:37 | disposition home or self-care (01) ==
LOC: EC 14:15
DX: R05 Cough (principal); C91.Z0 Other lymphoid leukemia not having achieved remission; R43.8 Other disturbances of smell and taste; D64.9 Anemia, unspecified; E03.9 Hypothyroidism, unspecified; F17.200 Nicotine dependence, unspecified, uncomplicated; Z79.890 Hormone replacement therapy; Z79.899 Other long term (current) drug therapy; Z88.1 Allergy status to other antibiotic agents; Z88.0 Allergy status to penicillin; Z91.018 Allergy to other foods; Z91.030 Bee allergy status; Z86.718 Personal history of other venous thrombosis and embolism; Z20.828 Contact with and (suspected) exposure to other viral communicable diseases
CPT/HCPCS: 36415; 71045; 80053; 85025; 87635; 99283

== ENCOUNTER 2020-03-18 11:53 | Emergency (ER) | payer OTHER ==
[2020-03-18] MEDS ORDERED: SODIUM CHLORIDE 0.9% 500 ML 500 ML IV STA (12:32)
[2020-03-18] MEDS ORDERED: SODIUM CHLORIDE 0.9% 1,000 ML IV STA (12:36)
--- NOTE | 2020-03-18 12:36 | ED ---
General Adult HPI - General Chief complaint: Shortness of Breath Stated complaint: poss COVID Time Seen by Provider: 03/18/20 12:15 Source: patient, RN notes reviewed Mode of arrival: wheelchair Limitations: no limitations - History of Present Illness Initial comments: 54-year-old female with a past medical history of myelodysplasia, leukemia on oral chemo, neutropenia, hypothyroidism, anemia presents to the emergency room for a chief complaint of cough. Patient states that she has had symptoms of cough congestion for about a week now. When she coughs she sometimes has a sharp pain on the left side of her chest. Patient reports that she lost her sense of taste. States she has been having diarrhea. Patient reports she was exposed to covid about a week ago. She has not noticed fevers at home.Patient has no other complaints at this time including shortness of breath, chest pain, abdominal pain, nausea or vomiting, headache, or visual changes. - Related Data Home Medications Medication Instructions Recorded Confirmed Ferrous Sulfate [Iron (65 MG 325 mg PO DAILY 03/06/17 06/19/19 Elemental)] Multivitamins, Thera [Multivitamin 1 tab PO DAILY 06/01/17 06/19/19 (formulary)] Cholecalciferol [Vitamin D3 (25 5,000 unit PO DAILY 04/23/18 06/19/19 Mcg = 1000 Iu)] Cyclophosphamide 100 mg PO HS 06/23/18 06/19/19 Folic Acid 1 mg PO DAILY 01/22/19 06/19/19 Hydrocodone/Acetaminophen [[place] 1 tab PO TID PRN 01/22/19 06/19/19 7.5-325] L.acidoph,Paracasei, B.lactis 1 cap PO DAILY 01/22/19 06/19/19 [Probiotic] Levothyroxine Sodium [Synthroid] 300 mcg PO DAILY 01/22/19 06/19/19 Ondansetron [Zofran] 4 mg PO Q6HR PRN 01/22/19 06/19/19 Loratadine [Claritin] 10 mg PO DAILY 05/19/19 06/19/19 Magnesium Oxide [Mag-Ox] 400 mg PO DAILY 05/19/19 06/19/19 Montelukast Sodium [Singulair] 10 mg PO HS 05/19/19 06/19/19 Butalb/Acetaminophen/Caffeine 1 tab PO TID PRN 06/19/19 06/19/19 [Fioricet 50-325-40] Previous Rx's Medication Instructions Recorded Pantoprazole [Protonix] 40 mg PO DAILY #15 tablet. 06/26/18 predniSONE 50 mg PO DAILY 4 Days #4 tab 03/06/20 Allergies Allergy/AdvReac Type Severity Reaction Status Date / Time amoxicillin Allergy Unknown Verified 03/18/20 11:58 banana Allergy Rash/Hives Verified 03/18/20 11:58 bee venom protein (honey bee) Allergy Anaphylaxis Verified 03/18/20 11:58 cephalexin [From Keflex] Allergy Unknown Verified 03/18/20 11:58 Penicillins Allergy Unknown Verified 03/18/20 11:58 Tetracyclines Allergy Unknown Verified 03/18/20 11:58 Review of Systems ROS Statement: Those systems with pertinent positive or pertinent negative responses have been documented in the HPI. ROS Other: All systems not noted in ROS Statement are negative. 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 she is to follow up with him for oral chemo History of Any Multi-Drug Resistant Organisms: C-DIFF Date of [facility] positivie [facility] this has been ongoing since dec MDRO Source:: wound rt hip / stool Past Surgical History: Hysterectomy Additional Past Surgical History / Comment(s): ectopic , neck surgery, bone marrow biopsy x 4 Past Anesthesia/Blood Transfusion Reactions: No Reported Reaction Additional Past Anesthesia/Blood Transfusion Reaction / Comment(s): pt stated has received blood in past no known reaction Past Psychological History: Anxiety, Depression Smoking Status: Current every day smoker Past Alcohol Use History: None Reported Past Drug Use History: None Reported - Past Family History Father Family Medical History: Cancer Additional Family Medical History / Comment(s): mesothelioma Mother History Unknown: Yes General Exam Limitations: no limitations General appearance: alert, in no apparent distress Head exam: Present: atraumatic Eye exam: Present: normal appearance, PERRL, EOMI. Absent: scleral icterus, conjunctival injection, periorbital swelling ENT exam: Present: normal exam, mucous membranes moist Neck exam: Present: normal inspection, full ROM. Absent: tenderness, meningismus, lymphadenopathy Respiratory exam: Present: normal lung sounds bilaterally. Absent: respiratory distress, wheezes, rales, rhonchi, stridor Cardiovascular Exam: Present: regular rate, normal rhythm, normal heart sounds. Absent: systolic murmur, diastolic murmur, rubs, gallop, clicks GI/Abdominal exam: Present: soft, normal bowel sounds. Absent: distended, tenderness, guarding, rebound, rigid Course Vital Signs 03/18/20 11:56 Temperature 98.4 F Pulse Rate 87 Respiratory 18 Rate Blood Pressure 123/78 O2 Sat by Pulse 100 Oximetry EKG Findings - EKG Comments: EKG Findings:: Normal sinus rhythm, ventricular rate 64, NJ interval 152, QTC 400 Medical Decision Making - Medical Decision Making Vitals are stable. CBC CMP unremarkable. White blood cell count is normal. Troponin negative. D-dimer negative. EKG is nonischemic. Coronavirus is negative 2. Chest x-ray shows no acute process. At this time given vitals are stable, white count is normal patient will be discharged home to follow up with primary care. She likely is a viral infection. She already finished an antibiotic. Patient will be given Tessalon Perles. She'll return here for any worsening symptoms such as shortness of breath which was discussed with her. - Lab Data Result diagrams: 03/18/20 13:16 03/18/20 13:16 Lab Results 03/18/20 03/18/20 03/18/20 Range/Units 13:16 13:16 13:16 WBC 4.7 (3.8-10.6) k/uL RBC 3.61 L (3.80-5.40) m/uL Hgb 12.9 (11.4-16.0) gm/dL Hct 37.2 (34.0-46.0) % MCV 103.2 H (80.0-100.0) fL MCH 35.7 H (25.0-35.0) pg MCHC 34.6 (31.0-37.0) g/dL RDW 12.4 (11.5-15.5) % Plt Count 219 (150-450) k/uL MPV 6.4 Neutrophils % 61 % Lymphocytes % 28 % Monocytes % 6 % Eosinophils % 2 % Basophils % 1 % Neutrophils # 2.8 (1.3-7.7) k/uL Lymphocytes # 1.3 (1.0-4.8) k/uL Monocytes # 0.3 (0-1.0) k/uL Eosinophils # 0.1 (0-0.7) k/uL Basophils # 0.0 (0-0.2) k/uL Macrocytosis Slight PT 9.8 (9.0-12.0) sec INR 0.9 (<1.2) APTT 23.1 (22.0-30.0) sec D-Dimer <0.17 (<0.60) mg/L FEU Sodium 138 (137-145) mmol/L Potassium 4.1 (3.5-5.1) mmol/L Chloride 108 H (98-107) mmol/L Carbon Dioxide 25 (22-30) mmol/L Anion Gap 5 mmol/L BUN 18 H (7-17) mg/dL Creatinine 0.79 (0.52-1.04) mg/dL Est GFR (CKD-EPI)AfAm >90 (>60 ml/min/1.73 sqM) Est GFR (CKD-EPI)NonAf 87 (>60 ml/min/1.73 sqM) Glucose 95 (74-99) mg/dL Calcium 9.6 (8.4-10.2) mg/dL Total Bilirubin 0.4 (0.2-1.3) mg/dL AST 51 H (14-36) U/L ALT 34 (4-34) U/L Alkaline Phosphatase 80 (38-126) U/L Troponin I (0.000-0.034) ng/mL Total Protein 6.9 (6.3-8.2) g/dL Albumin 4.1 (3.5-5.0) g/dL Coronavirus (PCR) (Not Detectd) 03/18/20 03/18/20 Range/Units 13:16 13:16 WBC (3.8-10.6) k/uL RBC (3.80-5.40) m/uL Hgb (11.4-16.0) gm/dL Hct (34.0-46.0) % MCV (80.0-100.0) fL MCH (25.0-35.0) pg MCHC (31.0-37.0) g/dL RDW (11.5-15.5) % Plt Count (150-450) k/uL MPV Neutrophils % % Lymphocytes % % Monocytes % % Eosinophils % % Basophils % % Neutrophils # (1.3-7.7) k/uL Lymphocytes # (1.0-4.8) k/uL Monocytes # (0-1.0) k/uL Eosinophils # (0-0.7) k/uL Basophils # (0-0.2) k/uL Macrocytosis PT (9.0-12.0) sec INR (<1.2) APTT (22.0-30.0) sec D-Dimer (<0.60) mg/L FEU Sodium (137-145) mmol/L Potassium (3.5-5.1) mmol/L Chloride (98-107) mmol/L Carbon Dioxide (22-30) mmol/L Anion Gap mmol/L BUN (7-17) mg/dL Creatinine (0.52-1.04) mg/dL Est GFR (CKD-EPI)AfAm (>60 ml/min/1.73 sqM) Est GFR (CKD-EPI)NonAf (>60 ml/min/1.73 sqM) Glucose (74-99) mg/dL Calcium (8.4-10.2) mg/dL Total Bilirubin (0.2-1.3) mg/dL AST (14-36) U/L ALT (4-34) U/L Alkaline Phosphatase (38-126) U/L Troponin I <0.012 (0.000-0.034) ng/mL Total Protein (6.3-8.2) g/dL Albumin (3.5-5.0) g/dL Coronavirus (PCR) Not Detected (Not Detectd) Disposition Clinical Impression: Cough Disposition: HOME SELF-CARE Condition: Good Instructions (If sedation given, give patient instructions): Acute Cough (ED) Additional Instructions: Please follow-up with your doctor in one to 2 days. Take Tessalon Perles as needed for cough. If you have worsening symptoms such as shortness of breath return to the emergency room. Is patient prescribed a controlled substance at d/c from ED?: No Referrals: [facility] [Primary Care Provider] - 1-2 days Time of Disposition: 14:38
--- NOTE | 2020-03-18 12:50 | XR ---
EXAMINATION TYPE: XR chest 2V DATE OF EXAM: 03/18/2020 COMPARISON: 03/06/20 HISTORY: Shortness of breath TECHNIQUE: Frontal and lateral views of the chest are obtained. FINDINGS: Scattered senescent parenchymal changes noted. No evidence for infiltrate. No evidence for atelectasis. Heart size is stable. Mediastinal structures are stable and grossly unremarkable. No evidence for hilar prominence. Degenerative changes dorsal spine. IMPRESSION: 1. No evidence for acute pulmonary disease.
[2020-03-18 13:27] LABS: Basophils % (A) 1 %; Eosinophils # (A) 0.1 k/uL (0-0.7); Eosinophils % (A) 2 %; HCT 37.2 % (34.0-46.0); HGB 12.9 gm/dL (11.4-16.0); Lymphocytes # (A) 1.3 k/uL (1.0-4.8); Lymphocytes % (A) 28 %; MCH 35.7 pg (25.0-35.0); MCHC 34.6 g/dL (31.0-37.0); MCV 103.2 fL (80.0-100.0); Macrocytosis Slight; Mean Platelet Volume 6.4; Monocytes # (A) 0.3 k/uL (0-1.0); Monocytes % (A) 6 %; Neutrophils # (A) 2.8 k/uL (1.3-7.7); Neutrophils % (A) 61 %; Platelet Count 219 k/uL (150-450); RBC 3.61 m/uL (3.80-5.40); RDW 12.4 % (11.5-15.5); WBC 4.7 k/uL (3.8-10.6)
[2020-03-18 13:59] LABS: ALT 34 U/L (4-34); AST 51 U/L (14-36); African American GFR (CKD) >90 (>60 ml/min/1.73 sqM); Albumin 4.1 g/dL (3.5-5.0); Alkaline Phosphatase 80 U/L (38-126); Anion Gap 5 mmol/L; Blood Urea Nitrogen 18 mg/dL (7-17); Calcium 9.6 mg/dL (8.4-10.2); Carbon Dioxide 25 mmol/L (22-30); Chloride 108 mmol/L (98-107); Glucose 95 mg/dL (74-99); Non-African American GFR(CKD) 87 (>60 ml/min/1.73 sqM); Potassium 4.1 mmol/L (3.5-5.1); Sodium 138 mmol/L (137-145); Total Bilirubin 0.4 mg/dL (0.2-1.3); Total Protein 6.9 g/dL (6.3-8.2)
[2020-03-18 14:08] LABS: D-Dimer <0.17 mg/L FEU (<0.60); INR 0.9 (<1.2); Partial Thromboplastin Time 23.1 sec (22.0-30.0); Prothrombin Time 9.8 sec (9.0-12.0)
[2020-03-18 14:58] VITALS: BP 118/71; PULSE 75; RESP 17; TEMP 98.6
== END 2020-03-18 14:57 | disposition home or self-care (01) ==
LOC: EC 11:53
DX: R05 Cough (principal); R19.7 Diarrhea, unspecified; R43.9 Unspecified disturbances of smell and taste; E03.9 Hypothyroidism, unspecified; C94.6 Myelodysplastic disease, not elsewhere classified; F17.200 Nicotine dependence, unspecified, uncomplicated; Z79.890 Hormone replacement therapy; Z88.0 Allergy status to penicillin; Z88.1 Allergy status to other antibiotic agents; Z91.030 Bee allergy status; Z91.018 Allergy to other foods; Z92.21 Personal history of antineoplastic chemotherapy; Z90.710 Acquired absence of both cervix and uterus; Z20.828 Contact with and (suspected) exposure to other viral communicable diseases
CPT/HCPCS: 36415; 71046; 80053; 84484; 85025; 85379; 85610; 85730; 87635; 93005; 96360; 96361; 99285

== ENCOUNTER → 2021-03-09 | Outpatient (CLI) | payer OTHER | END | disposition home or self-care (01) | LOC: LABWHC1 12:24 | PROVIDERS: ATTEND Internal Medicine | DX: Z20.828 Contact with and (suspected) exposure to other viral communicable diseases (principal) | CPT/HCPCS: U0003; C9803; U0005 ==

== ENCOUNTER → 2021-04-07 | Outpatient (CLI) | payer OTHER | END | disposition home or self-care (01) | LOC: LABWHC1 12:26 | PROVIDERS: ATTEND Nurse Practitioner | DX: R19.7 Diarrhea, unspecified (principal) | CPT/HCPCS: 87324 ==

== ENCOUNTER 2021-06-17 04:25 | Observation (INO) | payer OTHER ==
[2021-06-17] MEDS ORDERED: MORPHINE SULFATE 4 MG/ML SYRINGE IV STA (04:39)
[2021-06-17] MEDS ORDERED: SODIUM CHLORIDE 0.9% 1,000 ML IV STA (04:39)
[2021-06-17] MEDS ORDERED: ONDANSETRON 4 MG/2 ML VIAL IVP STA (04:39)
--- NOTE | 2021-06-17 04:41 | ED ---
Headache HPI - General Chief Complaint: Headache Stated Complaint: Headache Time Seen by Provider: 06/17/21 04:37 Source: RN notes reviewed, old records reviewed Mode of arrival: wheelchair Limitations: no limitations - History of Present Illness Initial Comments: This is a 55-year-old female to the emergency room today. Patient presents today for evaluation of severe headache acute and worsening sudden onset of headache with nausea no vomiting. Stabbing pain to his left side of her head. Patient has no recent injury. No prior history of brain history of brain damage. No recent fevers. Patient does say this is probably the worse headache that she has ever had. She is nauseous without vomiting. MD Complaint: headache -: hour(s) Onset Description: gradual Location: left, temporal Severity: severe Severity scale (1-10): 10 Quality: aching, throbbing, sharp Consistency: constant Improves With: nothing Worsens With: none Context: occurred at rest Associated Symptoms: nausea Treatments Prior to Arrival: none - Related Data Home Medications Medication Instructions Recorded Confirmed Ferrous Sulfate [Iron (65 MG 325 mg PO DAILY 03/06/17 06/19/19 Elemental)] Multivitamins, Thera [Multivitamin 1 tab PO DAILY 06/01/17 06/19/19 (formulary)] Cholecalciferol [Vitamin D3 (25 5,000 unit PO DAILY 04/23/18 06/19/19 Mcg = 1000 Iu)] Cyclophosphamide [[place]] 100 mg PO HS 06/23/18 06/19/19 Folic Acid 1 mg PO DAILY 01/22/19 06/19/19 Hydrocodone/Acetaminophen [[place] 1 tab PO TID PRN 01/22/19 06/19/19 7.5-325] L.acidoph,Paracasei, B.lactis 1 cap PO DAILY 01/22/19 06/19/19 [Probiotic] Levothyroxine Sodium [Synthroid] 300 mcg PO DAILY 01/22/19 06/19/19 Ondansetron [Zofran] 4 mg PO Q6HR PRN 01/22/19 06/19/19 Loratadine [Claritin] 10 mg PO DAILY 05/19/19 06/19/19 Magnesium Oxide [Mag-Ox] 400 mg PO DAILY 05/19/19 06/19/19 Montelukast Sodium [Singulair] 10 mg PO HS 05/19/19 06/19/19 Butalb/Acetaminophen/Caffeine 1 tab PO TID PRN 06/19/19 06/19/19 [Fioricet 50-325-40] Previous Rx's Medication Instructions Recorded Pantoprazole [Protonix] 40 mg PO DAILY #15 tablet. 06/26/18 predniSONE 50 mg PO DAILY 4 Days #4 tab 03/06/20 Acetaminophen [Tylenol] 500 mg PO Q4-6H PRN #20 tab 03/18/20 Benzonatate [Tessalon Perles] 200 mg PO Q8H PRN #15 capsule 03/18/20 Ibuprofen [Motrin] 600 mg PO Q8HR PRN #20 tab 03/18/20 Allergies Allergy/AdvReac Type Severity Reaction Status Date / Time amoxicillin Allergy Unknown Verified 06/17/21 04:31 banana Allergy Rash/Hives Verified 06/17/21 04:31 bee venom protein (honey bee) Allergy Anaphylaxis Verified 06/17/21 04:31 cephalexin [From Keflex] Allergy Unknown Verified 06/17/21 04:31 Penicillins Allergy Unknown Verified 06/17/21 04:31 Tetracyclines Allergy Unknown Verified 06/17/21 04:31 Review of Systems ROS Statement: Those systems with pertinent positive or pertinent negative responses have been documented in the HPI. ROS Other: All systems not noted in ROS Statement are negative. 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 she is to follow up with him for oral chemo History of Any Multi-Drug Resistant Organisms: C-DIFF Date of last positivie culture/infection: 2015-[facility] states this has been ongoing since dec MDRO Source:: wound rt hip / stool Past Surgical History: Hysterectomy Additional Past Surgical History / Comment(s): ectopic , neck surgery, bone marrow biopsy x 4 Past Anesthesia/Blood Transfusion Reactions: No Reported Reaction Additional Past Anesthesia/Blood Transfusion Reaction / Comment(s): pt stated has received blood in past no known reaction Past Psychological History: Anxiety, Depression Smoking Status: Current every day smoker Past Alcohol Use History: None Reported Past Drug Use History: None Reported - Past Family History Father Family Medical History: Cancer Additional Family Medical History / Comment(s): mesothelioma Mother History Unknown: Yes General Exam Limitations: no limitations General appearance: alert, anxious Head exam: Present: atraumatic, normocephalic, normal inspection, other (Patient does have tenderness over left temporal artery) Eye exam: Present: normal appearance, PERRL, EOMI. Absent: scleral icterus, conjunctival injection, periorbital swelling ENT exam: Present: normal exam, mucous membranes moist Neck exam: Present: normal inspection. Absent: tenderness, meningismus, lymphadenopathy Respiratory exam: Present: normal lung sounds bilaterally. Absent: respiratory distress, wheezes, rales, rhonchi, stridor Cardiovascular Exam: Present: normal rhythm, tachycardia, normal heart sounds. Absent: systolic murmur, diastolic murmur, rubs, gallop, clicks GI/Abdominal exam: Present: soft, normal bowel sounds. Absent: distended, tenderness, guarding, rebound, rigid Extremities exam: Present: normal inspection, full ROM, normal capillary refill. Absent: tenderness, pedal edema, joint swelling, calf tenderness Back exam: Present: normal inspection Neurological exam: Present: alert, oriented X3, CN II-XII intact Psychiatric exam: Present: normal affect, normal mood Skin exam: Present: warm, dry, intact, normal color. Absent: rash Course Vital Signs 06/17/21 06/17/21 04:31 06:28 Temperature 99.0 F Pulse Rate 115 H 90 Respiratory 22 18 Rate Blood Pressure 119/72 105/60 O2 Sat by Pulse 99 99 Oximetry - Reevaluation(s) Reevaluation #1: 06/17/21 07:10 Medical record is reviewed Reevaluation #2: 06/17/21 07:10 Patient remains with intractable headache here in the ER Reevaluation #3: 06/17/21 07:10 Patient informed of results here in the ER questions are answered Reevaluation #4: 06/17/21 07:10 Patient again continues to have headache despite treatment and will be admitted for neurology to see - Consultations Consultation #1: spoke with [facility] will admit this patient Medical Decision Making - Medical Decision Making 55 female to the emergency room today. Patient Dese for evaluation of severe headache headache is in the left temporal area feels like something stabbing her in the head. Patient does have tenderness over the temporal artery CT and CTA of head and neck are negative for aneurysm cause of headache. Patient be ad mitted to see neurology regarding possible temporal arteritis - Lab Data Result diagrams: 06/17/21 06:16 06/17/21 06:16 Lab Results 06/17/21 06/17/21 06/17/21 Range/Units 06:16 06:16 06:16 WBC 6.5 (3.8-10.6) k/uL RBC 4.02 (3.80-5.40) m/uL Hgb 14.4 (11.4-16.0) gm/dL Hct 41.5 (34.0-46.0) % MCV 103.3 H (80.0-100.0) fL MCH 36.0 H (25.0-35.0) pg MCHC 34.8 (31.0-37.0) g/dL RDW 11.6 (11.5-15.5) % Plt Count 155 (150-450) k/uL MPV 7.6 Neutrophils % 74 % Lymphocytes % 11 % Monocytes % 10 % Eosinophils % 0 % Basophils % 1 % Neutrophils # 4.8 (1.3-7.7) k/uL Lymphocytes # 0.7 L (1.0-4.8) k/uL Monocytes # 0.7 (0-1.0) k/uL Eosinophils # 0.0 (0-0.7) k/uL Basophils # 0.1 (0-0.2) k/uL PT 9.5 (9.0-12.0) sec INR 0.8 (<1.2) APTT 24.1 (22.0-30.0) sec Sodium 136 L (137-145) mmol/L Potassium 3.5 (3.5-5.1) mmol/L Chloride 103 (98-107) mmol/L Carbon Dioxide 25 (22-30) mmol/L Anion Gap 8 mmol/L BUN 15 (7-17) mg/dL Creatinine 0.69 (0.52-1.04) mg/dL Est GFR (CKD-EPI)AfAm >90 (>60 ml/min/1.73 sqM) Est GFR (CKD-EPI)NonAf >90 (>60 ml/min/1.73 sqM) Glucose 110 H (74-99) mg/dL Calcium 9.2 (8.4-10.2) mg/dL Phosphorus 3.1 (2.5-4.5) mg/dL Magnesium 1.8 (1.6-2.3) mg/dL Total Bilirubin 0.6 (0.2-1.3) mg/dL AST 80 H (14-36) U/L ALT 95 H (4-34) U/L Alkaline Phosphatase 195 H (38-126) U/L Troponin I (0.000-0.034) ng/mL Total Protein 7.2 (6.3-8.2) g/dL Albumin 3.9 (3.5-5.0) g/dL 06/17/21 Range/Units 06:16 WBC (3.8-10.6) k/uL RBC (3.80-5.40) m/uL Hgb (11.4-16.0) gm/dL Hct (34.0-46.0) % MCV (80.0-100.0) fL MCH (25.0-35.0) pg MCHC (31.0-37.0) g/dL RDW (11.5-15.5) % Plt Count (150-450) k/uL MPV Neutrophils % % Lymphocytes % % Monocytes % % Eosinophils % % Basophils % % Neutrophils # (1.3-7.7) k/uL Lymphocytes # (1.0-4.8) k/uL Monocytes # (0-1.0) k/uL Eosinophils # (0-0.7) k/uL Basophils # (0-0.2) k/uL PT (9.0-12.0) sec INR (<1.2) APTT (22.0-30.0) sec Sodium (137-145) mmol/L Potassium (3.5-5.1) mmol/L Chloride (98-107) mmol/L Carbon Dioxide (22-30) mmol/L Anion Gap mmol/L BUN (7-17) mg/dL Creatinine (0.52-1.04) mg/dL Est GFR (CKD-EPI)AfAm (>60 ml/min/1.73 sqM) Est GFR (CKD-EPI)NonAf (>60 ml/min/1.73 sqM) Glucose (74-99) mg/dL Calcium (8.4-10.2) mg/dL Phosphorus (2.5-4.5) mg/dL Magnesium (1.6-2.3) mg/dL Total Bilirubin (0.2-1.3) mg/dL AST (14-36) U/L ALT (4-34) U/L Alkaline Phosphatase (38-126) U/L Troponin I <0.012 (0.000-0.034) ng/mL Total Protein (6.3-8.2) g/dL Albumin (3.5-5.0) g/dL - EKG Data -: EKG Interpreted by Me (EKG is sinus rhythm rate of 67 UT 163 QRS 73 QTc 411) - Radiology Data Radiology results: report reviewed (CT CTA had neck is negative for aneurysm or bleed), image reviewed Disposition Clinical Impression: Headache, Acute headache Narrative: r/o Temporal Arteritis Disposition: ADMITTED IP TO THIS [facility] Condition: Good Is patient prescribed a controlled substance at d/c from ED?: No Referrals: [facility] [Primary Care Provider] - 1-2 days
--- NOTE | 2021-06-17 05:43 | CT ---
EXAMINATION TYPE: CT brain wo con DATE OF EXAM: 06/17/2021 COMPARISON: 05/18/2019 HISTORY: headache CT DLP: mGycm Automated exposure control for dose reduction was used. Images of the brain obtained without contrast. Ventricles have normal size. There is no mass effect or midline shift. There is no sign of intracrani al hemorrhage. Calvarium is intact there is normal aeration of the mastoid sinuses. IMPRESSION: Negative unenhanced head CT scan. No change.
--- NOTE | 2021-06-17 05:48 | CT ---
EXAMINATION TYPE: CT angio head neck DATE OF EXAM: 06/17/2021 COMPARISON: 06/22/2019 HISTORY: headache CT DLP: mGycm Automated exposure control for dose reduction was used. CONTRAST: Performed with IV Contrast, patient injected with 65 mL of Isovue 370. Images obtained from the aortic arch through the vertex of the brain with IV contrast. There are Thre e-D postprocessed images. There is normal branching pattern of the great vessels on the aortic arch. There is arterial flow in the subclavian arteries bilaterally. The left vertebral artery has origin on the aortic arch which is normal variant. There is arterial flow in both vertebral arteries. There is arterial flow in the com mon internal and external carotid arteries bilaterally. There is wide patency of the carotid artery b ifurcations. There is no evidence of carotid or vertebral artery aneurysm or dissection. No evidence of stenosis. There is arterial flow in the anterior middle and posterior cerebral arteries. There is no mass effec t. No evidence of intracranial aneurysm or neovascularity. There is normal enhancement of the venous sinuses. No evidence of intracranial arterial stenosis. IMPRESSION: Negative CT angiogram of the brain. Negative CT angiogram of the neck.
[2021-06-17] MEDS ORDERED: PROCHLORPERAZINE INJ 10 MG/2 ML VIAL IVP STA (06:01)
[2021-06-17] MEDS ORDERED: diphenhydrAMINE 50 MG/ML 1 ML VIAL IVP STA (06:01)
[2021-06-17] MEDS ORDERED: HYDROmorphone 1 MG/ML 1 ML SYRINGE IVP STA (06:01)
[2021-06-17 06:35] LABS: ALT 95 U/L (4-34); AST 80 U/L (14-36); African American GFR (CKD) >90 (>60 ml/min/1.73 sqM); Albumin 3.9 g/dL (3.5-5.0); Alkaline Phosphatase 195 U/L (38-126); Anion Gap 8 mmol/L; Blood Urea Nitrogen 15 mg/dL (7-17); Calcium 9.2 mg/dL (8.4-10.2); Carbon Dioxide 25 mmol/L (22-30); Chloride 103 mmol/L (98-107); Glucose 110 mg/dL (74-99); Magnesium 1.8 mg/dL (1.6-2.3); Non-African American GFR(CKD) >90 (>60 ml/min/1.73 sqM); Phosphorus 3.1 mg/dL (2.5-4.5); Potassium 3.5 mmol/L (3.5-5.1); Sodium 136 mmol/L (137-145); Total Bilirubin 0.6 mg/dL (0.2-1.3); Total Protein 7.2 g/dL (6.3-8.2)
[2021-06-17 06:36] LABS: Basophils # (A) 0.1 k/uL (0-0.2); Basophils % (A) 1 %; Eosinophils % (A) 0 %; HCT 41.5 % (34.0-46.0); HGB 14.4 gm/dL (11.4-16.0); Lymphocytes # (A) 0.7 k/uL (1.0-4.8); Lymphocytes % (A) 11 %; MCHC 34.8 g/dL (31.0-37.0); MCV 103.3 fL (80.0-100.0); Mean Platelet Volume 7.6; Monocytes # (A) 0.7 k/uL (0-1.0); Monocytes % (A) 10 %; Neutrophils # (A) 4.8 k/uL (1.3-7.7); Neutrophils % (A) 74 %; Platelet Count 155 k/uL (150-450); RBC 4.02 m/uL (3.80-5.40); RDW 11.6 % (11.5-15.5); WBC 6.5 k/uL (3.8-10.6)
[2021-06-17 06:41] LABS: INR 0.8 (<1.2); Partial Thromboplastin Time 24.1 sec (22.0-30.0); Prothrombin Time 9.5 sec (9.0-12.0)
[2021-06-17] MEDS ORDERED: NALOXONE 0.4 MG/ML 1 ML VIAL IV PRN (07:53)
[2021-06-17 07:55] LABS: C Reactive Protein 6.5 mg/dL (<1.0)
--- NOTE | 2021-06-17 08:05 | US ---
EXAMINATION TYPE: US gallbladder DATE OF EXAM: 06/17/2021 COMPARISON: 06/02/2017 CLINICAL HISTORY: RUQ pain EXAM MEASUREMENTS: Liver Length: 18.3 cm Gallbladder Wall: 0.2 cm CBD: 0.6 cm Right Kidney: 10.0 x 5.5 x 4.5 cm Pancreas: Partially seen, unremarkable, pancreatic duct measures 0.3 cm. Liver: 1.1 cm shadowing echogenic focus in the anterior aspect of the right hepatic lobe may be refl ective of a focal calcification in the hepatic parenchyma.. Gallbladder: No stones seen Evidence for sonographic Way's sign: No CBD: wnl Right Kidney: No hydronephrosis or shadowing calculi. No abnormalities seen at this time. IMPRESSION: 1. No cholelithiasis or evidence for acute cholecystitis. 2. CBD measures 0.6 cm, upper limits of normal, correlation with serum bilirubin levels may be benefi cial.
[2021-06-17] MEDS ORDERED: MORPHINE SULFATE 4 MG/ML SYRINGE IVP PRN (10:05)
[2021-06-17] MEDS ORDERED: ONDANSETRON 4 MG/2 ML VIAL IVP PRN (10:05)
[2021-06-17 10:12] VITALS: RESP 18
--- NOTE | 2021-06-17 13:51 | MR ---
EXAMINATION TYPE: MR brain wo/w juanita wo DATE OF EXAM: 06/17/2021 COMPARISON: 05/21/2019 HISTORY: Headache, history of cancer. TECHNIQUE: Multiplanar, multisequence images of the brain and cervical spine is performed without and with IV co ntrast, utilizing 6 mL intravenous Gadavist . FINDINGS: Brain MRI: No intracranial diffusion restriction. There is no extra-axial fluid collection or significant white matter signal abnormality. The ventricular system and cisternal spaces are normal in size and appea galileo. The brain volume is age appropriate. Midline structures demonstrate normal morphology. The craniocervical junction appears within normal limits. Post contrast images demonstrate no significant intracranial abnormal enhancement. The globe s are intact. Mild mucosal sinus disease noted. Grossly patent central intracranial arteries and dura l venous sinuses. Cervical spine MRI: Hardware susceptibility at C5-6 limits evaluation of the same level. Further limitation of the study by motion. Cervical curvature is slightly reversed. No bone marrow edema, acute fracture or dislocati on. Vertebral body heights are normal. No concerning bone marrow signal. There is bright T1/T2 signal in the mid and inferior portions of T2 vertebral body likely representing fat-containing lesion. There is a disc osteophyte complex at C4-5 indents the ventral thecal sac. There is a disc osteophyte complex at C5-6 indents the ventral thecal sac. There is a disc osteophyte complex at C7-T1 indents the ventral thecal sac and the spinal cord causing mild mass effect. No abnormal spinal cord signals are seen. Limited evaluation of the neural foramina by motion. There is also mild thickening of the p osterior longitudinal ligament at C7-T1 posteriorly indenting the thecal sac at the same level. Scatt ered moderate disc degenerative changes are seen in the cervical and thoracic spine. IMPRESSION: 1. No evidence for acute intracranial abnormality. 2. Degenerative changes of cervical spine as described above, note mild anterior spinal cord mass eff ect from disc osteophyte complex at the level of C7-T1 without spinal cord signal changes. 3. Hyperintense T1/T2 signal in T2 vertebral body favored to represent hemangioma. This is outside th e field of view and is only seen on the sagittal, clinical correlation recommended. The need for dedi cated thoracic spine MRI should be determined on clinical basis.
[2021-06-17 14:51] VITALS: BP 99/58; PULSE 89; TEMP 98.8
[2021-06-17] MEDS ORDERED: SODIUM CHLORIDE 0.9% 500 ML 500 ML IV ONE (14:55)
--- NOTE | 2021-06-17 15:20 | P.HPIM ---
History of Present Illness H&P Date: 06/17/21 Chief Complaint: headache Patient is a 55-year-old female with history of low grade t- cell leukemia, hypothyroidism, myelodysplasia, and prior DVT who presented to the ER with complaints of headache. In the ER she underwent an extensive evaluation. Laboratory analysis showed slightly elevated liver enzymes at 80 and 95. ESR was slightly elevated at 35. CRP was elevated at 65. She was found to have a heart rate of 115. CT head was negative, CTA head and neck were also negative. Gallbladder ultrasound showed no cholelithiasis but a common bile duct upper limits of normal at 0.6 cm Patient was seen here for headaches in 2019. At that time she had again a CT of the brain that was negative for aneurysm. She underwent a lumbar puncture with normal for opening pressures. They felt her headache was likely secondary to recent Neulasta injection. Patient seen and examined at bedside. She states her headache is now gone. She reports that on Saturday she went on exerted herself was a cold. She then started having chills. It developed into a left-sided headache that felt as though it was a stabbing in her temporal area. She received IV fluids, Compazi ne, and Benadryl in the ER which seemed to help her. Her headache is now resolved and she is asking to go home. She states she has had headaches in the past but nothing quite like this. She feels as though might be due to stress, cold exposure, or her thrush developing. She states she feels much better and has been able to eat which she hadn't been able to do for the last 4 days. She has been up and ambulating without difficulty. Pertinent positives and negatives as discussed in HPI, a complete review of systems was performed and all other systems are negative. General: non toxic, no distress, thin, appears older than stated age Derm: warm, dry Head: atraumatic, normocephalic, symmetric Eyes: EOMI, no lid lag, anicteric sclera, pupils equal round reactive to light ENT: Nose and ears atraumatic, + thrush, no pharyngeal erythema Neck: No thyromegaly, no cervical lymphadenopathy, trachea midline, supple Mouth: no lip lesion, mucus membranes moist Cardiovascular: S1S2 reg, no murmur, positive posterior tibial pulse bilateral, no edema, capillary refill less than 2 seconds Lungs: clear to ascultation bilateral, no ronchi, no rales, no wheeze, no accessory muscle use Abdominal: soft, nontender to palpation, no guarding, no appreciable organomegaly, normal bowel sounds Ext: no gross muscle atrophy, muscle strength muscle strength 4/5 in all 4 extremities, no contractures Neuro: CN II-XI grossly intact, light touch intact all 4 extremities, finger to nose within normal limits, Psych: Alert, oriented, appropriate affect Assessment/Plan: Intractable headache with elevated ESR and CRP -Neurology recommendations pending -MRI brain without any evidence of intracranial abnormality -IV fluids Hyperintense T1/T2 signal. -Only seen on the sagittal images likely hemangioma -Recommend outpatient follow-up with Dr. Katz to see if this is been noted before. T-cell leukemia - out patient follow-up Thrush - nystatin Multiple comorbid conditions Patients PRITCHETT is resolved. Discharge home for outpatient follow-up. D/W Dr. Whitman and she is in agreement for discharge. Past Medical History Past Medical History: Cancer, Deep Vein Thrombosis (DVT), Thyroid Disorder Additional Past Medical History / Comment(s): neutropenia, hypothyroidism, myelodisplasia, anemia - low grade T cell leukemia History of Any Multi-Drug Resistant Organisms: C-DIFF Date of last positivie culture/infection: 2015-[facility] states this has been ongoing since dec MDRO Source:: wound rt hip / stool Past Surgical History: Hysterectomy Additional Past Surgical History / Comment(s): ectopic , neck surgery, bone marrow biopsy x 4 Past Anesthesia/Blood Transfusion Reactions: No Reported Reaction Additional Past Anesthesia/Blood Transfusion Reaction / Comment(s): pt stated has received blood in past no known reaction Past Psychological History: Anxiety, Depression Additional Psychological History / Comment(s): patient lives alone-patient does not drive-friend Kristian drives pt. to appointments or ride through [employer]. No medical equipment needs. Smoking Status: Current every day smoker Past Alcohol Use History: None Reported Additional Past Alcohol Use History / Comment(s): started smoking at age 23, smokes 3-5 cig per day Past Drug Use History: None Reported - Past Family History Father Family Medical History: Cancer Additional Family Medical History / Comment(s): mesothelioma Mother History Unknown: Yes Medications and Allergies Home Medications Medication Instructions Recorded Confirmed Type Ferrous Sulfate [Iron (65 MG 325 mg PO DAILY 03/06/17 06/17/21 History Elemental)] Cyclophosphamide [Gengraf] 100 mg PO HS 06/23/18 06/17/21 History Pantoprazole [Protonix] 40 mg PO DAILY #15 tablet. 06/26/18 06/17/21 Rx Folic Acid 1 mg PO DAILY 01/22/19 06/17/21 History Hydrocodone/Acetaminophen [[place] 1 tab PO TID PRN 01/22/19 06/17/21 History 7.5-325] Levothyroxine Sodium [Synthroid] 300 mcg PO DAILY 01/22/19 06/17/21 History Albuterol Sulfate [Ventolin HFA] 2 puff INHALATION RT-QID 06/17/21 06/17/21 History Cholecalciferol (Vitamin D3) 125 mcg PO DAILY 06/17/21 06/17/21 History [Vitamin D3 (125 MCG = 5,000 IU)] Nystatin 100,000 Unit/ml Susp 5 ml PO QID #60 ml 06/17/21 Rx [Mycostatin Oral Susp] Prochlorperazine [Compazine] 10 mg PO Q8H PRN #15 tab 06/17/21 Rx Allergies Allergy/AdvReac Type Severity Reaction Status Date / Time amoxicillin Allergy Unknown Verified 06/17/21 08:49 banana Allergy Rash/Hives Verified 06/17/21 08:49 bee venom protein (honey bee) Allergy Anaphylaxis Verified 06/17/21 08:49 cephalexin [From Keflex] Allergy Unknown Verified 06/17/21 08:49 Penicillins Allergy Rash/Hives Verified 06/17/21 08:49 Tetracyclines Allergy Unknown Verified 06/17/21 08:49 Physical Exam Osteopathic Statement: *. No significant issues noted on an osteopathic structural exam other than those noted in the History and Physical/Consult. Vitals: Vital Signs Temp Pulse Pulse Resp BP BP Pulse Ox 06/17/21 14:50 98.8 F 89 18 99/58 98 06/17/21 10:29 98.2 F 73 18 97/66 100 06/17/21 10:10 98.4 F 74 18 96/62 100 06/17/21 08:18 98.5 F 77 16 94/66 98 06/17/21 06:28 90 18 105/60 99 06/17/21 04:31 99.0 F 115 H 22 119/72 99 Intake and Output 06/17/21 06/17/21 06/17/21 06:59 14:59 22:59 Other: # Voids 1 Weight 63.503 kg 63.503 kg Results CBC & Chem 7: 06/17/21 06:16 06/17/21 06:16 Labs: Abnormal Lab Results - Last 24 Hours (Table) 06/17/21 06/17/21 06/17/21 Range/Units 06:16 06:16 07:12 MCV 103.3 H (80.0-100.0) fL MCH 36.0 H (25.0-35.0) pg Lymphocytes # 0.7 L (1.0-4.8) k/uL ESR 35 H (0-20) mm/hr Sodium 136 L (137-145) mmol/L Glucose 110 H (74-99) mg/dL AST 80 H (14-36) U/L ALT 95 H (4-34) U/L Alkaline Phosphatase 195 H (38-126) U/L C-Reactive Protein (<1.0) mg/dL 06/17/21 Range/Units 07:12 MCV (80.0-100.0) fL MCH (25.0-35.0) pg Lymphocytes # (1.0-4.8) k/uL ESR (0-20) mm/hr Sodium (137-145) mmol/L Glucose (74-99) mg/dL AST (14-36) U/L ALT (4-34) U/L Alkaline Phosphatase (38-126) U/L C-Reactive Protein 6.5 H (<1.0) mg/dL Thrombosis Risk Factor Assmnt - Choose All That Apply Each Factor Represents 1 point: Age 41-60 years Thrombosis Risk Factor Assessment Total Risk Factor Score: 1 Thrombosis Risk Factor Assessment Level: Low Risk
--- NOTE | 2021-06-17 15:21 | P.CNNES ---
History of Present Illness Consult date: 06/17/21 Reason for Consult: severe headache History of Present Illness: The patient is a 55-year-old, right-handed female who is seen in neurologic consultation on June 17, 2021, via telemedicine. The patient presented to the emergency department because of severe, intractable headache. The patient describes a stabbing pain in her left temporal head region. She says the pain began several days ago. When it initially started, she went to bed. She says she slept for 2 days. She did get out of bed to use the bathroom, however did not eat or drink anything for those 2 days. She said that her was very concerned and attempted to wake her up. Most recently, when she got up, her headache was extremely severe and so, she came into the emergency department. The patient denies a history of headaches, however and review of previous admissions, the patient has been seen by neurology for similar, intractable head pain. The previous headaches were worked up with MRI, CAT scan, MRV and lumbar puncture. All of this testing was negative. It was thought that the headaches were secondary to the patient's medication-Neulasta. It appeared that the headaches began following a dose of Neulasta. In the emergency department, CT scan of the brain and CT angiogram of the head and neck were performed. These tests were negative for acute hemorrhage infarct and mass. Laboratory evaluation revealed a normal white blood cell count. ESR slightly elevated at 35 and CRP elevated at 6.5. The patient denies visual changes. She denies neck pain. She denies difficulty with speech, swallowing, paresthesias, weakness and ataxia. She does report phonophobia and osmophobia, associated with her headache. She did initially have some nausea however this has resolved. The patient denies dizziness and hearing loss. The patient also reports recent pain in her leg, for which her primary care physician has some concern for possible DVT. Patient has not had an ultrasound as of yet. Currently, the patient has thrush on her tongue. The patient has a history of myelodysplastic syndrome and lymphoma. She takes Cytoxan for her cancer. 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 she is to follow up with him for oral chemo History of Any Multi-Drug Resistant Organisms: C-DIFF Date of last positivie culture/infection: 2015[facility] states this has been ongoing since dec MDRO Source:: wound rt hip / stool Past Surgical History: Hysterectomy Additional Past Surgical History / Comment(s): ectopic , neck surgery secondary to C3 fracture, bone marrow biopsy x 4 Past Anesthesia/Blood Transfusion Reactions: No Reported Reaction Additional Past Anesthesia/Blood Transfusion Reaction / Comment(s): pt stated has received blood in past no known reaction Past Psychological History: Anxiety, Depression Additional Psychological History / Comment(s): patient lives alone-patient does not drive-friend Kristian drives pt. to appointments or ride through [employer]. No medical equipment needs. Smoking Status: Current every day smoker Past Alcohol Use History: None Reported Additional Past Alcohol Use History / Comment(s): started smoking at age 23, smokes 3-5 cig per day Past Drug Use History: None Reported - Past Family History Father Family Medical History: Cancer Additional Family Medical History / Comment(s): mesothelioma Mother History Unknown: Yes Medications and Allergies Home Medications Medication Instructions Recorded Confirmed Type Ferrous Sulfate [Iron (65 MG 325 mg PO DAILY 03/06/17 06/17/21 History Elemental)] Cyclophosphamide [Gengraf] 100 mg PO HS 06/23/18 06/17/21 History Pantoprazole [Protonix] 40 mg PO DAILY #15 tablet. 06/26/18 06/17/21 Rx Folic Acid 1 mg PO DAILY 01/22/19 06/17/21 History Hydrocodone/Acetaminophen [[place] 1 tab PO TID PRN 01/22/19 06/17/21 History 7.5-325] Levothyroxine Sodium [Synthroid] 300 mcg PO DAILY 01/22/19 06/17/21 History Albuterol Sulfate [Ventolin HFA] 2 puff INHALATION RT-QID 06/17/21 06/17/21 History Cholecalciferol (Vitamin D3) 125 mcg PO DAILY 06/17/21 06/17/21 History [Vitamin D3 (125 MCG = 5,000 IU)] Nystatin 100,000 Unit/ml Susp 5 ml PO QID #60 ml 06/17/21 Rx [Mycostatin Oral Susp] Prochlorperazine [Compazine] 10 mg PO Q8H PRN #15 tab 06/17/21 Rx Allergies Allergy/AdvReac Type Severity Reaction Status Date / Time amoxicillin Allergy Unknown Verified 06/17/21 08:49 banana Allergy Rash/Hives Verified 06/17/21 08:49 bee venom protein (honey bee) Allergy Anaphylaxis Verified 06/17/21 08:49 cephalexin [From Keflex] Allergy Unknown Verified 06/17/21 08:49 Penicillins Allergy Rash/Hives Verified 06/17/21 08:49 Tetracyclines Allergy Unknown Verified 06/17/21 08:49 Physical Examination - Vital Signs Vital Signs: Vital Signs Temp Pulse Pulse Resp BP BP Pulse Ox 06/17/21 10:29 98.2 F 73 18 97/66 100 06/17/21 10:10 98.4 F 74 18 96/62 100 06/17/21 08:18 98.5 F 77 16 94/66 98 06/17/21 06:28 90 18 105/60 99 06/17/21 04:31 99.0 F 115 H 22 119/72 99 Intake and Output 06/16/21 06/17/21 06/17/21 22:59 06:59 14:59 Other: Weight 63.503 kg 63.503 kg Gen.: The patient is reclining in the bed. She is a thin female who appears older than her stated age. She is in [id number] distress secondary to headache. HEENT: Head is atraumatic, normocephalic. There is mild tenderness to palpation over the left temporal artery. Fundus not visualized. There is no scleral icterus. Mucous membranes are moist. Neck: Supple, without carotid bruits Heart: Regular rate and rhythm Lungs: Clear to auscultation Extremities: Without edema Neurological examination Mental status: The patient is awake, alert and oriented 3. Her speech is clear. There is no dysarthria or aphasia. Cranial nerves: Pupils are equal at 2 mm and reactive. Visual conti are full to confrontation. Extraocular movements are intact. There is no nystagmus. Facial sensation is intact. There is no facial asymmetry. Hearing is grossly intact. Uvula and palate are midline. Shoulder shrug is symmetric. Tongue protrudes midline. Motor: Strength is 5/5 throughout Coordination: Finger to nose and rapid alternating movements are intact Deep tendon reflexes: 2+/4+ throughout. Sensation: Grossly intact to light touch throughout. There is no extinction with double simultaneous stimulation. Results - Laboratory Findings CBC and BMP: 06/17/21 06:16 06/17/21 06:16 Abnormal Lab Findings: Abnormal Labs 06/17/21 06/17/21 06/17/21 06:16 06:16 07:12 MCV 103.3 H MCH 36.0 H Lymphocytes # 0.7 L ESR 35 H Sodium 136 L Glucose 110 H AST 80 H ALT 95 H Alkaline Phosphatase 195 H C-Reactive Protein 06/17/21 07:12 MCV MCH Lymphocytes # ESR Sodium Glucose AST ALT Alkaline Phosphatase C-Reactive Protein 6.5 H Assessment and Plan Assessment: 1. Cephalgia, similar to previous hospitalizations, although this was not comm unicated by the patient. The patient has a nonfocal, nonlateralizing neurological examination. 2. Sedimentation rate of 35 is essentially normal for patient of this age and so is not consistent with temporal arteritis 3. There are no findings suggestive of WATER/WASTEWATER [employer]GER infection Plan: 1. MRI of the brain with and without gadolinium has been ordered 2. Continue to treat the pain at this point in time 3. Will reevaluate patient tomorrow, if headache continues ADDENDUM: MRI of brain reveals no signs of mass, hemorrhage or infarct. MRI of cervical spine reveals what appear to be chronic findings, not related to the patient's headache Time with Patient: Greater than 30 (spent 40 minutes with patient via telemedicine)
--- NOTE | 2021-06-17 15:27 | P.DS ---
Providers Date of admission: 06/17/21 07:53 Expected date of discharge: 06/17/21 Attending physician: Arti Cuenca DO Consults: 06/17/21 07:53 Consult Physician Routine Consulting Provider: Elena Whitman Consult Reason/Comments: Acute severe PRITCHETT Do you want consulting provider notified?: Yes Primary care physician: [facility] Hospital Course: Discharge Diagnosis: Intractable headache with elevated ESR and CRP Hyperintense T1/T2 signal- possible lesion - follow with oncology T-cell leukemia [facility] Course: Patient is a 55-year-old female with history of low grade t- cell leukemia, hypothyroidism, myelodysplasia, and prior DVT who presented to the ER with complaints of headache. In the ER she underwent an extensive evaluation. Laboratory analysis showed slightly elevated liver enzymes at 80 and 95. ESR was slightly elevated at 35. CRP was elevated at 65. She was found to have a h eart rate of 115. CT head was negative, CTA head and neck were also negative. Gallbladder ultrasound showed no cholelithiasis but a common bile duct upper limits of normal at 0.6 cm Patient was seen here for headaches in 2019. At that time she had again a CT of the brain that was negative for aneurysm. She underwent a lumbar puncture with normal for opening pressures. They felt her headache was likely secondary to recent Neulasta injection. She was seen by neurology and MRI brain without significant finding. CT cervical spine with possible T2 lesion. Her Headache improved and she was tolerating a diet. She was determined stable for discharge home. Follow-up: she will increase her oral hydration. She will use compazine as needed for nausea. Her nystatin was refilled as she continues to have thrush. She is aware of possible lesion on T-spine and will follow with Dr. Katz. She will follow with her PCP in 2-3 days For physical exam see progress note same day. A total of 20 minutes of time were spent preparing this complex discharge summary . Patient Condition at Discharge: Good Plan - Discharge Summary Discharge Rx Participant: No New Discharge Prescriptions: New Prochlorperazine [Compazine] 10 mg PO Q8H PRN #15 tab PRN Reason: Nausea Nystatin 100,000 Unit/ml Susp [Mycostatin Oral Susp] 5 ml PO QID #60 ml Continue Ferrous Sulfate [Iron (65 MG Elemental)] 325 mg PO DAILY Cyclophosphamide [Gengraf] 100 mg PO HS Pantoprazole [Protonix] 40 mg PO DAILY #15 tablet. Folic Acid 1 mg PO DAILY Levothyroxine Sodium [Synthroid] 300 mcg PO DAILY Hydrocodone/Acetaminophen [[place] 7.5-325] 1 tab PO TID PRN PRN Reason: Pain Cholecalciferol (Vitamin D3) [Vitamin D3 (125 MCG = 5,000 IU)] 125 mcg PO DAILY Albuterol Sulfate [Ventolin HFA] 2 puff INHALATION RT-QID Discharge Medication List Ferrous Sulfate [Iron (65 MG Elemental)] 325 mg PO DAILY 03/06/17 [History] Cyclophosphamide [Gengraf] 100 mg PO HS 06/23/18 [History] Pantoprazole [Protonix] 40 mg PO DAILY #15 tablet. 06/26/18 [Rx] Folic Acid 1 mg PO DAILY 01/22/19 [History] Hydrocodone/Acetaminophen [[place] 7.5-325] 1 tab PO TID PRN 01/22/19 [History] Levothyroxine Sodium [Synthroid] 300 mcg PO DAILY 01/22/19 [History] Albuterol Sulfate [Ventolin HFA] 2 puff INHALATION RT-QID 06/17/21 [History] Cholecalciferol (Vitamin D3) [Vitamin D3 (125 MCG = 5,000 IU)] 125 mcg PO DAILY 06/17/21 [History] Nystatin 100,000 Unit/ml Susp [Mycostatin Oral Susp] 5 ml PO QID #60 ml 06/17/21 [Rx] Prochlorperazine [Compazine] 10 mg PO Q8H PRN #15 tab 06/17/21 [Rx] Follow up Appointment(s)/Referral(s): Milo Katz MD [STAFF PHYSICIAN] - 2 Weeks [facility] - 1-2 days Activity/Diet/Wound Care/Special Instructions: Activity: as tolerated Diet: regular Special Instructions: If headache returns increase fluid intake, take Benadryl 50 mg oral and compazine 10 mg oral. Discharge Disposition: HOME SELF-CARE
== END 2021-06-17 16:24 | disposition home or self-care (01) ==
LOC: EC 04:25 → 6NMEDSUR 07:53
PROVIDERS: ADMIT Internal Medicine; ATTEND Internal Medicine
DX: R51.9 Headache, unspecified (principal); R79.82 Elevated C-reactive protein (CRP); R70.0 Elevated erythrocyte sedimentation rate; C91.Z0 Other lymphoid leukemia not having achieved remission; B37.0 Candidal stomatitis; R93.7 Abnormal findings on diagnostic imaging of other parts of musculoskeletal system; D46.9 Myelodysplastic syndrome, unspecified; Z20.822 Contact with and (suspected) exposure to COVID-19; R11.0 Nausea; R74.8 Abnormal levels of other serum enzymes; F17.210 Nicotine dependence, cigarettes, uncomplicated; F41.9 Anxiety disorder, unspecified; F32.A Depression, unspecified; E03.9 Hypothyroidism, unspecified; M79.606 Pain in leg, unspecified; Z79.890 Hormone replacement therapy; Z79.899 Other long term (current) drug therapy; Z91.030 Bee allergy status; Z88.0 Allergy status to penicillin; Z91.018 Allergy to other foods; Z88.1 Allergy status to other antibiotic agents; Z90.710 Acquired absence of both cervix and uterus; Z92.25 Personal history of immunosuppression therapy; Z86.718 Personal history of other venous thrombosis and embolism; Z86.19 Personal history of other infectious and parasitic diseases; Z80.8 Family history of malignant neoplasm of other organs or systems
CPT/HCPCS: 99285; 96374; 96376; 96361 ×2; 96375; 36415; 93005; 80053; 85652; 83690; 83735; 84100; 84484; 85025; 85610; 85730; 86140; 87635; 76705; 70496; 70450; 70498; 70553; 72141; G0378; J2270; J1200; J0780; J2405; J1170; Q9967; A9585

== ENCOUNTER 2023-09-05 12:28 | Observation (INO) | payer OTHER ==
[2023-09-05] MEDS: SODIUM CHLORIDE 0.9% 500 ML 500 ML IV STA (14:58)
[2023-09-05 14:59] LABS: Basophils % (A) 1 %; Eosinophils # (A) 0.2 k/uL (0-0.7); Eosinophils % (A) 3 %; HCT 41.7 % (34.0-46.0); Lymphocytes # (A) 1.3 k/uL (1.0-4.8); Lymphocytes % (A) 23 %; MCH 36.3 pg (25.0-35.0); MCHC 33.7 g/dL (31.0-37.0); MCV 107.8 fL (80.0-100.0); Macrocytosis Moderate; Mean Platelet Volume 7.4; Monocytes # (A) 0.2 k/uL (0-1.0); Monocytes % (A) 4 %; Neutrophils # (A) 3.8 k/uL (1.3-7.7); Neutrophils % (A) 68 %; Platelet Count 179 k/uL (150-450); RBC 3.87 m/uL (3.80-5.40); RDW 12.7 % (11.5-15.5); WBC 5.6 k/uL (3.8-10.6)
[2023-09-05] MEDS: MORPHINE SULFATE 4 MG/ML SYRINGE IV STA (14:59)
[2023-09-05 15:12] LABS: ALT 60 U/L (4-34); AST 47 U/L (14-36); African American GFR (CKD) >90 (>60 ml/min/1.73 sqM); Albumin 3.9 g/dL (3.5-5.0); Alkaline Phosphatase 83 U/L (38-126); Anion Gap 4 mmol/L; Blood Urea Nitrogen 15 mg/dL (7-17); Calcium 8.9 mg/dL (8.4-10.2); Carbon Dioxide 24 mmol/L (22-30); Chloride 108 mmol/L (98-107); Glucose 91 mg/dL (74-99); Magnesium 1.8 mg/dL (1.6-2.3); Non-African American GFR(CKD) >90 (>60 ml/min/1.73 sqM); Sodium 136 mmol/L (137-145); Total Bilirubin 0.4 mg/dL (0.2-1.3); Total Protein 6.5 g/dL (6.3-8.2)
[2023-09-05 15:20] LABS: NT-Pro-B-Type Natriuretic Pept 58 pg/mL
[2023-09-05 15:34] LABS: Prothrombin Time 10.6 sec (10.0-12.5)
--- NOTE | 2023-09-05 16:07 | CT ---
EXAMINATION TYPE: CT abdomen pelvis w con DATE OF EXAM: 09/05/2023 COMPARISON: 06/24/2018 HISTORY: nausea, abdominal distention, diarrhea CT DLP: 694.7 mGycm Automated exposure control for dose reduction was used. TECHNIQUE: Helical acquisition of images was performed from the lung bases through the pelvis. CONTRAST: Performed without Oral Contrast and with IV Contrast, patient injected with 100 mL of Isovue 300. There is a stable 6.5 mm nodule in the left lung base otherwise the visualized lung bases are clear. The gallbladder is normal without distention, wall thickening, pericholecystic fluid or gallstones. T here is no biliary ductal dilatation. There is no focal mass or organomegaly involving the liver, pancreas, spleen or adrenal glands. There is no solid renal mass or hydronephrosis and there is homogeneous contrast enhancement of the r enal parenchyma. The caliber the abdominal aorta is normal is no retroperitoneal adenopathy or hemorr migue. The bowel loops are normal in caliber and there is no evidence of dilatation or obstruction. There is marked diverticulosis without CT evidence of acute diverticulitis. No inflammatory changes are identified in the bowel wall or mesentery. There is no free intraperitoneal air or fluid. No pelvic mass, free fluid, abscess or adenopathy. There are surgical absence of the uterus. The osseous structures and soft tissues are intact. IMPRESSION: 1. Stable 6.5 mm left lower lobe pulmonary nodule. 2. Marked diverticulosis without CT evidence of diverticulitis. 3. No acute changes within the abdomen or pelvis.
[2023-09-05 16:12] LABS: Appearance,Urine Clear (Clear); Bilirubin,Urine Negative (Negative); Blood,Urine Negative (Negative); Color,Urine Colorless; Glucose,Urine (UA) Negative (Negative); Ketones,Urine Negative (Negative); Leukocyte Esterase,Urine Negative (Negative); Nitrite,Urine Negative (Negative); Protein,Urine Negative (Negative); Specific Gravity,Urine 1.019 (1.001-1.035); Urobilinogen,Urine <2.0 mg/dL (<2.0)
[2023-09-05 16:29] LABS: T4, Free (Free Thyroxine) 0.08 ng/dL (0.78-2.19)
--- NOTE | 2023-09-05 16:34 | XR ---
EXAMINATION TYPE: XR chest 2V DATE OF EXAM: 09/05/2023 COMPARISON: 03/18/2020 HISTORY: Weakness TECHNIQUE: Frontal and lateral views of the chest are obtained. FINDINGS: There is no focal air space opacity, pleural effusion, or pneumothorax seen. The cardiac silhouette size is within normal limits. The osseous structures are intact. IMPRESSION: No acute cardiopulmonary process.
--- NOTE | 2023-09-05 17:14 | ED ---
Abdominal Pain HPI - General Chief Complaint: Abdominal Pain Stated Complaint: cancer pt, vision issue Time Seen by Provider: 09/05/23 12:53 Source: patient Mode of arrival: ambulatory Limitations: no limitations - History of Present Illness Initial Comments: 57-year-old female with past medical history of thyroid disorder, lymphoma who presents emergency department with fatigue, headache and syncope. States that she just recently moved back to the area and she has been out for of all of her medications except for her oral chemo medication for the past 4 weeks. She has developed symptoms of nasal congestion, nausea, myalgias. Admits to headache without visual changes. No fevers. No sick contacts. Admits to abdominal distention and states that she has not had a bowel movement in 10 days. Patient also reports to me that she thinks she passed out at home. She denies any previous history of cardiac disease. No other alleviating, precipitating or modifying factors - Related Data Previous Rx's Medication Instructions Recorded Cholecalciferol (Vitamin D3) 1 dose PO DIRECTED #30 cap 09/06/23 [Vitamin D3 (125 MCG = 5,000 IU)] Ferrous Sulfate [Iron (65 MG 1 dose PO DAILY #30 tab 09/06/23 Elemental)] Folic Acid 1 dose PO DAILY #30 tab 09/06/23 Levothyroxine Sodium [Synthroid] 125 mcg PO DAILY #30 tablet 09/06/23 Pantoprazole [Protonix] 40 mg PO DAILY #30 tab 09/06/23 Allergies Allergy/AdvReac Type Severity Reaction Status Date / Time amoxicillin Allergy Unknown Verified 09/05/23 20:09 banana Allergy Rash/Hives Verified 09/05/23 20:09 bee venom protein (honey bee) Allergy Anaphylaxis Verified 09/05/23 20:09 cephalexin [From Keflex] Allergy Unknown Verified 09/05/23 20:09 Penicillins Allergy Rash/Hives Verified 09/05/23 20:09 Tetracyclines Allergy Unknown Verified 09/05/23 20:09 Review of Systems ROS Statement: Those systems with pertinent positive or pertinent negative responses have been documented in the HPI. ROS Other: All systems not noted in ROS Statement are negative. 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 she is to follow up with him for oral chemo History of Any Multi-Drug Resistant Organisms: C-DIFF Date of [facility] positivie culture[facility]: [facility] this has been ongoing since dec MDRO Source:: wound rt hip / stool Past Surgical History: Hysterectomy Additional Past Surgical History / Comment(s): ectopic , neck surgery secondary to C3 fracture, bone marrow biopsy x 4 Past Anesthesia/Blood Transfusion Reactions: No Reported Reaction Additional Past Anesthesia/Blood Transfusion Reaction / Comment(s): pt stated has received blood in past no known reaction Past Psychological History: Anxiety, Depression Smoking Status: Current every day smoker Past Alcohol Use History: None Reported Past Drug Use History: None Reported - Past Family History Father Family Medical History: Cancer Additional Family Medical History / Comment(s): mesothelioma Mother History Unknown: Yes General Exam Limitations: no limitations General appearance: alert, in no apparent distress Head exam: Present: atraumatic, normocephalic, normal inspection Eye exam: Present: normal appearance, PERRL, EOMI. Absent: scleral icterus, conjunctival injection, periorbital swelling ENT exam: Present: normal exam, mucous membranes moist Neck exam: Present: normal inspection. Absent: tenderness, meningismus, lymphadenopathy Respiratory exam: Present: normal lung sounds bilaterally. Absent: respiratory distress, wheezes, rales, rhonchi, stridor Cardiovascular Exam: Present: regular rate, normal rhythm, normal heart sounds. Absent: systolic murmur, diastolic murmur, rubs, gallop, clicks GI/Abdominal exam: Present: soft, normal bowel sounds. Absent: distended, tenderness, guarding, rebound, rigid Extremities exam: Present: normal inspection, full ROM, normal capillary refill. Absent: tenderness, pedal edema, joint swelling, calf tenderness Back exam: Present: normal inspection Neurological exam: Present: alert, oriented X3, CN II-XII intact Psychiatric exam: Present: normal affect, normal mood Skin exam: Present: warm, dry, intact, normal color. Absent: rash Course Vital Signs 09/05/23 09/05/23 09/05/23 12:36 14:53 17:43 Temperature 97.9 F 97.6 F Pulse Rate 70 56 L 54 L Respiratory 18 18 18 Rate Blood Pressure 125/84 133/74 144/93 O2 Sat by Pulse 99 98 98 Oximetry 09/05/23 20:24 Temperature Pulse Rate 55 L Respiratory 18 Rate Blood Pressure 122/75 O2 Sat by Pulse 99 Oximetry Medical Decision Making - Medical Decision Making Was pt. sent in by a medical professional or institution (, CHEYANNE, CELL MANAGER, urgent care, hospital, or care home...) When possible be specific @ -No Did you speak to anyone other than the patient for history (EMS, parent, family, police, friend...)? What history was obtained from this source @ -No Did you review nursing and triage notes (agree or disagree)? Why? @ -I reviewed and agree with nursing and triage notes Were old charts reviewed (outside hosp., previous admission, EMS record, old EKG, old radiological studies, urgent care reports/EKG's, care home records)? Report findings @ -No old charts were reviewed Differential Diagnosis (chest pain, altered mental status, abdominal pain women, abdominal pain men, vaginal bleeding, weakness, fever, dyspnea, syncope, headache, dizziness, GI bleed, back pain, seizure, CVA, palpatations, mental health, musculoskeletal)? @ -Differential Weakness: Hypoglycemia, shock, sepsis, hyponatremia, anemia, infection, IA, ETOH, adverse medicine reaction, overdose, stroke, this is not meant to be an all-inclusive list. EKG interpreted by me (3pts min.). @ -Yes and demonstrates sinus bradycardia with a rate of 55. WA interval 173. QRS 85. QTc of 409. No acute ST segment elevations or depressions X-rays interpreted by me (1pt min.). @ -None done CT interpreted by me (1pt min.). @ -Yes and demonstrates no acute process U/S interpreted by me (1pt. min.). @ -None done What testing was considered but not performed or refused? (CT, X-rays, U/S, labs)? Why? @ -None What meds were considered but not given or refused? Why? @ -None Did you discuss the management of the patient with other professionals (professionals i.e. , CHEYANNE, CELL MANAGER, lab, RT, psych nurse, social work specialist, city marshal, teacher, workers' compensation hearings officer, director case)? Give summary @ -Discussed the case with Dr. Mendoza who will admit the patient Was smoking cessation discussed for >3mins.? @ -No Was critical care preformed (if so, how long)? @ -No Were there social determinants of health that impacted care today? How? (Homelessness, low income, unemployed, alcoholism, drug addiction, transportation, low edu. Level, literacy, decrease access to med. care, snf, rehab)? @ -Patient recently moved to the area and is without a primary care doctor Was there de-escalation of care discussed even if they declined (Discuss DNR or withdrawal of care, Hospice)? DNR status @ -No What co-morbidities impacted this encounter? (DM, HTN, Smoking, COPD, CAD, Cancer, CVA, ARF, Chemo, Hep., AIDS, mental health diagnosis, sleep apnea, morbid obesity)? @ -Thyroid disorder, lymphoma Was patient admitted / discharged? Hospital course, mention meds given and route, prescriptions, significant lab abnormalities, going to OR and other pertinent info. @ -Upon arrival patient was seen and evaluated in room 33. Thorough history and physical exam was performed. IV was established. Patient was given IV fluids as well as pain medications. Laboratory studies are conducted and reviewed. Patient does go for imaging of her abdomen she reports to lack of bowel movements for 10 days. Upon return the results are discussed with the patient. She is bradycardic and had a syncopal episode at home per her history. Because of this in conjunction with her low thyroid she will be observed overnight. I did replace her thyroid medication by mouth. Patient agreeable to admission. Spoke with Dr. Mendoza Undiagnosed new problem with uncertain prognosis? @ -No Drug Therapy requiring intensive monitoring for toxicity (Heparin, Nitro, Insulin, Cardizem)? @ -No Were any procedures done? @ -No Diagnosis/symptom? @ -Acute weakness, acute syncope, hypothyroid, medical noncompliance Acute, or Chronic, or Acute on Chronic? @ -Acute Uncomplicated (without systemic symptoms) or Complicated (systemic symptoms)? @ -Complicated Side effects of treatment? @ -No Exacerbation, Progression, or Severe Exacerbation? @ -No Poses a threat to life or bodily function? How? (Chest pain, USA, IA, pneumonia, PE, COPD, DKA, ARF, appy, cholecystitis, CVA, Diverticulitis, Homicidal, Suicidal, threat to staff... and all critical care pts) @ -No - Lab Data Result diagrams: 09/06/23 06:47 09/06/23 06:47 Lab Results 09/05/23 09/05/23 09/05/23 Range/Units 14:46 14:46 14:46 WBC 5.6 (3.8-10.6) k/uL RBC 3.87 (3.80-5.40) m/uL Hgb 14.0 (11.4-16.0) gm/dL Hct 41.7 (34.0-46.0) % MCV 107.8 H (80.0-100.0) fL MCH 36.3 H (25.0-35.0) pg MCHC 33.7 (31.0-37.0) g/dL RDW 12.7 (11.5-15.5) % Plt Count 179 (150-450) k/uL MPV 7.4 Neutrophils % 68 % Lymphocytes % 23 % Monocytes % 4 % Eosinophils % 3 % Basophils % 1 % Neutrophils # 3.8 (1.3-7.7) k/uL Lymphocytes # 1.3 (1.0-4.8) k/uL Monocytes # 0.2 (0-1.0) k/uL Eosinophils # 0.2 (0-0.7) k/uL Basophils # 0.0 (0-0.2) k/uL Macrocytosis Moderate PT 10.6 (10.0-12.5) sec INR 1.0 (<1.2) APTT 26.0 (22.0-30.0) sec Sodium 136 L (137-145) mmol/L Potassium 4.0 (3.5-5.1) mmol/L Chloride 108 H (98-107) mmol/L Carbon Dioxide 24 (22-30) mmol/L Anion Gap 4 mmol/L BUN 15 (7-17) mg/dL Creatinine 0.65 (0.52-1.04) mg/dL Est GFR (CKD-EPI)AfAm >90 (>60 ml/min/1.73 sqM) Est GFR (CKD-EPI)NonAf >90 (>60 ml/min/1.73 sqM) Glucose 91 (74-99) mg/dL Plasma Lactic Acid Denis (0.7-2.0) mmol/L Calcium 8.9 (8.4-10.2) mg/dL Magnesium 1.8 (1.6-2.3) mg/dL Total Bilirubin 0.4 (0.2-1.3) mg/dL AST 47 H (14-36) U/L ALT 60 H (4-34) U/L Alkaline Phosphatase 83 (38-126) U/L Troponin I (0.000-0.034) ng/mL NT-Pro-B Natriuret Pep 58 pg/mL Total Protein 6.5 (6.3-8.2) g/dL Albumin 3.9 (3.5-5.0) g/dL TSH >100.000 H (0.465-4.680) mIU/L Free T4 0.08 L (0.78-2.19) ng/dL Urine Color Urine Appearance (Clear) Urine pH (5.0-8.0) Ur Specific [place] (1.001-1.035) Urine Protein (Negative) Urine Glucose (UA) (Negative) Urine Ketones (Negative) Urine Blood (Negative) Urine Nitrite (Negative) Urine Bilirubin (Negative) Urine Urobilinogen (<2.0) mg/dL Ur Leukocyte Esterase (Negative) 09/05/23 09/05/23 09/05/23 Range/Units 14:46 14:46 15:51 WBC (3.8-10.6) k/uL RBC (3.80-5.40) m/uL Hgb (11.4-16.0) gm/dL Hct (34.0-46.0) % MCV (80.0-100.0) fL MCH (25.0-35.0) pg MCHC (31.0-37.0) g/dL RDW (11.5-15.5) % Plt Count (150-450) k/uL MPV Neutrophils % % Lymphocytes % % Monocytes % % Eosinophils % % Basophils % % Neutrophils # (1.3-7.7) k/uL Lymphocytes # (1.0-4.8) k/uL Monocytes # (0-1.0) k/uL Eosinophils # (0-0.7) k/uL Basophils # (0-0.2) k/uL Macrocytosis PT (10.0-12.5) sec INR (<1.2) APTT (22.0-30.0) sec Sodium (137-145) mmol/L Potassium (3.5-5.1) mmol/L Chloride (98-107) mmol/L Carbon Dioxide (22-30) mmol/L Anion Gap mmol/L BUN (7-17) mg/dL Creatinine (0.52-1.04) mg/dL Est GFR (CKD-EPI)AfAm (>60 ml/min/1.73 sqM) Est GFR (CKD-EPI)NonAf (>60 ml/min/1.73 sqM) Glucose (74-99) mg/dL Plasma Lactic Acid Denis 0.9 (0.7-2.0) mmol/L Calcium (8.4-10.2) mg/dL Magnesium (1.6-2.3) mg/dL Total Bilirubin (0.2-1.3) mg/dL AST (14-36) U/L ALT (4-34) U/L Alkaline Phosphatase (38-126) U/L Troponin I <0.012 (0.000-0.034) ng/mL NT-Pro-B Natriuret Pep pg/mL Total Protein (6.3-8.2) g/dL Albumin (3.5-5.0) g/dL TSH (0.465-4.680) mIU/L Free T4 (0.78-2.19) ng/dL Urine Color Colorless Urine Appearance Clear (Clear) Urine pH 7.0 (5.0-8.0) Ur Specific [place] 1.019 (1.001-1.035) Urine Protein Negative (Negative) Urine Glucose (UA) Negative (Negative) Urine Ketones Negative (Negative) Urine Blood Negative (Negative) Urine Nitrite Negative (Negative) Urine Bilirubin Negative (Negative) Urine Urobilinogen <2.0 (<2.0) mg/dL Ur Leukocyte Esterase Negative (Negative) Disposition Clinical Impression: Hypothyroid, Syncope, Bradycardia Disposition: ADMITTED IP TO THIS [facility] Condition: Stable Is patient prescribed a controlled substance at d/c from ED?: No Time of Disposition: 18:37 Decision to Admit Reason: Admit from EC Decision Date: 09/05/23 Decision Time: 18:39
[2023-09-05] MEDS: LEVOTHYROXINE 100 MCG TAB PO STA (18:20)
[2023-09-05] MEDS: ACETAMINOPHEN TAB 325 MG TAB PO STA (18:20)
[2023-09-05] MEDS: MORPHINE SULFATE 4 MG/ML SYRINGE IVP STA (18:20)
[2023-09-05] MEDS ORDERED: NALOXONE 0.4 MG/ML 1 ML VIAL IV PRN (18:39)
[2023-09-05 21:26] VITALS: RESP 16
--- NOTE | 2023-09-05 22:38 | P.HPIM ---
History of Present Illness H&P Date: 09/05/23 Patient is a 57-year-old female with a PMH of low-grade T-cell leukemia, myelodysplastic syndrome, hypothyroidism, and history of DVT, who presents to the emergency room with complaints of fatigue, myalgias, and constipation. Patient notes her blood symptoms have been gradually worsening over the past several weeks. She also reports experiencing an episode of syncope earlier today where she lost consciousness for several minutes, without tongue biting or urinary incontinence. She denies experiencing chest discomfort or shortness of breath prior to the episode. Notes that she has not seen her oncologist for nearly a year but somehow continues to get her chemotherapy via mail order pharmacy. She also reports she has not been taking any of her other medications including Synthroid for the past 1 year. Reports having little energy to perform her ADLs. Also reports left lower quadrant abdominal discomfort over the past few days, 3 out of 10 at maximal intensity with no alleviating or e xacerbating features and unrelated to food. Denies experiencingfever, chills, cough, nausea, vomiting, or blood in stools. CT abdomen and pelvis in the emergency room revealed a stable pulmonary nodule with marked diverticulosis without any additional abnormalities. Chest x-ray was unremarkable with EKG showing sinus bradycardia at [address]/T wave changes noted as reviewed by me. Laboratory evaluation revealed a TSH of greater than 100 with free T4 0.08, troponin less than 0.012, AST 47, ALT 60, sodium 136, and MCV 107.8 with UA unremarkable. The patient's vitals upon arrival at the emergency room were BP 125/84, pulse 70, SpO2 99%, with 97.9 F. ED documentation reviewed and case discussed with ED provider. Review of systems: Pertinent positives and negatives as discussed in HPI, a complete review of systems was performed and all other systems are negative. Physical examination: Vital signs reviewed General: non toxic, no distress, appears at stated age, normal weight Derm: no unusual rashes/lesions, warm Head: atraumatic, normocephalic, symmetric Eyes: EOMI, no lid lag, anicteric sclera, pupils equal round reactive to light ENT: Nose and ears atraumatic Neck: No cervical lymphadenopathy, trachea midline, supple Mouth: no lip lesion, mucus membranes moist Cardiovascular: S1S2 reg, no murmur, positive dorsalis pedis pulse bilateral, no edema Lungs: CTA bilateral, no rhonchi, no rales, no accessory muscle use Abdominal: soft, mild left lower quadrant tenderness to palpation, no guarding Ext: muscle strength 5 out of 5 in all 4 extremities grossly, no gross muscle atrophy, no contractures, Neuro: CN II-XI grossly intact, no gross focal neuro deficits Psych: Alert, oriented, appropriate affect Assessment: Symptomatic hypothyroidism Syncope, suspect may be due to severe hypothyroidism Transaminitis Macrocytosis Chronic conditions: Low-grade T-cell leukemia, myelodysplastic syndrome, history of DVT (not on anticoagulation Imaging: CT abdomen and pelvis in the emergency room revealed a stable pulmonary nodule with marked diverticulosis without any additional abnormalities. Chest x-ray was unremarkable with EKG showing sinus bradycardia at [address]/T wave changes noted as reviewed by me. Data Review: Laboratory evaluation revealed a TSH of greater than 100 with free T4 0.08, troponin less than 0.012, AST 47, ALT 60, sodium 136, and MCV 107.8 with UA unremarkable. The patient's vitals upon arrival at the emergency room were BP 1 25/84, pulse 70, SpO2 99%, with 97.9 F. Plan: Continue patient on levothyroxine 100 mcg IV daily while hospitalized Plans to resume levothyroxine 300 mcg p.o. daily upon discharge Check cortisol levels Check B12 and folate levels Order Dulcolax for persistent constipation Monitor LFTs Continue IV fluids with 75 cc/h normal saline Fall precautions Obtain echocardiogram Cardiac monitoring DVT prophylaxis: Lovenox subcu The patient is admitted with an anticipated greater than 2 midnight stay for evaluation of hypothyroidism CODE STATUS: Full Code Discussed with: Patient Anticipated discharge place: Home Past Medical History Past Medical History: Cancer, Deep Vein Thrombosis (DVT), Thyroid Disorder Additional Past Medical History / Comment(s): neutropenia, hypothyroidism, myelodisplasia, anemia - per 's note from 03/2018 pt was dx thru bone marrow bx at the [facility] 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 she is to follow up with him for oral chemo History of Any Multi-Drug Resistant Organisms: C-DIFF [facility] this has been ongoing since dec MDRO Source:: wound rt hip / stool Past Surgical History: Hysterectomy Additional Past Surgical History / Comment(s): ectopic , neck surgery secondary to C3 fracture, bone marrow biopsy x 4 Past Anesthesia/Blood Transfusion Reactions: No Reported Reaction Additional Past Anesthesia/Blood Transfusion Reaction / Comment(s): pt stated has received blood in past no known reaction Past Psychological History: Anxiety, Depression Additional Psychological History / Comment(s): patient lives alone-patient does not drive-friend Kristian drives pt. to appointments or ride through [facility] [employer] [facility]. No medical equipment needs. Smoking Status: Former smoker Past Alcohol Use History: None Reported Additional Past Alcohol Use History / Comment(s): started smoking at age 23, smokes 3-5 cig per day. Quit 2021 Past Drug Use History: None Reported - Past Family History Father Family Medical History: Cancer Additional Family Medical History / Comment(s): mesothelioma Mother History Unknown: Yes Family Medical History: Hyperlipidemia Medications and Allergies Home Medications Medication Instructions Recorded Confirmed Type Ferrous Sulfate [Iron (65 MG 1 dose PO DIRECTED 03/06/17 09/05/23 History Elemental)] Folic Acid 1 dose PO DIRECTED 01/22/19 09/05/23 History Hydrocodone/Acetaminophen [[place] 1 dose PO DIRECTED PRN 01/22/19 09/05/23 His tory 7.5-325] Cholecalciferol (Vitamin D3) 1 dose PO DIRECTED 06/17/21 09/05/23 History [Vitamin D3 (125 MCG = 5,000 IU)] Cyclophosphamide(Unknown Dose) 1 dose PO DIRECTED 09/05/23 09/05/23 History Loperamide HCl [Imod[place] A-D] 1 dose PO DIRECTED 09/05/23 09/05/23 History Magnesium Oxide(Unknown Dose) 1 dose PO DIRECTED 09/05/23 09/05/23 History Prilosec(Unknown Dose) 1 dose PO DIRECTED 09/05/23 09/05/23 History Protonix(Unknown Dose) 1 dose PO DIRECTED 09/05/23 09/05/23 History Synthroid(Unknown Dose) 1 dose PO DIRECTED 09/05/23 09/05/23 History Allergies Allergy/AdvReac Type Severity Reaction Status Date / Time amoxicillin Allergy Unknown Verified 09/05/23 20:09 banana Allergy Rash/Hives Verified 09/05/23 20:09 bee venom protein (honey bee) Allergy Anaphylaxis Verified 09/05/23 20:09 cephalexin [From Keflex] Allergy Unknown Verified 09/05/23 20:09 Penicillins Allergy Rash/Hives Verified 09/05/23 20:09 Tetracyclines Allergy Unknown Verified 09/05/23 20:09 Physical Exam Vitals: Vital Signs Temp Pulse Pulse Resp BP BP Pulse Ox 09/05/23 20:40 97.9 F 55 L 16 133/88 99 09/05/23 20:24 55 L 18 122/75 99 09/05/23 17:43 97.6 F 54 L 18 144/93 98 09/05/23 14:53 56 L 18 133/74 98 09/05/23 12:36 97.9 F 70 18 125/84 99 Intake and Output 09/05/23 09/05/23 09/05/23 06:59 14:59 22:59 Other: Weight 63.503 kg 63.503 kg Results CBC & Chem 7: 09/05/23 14:46 09/05/23 14:46 Labs: Abnormal Lab Results - Last 24 Hours (Table) 09/05/23 09/05/23 Range/Units 14:46 14:46 MCV 107.8 H (80.0-100.0) fL MCH 36.3 H (25.0-35.0) pg Sodium 136 L (137-145) mmol/L Chloride 108 H (98-107) mmol/L AST 47 H (14-36) U/L ALT 60 H (4-34) U/L TSH >100.000 H (0.465-4.680) mIU/L Free T4 0.08 L (0.78-2.19) ng/dL Thrombosis Risk Factor Assmnt - Choose All That Apply Any of the Below Risk Factors Present?: Yes Each Factor Represents 1 point: Age 41-60 years Other Risk Factors: Yes Each Risk Factor Represents 2 Points: Malignancy Other congenital or acquired thrombophilia - If yes, enter type in comment: No Thrombosis Risk Factor Assessment Total Risk Factor Score: 3 Thrombosis Risk Factor Assessment Level: Moderate Risk
[2023-09-05] MEDS: bisacodyL 5 MG TABLET.DR PO ONE (23:02)
[2023-09-05] MEDS: HYDROcodone/APAP 5-325MG 1 EACH TAB PO STA (23:02)
[2023-09-05] MEDS: SODIUM CHLORIDE 0.9% 1,000 ML IV SCH (23:03)
[2023-09-05] MEDS: LEVOTHYROXINE IVP 100 MCG/5 ML VIAL IV SCH (23:49)
[2023-09-06] MEDS: ENOXAPARIN 40 MG/0.4 ML SYRINGE SQ SCH (08:00)
[2023-09-06] MEDS: ACETAMINOPHEN TAB 325 MG TAB PO PRN (08:00)
[2023-09-06 10:47] LABS: Basophils # (A) 0.04 X 10*3/uL (0.00-0.10); Basophils % (A) 0.9 %; Eosinophils # (A) 0.18 X 10*3/uL (0.04-0.35); Eosinophils % (A) 4.1 %; HCT 38.1 % (37.2-46.3); HGB 12.9 g/dL (12.0-15.0); Lymphocytes # (A) 1.41 X 10*3/uL (0.90-5.00); Lymphocytes % (A) 31.8 %; MCH 35.5 pg (27.0-32.0); MCHC 33.9 g/dL (32.0-37.0); Mean Platelet Volume 9.5 FL (9.5-12.2); Monocytes # (A) 0.29 X 10*3/uL (0.20-1.00); Monocytes % (A) 6.5 %; NRBC Per 100 WBC 0 X 10*3/uL (0.00-0.01); Neutrophils # (A) 2.51 X 10*3/uL (1.80-7.70); Neutrophils % (A) 56.5 %; Platelet Count 171 X 10*3/uL (140-440); RBC 3.63 X 10*6/uL (4.10-5.20); RDW 13.4 % (11.5-14.5); WBC 4.44 X 10*3/uL (4.50-10.00)
[2023-09-06 11:24] LABS: BUN/Creat Ratio 15.75 Ratio (12.00-20.00); Blood Urea Nitrogen 12.6 mg/dL (9.0-27.0); Calcium 8.5 mg/dL (8.7-10.3); Carbon Dioxide 20.9 mmol/L (21.6-31.8); Chloride 106 mmol/L (96-109); Glucose 82 mg/dL (70-110); Potassium 3.8 mmol/L (3.5-5.5); Sodium 137 mmol/L (135-145)
--- NOTE | 2023-09-06 12:28 | CA ---
Transthoracic Echo Report Name: China Chand Age: 57 Gender: F : 1965 Exam Date: 09/06/2023 09:02 Exam Location: [facility] Ht (in): 69 Wt (lb): 140 Ordering Physician: Naresh Brooks MD Attending/Referring Phys: Supervisor Lace Tearing Aminata Castellano RDCS Procedure CPT: Indications: Syncope Cardiac Hx: Technical Quality: Good Contrast 1: Total Dose (mL): Contrast 2: Total Dose (mL): MEASUREMENTS (Male / Female) Normal Values 2D ECHO LV Diastolic Diameter PLAX 3.8 cm 4.2 - 5.9 / 3.9 - 5.3 cm LV Systolic Diameter PLAX 2.4 cm IVS Diastolic Thickness 1.2 cm 0.6 - 1.0 / 0.6 - 0.9 cm LVPW Diastolic Thickness 1.2 cm 0.6 - 1.0 / 0.6 - 0.9 cm LV Relative Wall Thickness 0.7 RV Internal Dim ED PLAX 2.2 cm LA Systolic Diameter LX 3.1 cm 3.0 - 4.0 / 2.7 - 3.8 cm LV Diastolic Volume MOD BP 46.6 cm??? 67 - 155 / 56 - 104 cm??? LV Systolic Volume MOD BP 21.6 cm??? 22 - 58 / 19 - 49 cm??? LV Ejection Fraction MOD BP 53.6 % >= 55 % LV Diastolic Volume MOD 4C 47.5 cm??? LV Systolic Volume MOD 4C 17.2 cm??? LV Ejection Fraction MOD 4C 63.8 % LV Diastolic Length 4C 6.3 cm LV Systolic Length 4C 5.0 cm LV Diastolic Volume MOD 2C 45.6 cm??? LV Systolic Volume MOD 2C 22.4 cm??? LV Ejection Fraction MOD 2C 50.9 % LV Diastolic Length 2C 6.5 cm LV Systolic Length 2C 6.1 cm M-MODE Aortic Root Diameter MM 2.7 cm LA Systolic Diameter MM 3.3 cm LA Ao Ratio MM 1.2 AV Cusp Separation MM 1.9 cm DOPPLER Mitral E Point Velocity 81.2 cm/s Mitral A Point Velocity 52.6 cm/s Mitral E to A Ratio 1.5 MV Deceleration Time 296.4 ms TR Peak Velocity 170.2 cm/s TR Peak Gradient 11.6 mmHg Right Ventricular Systolic Press 16.7 mmHg FINDINGS Left Ventricle Left ventricular ejection fraction is estimated at 55-60 %. Mildly increased septal wall thickness. Mildly increased posterior wall thickness. Normal left ventricular systolic function with no obvious regional wall motion abnormalities. Left ventricular cavity size normal. Right Ventricle Normal right ventricular size and function. Right ventricular systolic pressure within normal limits. Right Atrium Normal right atrial size. Left Atrium Normal left atrial size. Mitral Valve Structurally normal mitral valve. Trace mitral regurgitation. Aortic Valve Trileaflet aortic valve. No aortic valve stenosis or regurgitation. Tricuspid Valve Structurally normal tricuspid valve. Mild tricuspid regurgitation. Pulmonic Valve Structurally normal pulmonic valve. No pulmonic stenosis. Trace pulmonic regurgitation. Pericardium No pericardial or pleural effusion. Aorta Normal size aortic root and proximal ascending aorta. CONCLUSIONS Normal LV systolic function Previewed by: Dr. Benedicto Cadena MD (Electronically Signed) Final Date: 06 Sep 2023 12:27
[2023-09-06 13:40] VITALS: BP 124/82; PULSE 59; TEMP 97.6
--- NOTE | 2023-09-06 14:49 | CT ---
EXAMINATION TYPE: CT brain wo con DATE OF EXAM: 09/06/2023 COMPARISON: 06/17/2021 HISTORY: headaches CT DLP: 1123 mGycm Automated exposure control for dose reduction was used. Findings: The ventricles, basal cisterns and sulci over the convexities are within normal limits and there is n o mass effect or shift of midline structures. No abnormal density is seen throughout the brain parenchyma and there is no acute intra or extra-axia l hemorrhage. The posterior fossa including the brainstem, fourth ventricle and cerebellar pontine angles appear no rmal. Intraorbital contents appear normal and symmetric. Visualized paranasal sinuses and mastoid air cells are well aerated. The calvarium is intact. IMPRESSION: No significant abnormality seen. There is no acute bleed or mass effect. No interval change.
--- NOTE | 2023-09-06 15:34 | P.DS ---
Providers Date of admission: 09/05/23 18:39 Expected date of discharge: 09/06/23 Attending physician: Fred Mendoza MD Primary care physician: Stated None Hospital Course: Discharge Diagnosis: Syncope Severe hypothyroidism Mild transaminitis GERD Hospital Course: Patient is a 57-year-old female with history of low-grade T-cell leukemia, mild dysplastic syndrome, hypothyroidism, and DVT who presented to the emergency room with complaints of fatigue. Patient has not followed with a primary care provider in several months and has been out of her medication. She then reported an episode of syncope. On arrival her vital signs were within normal limits. Initial laboratory analysis was remarkable for TSH of greater than 100 and a T4 of 0.08. Urinalysis was negative. She was started on IV Synthroid. A CT abdomen and pelvis due to her complaints of constipation which showed a stable left lower lobe pulmonary nodule with marked diverticulosis without evidence of diverticulitis arranges were made for observation due to her significant hypothyroidism and syncopal episode. She was monitored overnight on telemetry without any significant abnormal rhythms. She underwent echocardiogram which demonstrated an ejection fraction of 55 to 60% with no significant valvular disease. She underwent a CT of the head which demonstrated no acute intercranial abnormality or mass effect. No interval change. She did not have any more syncopal events while in the hospital. She was determined stable for [facility] home. I did explain that it will take several weeks to feel better from her severe hypothyroidism. Patient seen and examined at bedside. She has multiple complaints including a headache, nausea, pain that is all over, constipation that has now turned into watery diarrhea. Feeling very weak and tired. Rogelio discussion that many of her symptoms could be caused from her hypothyroidism. I did agree to refill her Synthroid and her Protonix. I let her know that she should continue to search for primary care providers in the area and that she has a lot of conditions going on that need continuous outpatient follow-up, and that the hospital is appropriate for life-threatening emergencies Vital signs reviewed and stable. General: Nontoxic, no distress, appears at stated age Cardiovascular: S1S2 reg, no murmur, positive posterior tibial pulse bilateral, Lungs: CTA bilateral, no rhonchi, no rales, no accessory muscle use Abdominal: Soft, nontender to palpation, no guarding, no appreciable organomegaly Ext: No gross muscle atrophy, no edema b/l lower extremities, no contractures Neuro: CN II-XI grossly intact, no focal neuro deficits Psych: Alert, oriented, appropriate affect A total of 32 minutes of time were spent preparing this complex discharge summary. Patient was discharged on 09/06/23. This dictation was prepared using [employer] voice recognition software. Though every attempt is made to correct errors during dictation some may still exist. Patient Condition at Discharge: Stable Plan - Discharge Summary Discharge Rx Participant: No New Discharge Prescriptions: New Pantoprazole [Protonix] 40 mg PO DAILY #30 tab Levothyroxine Sodium [Synthroid] 125 mcg PO DAILY #30 tablet Continue Cholecalciferol (Vitamin D3) [Vitamin D3 (125 MCG = 5,000 IU)] 1 dose PO DIRECTED #30 cap Changed Folic Acid 1 dose PO DAILY #30 tab Ferrous Sulfate [Iron (65 MG Elemental)] 1 dose PO DAILY #30 tab Discontinued Hydrocodone/Acetaminophen [[place] 7.5-325] 1 dose PO DIRECTED PRN PRN Reason: Pain Prilosec(Unknown Dose) 1 dose PO DIRECTED Loperamide HCl [Imodium A-D] 1 dose PO DIRECTED Synthroid(Unknown Dose) 1 dose PO DIRECTED Protonix(Unknown Dose) 1 dose PO DIRECTED Magnesium Oxide(Unknown Dose) 1 dose PO DIRECTED Cyclophosphamide(Unknown Dose) 1 dose PO DIRECTED Discharge Medication List Cholecalciferol (Vitamin D3) [Vitamin D3 (125 MCG = 5,000 IU)] 1 dose PO DIRECTED #30 cap 09/06/23 [Rx] Ferrous Sulfate [Iron (65 MG Elemental)] 1 dose PO DAILY #30 tab 09/06/23 [Rx] Folic Acid 1 dose PO DAILY #30 tab 09/06/23 [Rx] Levothyroxine Sodium [Synthroid] 125 mcg PO DAILY #30 tablet 09/06/23 [Rx] Pantoprazole [Protonix] 40 mg PO DAILY #30 tab 09/06/23 [Rx] Follow up Appointment(s)/Referral(s): None,Stated [Primary Care Provider] - 1-2 days Activity/Diet/Wound Care/Special Instructions: Activity: As tolerated Diet: Regular Special Instructions: No driving per [employer] Law until 6 months free of impaired consciousness (such as passing out or seizures) Please establish a primary care provider as soon as possible, you need repeat thyroid labs in 6 weeks. Take Synthroid in the morning 30 minutes apart from all other medications. Discharge/Stand Alone Forms: Area PCPs Discharge Disposition: HOME SELF-CARE
== END 2023-09-06 18:22 | disposition home or self-care (01) ==
LOC: EC 12:28 → 5NMEDONC 18:39
PROVIDERS: ADMIT Student in an Organized Health Care Education/Training Program; ATTEND Student in an Organized Health Care Education/Training Program
DX: R55 Syncope and collapse (principal); R00.1 Bradycardia, unspecified; R74.01 Elevation of levels of liver transaminase levels; D75.89 Other specified diseases of blood and blood-forming organs; C91.00 Acute lymphoblastic leukemia not having achieved remission; E03.9 Hypothyroidism, unspecified; F32.A Depression, unspecified; F41.9 Anxiety disorder, unspecified; K21.9 Gastro-esophageal reflux disease without esophagitis; F17.200 Nicotine dependence, unspecified, uncomplicated; Z86.718 Personal history of other venous thrombosis and embolism; Z79.890 Hormone replacement therapy; Z79.899 Other long term (current) drug therapy; Z88.0 Allergy status to penicillin; Z88.1 Allergy status to other antibiotic agents
CPT/HCPCS: 36415; 70450; 71046; 74177; 80048; 80053; 81003; 82533; 82607; 82747; 83605; 83735; 83880; 84439; 84443; 84484; 85025; 85610; 85730; 93005; 93306; 96361; 96372; 96374; 96375; 96376; 99285

== ENCOUNTER 2023-09-26 20:11 | Emergency (ER) | payer OTHER ==
[2023-09-26 20:19] VITALS: TEMP 97.7
--- NOTE | 2023-09-26 21:05 | ED ---
Extremity Problem HPI - General Source: patient Mode of arrival: wheelchair Limitations: no limitations <[place] - Last Filed: 09/26/23 21:05> - History of Present Illness MD Complaint: extremity pain <Yesenia Rudd - Last Filed: 09/28/23 02:17> - General Chief complaint: Extremity Problem,Nontraumatic Stated complaint: rt leg pain Time Seen by Provider: 09/26/23 21:05 - History of Present Illness Initial comments: Quick note: 57-year-old female with myelodysplastic syndrome presenting with chief complaint of shooting pain down the right leg. No known injury or trauma. ([place]) 57-year-old female presents to the emergency department for evaluation of right lower extremity pain. She states that this started about 2 days ago but has been significantly worse today. She states that the pain is mostly in her right thigh that radiates down the leg and is a shooting pain. She states that the pain is worse with movement of the leg. She does report a history of DVT, not on blood thinners, does not recall if the pain is similar in character. Denies overlying skin changes, lower extremity swelling. (Yesenia Rudd) - Related Data Previous Rx's Medication Instructions Recorded Cholecalciferol (Vitamin D3) 1 dose PO DIRECTED #30 cap 09/06/23 [Vitamin D3 (125 MCG = 5,000 IU)] Ferrous Sulfate [Iron (65 MG 1 dose PO DAILY #30 tab 09/06/23 Elemental)] Folic Acid 1 dose PO DAILY #30 tab 09/06/23 Levothyroxine Sodium [Synthroid] 125 mcg PO DAILY #30 tablet 09/06/23 Pantoprazole [Protonix] 40 mg PO DAILY #30 tab 09/06/23 Cyclobenzaprine [Flexeril] 10 mg PO TID PRN #15 tab 09/27/23 Allergies Allergy/AdvReac Type Severity Reaction Status Date / Time amoxicillin Allergy Unknown Verified 09/26/23 20:17 banana Allergy Rash/Hives Verified 09/26/23 20:17 bee venom protein (honey bee) Allergy Anaphylaxis Verified 09/26/23 20:17 cephalexin [From Keflex] Allergy Unknown Verified 09/26/23 20:17 Penicillins Allergy Rash/Hives Verified 09/26/23 20:17 Tetracyclines Allergy Unknown Verified 09/26/23 20:17 Review of Systems ROS Other: All systems not noted in ROS Statement are negative. <[place] - Last Filed: 09/26/23 21:05> ROS Other: All systems not noted in ROS Statement are negative. <Yesenia Rudd - Last Filed: 09/28/23 02:17> ROS Statement: Those systems with pertinent positive or pertinent negative responses have been documented in the HPI. 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 she is to follow up with him for oral chemo History of Any Multi-Drug Resistant Organisms: C-DIFF Date of last positivie culture[facility]infection: [facility] this has been ongoing since dec MDRO Source:: wound rt hip / stool Past Surgical History: Hysterectomy Additional Past Surgical History / Comment(s): ectopic , neck surgery secondary to C3 fracture, bone marrow biopsy x 4 Past Anesthesia/Blood Transfusion Reactions: No Reported Reaction Additional Past Anesthesia/Blood Transfusion Reaction / Comment(s): pt stated has received blood in past no known reaction Past Psychological History: Anxiety, Depression Smoking Status: Current every day smoker Past Alcohol Use History: None Reported Past Drug Use History: None Reported - Past Family History Father Family Medical History: Cancer Additional Family Medical History / Comment(s): mesothelioma Mother History Unknown: Yes Family Medical History: Hyperlipidemia <[place] - Last Filed: 09/26/23 21:05> General Exam Limitations: no limitations <[place] - Last Filed: 09/26/23 21:05> Limitations: no limitations General appearance: alert, in no apparent distress Head exam: Present: atraumatic, normocephalic, normal inspection Eye exam: Present: normal appearance, PERRL, EOMI. Absent: scleral icterus, conjunctival injection, periorbital swelling ENT exam: Present: normal exam, mucous membranes moist Respiratory exam: Present: normal lung sounds bilaterally. Absent: respiratory distress, wheezes, rales, rhonchi, stridor Cardiovascular Exam: Present: regular rate, normal rhythm, normal heart sounds. Absent: systolic murmur, diastolic murmur, rubs, gallop, clicks Extremities exam: Present: normal inspection, tenderness, normal capillary refill, other (DP and PT pulses 2+). Absent: full ROM (decreased rom at the hip d.t pain), pedal edema, joint swelling, calf tenderness Neurological exam: Present: alert, oriented X3 Psychiatric exam: Present: normal affect, normal mood Skin exam: Present: warm, dry, intact, normal color. Absent: rash <Yesenia Rudd - Last Filed: 09/28/23 02:17> - General Exam Comments Initial Comments: Visual Physical Exam Vital signs reviewed General: Well-appearing, nontoxic, no acute distress. Head: Normocephalic, atraumatic Eyes: PERRLA, EOMI ENT: Airway patent Chest: Nonlabored breathing Skin: No visual rash, normal skin tone Neuro: Alert and oriented 3 Musculoskeletal: No gross abnormalities ([place]) Course Vital Signs 09/26/23 09/26/23 09/26/23 20:13 21:38 23:30 Temperature 97.7 F Pulse Rate 73 76 73 Respiratory 18 18 16 Rate Blood Pressure 136/60 132/84 129/85 O2 Sat by Pulse 100 99 98 Oximetry Medical Decision Making <[place] - Last Filed: 09/26/23 21:05> - Lab Data Result diagrams: 09/26/23 21:38 09/26/23 21:38 <Yesenia Rudd - Last Filed: 09/28/23 02:17> - Medical Decision Making I performed the quick note portion of this visit, electronically signed [place] PA-C ([place]) Was pt. sent in by a medical professional or institution (CHEYANNE Mac, ROLL OR TAPE EDGE MACHINE OPERATOR, urgent care, hospital, or custodial...) When possible be specific @ -No Did you speak to anyone other than the patient for history (EMS, parent, family, police, friend...)? What history was obtained from this source @ -No Did you review nursing and triage notes (agree or disagree)? Why? @ -I reviewed and agree with nursing and triage notes Were old charts reviewed (outside hosp., previous admission, EMS record, old EKG, old radiological studies, urgent care reports/EKG's, custodial records)? Report findings @ -No old charts were reviewed Differential Diagnosis (chest pain, altered mental status, abdominal pain women, abdominal pain men, vaginal bleeding, weakness, fever, dyspnea, syncope, headache, dizziness, GI bleed, back pain, seizure, CVA, palpatations, mental health, musculoskeletal)? @ -Differential Musculoskeletal Muscular strain, contusion, ligament sprain, fracture, arthritis, septic arthritis, bursitis, cellulitis, muscle spasm, nerve compression, DVT, arterial occlusion, herpes zoster, electrolyte abnormality, tumor.... This is not meant to be in all inclusive list EKG interpreted by me (3pts min.). @ -EKG at 6 shows sinus rhythm rate 69, MA 173, QRS 90, QT/QTc [id number] X-rays interpreted by me (1pt min.). @ -X-ray of the right femur shows no acute fracture CT interpreted by me (1pt min.). @ -None done U/S interpreted by me (1pt. min.). @ -Ultrasound shows no evidence of DVT What testing was considered but not performed or refused? (CT, X-rays, U/S, labs)? Why? @ -None What meds were considered but not given or refused? Why? @ -None Did you discuss the management of the patient with other professionals (professionals i.e. , PA, ROLL OR TAPE EDGE MACHINE OPERATOR, lab, RT, psych nurse, social worker aide, environmental protection forester, teacher, armed security officer, senior case manager)? Give summary @ -No Was smoking cessation discussed for >3mins.? @ -No Was critical care preformed (if so, how long)? @ -No Were there social determinants of health that impacted care today? How? (Homelessness, low income, unemployed, alcoholism, drug addiction, transpo rtation, low edu. Level, literacy, decrease access to med. care, assisted, rehab)? @ -No Was there de-escalation of care discussed even if they declined (Discuss DNR or withdrawal of care, Hospice)? DNR status @ -No What co-morbidities impacted this encounter? (DM, HTN, Smoking, COPD, CAD, Cancer, CVA, ARF, Chemo, Hep., AIDS, mental health diagnosis, sleep apnea, morbid obesity)? @ -None Was patient admitted / discharged? Hospital course, mention meds given and route, prescriptions, significant lab abnormalities, going to OR and other pertinent info. @ -Patient presented to the emergency department for evaluation of right lower extremity pain. Patient underwent laboratory studies. CBC unremarkable, CMP shows mild transaminitis which is typical for the patient. Lactic acid 0.6. Negative troponin. Patient underwent a femur x-ray which shows no acute fracture. She was provided medication for pain control which improved symptoms. Ultrasound obtained which shows no evidence of DVT. Patient reports improvement of her symptoms after pain medication. She will be provided crutches as she feels that she is unable to ambulate on the right leg along with muscle relaxers. Advised not to drive or operate heavy machinery while taking the muscle relaxers. She is understanding agreeable with plan. Strict return precautions discussed. Patient stable at time of discharge. Case discussed with Dr. Bryant. Undiagnosed new problem with uncertain prognosis? @ -No Drug Therapy requiring intensive monitoring for toxicity (Heparin, Nitro, Insulin, Cardizem)? @ -No Were any procedures done? @ -No Diagnosis/symptom? @ -Right leg pain Acute, or Chronic, or Acute on Chronic? @ -Acute Uncomplicated (without systemic symptoms) or Complicated (systemic symptoms)? @ -Uncomplicated Side effects of treatment? @ -No Exacerbation, Progression, or Severe Exacerbation? @ -No Poses a threat to life or bodily function? How? (Chest pain, [place], [place], pneumonia, PE, COPD, DKA, ARF, appy, cholecystitis, CVA, Diverticulitis, Homicidal, Suicidal, threat to staff... and all critical care pts) @ -No (Yesenia Rudd) - Lab Data Lab Results 09/26/23 09/26/23 09/26/23 Range/Units 21:38 21:38 21:38 WBC 4.8 (3.8-10.6) k/uL RBC 3.65 L (3.80-5.40) m/uL Hgb 13.2 (11.4-16.0) gm/dL Hct 39.3 (34.0-46.0) % MCV 107.7 H (80.0-100.0) fL MCH 36.1 H (25.0-35.0) pg MCHC 33.5 (31.0-37.0) g/dL RDW 12.0 (11.5-15.5) % Plt Count 246 (150-450) k/uL MPV 7.4 Neutrophils % 49 % Lymphocytes % 34 % Monocytes % 10 % Eosinophils % 3 % Basophils % 1 % Neutrophils # 2.3 (1.3-7.7) k/uL Lymphocytes # 1.6 (1.0-4.8) k/uL Monocytes # 0.5 (0-1.0) k/uL Eosinophils # 0.1 (0-0.7) k/uL Basophils # 0.0 (0-0.2) k/uL Macrocytosis Moderate PT 10.3 (10.0-12.5) sec INR 0.9 (<1.2) APTT 24.2 (22.0-30.0) sec Sodium 137 (137-145) mmol/L Potassium 3.7 (3.5-5.1) mmol/L Chloride 109 H (98-107) mmol/L Carbon Dioxide 22 (22-30) mmol/L Anion Gap 6 mmol/L BUN 15 (7-17) mg/dL Creatinine 0.67 (0.52-1.04) mg/dL Est GFR (CKD-EPI)AfAm >90 (>60 ml/min/1.73 sqM) Est GFR (CKD-EPI)NonAf >90 (>60 ml/min/1.73 sqM) Glucose 104 H (74-99) mg/dL Plasma Lactic Acid Denis (0.7-2.0) mmol/L Calcium 9.3 (8.4-10.2) mg/dL Total Bilirubin 0.4 (0.2-1.3) mg/dL AST 54 H (14-36) U/L ALT 71 H (4-34) U/L Alkaline Phosphatase 111 (38-126) U/L Troponin I (0.000-0.034) ng/mL Total Protein 6.4 (6.3-8.2) g/dL Albumin 4.0 (3.5-5.0) g/dL 09/26/23 09/26/23 Range/Units 21:38 21:38 WBC (3.8-10.6) k/uL RBC (3.80-5.40) m/uL Hgb (11.4-16.0) gm/dL Hct (34.0-46.0) % MCV (80.0-100.0) fL MCH (25.0-35.0) pg MCHC (31.0-37.0) g/dL RDW (11.5-15.5) % Plt Count (150-450) k/uL MPV Neutrophils % % Lymphocytes % % Monocytes % % Eosinophils % % Basophils % % Neutrophils # (1.3-7.7) k/uL Lymphocytes # (1.0-4.8) k/uL Monocytes # (0-1.0) k/uL Eosinophils # (0-0.7) k/uL Basophils # (0-0.2) k/uL Macrocytosis PT (10.0-12.5) sec INR (<1.2) APTT (22.0-30.0) sec Sodium (137-145) mmol/L Potassium (3.5-5.1) mmol/L Chloride (98-107) mmol/L Carbon Dioxide (22-30) mmol/L Anion Gap mmol/L BUN (7-17) mg/dL Creatinine (0.52-1.04) mg/dL Est GFR (CKD-EPI)AfAm (>60 ml/min/1.73 sqM) Est GFR (CKD-EPI)NonAf (>60 ml/min/1.73 sqM) Glucose (74-99) mg/dL Plasma Lactic Acid Denis 0.6 L (0.7-2.0) mmol/L Calcium (8.4-10.2) mg/dL Total Bilirubin (0.2-1.3) mg/dL AST (14-36) U/L ALT (4-34) U/L Alkaline Phosphatase (38-126) U/L Troponin I <0.012 (0.000-0.034) ng/mL Total Protein (6.3-8.2) g/dL Albumin (3.5-5.0) g/dL Disposition <[place] - Last Filed: 09/26/23 21:05> Is patient prescribed a controlled substance at d/c from ED?: No <Yesenia Rudd - Last Filed: 09/28/23 02:17> Clinical Impression: Right leg pain Disposition: HOME SELF-CARE Condition: Stable Instructions (If sedation given, give patient instructions): Leg Pain (ED) Additional Instructions: Please follow up with your primary care provider. Return to the emergency department for new or worsening symptoms. Prescriptions: Cyclobenzaprine [Flexeril] 10 mg PO TID PRN #15 tab PRN Reason: Muscle Spasm Referrals: None,Stated [Primary Care Provider] - 1-2 days
[2023-09-26] MEDS: HYDROmorphone 1 MG/ML 1 ML SYRINGE IVP STA (22:19)
[2023-09-26 22:21] LABS: Basophils % (A) 1 %; Eosinophils # (A) 0.1 k/uL (0-0.7); Eosinophils % (A) 3 %; HCT 39.3 % (34.0-46.0); HGB 13.2 gm/dL (11.4-16.0); Lymphocytes # (A) 1.6 k/uL (1.0-4.8); Lymphocytes % (A) 34 %; MCH 36.1 pg (25.0-35.0); MCHC 33.5 g/dL (31.0-37.0); MCV 107.7 fL (80.0-100.0); Macrocytosis Moderate; Mean Platelet Volume 7.4; Monocytes # (A) 0.5 k/uL (0-1.0); Monocytes % (A) 10 %; Neutrophils # (A) 2.3 k/uL (1.3-7.7); Neutrophils % (A) 49 %; Platelet Count 246 k/uL (150-450); RBC 3.65 m/uL (3.80-5.40); WBC 4.8 k/uL (3.8-10.6)
[2023-09-26] MEDS: ORPHENADRINE 30 MG/ML 2 ML VIAL IVP STA (22:21)
[2023-09-26 22:28] LABS: INR 0.9 (<1.2); Partial Thromboplastin Time 24.2 sec (22.0-30.0); Prothrombin Time 10.3 sec (10.0-12.5)
[2023-09-26 22:29] LABS: ALT 71 U/L (4-34); AST 54 U/L (14-36); African American GFR (CKD) >90 (>60 ml/min/1.73 sqM); Alkaline Phosphatase 111 U/L (38-126); Anion Gap 6 mmol/L; Blood Urea Nitrogen 15 mg/dL (7-17); Calcium 9.3 mg/dL (8.4-10.2); Carbon Dioxide 22 mmol/L (22-30); Chloride 109 mmol/L (98-107); Glucose 104 mg/dL (74-99); Non-African American GFR(CKD) >90 (>60 ml/min/1.73 sqM); Potassium 3.7 mmol/L (3.5-5.1); Sodium 137 mmol/L (137-145); Total Bilirubin 0.4 mg/dL (0.2-1.3); Total Protein 6.4 g/dL (6.3-8.2)
--- NOTE | 2023-09-26 23:01 | XR ---
EXAM: XR Right Femur, 2 Views CLINICAL HISTORY: ITS.REASON XR Reason: pain TECHNIQUE: Frontal and lateral views of the right femur. COMPARISON: No relevant prior studies available. FINDINGS: Bones/joints: Unremarkable. No acute fracture. No dislocation. Soft tissues: Unremarkable. IMPRESSION: No acute fracture.
--- NOTE | 2023-09-27 01:08 | US ---
EXAM: US Duplex Right Lower Extremity Veins CLINICAL HISTORY: ITS.REASON US Reason: pain, hx dvt TECHNIQUE: Real-time duplex ultrasound scan of the right lower extremity veins integrating B-mode two-dimensional vascular structure, Doppler spectral analysis, color flow Doppler imaging and compression. COMPARISON: No relevant prior studies available. FINDINGS: Deep veins: No DVT in the visualized common femoral, femoral, proximal deep femoral or popliteal veins. The veins demonstrate normal color flow, are normally compressible, with normal phasic flow and/or augmentation response. Superficial veins: No thrombus in the visualized great saphenous vein. Soft tissues: No popliteal cyst. IMPRESSION: No DVT.
[2023-09-27 02:43] VITALS: BP 129/85; PULSE 73; RESP 16
== END 2023-09-27 01:51 | disposition home or self-care (01) ==
LOC: EC 20:11
DX: M79.661 Pain in right lower leg (principal); R74.01 Elevation of levels of liver transaminase levels; F17.200 Nicotine dependence, unspecified, uncomplicated; Z88.0 Allergy status to penicillin; Z88.1 Allergy status to other antibiotic agents; Z91.030 Bee allergy status; Z91.018 Allergy to other foods
CPT/HCPCS: 36415; 80053; 83605; 84484; 85025; 85610; 85730; 73552; 93971; 99284; 96374; 96375; J2360; J1170

== ENCOUNTER 2024-07-05 09:34 | Inpatient (IN) | payer MEDICAID, OTHER ==
--- NOTE | 2024-07-05 10:16 | ED ---
General Adult HPI - General Chief complaint: Recheck/Abnormal Lab/Rx Stated complaint: Mental health Time Seen by Provider: 07/05/24 09:36 Source: patient, RN notes reviewed Mode of arrival: ambulatory Limitations: no limitations - History of Present Illness Initial comments: 58-year-old female presents emergency department with chief complaint psychiatr ic evaluation. Patient states that she is heading down the wrong path states that she feels like she is in a dark hole. She states everything around her is getting worse. She states that she was clean and alcohol and drug use since 2008 and states that she relapsed. Patient states that she was working with [employer] but states that she does not want to keep going because she feels like she is cumbersome to them. Patient denies any physical complaints. Denies being suicidal - Related Data Home Medications Medication Instructions Recorded Confirmed Chlorhexidine Gluconate [Peridex] 15 ml PO BID 07/05/24 07/05/24 Cholecalciferol (Vitamin D3) 125 mcg PO DAILY 07/05/24 07/05/24 [Vitamin D3 (125 MCG = 5,000 IU)] Cholestyramine (with Sugar) 4 gm PO BID PRN 07/05/24 07/05/24 [Cholestyramine Packet] Ferrous Sulfate [Iron (65 MG 325 mg PO DAILY 07/05/24 07/05/24 Elemental)] HYDROcodone/APAP 7.5-325MG [[place] 1 tab PO Q8H PRN 07/05/24 07/05/24 7.5-325] Levothyroxine Sodium [Synthroid] 150 mcg PO DAILY 07/05/24 07/05/24 Multivitamins, Thera [Multivitamin 1 tab PO DAILY 07/05/24 07/05/24 (formulary)] Allergies Allergy/AdvReac Type Severity Reaction Status Date / Time amoxicillin Allergy Unknown Verified 07/05/24 14:25 banana Allergy Rash/Hives Verified 07/05/24 14:25 bee venom protein (honey bee) Allergy Anaphylaxis Verified 07/05/24 14:25 cephalexin [From Keflex] Allergy Unknown Verified 07/05/24 14:25 Penicillins Allergy Rash/Hives Verified 07/05/24 14:25 Tetracyclines Allergy Unknown Verified 07/05/24 14:25 Review of Systems ROS Statement: Those systems with pertinent positive or pertinent negative responses have been documented in the HPI. ROS Other: All systems not noted in ROS Statement are negative. 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 she is to follow up with him for oral chemo History of Any Multi-Drug Resistant Organisms: C-DIFF Date of last positivie culture[facility]: [facility] this has been ongoing since dec MDRO Source:: wound rt hip / stool Past Surgical History: Hysterectomy Additional Past Surgical History / Comment(s): ectopic , neck surgery secondary to C3 fracture, bone marrow biopsy x 4 Past Anesthesia/Blood Transfusion Reactions: No Reported Reaction Additional Past Anesthesia/Blood Transfusion Reaction / Comment(s): pt stated has received blood in past no known reaction Past Psychological History: Anxiety, Depression Smoking Status: Current every day smoker Past Alcohol Use History: None Reported Past Drug Use History: None Reported - Past Family History Father Family Medical History: Cancer Additional Family Medical History / Comment(s): mesothelioma Mother History Unknown: Yes Family Medical History: Hyperlipidemia General Exam Limitations: no limitations General appearance: alert, in no apparent distress Head exam: Present: atraumatic, normocephalic, normal inspection Eye exam: Present: normal appearance, PERRL, EOMI. Absent: scleral icterus, conjunctival injection, periorbital swelling ENT exam: Present: normal exam, normal oropharynx, mucous membranes moist Neck exam: Present: normal inspection, full ROM. Absent: tenderness, meningismus, lymphadenopathy Respiratory exam: Present: normal lung sounds bilaterally. Absent: respiratory distress, wheezes, rales, rhonchi, stridor Cardiovascular Exam: Present: regular rate, normal rhythm, normal heart sounds. Absent: systolic murmur, diastolic murmur, rubs, gallop, clicks GI/Abdominal exam: Present: soft, normal bowel sounds. Absent: distended, tenderness, guarding, rebound, rigid Course Vital Signs 07/05/24 07/05/24 09:35 11:23 Temperature 98 F Pulse Rate 91 77 Respiratory 18 18 Rate Blood Pressure 127/75 O2 Sat by Pulse 99 Oximetry Medical Decision Making - Medical Decision Making Was pt. sent in by a medical professional or institution (, [facility], [facility]INER, urgent care, hospital, or penitentiary...) When possible be specific @ -No Did you speak to anyone other than the patient for history (EMS, parent, family, police, friend...)? What history was obtained from this source @ -No Did you review nursing and triage notes (agree or disagree)? Why? @ -I reviewed and agree with nursing and triage notes Were old charts reviewed (outside hosp., previous admission, EMS record, old EKG, old radiological studies, urgent care reports/EKG's, penitentiary records)? Report findings @ -No old charts were reviewed Differential Diagnosis (chest pain, altered mental status, abdominal pain women, abdominal pain men, vaginal bleeding, weakness, fever, dyspnea, syncope, headache, dizziness, GI bleed, back pain, seizure, CVA, palpatations, mental health, musculoskeletal)? @ -Differential Mental Health Depression, anxiety, bipolar, psychosis, schizophrenia, borderline personality, situational depression, adjustment disorder, behavioral disorder, brain tumor, malingering, substance abuse, encephalopathy, medication reaction, dementia, hypothyroidism, degenerative neurologic disorder, lupus.... This is not meant to be all-inclusive list EKG interpreted by me (3pts min.). @ -None X-rays interpreted by me (1pt min.). @ -None done CT interpreted by me (1pt min.). @ -None done U/S interpreted by me (1pt. min.). @ -None done What testing was considered but not performed or refused? (CT, X-rays, U/S, labs)? Why? @ -None What meds were considered but not given or refused? Why? @ -None Did you discuss the management of the patient with other professionals (professionals i.e. , [facility], CALCIMINER, lab, RT, psych nurse, social staff worker, net manager, teacher, safety instruction police officer, case packer and sealer)? Give summary @ -EPS evaluated patient psychiatrist is unwilling to make a decision for admission without laboratory studies. Labs provided showing no acute process. Was smoking cessation discussed for >3mins.? @ -No Was critical care preformed (if so, how long)? @ -No Were there social determinants of health that impacted care today? How? (Homelessness, low income, unemployed, alcoholism, drug addiction, transportation, low edu. Level, literacy, decrease access to med. care, alf, rehab)? @ -No Was there de-escalation of care discussed even if they declined (Discuss DNR or withdrawal of care, Hospice)? DNR status @ -No What co-morbidities impacted this encounter? (DM, HTN, Smoking, COPD, CAD, Cancer, CVA, ARF, Chemo, Hep., AIDS, mental health diagnosis, sleep apnea, morbid obesity)? @ -None Was patient admitted / discharged? Hospital course, mention meds given and route, prescriptions, significant lab abnormalities, going to OR and other pertinent info. @ -Admitted to 3 W. Undiagnosed new problem with uncertain prognosis? @ -No Drug Therapy requiring intensive monitoring for toxicity (Heparin, Nitro, Insulin, Cardizem)? @ -No Were any procedures done? @ -No Diagnosis/symptom? @ -depression Acute, or Chronic, or Acute on Chronic? @ -Acute Uncomplicated (without systemic symptoms) or Complicated (systemic symptoms)? @ -Uncomplicated Side effects of treatment? @ -No Exacerbation, Progression, or Severe Exacerbation? @ -No Poses a threat to life or bodily function? How? (Chest pain, [place], [place], pneumonia, PE, COPD, DKA, ARF, appy, cholecystitis, CVA, Diverticulitis, Homicidal, Suicidal, threat to staff... and all critical care pts) @ -No - Lab Data Result diagrams: 07/05/24 12:34 07/05/24 12:34 Lab Results 07/05/24 07/05/24 07/05/24 Range/Units 12:34 12:34 12:34 WBC 5.7 (3.8-10.6) k/uL RBC 3.55 L (3.80-5.40) m/uL Hgb 12.8 (11.4-16.0) gm/dL Hct 38.3 (34.0-46.0) % MCV 107.8 H (80.0-100.0) fL MCH 35.9 H (25.0-35.0) pg MCHC 33.3 (31.0-37.0) g/dL RDW 13.3 (11.5-15.5) % Plt Count 245 (150-450) k/uL MPV 7.1 Neutrophils % 67 % Lymphocytes % 22 % Monocytes % 6 % Eosinophils % 2 % Basophils % 0 % Neutrophils # 3.8 (1.3-7.7) k/uL Lymphocytes # 1.3 (1.0-4.8) k/uL Monocytes # 0.4 (0-1.0) k/uL Eosinophils # 0.1 (0-0.7) k/uL Basophils # 0.0 (0-0.2) k/uL Macrocytosis Moderate Sodium 138 (137-145) mmol/L Potassium 3.7 (3.5-5.1) mmol/L Chloride 103 (98-107) mmol/L Carbon Dioxide 27 (22-30) mmol/L Anion Gap 8 mmol/L BUN 18 H (7-17) mg/dL Creatinine 0.62 (0.52-1.04) mg/dL Est GFR (CKD-EPI)AfAm >90 (>60 ml/min/1.73 sqM) Est GFR (CKD-EPI)NonAf >90 (>60 ml/min/1.73 sqM) Glucose 95 (74-99) mg/dL Calcium 9.4 (8.4-10.2) mg/dL Total Bilirubin 0.8 (0.2-1.3) mg/dL AST 28 (14-36) U/L ALT 22 (4-34) U/L Alkaline Phosphatase 69 (38-126) U/L Total Protein 7.3 (6.3-8.2) g/dL Albumin 4.3 (3.5-5.0) g/dL TSH 48.200 H (0.465-4.680) mIU/L Free T4 0.35 L (0.78-2.19) ng/dL Urine Opiates Screen (NotDetected) Ur Oxycodone Screen (NotDetected) Urine Methadone Screen (NotDetected) Ur Barbiturates Screen (NotDetected) U Tricyclic Antidepress (NotDetected) Ur Phencyclidine Scrn (NotDetected) Ur Amphetamines Screen (NotDetected) U Methamphetamines Scrn (NotDetected) U Benzodiazepines Scrn (NotDetected) Urine Cocaine Screen (NotDetected) U Marijuana (THC) Screen (NotDetected) Influenza Type A (PCR) Not Detected (Not Detectd) Influenza Type B (PCR) Not Detected (Not Detectd) RSV (PCR) Not Detected (Not Detectd) SARS-CoV-2 (PCR) Not Detected (Not Detectd) 07/05/24 Range/Units 12:36 WBC (3.8-10.6) k/uL RBC (3.80-5.40) m/uL Hgb (11.4-16.0) gm/dL Hct (34.0-46.0) % MCV (80.0-100.0) fL MCH (25.0-35.0) pg MCHC (31.0-37.0) g/dL RDW (11.5-15.5) % Plt Count (150-450) k/uL MPV Neutrophils % % Lymphocytes % % Monocytes % % Eosinophils % % Basophils % % Neutrophils # (1.3-7.7) k/uL Lymphocytes # (1.0-4.8) k/uL Monocytes # (0-1.0) k/uL Eosinophils # (0-0.7) k/uL Basophils # (0-0.2) k/uL Macrocytosis Sodium (137-145) mmol/L Potassium (3.5-5.1) mmol/L Chloride (98-107) mmol/L Carbon Dioxide (22-30) mmol/L Anion Gap mmol/L BUN (7-17) mg/dL Creatinine (0.52-1.04) mg/dL Est GFR (CKD-EPI)AfAm (>60 ml/min/1.73 sqM) Est GFR (CKD-EPI)NonAf (>60 ml/min/1.73 sqM) Glucose (74-99) mg/dL Calcium (8.4-10.2) mg/dL Total Bilirubin (0.2-1.3) mg/dL AST (14-36) U/L ALT (4-34) U/L Alkaline Phosphatase (38-126) U/L Total Protein (6.3-8.2) g/dL Albumin (3.5-5.0) g/dL TSH (0.465-4.680) mIU/L Free T4 (0.78-2.19) ng/dL Urine Opiates Screen Not Detected (NotDetected) Ur Oxycodone Screen Not Detected (NotDetected) Urine Methadone Screen Not Detected (NotDetected) Ur Barbiturates Screen Not Detected (NotDetected) U Tricyclic Antidepress Not Detected (NotDetected) Ur Phencyclidine Scrn Not Detected (NotDetected) Ur Amphetamines Screen Not Detected (NotDetected) U Methamphetamines Scrn Not Detected (NotDetected) U Benzodiazepines Scrn Not Detected (NotDetected) Urine Cocaine Screen Detected H (NotDetected) U Marijuana (THC) Screen Not Detected (NotDetected) Influenza Type A (PCR) (Not Detectd) Influenza Type B (PCR) (Not Detectd) RSV (PCR) (Not Detectd) SARS-CoV-2 (PCR) (Not Detectd) Disposition Clinical Impression: Depression Disposition: TRANSFER TO PSYCH HOSP/UNIT Referrals: None,Stated [Primary Care Provider] - 1-2 days Time of Disposition: 14:34
[2024-07-05 12:52] LABS: Basophils % (A) 0 %; Eosinophils # (A) 0.1 k/uL (0-0.7); Eosinophils % (A) 2 %; HCT 38.3 % (34.0-46.0); HGB 12.8 gm/dL (11.4-16.0); Lymphocytes # (A) 1.3 k/uL (1.0-4.8); Lymphocytes % (A) 22 %; MCH 35.9 pg (25.0-35.0); MCHC 33.3 g/dL (31.0-37.0); MCV 107.8 fL (80.0-100.0); Macrocytosis Moderate; Mean Platelet Volume 7.1; Monocytes # (A) 0.4 k/uL (0-1.0); Monocytes % (A) 6 %; Neutrophils # (A) 3.8 k/uL (1.3-7.7); Neutrophils % (A) 67 %; Platelet Count 245 k/uL (150-450); RBC 3.55 m/uL (3.80-5.40); RDW 13.3 % (11.5-15.5); WBC 5.7 k/uL (3.8-10.6)
[2024-07-05 13:03] LABS: Amphetamine Screen,Urine Not Detected (NotDetected); Barbiturate Screen,Urine Not Detected (NotDetected); Benzodiazepines Screen,Urine Not Detected (NotDetected); Cocaine Screen,Urine Detected (NotDetected); Methadone Screen, Urine Not Detected (NotDetected); Opiate Screen,Urine Not Detected (NotDetected); Oxycodone Screen, Urine Not Detected (NotDetected); Phencyclidine Screen,Urine Not Detected (NotDetected); Tricyclic Antidepressant,Urine Not Detected (NotDetected); Urn Cannabinoid Scrn Not Detected (NotDetected)
[2024-07-05 13:07] LABS: ALT 22 U/L (4-34); AST 28 U/L (14-36); African American GFR (CKD) >90 (>60 ml/min/1.73 sqM); Albumin 4.3 g/dL (3.5-5.0); Alkaline Phosphatase 69 U/L (38-126); Anion Gap 8 mmol/L; Blood Urea Nitrogen 18 mg/dL (7-17); Calcium 9.4 mg/dL (8.4-10.2); Carbon Dioxide 27 mmol/L (22-30); Chloride 103 mmol/L (98-107); Glucose 95 mg/dL (74-99); Non-African American GFR(CKD) >90 (>60 ml/min/1.73 sqM); Potassium 3.7 mmol/L (3.5-5.1); Sodium 138 mmol/L (137-145); Total Bilirubin 0.8 mg/dL (0.2-1.3); Total Protein 7.3 g/dL (6.3-8.2)
[2024-07-05 13:15] LABS: Influenza A Not Detected (Not Detectd); Influenza B Not Detected (Not Detectd); RSV Not Detected (Not Detectd)
[2024-07-05 14:28] LABS: T4, Free (Free Thyroxine) 0.35 ng/dL (0.78-2.19)
[2024-07-05] MEDS ORDERED: MAGNESIUM HYDROXIDE 2,400 MG/30 ML CUP PO PRN (15:31)
[2024-07-05] MEDS ORDERED: ACETAMINOPHEN TAB 325 MG TAB PO PRN (15:31)
[2024-07-05] MEDS ORDERED: HALOPERIDOL LACTATE 5 MG/ML 1 ML VIAL IM PRN (15:38)
[2024-07-05] MEDS ORDERED: LORazepam 2 MG/ML INJ IM PRN (15:38)
[2024-07-05] MEDS ORDERED: haloperidoL 5 MG TAB PO PRN (15:38)
[2024-07-05] MEDS ORDERED: CHOLESTYRAMINE (WITH SUGAR) 4 GM PACKET PO PRN (15:39)
[2024-07-05] MEDS: chlordiazePOXIDE 25 MG CAP PO SCH (16:24)
[2024-07-05] MEDS: LORazepam 1 MG TAB PO PRN (16:25)
--- NOTE | 2024-07-06 04:32 | P.CONS ---
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 History of Any Multi-Drug Resistant Organisms: C-DIFF Year Discovered:: 2015- [facility] states this has been ongoing since dec MDRO Source:: wound rt hip / stool Past Surgical History: Hysterectomy Additional Past Surgical History / Comment(s): ectopic , neck surgery secondary to C3 fracture, bone marrow biopsy x 4 Past Anesthesia/Blood Transfusion Reactions: No Reported Reaction Additional Past Anesthesia/Blood Transfusion Reaction / Comm: pt stated has received blood in past no known reaction Past Psychological History: Anxiety, Depression Additional Psychological History / Comment(s): patient lives alone-patient does not drive-friend Kristian drives pt. to appointments or [facility] [employer] [facility]. No medical equipment needs. Smoking Status: Former smoker Past Alcohol Use History: Abuse, Daily Additional Past Alcohol Use History / Comment(s): Quit May 2021. Daily alcohol use 1/2 gallon of liquor daily Past Drug Use History: Cocaine - Past Family History Father Family Medical History: Cancer Additional Family Medical History / Comment(s): mesothelioma Mother History Unknown: Yes Family Medical History: Hyperlipidemia Medications and Allergies Home Medications Medication Instructions Recorded Confirmed Type Chlorhexidine Gluconate [Peridex] 15 ml PO BID 07/05/24 07/05/24 History Cholecalciferol (Vitamin D3) 125 mcg PO DAILY 07/05/24 07/05/24 History [Vitamin D3 (125 MCG = 5,000 IU)] Cholestyramine (with Sugar) 4 gm PO BID PRN 07/05/24 07/05/24 History [Cholestyramine Packet] Ferrous Sulfate [Iron (65 MG 325 mg PO DAILY 07/05/24 07/05/24 History Elemental)] HYDROcodone/APAP 7.5-325MG [[place] 1 tab PO Q8H PRN 07/05/24 07/05/24 History 7.5-325] Levothyroxine Sodium [Synthroid] 150 mcg PO DAILY 07/05/24 07/05/24 History Multivitamins, Thera [Multivitamin 1 tab PO DAILY 07/05/24 07/05/24 History (formulary)] Allergies Allergy/AdvReac Type Severity Reaction Status Date / Time amoxicillin Allergy Unknown Verified 07/05/24 14:25 banana Allergy Rash/Hives Verified 07/05/24 14:25 bee venom protein (honey bee) Allergy Anaphylaxis Verified 07/05/24 14:25 cephalexin [From Keflex] Allergy Unknown Verified 07/05/24 14:25 Penicillins Allergy Rash/Hives Verified 07/05/24 14:25 Tetracyclines Allergy Unknown Verified 07/05/24 14:25 Physical Exam Vitals: Vital Signs Temp Pulse Pulse Resp BP BP Pulse Ox 07/05/24 21:33 96.2 F L 80 12 118/76 98 07/05/24 16:48 97.7 F 82 18 143/91 98 07/05/24 15:56 80 18 120/78 98 07/05/24 11:23 77 18 127/75 99 07/05/24 09:35 98 F 91 18 Intake and Output 07/05/24 07/05/24 07/06/24 14:59 22:59 06:59 Other: Weight 65.771 kg 69.672 kg Results CBC & Chem 7: 07/05/24 12:34 07/05/24 12:34 Labs: Abnormal Lab Results - Last 24 Hours (Table) 07/05/24 07/05/24 07/05/24 Range/Units 12:34 12:34 12:36 RBC 3.55 L (3.80-5.40) m/uL MCV 107.8 H (80.0-100.0) fL MCH 35.9 H (25.0-35.0) pg BUN 18 H (7-17) mg/dL TSH 48.200 H (0.465-4.680) mIU/L Free T4 0.35 L (0.78-2.19) ng/dL Urine Cocaine Screen Detected H (NotDetected)
[2024-07-06] MEDS: LEVOTHYROXINE 75 MCG TAB PO SCH (06:12)
[2024-07-06] MEDS: THIAMINE 100 MG TAB PO SCH (08:28)
[2024-07-06] MEDS: FOLIC ACID 1 MG TAB PO SCH (08:28)
[2024-07-06] MEDS: FERROUS SULFATE 325 MG TAB PO SCH (08:28)
[2024-07-06] MEDS: NICOTINE 14MG/24HR PATCH TRANSDERM SCH (08:28)
[2024-07-06] MEDS: MULTIVITAMINS, THERA 1 EACH TAB PO SCH (08:28)
[2024-07-06] MEDS: CHOLECALCIFEROL 125 MCG (5000 IU) TABLET PO SCH (08:28)
[2024-07-06 12:27] LABS: ALT 22 U/L (4-34); AST 32 U/L (14-36); Albumin 4.7 g/dL (3.5-5.0); Alkaline Phosphatase 72 U/L (38-126); Bilirubin, Delta 0.3 mg/dL (0.0-0.2); Bilirubin,Unconjugated 0.8 mg/dL (0.0-1.1); Total Bilirubin 1.1 mg/dL (0.2-1.3); Total Protein 7.8 g/dL (6.3-8.2)
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
[2024-07-06] MEDS: LORazepam 1 MG TAB PO PRN (13:41)
[2024-07-06 15:22] LABS: Chol/HDL Ratio 2.81 Ratio; LDL Cholesterol,Calculated 131.4 mg/dL (0.0-131.0)
[2024-07-06] MEDS: MAG HYDROX/AL HYDROX/SIMETH 355 ML BOTTLE PO PRN (15:41)
[2024-07-06] MEDS ORDERED: CALCIUM CARBONATE 500 MG CHEWABLE PO PRN (17:30)
[2024-07-06] MEDS: LURASIDONE 40 MG TAB PO SCH (18:00)
[2024-07-06] MEDS: PANTOPRAZOLE 40 MG TABLET PO SCH (18:00)
[2024-07-07] MEDS: NALTREXONE HCL 50 MG TAB PO SCH (08:47)
[2024-07-07] MEDS: LORazepam 1 MG TAB PO PRN (08:48)
[2024-07-07] MEDS: IBUPROFEN 600 MG TAB PO PRN (11:04)
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
[2024-07-07] MEDS: chlordiazePOXIDE 25 MG CAP PO SCH (21:11)
[2024-07-08 08:33] LABS: Influenza A Not Detected (Not Detectd); Influenza B Not Detected (Not Detectd); RSV Not Detected (Not Detectd)
[2024-07-08 09:10] VITALS: RESP 16
[2024-07-08 10:50] LABS: Appearance,Urine Clear (Clear); Bilirubin,Urine Negative (Negative); Blood,Urine Negative (Negative); Color,Urine Colorless; Glucose,Urine (UA) Negative (Negative); Ketones,Urine Negative (Negative); Leukocyte Esterase,Urine Negative (Negative); Nitrite,Urine Negative (Negative); Protein,Urine Negative (Negative); Specific Gravity,Urine 1.016 (1.001-1.035); Urobilinogen,Urine <2.0 mg/dL (<2.0)
--- NOTE | 2024-07-08 11:41 | P.PN ---
Subjective Progress Note Date: 07/08/24 Hospital Course: A 58-year-old female with past medical history of low-grade T-cell leukemia, h ypothyroidism, myelodysplasia, alcohol use disorder, history of DVT, who is currently admitted to [facility]HU for evaluation. Hospitalist service paged on 07/08 as patient was having generalized myalgia, nasal congestion. Symptoms started today, her viral test came back negative, UA negative for UTI. Patient denies cough, and shortness of breath, she admits having nasal congestion and some drainage, some mild odynophagia, generalized muscle aches. Continue hematologic condition, putting her at increased risk of complicated influenza infection, patient will be empirically started on Tamiflu 75 twice daily for 5 days. CBC ordered.Vitals reviewed, stable, afebrile. Pertinent positives and negatives as discussed above, a complete review of systems was performed and all other systems are negative. Vitals Signs Reviewed. General: [nontoxic], [no distress], [appears at stated age] Derm: [warm], [dry] Head: [atraumatic], [normocephalic], [symmetric] Eyes: [EOMI], [no lid lag], [anicteric sclera] Mouth: [no lip lesion], [mucus membranes moist] Cardiovascular: [S1S2 reg], [no murmur] Lungs: [CTA bilateral], [no rhonchi, no rales] , [no accessory muscle use] Abdominal: [soft], [ nontender to palpation], [no guarding], [no appreciable organomegaly] Ext: [no gross muscle atrophy], [no edema], [no contractures] Neuro: [ CN II-XI grossly intact], [no focal neuro deficits] Psych: [Alert], [oriented], [appropriate affect] Assessment and Plan: URI Concern for influenza low-grade T-cell leukemia -Tamiflu 75 bid for 5 day -CBC -symptomatic management with Tylenol, saline nasal spray Objective - Vital Signs Vital signs: Vital Signs Temp 98.1 F 07/08/24 10:29 Pulse 79 07/08/24 09:09 Resp 16 07/08/24 09:09 BP 145/90 07/08/24 09:09 Pulse Ox 97 07/08/24 07:49 FiO2 - Labs CBC & Chem 7: 07/05/24 12:34 07/05/24 12:34
[2024-07-08 11:48] LABS: Basophils % (A) 0 %; Eosinophils # (A) 0.1 k/uL (0-0.7); Eosinophils % (A) 2 %; HCT 39.4 % (34.0-46.0); HGB 12.6 gm/dL (11.4-16.0); Lymphocytes # (A) 0.8 k/uL (1.0-4.8); Lymphocytes % (A) 22 %; MCH 35.4 pg (25.0-35.0); MCHC 32.1 g/dL (31.0-37.0); MCV 110.3 fL (80.0-100.0); Macrocytosis Marked; Mean Platelet Volume 7.3; Monocytes # (A) 0.2 k/uL (0-1.0); Monocytes % (A) 6 %; Neutrophils # (A) 2.5 k/uL (1.3-7.7); Neutrophils % (A) 67 %; Platelet Count 229 k/uL (150-450); RBC 3.57 m/uL (3.80-5.40); RDW 13.3 % (11.5-15.5); WBC 3.7 k/uL (3.8-10.6)
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
[2024-07-08] MEDS: OSELTAMIVIR 75 MG CAP PO SCH (13:04)
[2024-07-08] MEDS: ONDANSETRON ODT 4 MG TAB PO PRN (14:43)
[2024-07-09 10:13] VITALS: BP 133/88; PULSE 80; TEMP 98
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
== END 2024-07-09 13:00 | disposition home or self-care (01) | DRG 753 ==
LOC: EC 09:34 → 3MHU 15:11
PROVIDERS: ADMIT Psychiatry & Neurology Psychiatry; ATTEND Psychiatry & Neurology Psychiatry
DX: F31.81 Bipolar II disorder (principal); C91.00 Acute lymphoblastic leukemia not having achieved remission; F10.239 Alcohol dependence with withdrawal, unspecified; E03.9 Hypothyroidism, unspecified; F14.10 Cocaine abuse, uncomplicated; Z59.01 Sheltered homelessness; F41.9 Anxiety disorder, unspecified; J06.9 Acute upper respiratory infection, unspecified; M79.10 Myalgia, unspecified site; D75.89 Other specified diseases of blood and blood-forming organs; R45.851 Suicidal ideations; Z79.890 Hormone replacement therapy; Z79.899 Other long term (current) drug therapy; Z56.0 Unemployment, unspecified; Z87.891 Personal history of nicotine dependence; Z86.718 Personal history of other venous thrombosis and embolism; Z88.0 Allergy status to penicillin; Z88.1 Allergy status to other antibiotic agents; Z71.41 Alcohol abuse counseling and surveillance of alcoholic; Z71.51 Drug abuse counseling and surveillance of drug abuser
CPT/HCPCS: 36415; 80053; 80061; 80076; 80306; 81003; 81025; 82075; 83036; 84439; 84443; 85025; 87636; 99285

== ENCOUNTER → 2024-07-31 | Outpatient (CLI) | payer OTHER ==
--- NOTE | 2024-08-03 12:49 | MM ---
Reason for Exam: Screening (asymptomatic). Patient History: Menarche at age 18. First Full-Term at age 23. Left ovary removed at age 47. Right ovary removed at age 47. Hysterectomy at age 47. Postmenopausal. Paternal grandmother had breast cancer, age 60. Risk Values: Lu 5 year model risk: 1.0%. NCI Lifetime model risk: 6.6%. Tissue Density: There are scattered areas of fibroglandular density. Findings: Analyzed By CAD. There are bilateral areas of circumscribed nodularity and overall benign pattern. However, no priors are available for comparison purposes. Possibly partially obscured nodularity posterior lateral right CC view for which further evaluation recommended. Asymmetric density subareolar left cc view for which further evaluation is recommended. No suspicious microcalcification or other discrete abnormality is seen. Overall Assessment: Incomplete: need additional imaging evaluation, BI-RAD 0 Management: Special View Mammogram of both breasts. Right breast to include spot 3-D CC, 3-D CC rolled, and 3-D ML views. Left breast include spot 3-D CC and 3-D lateral views. [facility] will attempt to contact patient to return for supplemental views and ultrasound if indicated. [facility], , 08/03/2024 12:46 PM. Electronically signed and approved by: Sudhir Clement M.D. Radiologist
== END | disposition home or self-care (01) ==
LOC: RADMAMWWP 16:09
DX: Z12.31 Encounter for screening mammogram for malignant neoplasm of breast (principal); R92.323 Mammographic fibroglandular density, bilateral breasts; Z78.0 Asymptomatic menopausal state; Z80.3 Family history of malignant neoplasm of breast
CPT/HCPCS: 77067

== ENCOUNTER → 2024-08-13 | Outpatient (CLI) | payer OTHER ==
--- NOTE | 2024-08-13 13:42 | MM ---
Reason for Exam: Additional evaluation requested from abnormal screening. Last screening mammogram was performed less than 1 month ago. Patient History: Menarche at age 18. First Full-Term at age 23. Left ovary removed at age 47. Right ovary removed at age 47. Hysterectomy at age 47. Postmenopausal. Paternal grandmother had breast cancer, age 60. Risk Values: Lu 5 year model risk: 1.0%. NCI Lifetime model risk: 6.6%. Prior Study Comparison: 07/31/2024 Bilateral MG screening mammo w CAD, [facility]. Tissue Density: The breasts are heterogeneously dense, which may obscure small masses. Findings: Analyzed By CAD. Right breast: Nodular density upper outer quadrant right breast 9 cm from the nipple measuring approximately 6 mm in size. Additional nodular density 6 cm from the nipple at the 9:00 position measures 5 mm. Left breast: The lower inner left breast 4 cm from the nipple there is a 8 mm nodule. There is also increased in nodularity left retroareolar region. Overall Assessment: Incomplete: need additional imaging evaluation, BI-RAD 0 Management: Diagnostic Breast Ultrasound of both breasts. . Results were given to the patient verbally at the time of exam. Patient should continue monthly self-breast exams. A clinical breast exam by your physician is recommended on an annual basis. This exam should not preclude additional follow-up of suspicious palpable abnormalities. Note on Lu scores and lifetime risk: 1. A Lu score greater than 3% is considered moderate risk. If this is the case, consider specialist referral to assess eligibility for a risk reducing agent. 2. If overall lifetime risk for the development of breast cancer is 20% or higher, the patient may qualify for future screening with alternating mammogram and breast MRI. [facility], , 08/13/2024 1:38 PM. Electronically signed and approved by: Chandler Dueñas M.D. Radiologis
--- NOTE | 2024-08-14 07:44 | USB ---
Reason for Exam: Additional evaluation requested from abnormal screening. Patient History: Menarche at age 18. First Full-Term at age 23. Left ovary removed at age 47. Right ovary removed at age 47. Hysterectomy at age 47. Postmenopausal. Paternal grandmother had breast cancer, age 60. Risk Values: Lu 5 year model risk: 1.0%. NCI Lifetime model risk: 6.6%. Technique: Method: Targeted. Prior Study Comparison: 07/31/2024 Bilateral MG screening mammo w CAD, [facility]. Findings: The upper outer quadrant of the right breast, the lower inner quadrant of the left breast, the axilla of both breasts and the retroareolar of both breasts were scanned. A complete US of all four quadrants of the breast and retro-areolar region were reviewed. There are small probable cysts seen bilaterally which are too small to appropriately characterize and measure up to 4 mm. Six-month follow-up bilateral ultrasound is recommended. Overall Assessment: Probably benign, BI-RAD 3 Management: Diagnostic Breast Ultrasound of both breasts in 6 months. A clinical breast exam by your physician is recommended on an annual basis and results should be correlated with mammographic findings. This exam should not preclude additional follow-up of suspicious palpable abnormalities. Results were given to the patient verbally at the time of exam. [facility], , 08/13/2024 2:26 PM. Electronically signed and approved by: Chandler Dueñas M.D. Radiologis
== END | disposition home or self-care (01) ==
LOC: RADMAMWWP 13:09
DX: R92.8 Other abnormal and inconclusive findings on diagnostic imaging of breast (principal); R92.333 Mammographic heterogeneous density, bilateral breasts; Z78.0 Asymptomatic menopausal state; Z80.3 Family history of malignant neoplasm of breast
CPT/HCPCS: 77066; 76642; G0279; 77062

== ENCOUNTER 2024-10-16 13:29 | Inpatient (IN) | payer OTHER ==
--- NOTE | 2024-10-16 14:11 | ED ---
General Adult HPI - General Chief complaint: Alcohol Stated complaint: ETOH withdrawal Time Seen by Provider: 10/16/24 13:53 Source: patient, RN notes reviewed Mode of arrival: ambulatory Limitations: no limitations - History of Present Illness Initial comments: Patient is a 58-year-old female presenting to the emergency department requesting alcohol detox. Patient states she started drinking again back in January. Patient is drinking over 1/5/day. sometimes half a gallon per day. Patient states this is consuming her and she wants to discontinue. Patient last drank at 8 AM. Patient feels shaky, no other complaints at this time. - Related Data Previous Rx's Medication Instructions Recorded Cholecalciferol (Vitamin D3) 125 mcg PO DAILY 30 Days #30 cap 07/09/24 [Vitamin D3 (125 MCG = 5,000 IU)] Ferrous Sulfate [Iron (65 MG 325 mg PO DAILY 30 Days #30 tab 07/09/24 Elemental)] Folic Acid 1 mg PO DAILY 30 Days #30 tab 07/09/24 Levothyroxine Sodium [Synthroid] 150 mcg PO DAILY 30 Days #30 tab 07/09/24 Lurasidone [Latuda] 40 mg PO 1800 30 Days #30 tab 07/09/24 Multivitamins, Thera [Multivitamin 1 each PO DAILY 30 Days #30 tab 07/09/24 (formulary)] Naltrexone HCl [Revia] 50 mg PO DAILY 30 Days #30 tab 07/09/24 Pantoprazole [Protonix] 40 mg PO DAILY 30 Days #30 tab 07/09/24 Thiamine [Vitamin B-1] 100 mg PO DAILY 30 Days #30 tab 07/09/24 Allergies Allergy/AdvReac Type Severity Reaction Status Date / Time amoxicillin Allergy Unknown Verified 10/16/24 13:49 banana Allergy Rash/Hives Verified 10/16/24 13:49 bee venom protein (honey bee) Allergy Anaphylaxis Verified 10/16/24 13:49 cephalexin [From Keflex] Allergy Unknown Verified 10/16/24 13:49 Penicillins Allergy Rash/Hives Verified 10/16/24 13:49 Tetracyclines Allergy Unknown Verified 10/16/24 13:49 Review of Systems ROS Statement: Those systems with pertinent positive or pertinent negative responses have been documented in the HPI. ROS Other: All systems not noted in ROS Statement are negative. 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 History of Any Multi-Drug Resistant Organisms: C-DIFF Date of last positivie culture[facility]: [facility] this has been ongoing since dec MDRO Source:: wound rt hip / stool Past Surgical History: Hysterectomy Additional Past Surgical History / Comment(s): ectopic , neck surgery secondary to C3 fracture, bone marrow biopsy x 4 Past Anesthesia/Blood Transfusion Reactions: No Reported Reaction Additional Past Anesthesia/Blood Transfusion Reaction / Comment(s): pt stated has received blood in past no known reaction Past Psychological History: Anxiety, Depression Smoking Status: Current some day smoker, Former smoker Past Alcohol Use History: Abuse, Daily Past Drug Use History: Cocaine, Marijuana - Past Family History Father Family Medical History: Cancer Additional Family Medical History / Comment(s): mesothelioma Mother History Unknown: Yes Family Medical History: Hyperlipidemia General Exam Limitations: no limitations General appearance: alert, in no apparent distress Head exam: Present: atraumatic Eye exam: Present: normal appearance, PERRL, EOMI, nystagmus Neck exam: Present: normal inspection Respiratory exam: Present: normal lung sounds bilaterally Cardiovascular Exam: Present: regular rate, normal rhythm GI/Abdominal exam: Present: soft. Absent: tenderness Extremities exam: Present: normal inspection Neurological exam: Present: alert Psychiatric exam: Present: normal affect, normal mood. Absent: suicidal ideation Skin exam: Present: normal color Course Vital Signs 10/16/24 10/16/24 13:44 14:23 Temperature 98 F Pulse Rate 74 70 Respiratory 20 12 Rate Blood Pressure 148/94 130/97 O2 Sat by Pulse 98 98 Oximetry Medical Decision Making - Medical Decision Making Was pt. sent in by a medical professional or institution (Dr., PA, [employer], urgent care, hospital, or alf...) When possible be specific @ -No Did you speak to anyone other than the patient for history (EMS, parent, family, police, friend...)? What history was obtained from this source @ -No Did you review nursing and triage notes (agree or disagree)? Why? @ -I reviewed and agree with nursing and triage notes Were old charts reviewed (outside hosp., previous admission, EMS record, old EKG, old radiological studies, urgent care reports/EKG's, alf records)? Report findings @ -No old charts were reviewed Differential Diagnosis (chest pain, altered mental status, abdominal pain women, abdominal pain men, vaginal bleeding, weakness, fever, dyspnea, syncope, headache, dizziness, GI bleed, back pain, seizure, CVA, palpatations, mental health, musculoskeletal)? @ -Differential Weakness: Hypoglycemia, shock, sepsis, hyponatremia, anemia, infection, OK, ETOH, adverse medicine reaction, overdose, stroke, this is not meant to be an all-inclusive list. EKG interpreted by me (3pts min.). @ -As above X-rays interpreted by me (1pt min.). @ -None done CT interpreted by me (1pt min.). @ -None done U/S interpreted by me (1pt. min.). @ -None done What testing was considered but not performed or refused? (CT, X-rays, U/S, labs)? Why? @ -None What meds were considered but not given or refused? Why? @ -None Did you discuss the management of the patient with other professionals (professionals i.e. CHEYANNE Mac, [employer], lab, RT, psych nurse, social services technician, fund accounting manager, teacher, air control/anti air warfare officer, assistant case manager)? Give summary @ -Case discussed with Dr. Gordon who will admit covering Dr. Orta Was smoking cessation discussed for >3mins.? @ -No Was critical care preformed (if so, how long)? @ -No Were there social determinants of health that impacted care today? How? (Homelessness, low income, unemployed, alcoholism, drug addiction, transportation, low edu. Level, literacy, decrease access to med. care, intermediate, rehab)? @ -No Was there de-escalation of care discussed even if they declined (Discuss DNR or withdrawal of care, Hospice)? DNR status @ -No What co-morbidities impacted this encounter? (DM, HTN, Smoking, COPD, CAD, Cancer, CVA, ARF, Chemo, Hep., AIDS, mental health diagnosis, sleep apnea, morbid obesity)? @ -History of alcohol use Was patient admitted / discharged? Hospital course, mention meds given and route, prescriptions, significant lab abnormalities, going to OR and other pert inent info. @ -Patient presents with trying to detox from alcohol. Last alcohol earlier this morning. Alcohol level reported as negative. Case was discussed with admitting who will admit for detox. Patient updated. [place] orders written. Undiagnosed new problem with uncertain prognosis? @ -No Drug Therapy requiring intensive monitoring for toxicity (Heparin, Nitro, Insulin, Cardizem)? @ -No Were any procedures done? @ -No Diagnosis/symptom? @ -Alcohol withdrawal Acute, or Chronic, or Acute on Chronic? @ -Acute Uncomplicated (without systemic symptoms) or Complicated (systemic symptoms)? @ -Default Side effects of treatment? @ -No Exacerbation, Progression, or Severe Exacerbation? @ -No Poses a threat to life or bodily function? How? (Chest pain, USA, OK, pneumonia, PE, COPD, DKA, ARF, appy, cholecystitis, CVA, Diverticulitis, Homicidal, Suicidal, threat to staff... and all critical care pts) @ -No - Lab Data Result diagrams: 10/16/24 14:30 10/16/24 14:30 Lab Results 10/16/24 10/16/24 Range/Units 14:30 14:30 WBC 5.61 (4.50-10.00) 10*3/uL RBC 3.71 L (4.10-5.20) 10*6/uL Hgb 13.4 (12.0-15.0) g/dL Hct 37.4 (37.2-46.3) % MCV 100.8 H (80.0-97.0) fL MCH 36.1 H (27.0-32.0) pg MCHC 35.8 (32.0-37.0) g/dL Plt Count 183 (140-440) 10*3/uL MPV 8.6 L (9.5-12.2) fL Immature Gran % (Auto) 0.4 % Neutrophils % 63.8 % Lymphocytes % 24.2 % Monocytes % 8.6 % Eosinophils % 2.3 % Basophils % 0.7 % Immature Gran # 0.02 (0.00-0.04) 10*3/uL Neutrophils # 3.58 (1.80-7.70) 10*3/uL Lymphocytes # 1.36 (0.90-5.00) 10*3/uL Monocytes # 0.48 (0.20-1.00) 10*3/uL Eosinophils # 0.13 (0.04-0.35) 10*3/uL Basophils # 0.04 (0.00-0.10) 10*3/uL Sodium 137 (137-145) mmol/L Potassium 3.7 (3.5-5.1) mmol/L Chloride 104 (98-107) mmol/L Carbon Dioxide 23 (22-30) mmol/L Anion Gap 10 mmol/L BUN 10 (7-17) mg/dL Creatinine 0.56 (0.52-1.04) mg/dL Est GFR (CKD-EPI)AfAm >90 (>60 ml/min/1.73 sqM) Est GFR (CKD-EPI)NonAf >90 (>60 ml/min/1.73 sqM) Glucose 86 (74-99) mg/dL Calcium 9.4 (8.4-10.2) mg/dL Magnesium 1.7 (1.6-2.3) mg/dL Total Bilirubin 0.7 (0.2-1.3) mg/dL AST 30 (14-36) U/L ALT 21 (4-34) U/L Alkaline Phosphatase 97 (38-126) U/L Total Protein 7.8 (6.3-8.2) g/dL Albumin 4.6 (3.5-5.0) g/dL Lipase 82 (23-300) U/L Serum Alcohol <10 mg/dL Disposition Clinical Impression: Alcohol withdrawal syndrome Disposition: ADMITTED IP TO THIS HOSP Is patient prescribed a controlled substance at d/c from ED?: No Referrals: Tripp Davidson MD [Primary Care Provider] - 1-2 days Time of Disposition: 16:04
[2024-10-16] MEDS: THIAMINE 100 MG/ML 2 ML VIAL IM STA (14:20)
[2024-10-16] MEDS: MULTIVITAMINS, THERA 1 EACH TAB PO STA (14:21)
[2024-10-16] MEDS: FOLIC ACID 1 MG TAB PO STA (14:21)
[2024-10-16 14:41] LABS: Basophils # (A) 0.04 10*3/uL (0.00-0.10); Basophils % (A) 0.7 %; Eosinophils # (A) 0.13 10*3/uL (0.04-0.35); Eosinophils % (A) 2.3 %; HCT 37.4 % (37.2-46.3); HGB 13.4 g/dL (12.0-15.0); Lymphocytes # (A) 1.36 10*3/uL (0.90-5.00); Lymphocytes % (A) 24.2 %; MCH 36.1 pg (27.0-32.0); MCHC 35.8 g/dL (32.0-37.0); MCV 100.8 fL (80.0-97.0); Mean Platelet Volume 8.6 fL (9.5-12.2); Monocytes # (A) 0.48 10*3/uL (0.20-1.00); Monocytes % (A) 8.6 %; Neutrophils # (A) 3.58 10*3/uL (1.80-7.70); Neutrophils % (A) 63.8 %; Platelet Count 183 10*3/uL (140-440); RBC 3.71 10*6/uL (4.10-5.20); RDW 12.7 % (11.5-14.5); WBC 5.61 10*3/uL (4.50-10.00)
[2024-10-16 14:57] LABS: ALT 21 U/L (4-34); AST 30 U/L (14-36); African American GFR (CKD) >90 (>60 ml/min/1.73 sqM); Albumin 4.6 g/dL (3.5-5.0); Alcohol <10 mg/dL; Alkaline Phosphatase 97 U/L (38-126); Anion Gap 10 mmol/L; Blood Urea Nitrogen 10 mg/dL (7-17); Calcium 9.4 mg/dL (8.4-10.2); Carbon Dioxide 23 mmol/L (22-30); Chloride 104 mmol/L (98-107); Glucose 86 mg/dL (74-99); Lipase 82 U/L (23-300); Magnesium 1.7 mg/dL (1.6-2.3); Non-African American GFR(CKD) >90 (>60 ml/min/1.73 sqM); Potassium 3.7 mmol/L (3.5-5.1); Sodium 137 mmol/L (137-145); Total Bilirubin 0.7 mg/dL (0.2-1.3); Total Protein 7.8 g/dL (6.3-8.2)
[2024-10-16] MEDS ORDERED: NALOXONE 0.4 MG/ML 1 ML VIAL IV PRN (16:05)
[2024-10-16] MEDS ORDERED: LORazepam 1 MG TAB PO PRN (16:06)
[2024-10-16] MEDS ORDERED: LORazepam 1 MG/0.5 ML VIAL IV PRN (16:06)
[2024-10-16] MEDS: LORazepam 1 MG TAB PO PRN ×2 (16:22→20:09)
[2024-10-16] MEDS: FAMOTIDINE 20 MG TAB PO SCH (20:09)
[2024-10-17] MEDS: THIAMINE 100 MG TAB PO SCH (08:48)
[2024-10-17 09:58] LABS: HCT 35.5 % (37.2-46.3); MCH 35.8 pg (27.0-32.0); MCHC 33.8 g/dL (32.0-37.0); Mean Platelet Volume 9.4 FL (9.5-12.2); NRBC Per 100 WBC 0 X 10*3/uL (0.00-0.01); Platelet Count 198 X 10*3/uL (140-440); RBC 3.35 X 10*6/uL (4.10-5.20); RDW 13.3 % (11.5-14.5); WBC 4.44 X 10*3/uL (4.50-10.00)
[2024-10-17 10:09] LABS: ALT 18 U/L (8-44); AST 23 U/L (13-35); Albumin/Globulin Ratio 1.74 Ratio (1.60-3.17); Alkaline Phosphatase 79 U/L (41-126); BUN/Creat Ratio 24.29 Ratio (12.00-20.00); Calcium 9.1 mg/dL (8.7-10.3); Carbon Dioxide 25.1 mmol/L (21.6-31.8); Chloride 102 mmol/L (96-109); Globulin 2.3 g/dL (1.6-3.3); Glucose 90 mg/dL (70-110); Magnesium 1.9 mg/dL (1.5-2.4); Potassium 3.7 mmol/L (3.5-5.5); Sodium 137 mmol/L (135-145); Total Bilirubin 0.2 mg/dL (0.3-1.2); Total Protein 6.3 g/dL (6.2-8.2)
[2024-10-17 10:47] LABS: Basophils # (A) 0.05 X 10*3/uL (0.00-0.10); Basophils % (A) 1.1 %; Eosinophils # (A) 0.13 X 10*3/uL (0.04-0.35); Eosinophils % (A) 2.9 %; Lymphocytes # (A) 1.54 X 10*3/uL (0.90-5.00); Lymphocytes % (A) 34.7 %; Macrocytosis (M) 2+ (None Seen); Monocytes # (A) 0.56 X 10*3/uL (0.20-1.00); Monocytes % (A) 12.6 %; Neutrophils # (A) 2.15 X 10*3/uL (1.80-7.70); Neutrophils % (A) 48.5 %
[2024-10-17] MEDS: SODIUM CHLORIDE 0.9% 1,000 ML IV SCH (12:22)
[2024-10-17] MEDS: LEVOTHYROXINE 75 MCG TAB PO SCH (12:22)
[2024-10-17] MEDS: ONDANSETRON 4 MG/2 ML VIAL IVP PRN (12:27)
[2024-10-17] MEDS: LURASIDONE 40 MG TAB PO SCH (18:02)
--- NOTE | 2024-10-17 18:33 | P.HPIM ---
History of Present Illness H&P Date: 10/16/24 Chief Complaint: Alcohol withdrawal 58-year-old female, history of hypothyroidism, DVT, GERD, myelodysplasia presenting to the emergency department requesting alcohol detox. Patient states she started drinking again back in January. Patient is drinking over 1/5/day. sometimes half a gallon per day. Patient states this is consuming her and she wants to discontinue. Patient last drank at 8 AM. Patient feels shaky, no other complaints at this time. Patient reports last alcoholic drink earlier this morning Blood work completed in ED reveals a WBC of 5.61, hemoglobin of 13.4 and platelet count of 183, sodium 137, potassium 3.7, BUN/creatinine of 10/0.56 and blood glucose of 86 AST/ALT within normal limits, amylase lipase are within normal limits, serum alcohol of less than 10 Review of Systems REVIEW OF SYSTEMS: CONSTITUTIONAL: No fever, no malaise, no fatigue. HEENT: No recent visual problems or hearing problems. Denied any sore throat. CARDIOVASCULAR: No chest pain, orthopnea, PND, no palpitations, no syncope. PULMONARY: No shortness of breath, no cough, no hemoptysis. GASTROINTESTINAL: No diarrhea, no nausea, no vomiting, no abdominal pain. NEUROLOGICAL: No headaches, no weakness, no numbness. HEMATOLOGICAL: Denies any bleeding or petechiae. GENITOURINARY: Denies any burning micturition, frequency, or urgency. MUSCULOSKELETAL/RHEUMATOLOGICAL: Denies any joint pain, swelling, or any muscle pain. ENDOCRINE: Denies any polyuria or polydipsia. The rest of the 14-point review of systems is negative. 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 History of Any Multi-Drug Resistant Organisms: C-DIFF Date of last positivie [facility]: [facility] this has been ongoing since dec MDRO Source:: wound rt hip / stool Past Surgical History: Hysterectomy Additional Past Surgical History / Comment(s): ectopic , neck surgery secondary to C3 fracture, bone marrow biopsy x 4 Past Anesthesia/Blood Transfusion Reactions: No Reported Reaction Additional Past Anesthesia/Blood Transfusion Reaction / Comment(s): pt stated has received blood in past no known reaction Past Psychological History: Anxiety, Depression Smoking Status: Current some day smoker, Former smoker Past Alcohol Use History: Abuse, Daily Past Drug Use History: Cocaine, Marijuana - Past Family History Father Family Medical History: Cancer Additional Family Medical History / Comment(s): mesothelioma Mother History Unknown: Yes Family Medical History: Hyperlipidemia Medications and Allergies Home Medications Medication Instructions Recorded Confirmed Type Cholecalciferol (Vitamin D3) 125 mcg PO DAILY 30 Days #30 cap 07/09/24 10/16/24 Rx [Vitamin D3 (125 MCG = 5,000 IU)] Ferrous Sulfate [Iron (65 MG 325 mg PO DAILY 30 Days #30 tab 07/09/24 10/16/24 Rx Elemental)] Folic Acid 1 mg PO DAILY 30 Days #30 tab 07/09/24 10/16/24 Rx Levothyroxine Sodium [Synthroid] 150 mcg PO DAILY 30 Days #30 tab 07/09/24 10/16/24 Rx Naltrexone HCl [Revia] 50 mg PO DAILY 30 Days #30 tab 07/09/24 10/16/24 Rx Pantoprazole [Protonix] 40 mg PO DAILY 30 Days #30 tab 07/09/24 10/16/24 Rx Thiamine [Vitamin B-1] 100 mg PO DAILY 30 Days #30 tab 07/09/24 10/16/24 Rx Lurasidone [Latuda] 40 mg PO DAILY@1800 10/16/24 10/16/24 History Multivitamins, Thera [Multivitamin 1 tab PO DAILY 10/16/24 10/16/24 History (formulary)] Allergies Allergy/AdvReac Type Severity Reaction Status Date / Time amoxicillin Allergy Unknown Verified 10/16/24 18:13 banana Allergy Rash/Hives Verified 10/16/24 18:13 bee venom protein (honey bee) Allergy Anaphylaxis Verified 10/16/24 18:13 cephalexin [From Keflex] Allergy Unknown Verified 10/16/24 18:13 Penicillins Allergy Rash/Hives Verified 10/16/24 18:13 Tetracyclines Allergy Unknown Verified 10/16/24 18:13 Physical Exam Vitals: Vital Signs Temp Pulse Resp BP Pulse Ox 10/16/24 16:00 71 16 109/76 98 10/16/24 14:23 70 12 130/97 98 10/16/24 13:44 98 F 74 20 148/94 98 Intake and Output 10/16/24 10/16/24 10/16/24 06:59 14:59 22:59 Other: Weight 68.039 kg General appearance: alert, in no apparent distress Head exam: Present: atraumatic Eye exam: Present: normal appearance, PERRL, EOMI, nystagmus Neck exam: Present: normal inspection Respiratory exam: Present: normal lung sounds bilaterally Cardiovascular Exam: Present: regular rate, normal rhythm GI/Abdominal exam: Present: soft. Absent: tenderness Extremities exam: Present: normal inspection Neurological exam: Present: alert Psychiatric exam: Present: normal affect, normal mood. Absent: suicidal ideation Skin exam: Present: normal color Results CBC & Chem 7: 10/17/24 04:24 10/17/24 04:24 Labs: Abnormal Lab Results - Last 24 Hours (Table) 10/16/24 Range/Units 14:30 RBC 3.71 L (4.10-5.20) 10*6/uL MCV 100.8 H (80.0-97.0) fL MCH 36.1 H (27.0-32.0) pg MPV 8.6 L (9.5-12.2) fL Assessment and Plan Assessment: 1. Alcohol abuse with pending withdrawal -Patient has been placed on IV fluids; thiamine and folic acid - [facility] protocol with Ativan - Social service consult in place 2. Hypothyroidism; levothyroxine 150 mcg daily 3. GERD/gastritis; Protonix 40 mg daily 4. 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 Bipolar disorder; continue with home dose of Latuda 40 mg daily 6. Vitamin D deficiency; vitamin D 125 mcg daily DVT prophylaxis; SCDs CODE STATUS; full code
--- NOTE | 2024-10-17 18:35 | P.PN ---
Subjective Progress Note Date: 10/17/24 58-year-old female, history of hypothyroidism, DVT, GERD, myelodysplasia presenting to the emergency department requesting alcohol detox. Patient states she started drinking again back in January. Patient is drinking over 1/5/day. sometimes half a gallon per day. Patient states this is consuming her and she wants to discontinue. Patient last drank at 8 AM. Patient feels shaky, no other complaints at this time. Patient reports last alcoholic drink earlier this morning Blood work completed in ED reveals a WBC of 5.61, hemoglobin of 13.4 and platelet count of 183, sodium 137, potassium 3.7, BUN/creatinine of 10/0.56 and blood glucose of 86 AST/ALT within normal limits, amylase lipase are within normal limits, serum alcohol of less than 10 Objective - Vital Signs Vital signs: Vital Signs Temp 97.7 F 10/17/24 07:08 Pulse 69 10/17/24 08:00 Resp 16 10/17/24 08:00 BP 117/83 10/17/24 07:08 Pulse Ox 98 10/17/24 07:08 FiO2 Intake & Output 10/16/24 10/17/24 10/17/24 18:59 06:59 18:59 Intake Total 240 Balance 240 Weight 68.039 kg Intake: Oral 240 Other: Voiding Method Toilet # Voids 2 1 - Exam General appearance: alert, in no apparent distress Head exam: Present: atraumatic Eye exam: Present: normal appearance, PERRL, EOMI, nystagmus Neck exam: Present: normal inspection Respiratory exam: Present: normal lung sounds bilaterally Cardiovascular Exam: Present: regular rate, normal rhythm GI/Abdominal exam: Present: soft. Absent: tenderness Extremities exam: Present: normal inspection Neurological exam: Present: alert Psychiatric exam: Present: normal affect, normal mood. Absent: suicidal ideation Skin exam: Present: normal color - Labs CBC & Chem 7: 10/17/24 04:24 10/17/24 04:24 Labs: Abnormal Lab Results - Last 24 Hours (Table) 10/16/24 10/17/24 10/17/24 Range/Units 14:30 04:24 04:24 WBC 4.44 L (4.50-10.00) X 10*3/uL RBC 3.71 L 3.35 L (4.10-5.20) 10*6/uL Hct 35.5 L (37.2-46.3) % MCV 100.8 H 106.0 H (80.0-97.0) fL MCH 36.1 H 35.8 H (27.0-32.0) pg MPV 8.6 L 9.4 L (9.5-12.2) fL Macrocytosis (manual) 2+ A (None Seen) BUN/Creatinine Ratio 24.29 H (12.00-20.00) Ratio Total Bilirubin 0.2 L (0.3-1.2) mg/dL Assessment and Plan Assessment: 1. Alcohol abuse with pending withdrawal -Patient has been placed on IV fluids; thiamine and folic acid - [facility] protocol with Ativan - Social service consult in place 2. Hypothyroidism; levothyroxine 150 mcg daily 3. GERD/gastritis; Protonix 40 mg daily 4. 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 Bipolar disorder; continue with home dose of Latuda 40 mg daily 6. Vitamin D deficiency; vitamin D 125 mcg daily DVT prophylaxis; SCDs CODE STATUS; full code
[2024-10-18 06:33] LABS: Basophils # (A) 0.03 10*3/uL (0.00-0.10); Basophils % (A) 0.9 %; HCT 34.9 % (37.2-46.3); HGB 11.6 g/dL (12.0-15.0); Lymphocytes # (A) 1.38 10*3/uL (0.90-5.00); Lymphocytes % (A) 40.9 %; MCH 36.8 pg (27.0-32.0); MCHC 33.2 g/dL (32.0-37.0); Monocytes # (A) 0.36 10*3/uL (0.20-1.00); Monocytes % (A) 10.7 %; Neutrophils # (A) 1.48 10*3/uL (1.80-7.70); Neutrophils % (A) 43.9 %; Platelet Count 160 10*3/uL (140-440); RBC 3.15 10*6/uL (4.10-5.20); RDW 13.4 % (11.5-14.5); WBC 3.37 10*3/uL (4.50-10.00)
[2024-10-18 07:47] LABS: MCV 110.8 fL (80.0-97.0)
[2024-10-18] MEDS: MULTIVITAMINS, THERA 1 EACH TAB PO SCH (08:22)
[2024-10-18] MEDS: NALTREXONE HCL 50 MG TAB PO SCH (08:22)
[2024-10-18] MEDS: PANTOPRAZOLE 40 MG TABLET PO SCH (08:22)
[2024-10-18] MEDS: CHOLECALCIFEROL 125 MCG (5000 IU) TABLET PO SCH (08:22)
[2024-10-18] MEDS: FERROUS SULFATE 325 MG TAB PO SCH (08:22)
[2024-10-18 10:13] LABS: BUN/Creat Ratio 18.57 Ratio (12.00-20.00); Calcium 8.4 mg/dL (8.7-10.3); Carbon Dioxide 22.4 mmol/L (21.6-31.8); Chloride 109 mmol/L (96-109); Glucose 89 mg/dL (70-110); Magnesium 1.9 mg/dL (1.5-2.4); Potassium 3.9 mmol/L (3.5-5.5); Sodium 142 mmol/L (135-145)
[2024-10-19 10:26] LABS: BUN/Creat Ratio 15.86 Ratio (12.00-20.00); Blood Urea Nitrogen 11.1 mg/dL (9.0-27.0); Chloride 107 mmol/L (96-109); Glucose 90 mg/dL (70-110); Potassium 3.9 mmol/L (3.5-5.5); Sodium 139 mmol/L (135-145)
[2024-10-19 10:27] LABS: Calcium 8.6 mg/dL (8.7-10.3); Carbon Dioxide 22.9 mmol/L (21.6-31.8); Magnesium 1.9 mg/dL (1.5-2.4)
[2024-10-19] MEDS: ACETAMINOPHEN TAB 325 MG TAB PO PRN (14:53)
--- NOTE | 2024-10-19 23:31 | P.PN ---
Subjective 58-year-old female, history of hypothyroidism, DVT, GERD, myelodysplasia presenting to the emergency department requesting alcohol detox. Patient states she started drinking again back in January. Patient is drinking over 1/5/day. sometimes half a gallon per day. Patient states this is consuming her and she wants to discontinue. Patient last drank at 8 AM. Patient feels shaky, no other complaints at this time. Patient reports last alcoholic drink earlier this morning Blood work completed in ED reveals a WBC of 5.61, hemoglobin of 13.4 and platelet count of 183, sodium 137, potassium 3.7, BUN/creatinine of 10/0.56 and blood glucose of 86 AST/ALT within normal limits, amylase lipase are within normal limits, serum alcohol of less than 10 10/19 Patient still complaining from headache and dizziness Physical 3 mg of Ativan yesterday morning and today morning. No significant withdrawal symptoms today but she feels she is not ready for discharge because of the current symptoms Symptomatic treatment is provided CIWA score fluctuating between 9 and 2. Also she is getting normal saline 1 from 1 mL/h. piggery worker consult for resources Possible discharge 24 to 48 hours Objective - Vital Signs Vital signs: Vital Signs Temp 97.7 F 10/19/24 13:19 Pulse 81 10/19/24 13:19 Resp 17 10/19/24 13:19 BP 142/91 10/19/24 13:19 Pulse Ox 100 10/19/24 13:19 FiO2 Intake & Output 10/18/24 10/19/24 10/19/24 18:59 06:59 18:59 Intake Total 0 540 Balance 1920 540 Intake: Oral 1919 540 Other: Voiding Method Toilet Toilet Toilet # Voids 5 1 - Labs CBC & Chem 7: 10/18/24 05:55 10/19/24 04:26 Labs: Abnormal Lab Results - Last 24 Hours (Table) 10/19/24 Range/Units 04:26 Calcium 8.6 L (8.7-10.3) mg/dL Assessment and Plan Assessment: 1. Alcohol abuse with pending withdrawal -Patient has been placed on IV fluids; thiamine and folic acid - CIWA protocol with Ativan - Social service consult in place 2. Hypothyroidism; levothyroxine 150 mcg daily 3. GERD/gastritis; Protonix 40 mg daily 4. 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 Bipolar disorder; continue with home dose of Latuda 40 mg daily 6. Vitamin D deficiency; vitamin D 125 mcg daily DVT prophylaxis; SCDs CODE STATUS; full code
[2024-10-20] MEDS: LORazepam 0.5 MG TAB PO PRN (12:21)
[2024-10-20] MEDS: ONDANSETRON 4 MG/2 ML VIAL IVP STA (12:37)
--- NOTE | 2024-10-20 16:38 | P.CNNES ---
History of Present Illness Consult date: 10/20/24 Requesting physician: Natan Wang Reason for Consult: Ataxia History of Present Illness: Patient is a 58-year-old right-handed female with history of alcoholism, hypothyroidism, came to the hospital on 10/16/2024 at 1:29 PM for alcohol detox. Patient states that she has history of drinking since age 18. She has history of "dry spells" here and there but has been clean the longest (2.5 years) from 08/25/2021, until she started drinking again in January 2024. Her alcoholism got worse and she was drinking about 1/5 a day of vodka daily, until she decided on 10/16/2024 to come for alcohol detox. Vital signs on arrival blood pressure 148/94, pulse rate 74 temperature 98.0. Patient has been afebrile. Blood test shows normal CBC with elevated MCV 100.8. CMP is normal. Blood alcohol level was less than 10. Lipase normal. Patient had last abnormal thyroid functions with TSH of 48.2, with free T40.35. B12 was 480 and RBC folate 452. Patient did not have urine drug screen checked, although the last 1 from 07/05/2024 was positive for cocaine. Patient states that she has been feeling off balance, woozy, shaky and shuffles while walking instead of walking. She has been walking with some assistance. This is going on since she has been in the hospital. Patient states that she has history of "shooting pain in legs tingling mainly on the right for about 3 to 4 months, right more than left. She has history of cardiac stent in 2008, in which she had "lowered lumbar to disc ". She gets pain in the right SI region, that shoots down the hip down to the leg. She is noticing tingling in the feet legs ankles up to the right knee but on the left side it is not as severe, involving the foot and the distal lower leg only. She also has some pins and needle sensation, which is intermittent in the fingertips. All the symptoms prompted neurology consultation. Patient states that she usually moves a lot at home, but while in the hospital has been laying there for symptoms seems to have got worse. Patient denies any stroke symptoms. Patient has been seen by myself on 06/19/2019 for intractable headache, which was felt to be related to new medication started at the time called Juana. Patient was also seen by Dr. Whitman on 06/17/2021 for severe headache. Patient had an MRI of the brain performed, which revealed no evidence for acute medical abnormality. MRI of the cervical spine at that time showed degenerative changes of the cervical spine with mild anterior spinal cord mass effect from disc osteophyte complex at the level of C7-T1 without spinal cord signal changes. Hemangioma at T1-T2. Patient did have an MRV of the brain on 05/21/2019 which was negative for any sinus thrombosis. Patient has history of T-cell lymphoproliferative disease. She has history of DVT and hypothyroidism. Patient denies any history of diabetes. Home medications include folic acid, Protonix, naltrexone, thiamine, levothyroxine 50 mcg, ferrous sulfate, vitamin D, Latuda and multivitamins. Patient has history of smoking 1 pack/day since age 23, quit 3 years ago. She also used to do crack and cocaine and marijuana in the past but nothing now. Review of Systems Patient is having intermittent "fireworks" like visual disturbance off and on for last 6 months. She has not seen manager administration for last 2 years. All pertinent positive and negative review of systems mentioned HPI, otherwise unremarkable. 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 History of Any Multi-Drug Resistant Organisms: C-DIFF Date of last positivie culture/infection: 2015-[facility] / [facility]pt states this has been ongoing since dec MDRO Source:: wound rt hip / stool Past Surgical History: Hysterectomy Additional Past Surgical History / Comment(s): ectopic , neck surgery secondary to C3 fracture, bone marrow biopsy x 4 Past Anesthesia/Blood Transfusion Reactions: No Reported Reaction Additional Past Anesthesia/Blood Transfusion Reaction / Comment(s): pt stated has received blood in past no known reaction Past Psychological History: Anxiety, Depression Smoking Status: Current some day smoker, Former smoker Past Alcohol Use History: Abuse, Daily Past Drug Use History: Cocaine, Marijuana - Past Family History Father Family Medical History: Cancer Additional Family Medical History / Comment(s): mesothelioma Mother History Unknown: Yes Family Medical History: Hyperlipidemia Medications and Allergies Home Medications Medication Instructions Recorded Confirmed Type Cholecalciferol (Vitamin D3) 125 mcg PO DAILY 30 Days #30 cap 07/09/24 10/16/24 Rx [Vitamin D3 (125 MCG = 5,000 IU)] Ferrous Sulfate [Iron (65 MG 325 mg PO DAILY 30 Days #30 tab 07/09/24 10/16/24 Rx Elemental)] Folic Acid 1 mg PO DAILY 30 Days #30 tab 07/09/24 10/16/24 Rx Levothyroxine Sodium [Synthroid] 150 mcg PO DAILY 30 Days #30 tab 07/09/24 10/16/24 Rx Naltrexone HCl [Revia] 50 mg PO DAILY 30 Days #30 tab 07/09/24 10/16/24 Rx Pantoprazole [Protonix] 40 mg PO DAILY 30 Days #30 tab 07/09/24 10/16/24 Rx Thiamine [Vitamin B-1] 100 mg PO DAILY 30 Days #30 tab 07/09/24 10/16/24 Rx Lurasidone [Latuda] 40 mg PO DAILY@1800 10/16/24 10/16/24 History Multivitamins, Thera [Multivitamin 1 tab PO DAILY 10/16/24 10/16/24 History (formulary)] Allergies Allergy/AdvReac Type Severity Reaction Status Date / Time amoxicillin Allergy Unknown Verified 10/16/24 18:13 banana Allergy Rash/Hives Verified 10/16/24 18:13 bee venom protein (honey bee) Allergy Anaphylaxis Verified 10/16/24 18:13 cephalexin [From Keflex] Allergy Unknown Verified 10/16/24 18:13 Penicillins Allergy Rash/Hives Verified 10/16/24 18:13 Tetracyclines Allergy Unknown Verified 10/16/24 18:13 Physical Examination - Vital Signs Vital Signs: Vital Signs Temp Pulse Resp BP Pulse Ox 10/20/24 07:32 97.8 F 73 18 142/94 98 10/20/24 00:59 97.9 F 60 18 115/71 97 10/19/24 20:00 14 10/19/24 19:30 98.0 F 65 14 121/75 98 Intake and Output 10/19/24 10/20/24 10/20/24 22:59 06:59 14:59 Intake Total 540 Balance 540 Intake: Oral 540 Other: Voiding Method Toilet Toilet # Voids 3 3 Patient is a middle-aged female, in no acute distress. Patient is alert awake oriented to time place and person. Speech and language functions are normal. Patient can name and repeat very well. No aphasia or dysarthria. Attention, concentration and fund of knowledge is adequate. On cranial nerve examination, pupils are equal, round and reacting to light, visual conti are full on confrontation, with no neglect on double simultaneous stimulation. She appears to have mild bilateral ptosis. Extraocular muscles are intact with no nystagmus. Face is symmetric, tongue protrudes to the midline. Palatal elevation and sensation normal, hearing and shoulder shrug normal, facial sensation normal. On muscle strength testing, there is no pronator drift and the strength is normal in arms and legs distally and proximally, except for flexion which is about 5-bilaterally. Deep tendon reflexes are symmetric 1 at the biceps, trace brachioradialis, 1+ at the knees, absent ankles and plantars are withdrawal bilaterally. Sensory to touch is equal with no neglect on double simultaneous stimulation. Cerebellar function showed no ataxia for [id number] testing, although she was slightly tremulous on the left side (patient is right-hand dominant). No dysdiadochokinesia. No ataxia for [id number] testing on either side. Tone and bulk of muscles normal. Gait deferred.. On general examination, there is no carotid bruit or murmur, S1-S2 audible. Chest is clear on consultation. Abdomen is soft nontender. No organomegaly, bowel sounds present. Peripheral pulses are present. No peripheral edema. Results - Laboratory Findings CBC and BMP: 10/18/24 05:55 10/19/24 04:26 Abnormal Lab Findings: Abnormal Labs 10/16/24 10/17/24 10/17/24 14:30 04:24 04:24 WBC 4.44 L RBC 3.71 L 3.35 L Hgb Hct 35.5 L MCV 100.8 H 106.0 H MCH 36.1 H 35.8 H MPV 8.6 L 9.4 L Neutrophils # Macrocytosis (manual) 2+ A BUN/Creatinine Ratio 24.29 H Calcium Total Bilirubin 0.2 L 10/18/24 10/18/24 10/19/24 05:55 05:58 04:26 WBC 3.37 L RBC 3.15 L Hgb 11.6 L Hct 34.9 L MCV 110.8 H D MCH 36.8 H MPV 9.0 L Neutrophils # 1.48 L Macrocytosis (manual) BUN/Creatinine Ratio Calcium 8.4 L 8.6 L Total Bilirubin Assessment and Plan Assessment: * Gait imbalance, likely due to alcoholism/nutritional related * Chronic low back pain, with radicular symptoms to both legs, right > left. Rule out spinal stenosis/disc herniation. * Chronic alcoholism, admitted for alcohol detox * Macrocytic anemia, probably due to alcoholism * Hypothyroidism * History of myelodysplasia (T-cell lymphoproliferative disease) * Ex tobacco use Plan: * Patient's examination is nonfocal. * MRI lumbar spine evaluate for spinal stenosis/disc herniation * Check B12, folate, TSH, MMA, B6. Hemoglobin A1c 5.2 on 07/06/2024. * Continue thiamine, folic acid. * Recommend abstinence from alcoholism. * For chronic visual disturbance, patient was recommended to follow-up with oph thalmologist outpatient. * PT OT, evaluate gait. * Thank you for the consult. Time with Patient: Greater than 30
[2024-10-20] MEDS: FOLIC ACID 1 MG TAB PO SCH (17:36)
--- NOTE | 2024-10-21 06:13 | P.PN ---
Subjective 58-year-old female, history of hypothyroidism, DVT, GERD, myelodysplasia presenting to the emergency department requesting alcohol detox. Patient states she started drinking again back in January. Patient is drinking over 1/5/day. sometimes half a gallon per day. Patient states this is consuming her and she wants to discontinue. Patient last drank at 8 AM. Patient feels shaky, no other complaints at this time. Patient reports last alcoholic drink earlier this morning Blood work completed in ED reveals a WBC of 5.61, hemoglobin of 13.4 and platelet count of 183, sodium 137, potassium 3.7, BUN/creatinine of 10/0.56 and blood glucose of 86 AST/ALT within normal limits, amylase lipase are within normal limits, serum alcohol of less than 10 10/19 Patient still complaining from headache and dizziness Physical 3 mg of Ativan yesterday morning and today morning. No significant withdrawal symptoms today but she feels she is not ready for discharge because of the current symptoms Symptomatic treatment is provided CIWA score fluctuating between 9 and 2. Also she is getting normal saline 1 from 1 mL/h. cut out worker consult for resources Possible discharge 24 to 48 hours 10/20 Patient was admitted for alcohol use disorder and treated for alcohol withdrawal this is improving and today required 1.5 mg of Ativan only. She has only mild tremor in the upper extremity and she looks anxious little bit depressed and crying about her discharge plan but she denies any intention to hurt self or others Patient did not want to be discharged today because she has some nausea, nausea medication was ordered but also upset because she cannot take care of herself and she cannot walk. She is complaining from severe ataxia, I tried to walk her and only few steps with assistance of 2 people she could walk only for 1 or 2 steps before she go back to bed. Patient states that this is new for her hospitalization she was able to walk much better. This could be 2 alcohol effect however since patient cannot walk for going to ask for neurology consult Objective - Vital Signs Vital signs: Vital Signs Temp 97.8 F 10/20/24 07:32 Pulse 73 10/20/24 07:32 Resp 18 10/20/24 07:32 BP 142/94 10/20/24 07:32 Pulse Ox 98 10/20/24 07:32 FiO2 Intake & Output 10/19/24 10/20/24 10/20/24 18:59 06:59 18:59 Intake Total 540 Balance 540 Intake: Oral 540 Other: Voiding Method Toilet Toilet Toilet # Voids 3 3 - Exam GENERAL: The patient is alert and oriented x3, not in any acute distress. Well developed, well nourished. HEENT: Pupils are round and equally reacting to light. EOMI. No scleral icterus. No conjunctival pallor. Normocephalic, atraumatic. No pharyngeal erythema. No thyromegaly. CARDIOVASCULAR: S1 and S2 present. No murmurs, rubs, or gallops. PULMONARY: Chest is clear to auscultation, no wheezing , no crackles. ABDOMEN: Soft, nontender, nondistended, normoactive bowel sounds. No palpable organomegaly. MUSCULOSKELETAL: No joint swelling or deformity. EXTREMITIES: No cyanosis, clubbing, or pedal edema. NEUROLOGICAL: Gross neurological examination did not reveal any focal deficits. SKIN: No rashes. no petechiae. -Gait: Ataxia, needed assistance with ambulation - Labs CBC & Chem 7: 10/18/24 05:55 10/19/24 04:26 Assessment and Plan Assessment: 1. Alcohol abuse with pending withdrawal -Patient has been placed on IV fluids; thiamine and folic acid - [facility] protocol with Ativan - Social service consult in place 2. Severe ataxia and inability to walk. Thought secondary to alcohol effect. However because of her low back pain and radicular symptoms more on the right side neurologist recommended MRI of the spine which is pending now. -Will ask for PT/OT evaluation 3. GERD/gastritis; Protonix 40 mg daily 4. 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 Bipolar disorder; continue with home dose of Latuda 40 mg daily 6. Vitamin D deficiency; vitamin D 125 mcg daily DVT prophylaxis; SCDs CODE STATUS; full code
--- NOTE | 2024-10-21 18:56 | P.PN ---
Subjective Progress Note Date: 10/21/24 Patient was seen for follow-up. Patient is laying comfortably in the bed. She states that today the right lower back region and hip was hurting. It was 10/06, but now with medication is down to much improved. Apparently MRI machine was broken today. No new concerns. Objective - Vital Signs Vital signs: Vital Signs Temp 97.9 F 10/21/24 12:39 Pulse 55 L 10/21/24 12:39 Resp 20 10/21/24 12:39 BP 137/82 10/21/24 12:39 Pulse Ox 99 10/21/24 12:39 FiO2 Intake & Output 10/20/24 10/21/24 10/21/24 18:59 06:59 18:59 Intake Total 1160 462 Balance 1160 462 Intake: Oral 1160 462 Other: Voiding Method Toilet Toilet Toilet # Voids 1 1 2 - Exam Unchanged. Mentation normal. - Labs CBC & Chem 7: 10/18/24 05:55 10/19/24 04:26 Labs: Abnormal Lab Results - Last 24 Hours (Table) 10/20/24 10/20/24 Range/Units 15:18 15:18 Folate 32.70 H (4.40-31.00) ng/mL TSH 50.500 H (0.350-5.500) UIU/ML Assessment and Plan Assessment: * Gait imbalance, likely due to alcoholism/nutritional related * Chronic low back pain, with radicular symptoms to both legs, right > left. Rule out spinal stenosis/disc herniation. * Chronic alcoholism, admitted for alcohol detox * Macrocytic anemia, probably due to alcoholism * Hypothyroidism * History of myelodysplasia (T-cell lymphoproliferative disease) * Ex tobacco use Plan: * Patient's examination is nonfocal. * Await MRI lumbar spine evaluate for spinal stenosis/disc herniation * B12 601, folate 32.70, TSH 5.50 and free T4 is normal 0.86. MMA, B6 pending. Hemoglobin A1c 5.2 on 07/06/2024. * Continue thiamine, folic acid. * Recommend abstinence from alcoholism. * For chronic visual disturbance, patient was recommended to follow-up with physical security engineer outpatient. * PT OT, evaluate gait.
--- NOTE | 2024-10-21 23:06 | P.PN ---
Subjective 58-year-old female, history of hypothyroidism, DVT, GERD, myelodysplasia presenting to the emergency department requesting alcohol detox. Patient states she started drinking again back in January. Patient is drinking over 1/5/day. sometimes half a gallon per day. Patient states this is consuming her and she wants to discontinue. Patient last drank at 8 AM. Patient feels shaky, no other complaints at this time. Patient reports last alcoholic drink earlier this morning Blood work completed in ED reveals a WBC of 5.61, hemoglobin of 13.4 and platelet count of 183, sodium 137, potassium 3.7, BUN/creatinine of 10/0.56 and blood glucose of 86 AST/ALT within normal limits, amylase lipase are within normal limits, serum alcohol of less than 10 10/19 Patient still complaining from headache and dizziness Physical 3 mg of Ativan yesterday morning and today morning. No significant withdrawal symptoms today but she feels she is not ready for discharge because of the current symptoms Symptomatic treatment is provided CIWA score fluctuating between 9 and 2. Also she is getting normal saline 1 from 1 mL/h. odd jobs day worker consult for resources Possible discharge 24 to 48 hours 10/20 Patient was admitted for alcohol use disorder and treated for alcohol withdrawal this is improving and today required 1.5 mg of Ativan only. She has only mild tremor in the upper extremity and she looks anxious little bit depressed and crying about her discharge plan but she denies any intention to hurt self or others Patient did not want to be discharged today because she has some nausea, nausea medication was ordered but also upset because she cannot take care of herself and she cannot walk. She is complaining from severe ataxia, I tried to walk her and only few steps with assistance of 2 people she could walk only for 1 or 2 steps before she go back to bed. Patient states that this is new for her hospitalization she was able to walk much better. This could be 2 alcohol effect however since patient cannot walk for going to ask for neurology consult 10/21 Pain yesterday with minimal withdrawal symptoms Epigastric nausea vomiting and discomfort also improved and she eats more She still complains from gait instability and ataxia episode looks like related to alcohol but patient reports she was much better prior to hospitalization Patient was evaluated by PT and recommended home care with rolling walker if patient has assistance with standing activities MRI of the lower back is ordered and is pending Objective - Vital Signs Vital signs: Vital Signs Temp 97.9 F 10/21/24 12:39 Pulse 55 L 10/21/24 12:39 Resp 20 10/21/24 12:39 BP 137/82 10/21/24 12:39 Pulse Ox 99 10/21/24 12:39 FiO2 Intake & Output 10/21/24 10/21/24 10/22/24 06:59 18:59 06:59 Intake Total 462 Balance 462 Intake: Oral 462 Other: Voiding Method Toilet Toilet # Voids 1 2 - Exam GENERAL: The patient is alert and oriented x3, not in any acute distress. Well developed, well nourished. HEENT: Pupils are round and equally reacting to light. EOMI. No scleral icterus. No conjunctival pallor. Normocephalic, atraumatic. No pharyngeal erythema. No thyromegaly. CARDIOVASCULAR: S1 and S2 present. No murmurs, rubs, or gallops. PULMONARY: Chest is clear to auscultation, no wheezing , no crackles. ABDOMEN: Soft, nontender, nondistended, normoactive bowel sounds. No palpable organomegaly. MUSCULOSKELETAL: No joint swelling or deformity. EXTREMITIES: No cyanosis, clubbing, or pedal edema. NEUROLOGICAL: Gross neurological examination did not reveal any focal deficits. SKIN: No rashes. no petechiae. -Gait: Ataxia, needed assistance with ambulation - Labs CBC & Chem 7: 10/18/24 05:55 10/19/24 04:26 Labs: Abnormal Lab Results - Last 24 Hours (Table) 10/20/24 10/20/24 Range/Units 15:18 15:18 Folate 32.70 H (4.40-31.00) ng/mL TSH 50.500 H (0.350-5.500) UIU/ML Assessment and Plan Assessment: 1. Alcohol abuse with pending withdrawal -Patient has been placed on IV fluids; thiamine and folic acid - [facility] protocol with Ativan - Social service consult in place 2. Severe ataxia and inability to walk. Thought secondary to alcohol effect. However because of her low back pain and radicular symptoms more on the right side neurologist recommended MRI of the spine which is pending now. -Will ask for PT/OT evaluation recommended home care with a rolling walker if has assistance for standing activities 3. GERD/gastritis; Protonix 40 mg daily 4. 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 Bipolar disorder; continue with home dose of Latuda 40 mg daily 6. Vitamin D deficiency; vitamin D 125 mcg daily DVT prophylaxis; SCDs CODE STATUS; full code
[2024-10-22 09:43] VITALS: BMI 22.1
[2024-10-22 16:37] LABS: T4, Free (Free Thyroxine) 0.78 ng/dL (0.78-2.19)
--- NOTE | 2024-10-22 18:13 | P.PN ---
Subjective Progress Note Date: 10/22/24 Patient was seen for follow-up. Patient is laying comfortably in the bed. Patient states this morning she woke up very well. However then she had as back pain going to the right leg. She appears comfortable at this point. Objective - Vital Signs Vital signs: Vital Signs Temp 97.7 F 10/22/24 11:59 Pulse 54 L 10/22/24 11:59 Resp 18 10/22/24 11:59 BP 135/88 10/22/24 11:59 Pulse Ox 97 10/22/24 11:59 FiO2 Intake & Output 10/21/24 10/22/24 10/22/24 18:59 06:59 18:59 Intake Total 480 1320 Balance 480 1320 Weight 68.039 kg Intake: Oral 480 1320 Other: Voiding Method Toilet Toilet Toilet # Voids 2 0 5 # Bowel Movements 1 - Exam Unchanged. Mentation normal. - Labs CBC & Chem 7: 10/18/24 05:55 10/19/24 04:26 Labs: Abnormal Lab Results - Last 24 Hours (Table) 10/22/24 Range/Units 15:53 TSH 32.700 H (0.465-4.680) mIU/L Assessment and Plan Assessment: * Gait imbalance, likely due to alcoholism/nutritional related * Chronic low back pain, with radicular symptoms to both legs, right > left. Rule out spinal stenosis/disc herniation. * Chronic alcoholism, admitted for alcohol detox * Macrocytic anemia, probably due to alcoholism * Hypothyroidism * History of myelodysplasia (T-cell lymphoproliferative disease) * Ex tobacco use Plan: * Patient's examination is nonfocal. * Await MRI lumbar spine evaluate for spinal stenosis/disc herniation. Probably will be done tomorrow. * B12 601, folate 32.70, TSH 5.50 and free T4 is normal 0.86. MMA, B6 pending. Hemoglobin A1c 5.2 on 07/06/2024. * Continue thiamine, folic acid. * Recommend abstinence from alcoholism. * For chronic visual disturbance, patient was recommended to follow-up with shadow graph weight operator outpatient. * PT OT, evaluate gait.
[2024-10-22 19:51] VITALS: RESP 16
--- NOTE | 2024-10-22 20:08 | MR ---
INDICATION: Patient age:Female; 58 years old; Reason for study: Low back pain, with radiculopathy; PHH. COMPARISONS: CT abdomen and pelvis 09/05/2023, lumbar spine radiograph 05/18/2019 TECHNIQUE: Multi planar, multi sequence imaging was performed utilizing: T1-weighted, T2-weighted, a nd turbo inversion recovery imaging of the lumbar spine. The patient was not given contrast. FINDINGS: The lumbar vertebral bodies do have preserved heights and alignment. Disc desiccation wit h height loss at L5-S1. Remaining discs demonstrate normal signal intensity. Anterior osteophytosis a t L5-S1. T1/T2 hyperintense benign vertebral hemangioma within the L1 vertebral body. Type II degene rative changes involving the endplates around L5-S1 disc and anterior aspects of the inferior L1 and L2 endplates. The conus medullaris and the distal spinal cord do appear unremarkable with regards to their signal intensity and morphology. Back subcutaneous edema. T12-L1: L1-L2: No significant disc pathology is identified. The spinal canal and neural foramen are patent. L2-L3: No significant disc pathology is identified. The spinal canal and neural foramen are patent. L3-L4: No significant disc pathology is identified. The spinal canal and neural foramen are patent. L4-L5: No significant disc pathology is identified. The spinal canal and neural foramen are patent. L5-S1: Prominent disc height loss identified. Minimal broad-based disc bulge. No effacement of the an terior thecal sac. No disc herniation or significant central canal stenosis. Bilateral facet arthropa thy. Minimal bilateral neural foraminal stenosis. Other significant findings: Partially visualized left renal T1 hypointense/T2 hyperintense simple sandi earing cyst. No follow-up recommended. IMPRESSION: 1. No definitive evidence for disc herniation or significant spinal canal stenosis. 2. Moderate degenerative disc disease at L5-S1. [facility], , 10/22/2024 8:05 PM
[2024-10-22 21:00] LABS: Basophils # (A) 0.06 10*3/uL (0.00-0.10); Basophils % (A) 1.2 %; Eosinophils # (A) 0.12 10*3/uL (0.04-0.35); Eosinophils % (A) 2.4 %; HCT 34.9 % (37.2-46.3); HGB 12.4 g/dL (12.0-15.0); Lymphocytes % (A) 32.2 %; MCH 36.8 pg (27.0-32.0); MCHC 35.5 g/dL (32.0-37.0); Monocytes # (A) 0.61 10*3/uL (0.20-1.00); Monocytes % (A) 12.3 %; Neutrophils # (A) 2.56 10*3/uL (1.80-7.70); Neutrophils % (A) 51.5 %; Platelet Count 197 10*3/uL (140-440); RBC 3.37 10*6/uL (4.10-5.20); RDW 13.1 % (11.5-14.5); WBC 4.97 10*3/uL (4.50-10.00)
--- NOTE | 2024-10-22 21:09 | P.PN ---
Subjective 58-year-old female, history of hypothyroidism, DVT, GERD, myelodysplasia presenting to the emergency department requesting alcohol detox. Patient states she started drinking again back in January. Patient is drinking over 1/5/day. sometimes half a gallon per day. Patient states this is consuming her and she wants to discontinue. Patient last drank at 8 AM. Patient feels shaky, no other complaints at this time. Patient reports last alcoholic drink earlier this morning Blood work completed in ED reveals a WBC of 5.61, hemoglobin of 13.4 and platelet count of 183, sodium 137, potassium 3.7, BUN/creatinine of 10/0.56 and blood glucose of 86 AST/ALT within normal limits, amylase lipase are within normal limits, serum alcohol of less than 10 10/19 Patient still complaining from headache and dizziness Physical 3 mg of Ativan yesterday morning and today morning. No significant withdrawal symptoms today but she feels she is not ready for discharge because of the current symptoms Symptomatic treatment is provided CIWA score fluctuating between 9 and 2. Also she is getting normal saline 1 from 1 mL/h. opinion polls survey worker consult for resources Possible discharge 24 to 48 hours 10/20 Patient was admitted for alcohol use disorder and treated for alcohol withdrawal this is improving and today required 1.5 mg of Ativan only. She has only mild tremor in the upper extremity and she looks anxious little bit depressed and crying about her discharge plan but she denies any intention to hurt self or others Patient did not want to be discharged today because she has some nausea, nausea medication was ordered but also upset because she cannot take care of herself and she cannot walk. She is complaining from severe ataxia, I tried to walk her and only few steps with assistance of 2 people she could walk only for 1 or 2 steps before she go back to bed. Patient states that this is new for her hospitalization she was able to walk much better. This could be 2 alcohol effect however since patient cannot walk for going to ask for neurology consult 10/21 Pain yesterday with minimal withdrawal symptoms Epigastric nausea vomiting and discomfort also improved and she eats more She still complains from gait instability and ataxia episode looks like related to alcohol but patient reports she was much better prior to hospitalization Patient was evaluated by PT and recommended home care with rolling walker if patient has assistance with standing activities MRI of the lower back is ordered and is pending 10/22 No significant withdrawal symptoms No significant abdominal pain or dyspepsia and she tolerates diet well She has some low back pain radiating to the right leg, MRI of the lower spine requested by our neurology still pending Possible discharge in 24 to 48 hours Objective - Vital Signs Vital signs: Vital Signs Temp 97.7 F 10/22/24 11:59 Pulse 54 L 10/22/24 11:59 Resp 18 10/22/24 11:59 BP 135/88 10/22/24 11:59 Pulse Ox 97 10/22/24 11:59 FiO2 Intake & Output 10/21/24 10/22/24 10/22/24 18:59 06:59 18:59 Intake Total 480 Balance 480 Weight 68.039 kg Intake: Oral 480 Other: Voiding Method Toilet Toilet Toilet # Voids 2 0 1 # Bowel Movements 1 - Exam GENERAL: The patient is alert and oriented x3, not in any acute distress. Well developed, well nourished. HEENT: Pupils are round and equally reacting to light. EOMI. No scleral icterus. No conjunctival pallor. Normocephalic, atraumatic. No pharyngeal erythema. No thyromegaly. CARDIOVASCULAR: S1 and S2 present. No murmurs, rubs, or gallops. PULMONARY: Chest is clear to auscultation, no wheezing , no crackles. ABDOMEN: Soft, nontender, nondistended, normoactive bowel sounds. No palpable organomegaly. MUSCULOSKELETAL: No joint swelling or deformity. EXTREMITIES: No cyanosis, clubbing, or pedal edema. NEUROLOGICAL: Gross neurological examination did not reveal any focal deficits. SKIN: No rashes. no petechiae. -Gait: Ataxia, needed assistance with ambulation - Labs CBC & Chem 7: 10/18/24 05:55 10/19/24 04:26 Assessment and Plan Assessment: 1. Alcohol abuse with pending withdrawal -Patient has been placed on IV fluids; thiamine and folic acid - [facility] protocol with Ativan - Social service consult in place 2. Severe ataxia and inability to walk. Thought secondary to alcohol effect. However because of her low back pain and radicular symptoms more on the right side neurologist recommended MRI of the spine which is pending now. -Will ask for PT/OT evaluation recommended home care with a rolling walker if has assistance for standing activities 3. GERD/gastritis; Protonix 40 mg daily 4. 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 Bipolar disorder; continue with home dose of Latuda 40 mg daily 6. Vitamin D deficiency; vitamin D 125 mcg daily DVT prophylaxis; SCDs CODE STATUS; full code
[2024-10-22 21:53] LABS: MCV 103.6 fL (80.0-97.0)
[2024-10-23 14:42] VITALS: BP 130/82; PULSE 62; TEMP 98.4
== END 2024-10-23 18:20 | disposition home or self-care (01) | DRG 775 ==
LOC: EC 13:29 → 5NMEDONC 16:05 → OBSVTOIN 16:06 → 5NMEDONC 16:23
PROVIDERS: ADMIT Internal Medicine; ATTEND Internal Medicine
DX: F10.239 Alcohol dependence with withdrawal, unspecified (principal); F31.9 Bipolar disorder, unspecified; F41.9 Anxiety disorder, unspecified; G89.29 Other chronic pain; K21.9 Gastro-esophageal reflux disease without esophagitis; K29.70 Gastritis, unspecified, without bleeding; M25.78 Osteophyte, vertebrae; M47.812 Spondylosis without myelopathy or radiculopathy, cervical region; M51.370 Other intervertebral disc degeneration, lumbosacral region with discogenic back pain only; G44.41 Drug-induced headache, not elsewhere classified, intractable; D70.9 Neutropenia, unspecified; T45.8X5A Adverse effect of other primarily systemic and hematological agents, initial encounter; Y90.0 Blood alcohol level of less than 20 mg/100 ml; E55.9 Vitamin D deficiency, unspecified; R26.9 Unspecified abnormalities of gait and mobility; E03.9 Hypothyroidism, unspecified; D53.9 Nutritional anemia, unspecified; D18.09 Hemangioma of other sites; C91.Z0 Other lymphoid leukemia not having achieved remission; Z79.890 Hormone replacement therapy; Z79.899 Other long term (current) drug therapy; Z86.718 Personal history of other venous thrombosis and embolism; Z87.891 Personal history of nicotine dependence; Z95.5 Presence of coronary angioplasty implant and graft; Z86.19 Personal history of other infectious and parasitic diseases; Z88.1 Allergy status to other antibiotic agents; Z88.0 Allergy status to penicillin
CPT/HCPCS: 36415; 72148; 80048; 80053; 80320; 82607; 82746; 83690; 83735; 83921; 84207; 84439; 84443; 85025; 96372; 99285

== ENCOUNTER 2024-11-06 14:20 | Emergency (ER) | payer OTHER ==
[2024-11-06 14:53] VITALS: PULSE 69; RESP 20; TEMP 98.5
[2024-11-06] MEDS ORDERED: LORazepam 0.5 MG TAB PO PRN (15:33)
[2024-11-06] MEDS ORDERED: LORazepam 1 MG TAB PO PRN ×3 (15:33)
[2024-11-06] MEDS: LORazepam 1 MG TAB PO PRN (15:54)
[2024-11-06] MEDS: SODIUM CHLORIDE 0.9% 1,000 ML IV STA (15:55)
[2024-11-06 16:08] LABS: Basophils # (A) 0.05 10*3/uL (0.00-0.10); Basophils % (A) 0.7 %; Eosinophils # (A) 0.16 10*3/uL (0.04-0.35); Eosinophils % (A) 2.3 %; HCT 33.9 % (37.2-46.3); HGB 12.4 g/dL (12.0-15.0); Lymphocytes # (A) 1.74 10*3/uL (0.90-5.00); Lymphocytes % (A) 24.5 %; MCH 37.1 pg (27.0-32.0); MCHC 36.6 g/dL (32.0-37.0); MCV 101.5 fL (80.0-97.0); Monocytes # (A) 0.78 10*3/uL (0.20-1.00); Monocytes % (A) 11.0 %; Neutrophils # (A) 4.34 10*3/uL (1.80-7.70); Neutrophils % (A) 61.2 %; Platelet Count 200 10*3/uL (140-440); RBC 3.34 10*6/uL (4.10-5.20); RDW 12.6 % (11.5-14.5); WBC 7.09 10*3/uL (4.50-10.00)
[2024-11-06 16:13] LABS: Bilirubin,Urine Negative (Negative); Blood,Urine Trace (Negative); Color,Urine Yellow; Glucose,Urine (UA) Negative (Negative); Ketones,Urine Negative (Negative); Leukocyte Esterase,Urine Moderate (Negative); Mucus,Urine Rare /hpf; Nitrite,Urine Negative (Negative); PH, Urine 6.0 (5.0-8.0); Protein,Urine Trace (Negative); RBC,Urine 4 /hpf (0-5); Specific Gravity,Urine 1.031 (1.001-1.035); Squamous Epithelial Cell,Urine 5 /hpf (0-4); Urobilinogen,Urine <2.0 mg/dL (<2.0); WBC,Urine 22 /hpf (0-5)
[2024-11-06 16:22] LABS: ALT 21 U/L (4-34); AST 32 U/L (14-36); African American GFR (CKD) >90 (>60 ml/min/1.73 sqM); Albumin 4.4 g/dL (3.5-5.0); Alkaline Phosphatase 93 U/L (38-126); Anion Gap 10 mmol/L; Blood Urea Nitrogen 16 mg/dL (7-17); Calcium 9.5 mg/dL (8.4-10.2); Carbon Dioxide 24 mmol/L (22-30); Chloride 106 mmol/L (98-107); Glucose 111 mg/dL (74-99); Lipase 105 U/L (23-300); Magnesium 1.5 mg/dL (1.6-2.3); Non-African American GFR(CKD) >90 (>60 ml/min/1.73 sqM); Potassium 3.6 mmol/L (3.5-5.1); Sodium 140 mmol/L (137-145); Total Protein 7.2 g/dL (6.3-8.2)
[2024-11-06 16:23] LABS: Urn Cannabinoid Scrn Not Detected (NotDetected)
[2024-11-06 16:24] LABS: Barbiturate Screen,Urine Not Detected (NotDetected); Benzodiazepines Screen,Urine Detected (NotDetected); Opiate Screen,Urine Not Detected (NotDetected); Oxycodone Screen, Urine Not Detected (NotDetected); Phencyclidine Screen,Urine Not Detected (NotDetected); Tricyclic Antidepressant,Urine Not Detected (NotDetected)
--- NOTE | 2024-11-06 17:26 | ED ---
Alcohol HPI - General Chief Complaint: Alcohol Stated Complaint: ETOH Time Seen by Provider: 11/06/24 15:15 Source: patient Mode of arrival: ambulatory Limitations: no limitations - History of Present Illness Initial Comments: 58-year-old female who presents to the emergency department with symptoms of alcohol withdrawal. States that she is supposed to go to rehab in the morning. She stopped drinking and states that she currently feels tremulous. She came to the hospital because she states that she knew if she stayed at home she would continue drinking unless her rehab appointment which is at 8 AM. Patient states that she drinks a pint to a fifth daily. Also admits to cocaine use that she smokes. Patient denies that she wants to harm herself. She is extremely eager to go to rehab. No history of withdrawal seizures. No other alleviating, precipitating or modifying factors - Related Data Home Medications Medication Instructions Recorded Confirmed Multivitamins, Thera [Multivitamin 1 tab PO DAILY 10/16/24 10/16/24 (formulary)] Previous Rx's Medication Instructions Recorded Cholecalciferol (Vitamin D3) 125 mcg PO DAILY 30 Days #30 cap 07/09/24 [Vitamin D3 (125 MCG = 5,000 IU)] Ferrous Sulfate [Iron (65 MG 325 mg PO DAILY 30 Days #30 tab 07/09/24 Elemental)] Folic Acid 1 mg PO DAILY 30 Days #30 tab 07/09/24 Thiamine [Vitamin B-1] 100 mg PO DAILY 30 Days #30 tab 07/09/24 Lurasidone [Latuda] 40 mg PO DAILY@1800 #30 tab 10/23/24 Naltrexone HCl [Revia] 50 mg PO DAILY 30 Days #30 tab 10/23/24 Pantoprazole [Protonix] 40 mg PO DAILY 30 Days #30 tab 10/23/24 LORazepam [Ativan] 1 mg PO QID PRN #4 tab 11/06/24 Levothyroxine Sodium [Synthroid] 150 mcg PO DAILY 30 Days #30 tab 11/06/24 Allergies Allergy/AdvReac Type Severity Reaction Status Date / Time amoxicillin Allergy Unknown Verified 11/06/24 14:53 banana Allergy Rash/Hives Verified 11/06/24 14:53 bee venom protein (honey bee) Allergy Anaphylaxis Verified 11/06/24 14:53 cephalexin [From Keflex] Allergy Unknown Verified 11/06/24 14:53 Penicillins Allergy Rash/Hives Verified 11/06/24 14:53 Tetracyclines Allergy Unknown Verified 11/06/24 14:53 Review of Systems ROS Statement: Those systems with pertinent positive or pertinent negative responses have been documented in the HPI. ROS Other: All systems not noted in ROS Statement are negative. Past Medical History Past Medical History: Cancer, Deep Vein Thrombosis (DVT), GERD/Reflux, Thyroid Disorder Additional Past Medical History / Comment(s): neutropenia, hypothyroidism, myelodisplasia, anemia - per 's note from 03/2018 pt was dx thru bone marrow bx at the [facility] 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 History of Any Multi-Drug Resistant Organisms: C-DIFF Date of last positivie culture[facility]infection: [facility] states this has been ongoing since dec MDRO Source:: wound rt hip / stool Past Surgical History: Hysterectomy Additional Past Surgical History / Comment(s): ectopic , neck surgery secondary to C3 fracture, bone marrow biopsy x 4 Past Anesthesia/Blood Transfusion Reactions: No Reported Reaction Additional Past Anesthesia/Blood Transfusion Reaction / Comment(s): pt stated has received blood in past no known reaction Past Psychological History: Anxiety, Depression Smoking Status: Current some day smoker, Former smoker Past Alcohol Use History: Abuse, Daily Past Drug Use History: Cocaine, Marijuana - Past Family History Father Family Medical History: Cancer Additional Family Medical History / Comment(s): mesothelioma Mother History Unknown: Yes Family Medical History: Hyperlipidemia General Exam Limitations: no limitations General appearance: alert, anxious Head exam: Present: atraumatic, normocephalic, normal inspection Eye exam: Present: normal appearance, PERRL, EOMI. Absent: scleral icterus, conjunctival injection, periorbital swelling ENT exam: Present: normal exam, mucous membranes moist Neck exam: Present: normal inspection. Absent: tenderness, meningismus, lymphadenopathy Respiratory exam: Present: normal lung sounds bilaterally. Absent: respiratory distress, wheezes, rales, rhonchi, stridor Cardiovascular Exam: Present: regular rate, normal rhythm, normal heart sounds. Absent: systolic murmur, diastolic murmur, rubs, gallop, clicks GI/Abdominal exam: Present: soft, normal bowel sounds. Absent: distended, tenderness, guarding, rebound, rigid Extremities exam: Present: normal inspection, full ROM, normal capillary refill. Absent: tenderness, pedal edema, joint swelling, calf tenderness Back exam: Present: normal inspection Neurological exam: Present: alert, oriented X3, CN II-XII intact Psychiatric exam: Present: normal affect, normal mood Skin exam: Present: warm, dry, intact, normal color. Absent: rash Course Vital Signs 11/06/24 14:49 Temperature 98.5 F Pulse Rate 69 Respiratory 20 Rate O2 Sat by Pulse 97 Oximetry Medical Decision Making - Medical Decision Making Was pt. sent in by a medical professional or institution (, [facility], [employer], urgent care, hospital, or custodial...) When possible be specific @ -No Did you speak to anyone other than the patient for history (EMS, parent, family, police, friend...)? What history was obtained from this source @ -No Did you review nursing and triage notes (agree or disagree)? Why? @ -I reviewed and agree with nursing and triage notes Were old charts reviewed (outside hosp., previous admission, EMS record, old EKG, old radiological studies, urgent care reports/EKG's, custodial records)? Report findings @ -No old charts were reviewed Differential Diagnosis (chest pain, altered mental status, abdominal pain women, abdominal pain men, vaginal bleeding, weakness, fever, dyspnea, syncope, headache, dizziness, GI bleed, back pain, seizure, CVA, palpatations, mental hea lth, musculoskeletal)? @ -Alcohol intoxication, alcohol withdrawal, polysubstance abuse EKG interpreted by me (3pts min.). @ -Not done X-rays interpreted by me (1pt min.). @ -None done CT interpreted by me (1pt min.). @ -None done U/S interpreted by me (1pt. min.). @ -None done What testing was considered but not performed or refused? (CT, X-rays, U/S, labs)? Why? @ -None What meds were considered but not given or refused? Why? @ -None Did you discuss the management of the patient with other professionals (professionals i.e. [facility] Mac, [employer], lab, RT, psych nurse, nursing home social worker, developmental specialist, teacher, artillery officer, top case assembler)? Give summary @ -No Was smoking cessation discussed for >3mins.? @ -No Was critical care preformed (if so, how long)? @ -No Were there social determinants of health that impacted care today? How? (Homelessness, low income, unemployed, alcoholism, drug addiction, transportation, low edu. Level, literacy, decrease access to med. care, halfway, rehab)? @ -No Was there de-escalation of care discussed even if they declined (Discuss DNR or withdrawal of care, Hospice)? DNR status @ -No What co-morbidities impacted this encounter? (DM, HTN, Smoking, COPD, CAD, Ca ncer, CVA, ARF, Chemo, Hep., AIDS, mental health diagnosis, sleep apnea, morbid obesity)? @ -Alcohol abuse Was patient admitted / discharged? Hospital course, mention meds given and route, prescriptions, significant lab abnormalities, going to OR and other pertinent info. @ -Upon arrival patient seen and evaluated in room 23. Thorough history and physical exam was performed. Patient states she came up to the hospital because she wanted assistance in her withdrawal symptoms. States that she would prefer to use medications rather than go out and drink. She states that if she drinks, she knows she will miss her appointment in the morning. She is very eager for rehab. IV was established and laboratory studies are conducted. Patient was given Zofran and a dose of Ativan. She feels improved. She does have her appointment for rehab at 8 AM in the morning. At this time I did give the patient a short prescription of Ativan that she can use until the morning for her withdrawal symptoms. I also called in a prescription for her Synthroid as she will need this to go to rehab. Patient feels comfortable with the plan of picking up these medications at the outpatient pharmacy. Return for any new or worsening symptoms. Patient agreeable to this and was discharged in stable condition Undiagnosed new problem with uncertain prognosis? @ -No Drug Therapy requiring intensive monitoring for toxicity (Heparin, Nitro, Insulin, Cardizem)? @ -No Were any procedures done? @ -No Diagnosis/symptom? @ -Acute alcohol withdrawal, history of alcohol dependence Acute, or Chronic, or Acute on Chronic? @ -Acute Uncomplicated (without systemic symptoms) or Complicated (systemic symptoms)? @ -Complicated Side effects of treatment? @ -No Exacerbation, Progression, or Severe Exacerbation? @ -No Poses a threat to life or bodily function? How? (Chest pain, [place], [place], pneumonia, PE, COPD, DKA, ARF, appy, cholecystitis, CVA, Diverticulitis, Homicidal, Suicidal, threat to staff... and all critical care pts) @ -No - Lab Data Result diagrams: 11/06/24 15:44 11/06/24 15:44 Lab Results 11/06/24 11/06/24 11/06/24 Range/Units 15:44 15:44 15:44 WBC 7.09 (4.50-10.00) 10*3/uL RBC 3.34 L (4.10-5.20) 10*6/uL Hgb 12.4 (12.0-15.0) g/dL Hct 33.9 L (37.2-46.3) % MCV 101.5 H (80.0-97.0) fL MCH 37.1 H (27.0-32.0) pg MCHC 36.6 (32.0-37.0) g/dL Plt Count 200 (140-440) 10*3/uL MPV 8.9 L (9.5-12.2) fL Immature Gran % (Auto) 0.3 % Neutrophils % 61.2 % Lymphocytes % 24.5 % Monocytes % 11.0 % Eosinophils % 2.3 % Basophils % 0.7 % Immature Gran # 0.02 (0.00-0.04) 10*3/uL Neutrophils # 4.34 (1.80-7.70) 10*3/uL Lymphocytes # 1.74 (0.90-5.00) 10*3/uL Monocytes # 0.78 (0.20-1.00) 10*3/uL Eosinophils # 0.16 (0.04-0.35) 10*3/uL Basophils # 0.05 (0.00-0.10) 10*3/uL Sodium 140 (137-145) mmol/L Potassium 3.6 (3.5-5.1) mmol/L Chloride 106 (98-107) mmol/L Carbon Dioxide 24 (22-30) mmol/L Anion Gap 10 mmol/L BUN 16 (7-17) mg/dL Creatinine 0.73 (0.52-1.04) mg/dL Est GFR (CKD-EPI)AfAm >90 (>60 ml/min/1.73 sqM) Est GFR (CKD-EPI)NonAf >90 (>60 ml/min/1.73 sqM) Glucose 111 H (74-99) mg/dL Calcium 9.5 (8.4-10.2) mg/dL Magnesium 1.5 L (1.6-2.3) mg/dL Total Bilirubin 0.8 (0.2-1.3) mg/dL AST 32 (14-36) U/L ALT 21 (4-34) U/L Alkaline Phosphatase 93 (38-126) U/L Total Protein 7.2 (6.3-8.2) g/dL Albumin 4.4 (3.5-5.0) g/dL Lipase 105 (23-300) U/L Urine Color Yellow Urine Appearance Clear (Clear) Urine pH 6.0 (5.0-8.0) Ur Specific [place] 1.031 (1.001-1.035) Urine Protein Trace H (Negative) Urine Glucose (UA) Negative (Negative) Urine Ketones Negative (Negative) Urine Blood Trace H (Negative) Urine Nitrite Negative (Negative) Urine Bilirubin Negative (Negative) Urine Urobilinogen <2.0 (<2.0) mg/dL Ur Leukocyte Esterase Moderate H (Negative) Urine RBC 4 (0-5) /hpf Urine WBC 22 H (0-5) /hpf Ur Squamous Epith Cells 5 H (0-4) /hpf Urine Mucus Rare H (None) /hpf Urine Opiates Screen Not Detected (NotDetected) Ur Oxycodone Screen Not Detected (NotDetected) Urine Methadone Screen Not Detected (NotDetected) Ur Barbiturates Screen Not Detected (NotDetected) U Tricyclic Antidepress Not Detected (NotDetected) Ur Phencyclidine Scrn Not Detected (NotDetected) Ur Amphetamines Screen Detected H (NotDetected) U Methamphetamines Scrn Detected H (NotDetected) U Benzodiazepines Scrn Detected H (NotDetected) Urine Cocaine Screen Detected H (NotDetected) U Marijuana (THC) Screen Not Detected (NotDetected) Serum Alcohol <10 mg/dL Disposition Clinical Impression: Alcohol withdrawal Disposition: HOME SELF-CARE Condition: Stable Instructions (If sedation given, give patient instructions): Alcohol Withdrawal (ED) Additional Instructions: Please take the Ativan every 6 hours as needed for withdrawal. Return to the ED for any new or worsening symptoms. Prescriptions: LORazepam [Ativan] 1 mg PO QID PRN #4 tab PRN Reason: Alcohol Withdrawal Levothyroxine Sodium [Synthroid] 150 mcg PO DAILY 30 Days #30 tab Is patient prescribed a controlled substance at d/c from ED?: Yes When asked, does pt state using other controlled substances?: No If prescribed controlled substance>3 days was MAPS reviewed?: Prescribed <3 Days Referrals: Tripp Davidson MD [Primary Care Provider] - 1-2 days Time of Disposition: 17:26
[2024-11-06] MEDS: ONDANSETRON 4 MG/2 ML VIAL IVP STA (17:28)
== END 2024-11-06 17:36 | disposition home or self-care (01) ==
LOC: EC 14:20
DX: F10.939 Alcohol use, unspecified with withdrawal, unspecified (principal); F17.200 Nicotine dependence, unspecified, uncomplicated; Z88.0 Allergy status to penicillin; Z88.1 Allergy status to other antibiotic agents; Z91.018 Allergy to other foods; Z91.030 Bee allergy status; Z88.8 Allergy status to other drugs, medicaments and biological substances; Y90.9 Presence of alcohol in blood, level not specified
CPT/HCPCS: 36415; 80053; 83690; 83735; 85025; 81001; 80306; 99284; 96374; 96361; G0480; J2405; 80320